=== PATIENT | male | born 1935 | race Caucasian/White ===

== ENCOUNTER 2016-11-17 12:09 | Emergency (ER) | payer OTHER, MEDICARE ==
[2016-11-17 12:15] VITALS: BP 151/83; PULSE 77; TEMP 98; BMI 40.1
--- NOTE | 2016-11-17 15:50 | PDOC ---
History of Present Illness - General Chief Complaint: Injury Stated Complaint: FALL, RT SIDE PAIN Time Seen by Provider: 11/17/16 12:22 History Source: Patient Exam Limitations: No Limitations - History of Present Illness Initial Comments: 11/17/16 15:44 CC pain left hip left shoulder and right elbow post fall ysday Severity: reports: mild Pain Location: reports: lower extremity, upper extremity Method of Injury: Yes: fall Past History - Past Medical History Allergies/Adverse Reactions: Allergies Allergy/AdvReac Type Severity Reaction Status Date / Time Penicillins Allergy Mild "BAD Verified 11/17/16 12:12 REACTION" Home Medications: Ambulatory Orders Allopurinol [Zyloprim -] 100 mg PO BID 06/06/14 Arformoterol Tartrate [Brovana] 15 mcg IH BID 06/06/14 Budesonide [Pulmicort 0.25 mg -] 1 neb PO BID 06/06/14 Captopril 50 mg PO BID 06/06/14 Cholecalciferol (Vitamin D3) [Vitamin D] 2,000 unit PO DAILY 06/06/14 Clopidogrel Bisulfate [Plavix -] 75 mg PO DAILY 06/06/14 [place]-3 Fatty Acids [Fish Oil] 2,000 mg PO DAILY 06/06/14 Simvastatin [Zocor -] 40 mg PO HS 06/06/14 Vitamin B Complex 1 each PO DAILY 06/06/14 Anemia: Yes (IRON DEFICIENCY ANEMIA) Asthma: Yes Cancer: Yes (BLADDER) Cardiac Disorders: Yes CVA: No COPD: Yes Dementia: No Diabetes: No Dialysis: No GI Disorders: No Disorders: No HTN: Yes Hypercholesterolemia: Yes Liver Disease: No Seizures: No Thyroid Disease: No - Surgical History Abdominal Surgery: No Appendectomy: Yes (1998) Cardiac Surgery: Yes (STENT X 1) Lung Surgery: No Neurologic Surgery: No - Psycho/Social/Smoking Cessation Hx Anxiety: No Suicidal Ideation: No Smoking Status: Yes Smoking History: Former smoker Have you smoked in the past 12 months: No Information on smoking cessation initiated: No Hx Alcohol Use: No Drug/Substance Use Hx: No Substance Use Type: None Hx Substance Use Treatment: No Trauma Specific PMHX - Complaint Specific PMHX Arthritis: Yes Review of Systems - Review of Systems Constitutional: No: Chills, Fever, Malaise HEENTM: No: Symptoms Reported, Mouth Swelling Respiratory: No: Symptoms reported, Cough Cardiac (ROS): No: Symptoms Reported ABD/GI: No: Symptoms Reported : No: Symptoms Reported Musculoskeletal: Yes: Joint Pain, Joint Swelling. No: Back Pain, Neck Pain *Physical Exam - Vital Signs Last Vital Signs Temp Pulse Resp BP Pulse Ox 98.0 F 77 18 151/83 100 11/17/16 12:12 11/17/16 12:12 11/17/16 12:12 11/17/16 12:12 11/17/16 12:12 - Physical Exam General Appearance: Yes: Appropriately Dressed. No: Apparent Distress HEENT: positive: TMs Normal, Pharynx Normal Neck: positive: Supple. negative: Tender, Rigid, Lymphadenopathy (R), Lymphadenopathy (L) Respiratory/Chest: positive: Lungs Clear. negative: Accessory Muscle Use Cardiovascular: positive: Regular Rhythm, Regular Rate. negative: Murmur Male Genitalia: positive: normal genitalia. negative: normal prostate ED Treatment Course - RADIOLOGY Radiology Studies Ordered: Category Date Time Status LOWER EXTREMITY CT W/O CONTR [CT] Stat CT Scan 11/17/16 14:37 Completed ELBOW-RIGHT [RAD] Stat Radiology 11/17/16 12:49 Completed HIP-LEFT [RAD] Stat Radiology 11/17/16 12:49 Completed SHOULDER-LEFT [RAD] Stat Radiology 11/17/16 12:49 Completed Medical Decision Making - Medical Decision Making 11/17/16 15:47 CT scan left hip/ pelvis= no fxs, susp. lesions; xray shoulder, elbow negative ; will send home with percocet *DC/Admit/Observation/Transfer Diagnosis at time of Disposition: Contusion Qualifiers: Encounter type: initial encounter Contusion area: elbow Laterality: left Qualified Code(s): S50.02XA - Contusion of left elbow, initial encounter Strain of left shoulder Qualifiers: Encounter type: initial encounter Qualified Code(s): S46.912A - Strain of unspecified muscle, fascia and tendon at shoulder and upper arm level, left arm , initial encounter - Discharge Dispostion Disposition: HOME Condition at time of disposition: Stable Admit: No - Patient Instructions Additional Instructions: please use cane x 3-4 days; see local MD 1 week if any new symptoms start
== END 2016-11-17 16:01 | disposition home or self-care (01) ==
LOC: JERFT 12:09
DX: S50.01XA Contusion of right elbow, initial encounter (principal); S46.912A Strain of unspecified muscle, fascia and tendon at shoulder and upper arm level, left arm, initial encounter; W18.39XA Other fall on same level, initial encounter; Y93.9 Activity, unspecified; Y92.9 Unspecified place or not applicable; Z85.51 Personal history of malignant neoplasm of bladder; Z87.891 Personal history of nicotine dependence; I10 Essential (primary) hypertension; E78.00 Pure hypercholesterolemia, unspecified; Z95.5 Presence of coronary angioplasty implant and graft; J44.9 Chronic obstructive pulmonary disease, unspecified; I51.9 Heart disease, unspecified
CPT/HCPCS: 73030-TC-LT; 73070-TC-RT; 73502-TC-LT; 73700-TC-RT; 99281-25

== ENCOUNTER 2017-07-09 15:29 | Emergency (ER) | payer OTHER, MEDICARE ==
[2017-07-09 15:50] VITALS: TEMP 98.2; BMI 38.3
[2017-07-09] MEDS ORDERED: CLINDAMYCIN HCL 300 MG CAPSULE PO ONE (16:22)
[2017-07-09] MEDS ORDERED: CLINDAMYCIN HCL 150 MG CAPSULE (FP) ONE (16:35)
--- NOTE | 2017-07-09 16:52 | PDOC ---
History of Present Illness - General History Source: Patient - History of Present Illness Timing/Duration: reports: other (3 days ago) Location: reports: extremities <Liat Morse - Last Filed: 07/09/17 16:47> <Nisha Smith - Last Filed: 07/10/17 17:17> - General Chief Complaint: Burn Stated Complaint: BURN FINGERS Time Seen by Provider: 07/09/17 16:03 Past History - Past Medical History Anemia: Yes (IRON DEFICIENCY ANEMIA) Asthma: Yes Cancer: Yes (BLADDER) Cardiac Disorders: Yes CVA: No COPD: Yes Dementia: No Diabetes: No Dialysis: No GI Disorders: No Disorders: No HTN: Yes Hypercholesterolemia: Yes Liver Disease: No Seizures: No Thyroid Disease: No - Surgical History Abdominal Surgery: No Appendectomy: Yes (1998) Cardiac Surgery: Yes (STENT X 1) Lung Surgery: No Neurologic Surgery: No - Suicide/Smoking/Psychosocial Hx Smoking Status: Yes Smoking History: Former smoker Have you smoked in the past 12 months: No If you are a former smoker, when did you quit?: 15 yrs ago Information on smoking cessation initiated: No Hx Alcohol Use: No Drug/Substance Use Hx: No Substance Use Type: None Hx Substance Use Treatment: No <Liat Morse - Last Filed: 07/09/17 16:47> <Nisha Smith - Last Filed: 07/10/17 17:17> - Past Medical History Allergies/Adverse Reactions: Allergies Allergy/AdvReac Type Severity Reaction Status Date / Time Penicillins Allergy Mild "BAD Verified 07/09/17 15:50 REACTION" Home Medications: Ambulatory Orders Allopurinol [Zyloprim -] 100 mg PO BID 06/06/14 Arformoterol Tartrate [Brovana] 15 mcg IH BID 06/06/14 Budesonide [Pulmicort 0.25 mg -] 1 neb PO BID 06/06/14 Captopril 50 mg PO BID 06/06/14 Cholecalciferol (Vitamin D3) [Vitamin D] 2,000 unit PO DAILY 06/06/14 Clopidogrel Bisulfate [Plavix -] 75 mg PO DAILY 06/06/14 [place]-3 Fatty Acids [Fish Oil] 2,000 mg PO DAILY 06/06/14 Simvastatin [Zocor -] 40 mg PO HS 06/06/14 Vitamin B Complex 1 each PO DAILY 06/06/14 Clindamycin [Cleocin -] 300 mg PO Q6HPO #28 capsule 07/09/17 Review of Systems - Review of Systems Constitutional: No: Chills, Fever Integumentary: Yes: Other (burn) <Liat Morse - Last Filed: 07/09/17 16:47> *Physical Exam - Vital Signs Last Vital Signs Temp Pulse Resp BP Pulse Ox 98.2 F 92 H 18 145/61 100 07/09/17 15:38 07/09/17 15:38 07/09/17 15:38 07/09/17 15:38 07/09/17 15:38 - Physical Exam General Appearance: Yes: Appropriately Dressed. No: Apparent Distress Neck: positive: Supple Respiratory/Chest: negative: Respiratory Distress Integumentary: positive: Dry, Warm, Other (3rd degree burn to tip of R2nd and 3rd fingers w/ charred, blackened skin at tips, limited erythema to site of 2nd digit wound c/f possible early infxn, FROMI to fingers ) <Liat Morse - Last Filed: 07/09/17 16:47> - Vital Signs Last Vital Signs Temp Pulse Resp BP Pulse Ox 98.2 F 82 18 144/70 98 07/09/17 17:01 07/09/17 17:01 07/09/17 17:01 07/09/17 17:01 07/09/17 17:01 <Nisha Smith - Last Filed: 07/10/17 17:17> ED Treatment Course - Medications Given in the ED: ED Medications Discontinued Medications Generic Name Dose Route Start Last Admin Trade Name Freq PRN Reason Stop Dose Admin Clindamycin HCl 600 mg 07/09/17 16:22 07/09/17 16:34 Cleocin - PO 07/09/17 16:23 600 mg ONCE ONE Administration <Liat Morse - Last Filed: 07/09/17 16:47> - Medications Given in the ED: ED Medications Discontinued Medications Generic Name Dose Route Start Last Admin Trade Name Freq PRN Reason Stop Dose Admin Clindamycin HCl 600 mg 07/09/17 16:22 07/09/17 16:34 Cleocin - PO 07/09/17 16:23 600 mg ONCE ONE Administration <Nisha Smith - Last Filed: 07/10/17 17:17> Medical Decision Making - Medical Decision Making 07/09/17 16:54 81-year-old male history of hypertension, 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 Patient states 3 days ago while cooking , accidentally touched a hot plate. States "I burnt my finger tips off". Here today because has since noticed redness around right index wound and concern for infection. Unable to feel pain in affected fingers 2/2 neuropathy per pt. No fever or chills See exam Possibly infected 3rd degree burn to R 2nd finger, limited to tip of index only No e/o deeper infxn, i.e tenosynovitis -local wound care and dressing w/ bacitracin, xeroform, gauze -dc w/ abx -wound check in 48 hrs 07/09/17 17:01 <Liat Morse - Last Filed: 07/09/17 16:47> *DC/Admit/Observation/Transfer <Liat Morse - Last Filed: 07/09/17 16:47> - Attestations Physician Attestion: I reviewed the case with the mid-level practitioner and agree with the mid- level practitioner's assessment, diagnosis and disposition. <Nisha Smith - Last Filed: 07/10/17 17:17> Diagnosis at time of Disposition: Burn of finger Qualifiers: Encounter type: initial encounter Laterality: right Burn degree: full thickness (3rd degree) Qualified Code(s): T23.321A - Burn of third degree of single right finger (nail) except thumb, initial encounter - Discharge Dispostion Disposition: HOME Condition at time of disposition: Stable - Prescriptions Prescriptions: Clindamycin [Cleocin -] 300 mg PO Q6HPO #28 capsule - Referrals Referrals: Doug Griffith MD [Primary Care Provider] - - Patient Instructions Printed Discharge Instructions: DI for [facility] Additional Instructions: Dress and careful wound as discussed in the ED. Take antibiotics as prescribed. Return to the ED on Wednesday for wound check. Return sooner if symptoms worsen Addendum entered and electronically signed by Liat Morse PA 07/09/17 17:01 : Pt states tetanus UTD
[2017-07-09 17:02] VITALS: BP 144/70; PULSE 82
== END 2017-07-09 17:00 | disposition home or self-care (01) ==
LOC: JER 15:29
DX: T23.321A Burn of third degree of single right finger (nail) except thumb, initial encounter (principal); J44.9 Chronic obstructive pulmonary disease, unspecified; D50.9 Iron deficiency anemia, unspecified; Y27.9XXA Contact with unspecified hot objects, undetermined intent, initial encounter; Y93.G1 Activity, food preparation and clean up; Y92.9 Unspecified place or not applicable
CPT/HCPCS: 99281-25

== ENCOUNTER 2017-07-11 13:01 | Emergency (ER) | payer OTHER, MEDICARE ==
[2017-07-11 13:09] VITALS: BP 142/94; PULSE 86; TEMP 98.2; BMI 38.3
[2017-07-11] MEDS ORDERED: DIPHTH,PERTUSS(ACELL),TET 0.5 ML DISP.SYRIN IM ONE ×2 (13:56→14:39)
--- NOTE | 2017-07-11 13:59 | PDOC ---
Suture Removal/Wound Check HPI - History of Present Illness Chief Complaint: Revisit,Wound Recheck Stated Complaint: REVISIT/ BURN Time Seen by Provider: 07/11/17 13:45 History Source: Yes: Patient Exam Limitations: Yes: No Limitations Treated at: [facility] ED - Previous ED Treatment Type of procedure performed on last visit: Yes: Burn Dressing Tetanus Immunization: Yes: Up to Date Antibiotics Prescribed: Yes (not taking ) - Onset of Previous Treatment Comment:: 07/11/17 14:19 Stained significant ospina to his right index and third fingertips 4 days ago. Has peripheral neuropathy and states cleaned at hot plate that he had used to cook on with a sponge. States woke up the following day and saw large blisters to the distal tips of those fingers. States has no sensation in his fingertips and was unaware that he had injured himself. Came for evaluation 2 days ago to this emergency department where wounds were cleaned and dressed with Xeroform gauze. He was instructed to return to this emergency department for evaluation which she did. Was prescribed antibiotic 07/11/17 19:43 Past History - Travel Traveled outside of the country in the last 30 days: No Close contact w/someone who was outside of country & ill: No - Past Medical History Allergies/Adverse Reactions: Allergies Allergy/AdvReac Type Severity Reaction Status Date / Time Penicillins Allergy Mild "BAD Verified 07/11/17 13:09 REACTION" Home Medications: Ambulatory Orders Allopurinol [Zyloprim -] 100 mg PO BID 06/06/14 Arformoterol Tartrate [Brovana] 15 mcg IH BID 06/06/14 Budesonide [Pulmicort 0.25 mg -] 1 neb PO BID 06/06/14 Captopril 50 mg PO BID 06/06/14 Cholecalciferol (Vitamin D3) [Vitamin D] 2,000 unit PO DAILY 06/06/14 Clopidogrel Bisulfate [Plavix -] 75 mg PO DAILY 06/06/14 [place]-3 Fatty Acids [Fish Oil] 2,000 mg PO DAILY 06/06/14 Simvastatin [Zocor -] 40 mg PO HS 06/06/14 Vitamin B Complex 1 each PO DAILY 06/06/14 Clindamycin [Cleocin -] 300 mg PO Q6HPO #28 capsule 07/09/17 Anemia: Yes (IRON DEFICIENCY ANEMIA) Asthma: Yes Cancer: Yes (BLADDER) Cardiac Disorders: Yes CVA: No COPD: Yes Dementia: No Diabetes: No Dialysis: No GI Disorders: No Disorders: No HTN: Yes Hypercholesterolemia: Yes Liver Disease: No Seizures: No Thyroid Disease: No Other medical history: obesity - Surgical History Abdominal Surgery: No Appendectomy: Yes (1998) Cardiac Surgery: Yes (STENT X 1) Lung Surgery: No Neurologic Surgery: No - Suicide/Smoking/Psychosocial Hx Smoking Status: Yes Smoking History: Never smoked Have you smoked in the past 12 months: No If you are a former smoker, when did you quit?: 15 yrs ago Information on smoking cessation initiated: No Hx Alcohol Use: No Drug/Substance Use Hx: No Substance Use Type: None Hx Substance Use Treatment: No Suture Removal/Wound Check PE - Physical Exam Laceration/Wound Check Symptoms: reports: None Comments: 07/11/17 19:44 Patient with pale nonviable tissue extending to midpoint distal phalanx of right index finger with denuded skin and nonblanching to distal tip. Nail appears nonvascularized.. Distal right digit with nonblanching wound to distal digit approximately 1 cm, patient has no pain but has total loss of sensation to all fingers and both hands. Range of motion is intact to all digits. Current Severity Level: None Maximum Severity Level: None Pain Localization: None *Review of Systems - Review of Systems Able to Perform ROS?: Yes Constitutional: Yes: See HPI. No: Symptoms Reported, Fever HEENTM: No: Symptoms Reported Respiratory: No: Symptoms reported Musculoskeletal: Yes: Symptoms Reported, See HPI Integumentary: Yes: Symptoms Reported, See HPI Neurological: No: Symptoms reported All Other Systems: Reviewed and Negative Medical Decision Making - Medical Decision Making 07/11/17 14:[address] Ly who recommends Xeroform gauze, dressings, and he will see him in his office for reevaluation and potential grafting. 07/11/17 14:22 07/11/17 14:22 07/11/17 14:22 07/11/17 19:45 *DC/Admit/Observation/Transfer Diagnosis at time of Disposition: Visit for wound check Burn of finger Qualifiers: Encounter type: subsequent encounter Laterality: right Burn degree: full thickness (3rd degree) Qualified Code(s): T23.321D - Burn of third degree of single right finger (nail) except thumb, subsequent encounter - Discharge Dispostion Disposition: HOME Condition at time of disposition: Stable Admit: No - Referrals Referrals: Doug Griffith MD [Primary Care Provider] - Derek Ly MD [Staff Physician] - - Patient Instructions Printed Discharge Instructions: DI for Debridement of a Wound, Infection, or Burn Additional Instructions: , Avoid any heavy lifting or strenuous activity until wound healed or cleared by physician To keep hand elevated Keep hand weighed avoid wetting of dressing as will be evaluated by physician Dr. Ly's office tomorrow after 9 AM to organize an appointment for either tomorrow or following day
== END 2017-07-11 15:10 | disposition home or self-care (01) ==
LOC: JERFT 13:01
PROC: 2W2JX4Z Dressing of Right Finger using Bandage (ICD-10-PCS; principal; 2017-07-11)
DX: T23.331D Burn of third degree of multiple right fingers (nail), not including thumb, subsequent encounter (principal); T23.321D Burn of third degree of single right finger (nail) except thumb, subsequent encounter; Y93.G1 Activity, food preparation and clean up; Y92.010 Kitchen of single-family (private) house as the place of occurrence of the external cause; D50.8 Other iron deficiency anemias; J44.9 Chronic obstructive pulmonary disease, unspecified; J45.909 Unspecified asthma, uncomplicated; Z95.5 Presence of coronary angioplasty implant and graft; Z87.891 Personal history of nicotine dependence; X19.XXXD Contact with other heat and hot substances, subsequent encounter
CPT/HCPCS: 16020; 90715; 99281-25

== ENCOUNTER 2017-08-06 11:47 | Inpatient (IN) | payer OTHER, MEDICARE ==
[2017-08-06 11:50] VITALS: BMI 38.3
--- NOTE | 2017-08-06 12:04 | PDOC ---
History of Present Illness - General Chief Complaint: Rectal Bleed Stated Complaint: RECTAL BLEED Time Seen by Provider: 08/06/17 12:03 History Source: Patient - History of Present Illness Initial Comments: 08/06/17 12:29 CC: Acute onset of rectal bleed Patient is a 81 y.o. male with a PMH of HTN, COPD (not on home O2) Bladder CA (s /p urostomy bag), gout and DLD who presents c/o 2 episode of bright red blood in his stool. Patient notes he felt like he was having diarrhea, but looked down and saw bright red blood and not much stool. Patient denies any associated abdominal pain or cramping as well any shortness of breath, lightheadedness, hematuria/dysuria but does endorse increased urgency for bowel movement. Patient notes he had a colonoscopy > 10 years previous that was normal and notes both of his brothers have diverticulosis and there is a possible h/o colon cancer in his father but he is not certain. Surgical: Bladder resection, Prostate resection, Appendectomy Social: denies cigarettes, quit > 10 years previous, denies alcohol, denies recreational drugs Allergies: Penicillin PMD: Dr. Barnett Past History - Past Medical History Allergies/Adverse Reactions: Allergies Allergy/AdvReac Type Severity Reaction Status Date / Time Penicillins Allergy Mild "BAD Verified 08/06/17 11:48 REACTION" Home Medications: Ambulatory Orders Allopurinol [Zyloprim -] 100 mg PO BID 06/06/14 Cholecalciferol (Vitamin D3) [Vitamin D] 2,000 unit PO DAILY 06/06/14 Clopidogrel Bisulfate [Plavix -] 75 mg PO DAILY 06/06/14 [place]-3 Fatty Acids [Fish Oil] 2,000 mg PO DAILY 06/06/14 Simvastatin [Zocor -] 40 mg PO HS 06/06/14 Vitamin B Complex 1 each PO DAILY 06/06/14 Anemia: Yes (IRON DEFICIENCY ANEMIA) Asthma: Yes Cancer: Yes (BLADDER) Cardiac Disorders: Yes CVA: No COPD: Yes Dementia: No Diabetes: No Dialysis: No GI Disorders: No Disorders: No HTN: Yes Hypercholesterolemia: Yes Liver Disease: No Seizures: No Thyroid Disease: No - Surgical History Abdominal Surgery: Yes Appendectomy: Yes (1998) Cardiac Surgery: Yes (STENT X 1) Lung Surgery: No Neurologic Surgery: No - Suicide/Smoking/Psychosocial Hx Smoking Status: Yes Smoking History: Former smoker Have you smoked in the past 12 months: No If you are a former smoker, when did you quit?: 1999 Information on smoking cessation initiated: No Hx Alcohol Use: No Drug/Substance Use Hx: No Substance Use Type: None Hx Substance Use Treatment: No Review of Systems - Review of Systems Constitutional: No: Chills, Fever Respiratory: No: Cough, Shortness of Breath Cardiac (ROS): No: Chest Pain ABD/GI: Yes: Blood Streaked Bowels. No: Constipated, Diarrhea, Nausea, Vomiting , Abdominal cramping : No: Burning, Dysuria All Other Systems: Reviewed and Negative *Physical Exam - Vital Signs Last Vital Signs Temp Pulse Resp BP Pulse Ox 97.4 F L 94 H 18 152/89 99 08/06/17 11:48 08/06/17 11:48 08/06/17 11:48 08/06/17 11:48 08/06/17 11:48 - Physical Exam General Appearance: Yes: Nourished, Obese Neck: positive: Trachea midline, Supple Respiratory/Chest: positive: Lungs Clear, Normal Breath Sounds Cardiovascular: positive: S1, S2 Gastrointestinal/Abdominal: positive: Normal Bowel Sounds, Soft, Protuberent. negative: Guarding, Rebound Rectal Exam: positive: normal rectal tone. negative: hemorrhoids Musculoskeletal: negative: CVA Tenderness Integumentary: positive: Normal Color, Dry, Warm Neurologic: positive: geriatric nurse II-XII NML intact, Fully Oriented, Alert ED Treatment Course - LABORATORY CBC & Chemistry Diagram: 08/06/17 12:10 08/06/17 12:30 Medical Decision Making - Medical Decision Making 08/06/17 12:39 Patient is a 81 y.o. male who presents with acute onset of rectal bleed. PE is negative for external hemhroids. Initial DDx is Diverticular Disease vs. Angiodysplasia vs. Colorectal Carcinoma vs. IBD (less likely) PLAN: 1. CBC, CMP, Coags, Type and Screen 2. FOBT (+) Reassess 08/06/17 14:08 Patient's CBC shows no acute anemia. FOBT (+). As patient continues to have bloody BM while in ED as well as c/o of "dizziness" decision to admit for observation. Patient's PMD, Dr. Barnett agrees with admission, admits under [facility]. 08/06/17 14:29 Dr. Ricks paged. EKG shows NSR (HR 83), normal intervals, no ST segment elevations/depression indicating ischemic process. 08/06/17 14:32 Patient accepted for admission under Dr. Ricks. *DC/Admit/Observation/Transfer Diagnosis at time of Disposition: Rectal hemorrhage - Discharge Dispostion Condition at time of disposition: Good Admit: Yes - Referrals Referrals: Doug Griffith MD [Primary Care Provider] -
--- NOTE | 2017-08-06 12:09 | PDOC ---
Attending Attestation - ED Attending Attestation I have performed the following: I have examined & evaluated the patient, The case was reviewed & discussed with the resident, I agree w/resident's findings & plan, Exceptions are as noted <Manan Chairez - Last Filed: 08/06/17 12:09> - HPI HPI: 08/06/17 13:18 The patient is a 81 year old male with a significant PMH of HTN, COPD, bladder cancer, gout, and dyslipidemia who presents to the emergency department after 2 episodes of red blood in stool. Previous significant surgical Hx of bladder resection & prostate resection. - Physicial Exam PE: 08/06/17 14:10 Vitals: Triage Vital signs reviewed General Appearance: no acute distress, well nourished well developed, Cardiac: Regular rate and rhythm, no murmurs, no rubs, no gallops, Lungs: Clear to auscultation bilateral, good air movement bilaterally, Abdomen: Soft, nondistended, normal bowel sounds, nontender to palpation Rectal: Normal. Extremities: Full range of motion to all extremities, no cyanosis, clubbing, or edema Skin: Warm and dry, no rashes or lesions, no petechiae Neuro: AOX3; Cranial Nerves 2-12 grossly c intact, Strength intact to all extremities, Sensation intact to all extremities, gait normal Psych: normal mood, normal affect - Medical Decision Making 08/06/17 13:19 Plan: Labs: CBC, CMP, Coags, Type and Screen FOBT <Eliezer Barriga - Last Filed: 08/06/17 14:18> Heart Score/ECG Review #1 08/06/17 14:18 Vent rate 83 bpm Normal sinus rhythm Normal ECG <Eliezer Barriga - Last Filed: 08/06/17 14:18>
[2017-08-06 12:51] LABS: RDW 14.4 % (11.9-15.9)
[2017-08-06 12:55] LABS: BASOPHIL 0.9 % (0-2.0); MCHC 33.2 g/dl (32.0-35.9); MEAN CELL VOLUME 87.3 fl (80-96); MEAN PLT VOLUME 9.5 fl (7.5-11.1); NEUTROPHILS 64.3 % (42.8-82.8); PLATELET COUNT 206 K/MM3 (134-434); WHITE BLOOD COUNT 9.5 K/mm3 (4.0-10.0)
[2017-08-06 13:16] LABS: ALBUMIN 1.8 g/dl (3.4-5.0); ANION GAP 4 (8-16); BILIRUBIN,TOTAL 0.3 mg/dL (0.2-1.0); CALCIUM 9.2 mg/dL (8.5-10.1); CO2 34 mmol/L (21-32); CREATININE 0.3 mg/dL (0.7-1.3); GLUCOSE,RANDOM 91 mg/dL (74-106); SGOT/AST 17 U/L (15-37); SGPT/ALT 15 U/L (12-78); TOT PROT 6.4 g/dl (6.4-8.2)
[2017-08-06 13:17] LABS: ALK PHOS 166 U/L (45-117)
[2017-08-06 13:22] LABS: INR 0.93 (0.82-1.09); PROTHROMBIN TIME (PATIENT) 10.5 SEC (9.98-11.88)
[2017-08-06 13:24] LABS: ACTIVATED PTT 29.7 SECONDS (26.9-34.4)
[2017-08-06] MEDS ORDERED: ONDANSETRON 4 MG/2 ML VIAL IVPUSH PRN (15:14)
[2017-08-06] MEDS ORDERED: ACETAMINOPHEN 325 MG TABLET (FP) PO PRN (15:14)
[2017-08-06] MEDS: SODIUM CHLORIDE 1,000 ML IV SCH (15:15)
--- NOTE | 2017-08-06 15:19 | PN ---
Progress Note (short form) - Note Progress Note: The patient was seen by Dr Rogel in 2013. Please reach out to him/his group first. I am available to consult if needed
--- NOTE | 2017-08-06 15:22 | HP ---
Admitting History and Physical - Primary Care Physician PCP: Doug Griffith - Admission Chief Complaint: I have rectal bleeding History of Present Illness: Mr Schultz is a pleasant 81 year old male who comes in with three episodes of rectal bleeding. He says he has been feeling well. This morning he went to use the bathroom and had a large amount of bleeding. It was darker red blood with some clots at first, then later two episodes it was bright red blood without clots. It was not associated with bowel movements. His last bowel movement was yesterday and it was normal. He denies melena. He denies abdominal pain, nausea , vomiting. He had some slight lightheadedness but this has now resolved. He denies fevers, chills, passing out, chest pain, worsening shortness of breath ( he has a history of COPD and this is stable and unchanged), or leg swelling. He is currently feeling hungry. History Source: Patient Limitations to Obtaining History: No Limitations - Past Medical History Cardiovascular: Yes: HTN Pulmonary: Yes: COPD Renal/: Yes: Cancer (bladder) Rheumatology: Yes: Gout - Past Surgical History Past Surgical History: Yes: Appendectomy, Prostatectomy Additional Past Surgical History: bladder resection - Smoking History Smoking history: Former smoker Have you smoked in the past 12 months: No If you are a former smoker, when did you quit?: 1999 - Alcohol/Substance Use Hx Alcohol Use: No History of Substance Use: reports: None - Social History ADL: Independent History of Recent Travel: No Home Medications - Allergies Allergies/Adverse Reactions: Allergies Allergy/AdvReac Type Severity Reaction Status Date / Time Penicillins Allergy Mild "BAD Verified 08/06/17 11:48 REACTION" - Home Medications Home Medications: Ambulatory Orders Allopurinol [Zyloprim -] 100 mg PO BID 06/06/14 Cholecalciferol (Vitamin D3) [Vitamin D] 2,000 unit PO DAILY 06/06/14 Clopidogrel Bisulfate [Plavix -] 75 mg PO DAILY 06/06/14 [place]-3 Fatty Acids [Fish Oil] 2,000 mg PO DAILY 06/06/14 Simvastatin [Zocor -] 40 mg PO HS 06/06/14 Vitamin B Complex 1 each PO DAILY 06/06/14 Family Disease History - Family Disease History Family Disease History: CA: Father (suspected), Other: Mother (alzheimers) Review of Systems Findings/Remarks: Full review of systems obtained, as per HPI and otherwise negative Physical Examination Vital Signs: Vital Signs Temperature 36.3 C L 08/06/17 11:48 Pulse Rate 94 H 08/06/17 11:48 Respiratory Rate 18 08/06/17 11:48 Blood Pressure 152/89 08/06/17 11:48 O2 Sat by Pulse Oximetry (%) 99 08/06/17 11:48 Constitutional: Yes: No Distress, Calm, Obese Eyes: Yes: Conjunctiva Clear, EOM Intact, PERRL HENT: Yes: Atraumatic, Normocephalic Cardiovascular: Yes: Regular Rate and Rhythm. No: Gallop, Murmur, Rub Respiratory: Yes: Regular, CTA Bilaterally. No: Rales, Rhonchi, Wheezes Gastrointestinal: Yes: Normal Bowel Sounds, Soft. No: Distention, Tenderness Extremities: Yes: WNL Edema: No Labs: CBC, BMP 08/06/17 12:10 08/06/17 12:30 Problem List - Problems (1) Hematochezia Assessment/Plan: -patient presents with BRBPR -3 occurrences -admit under observation -check cbc tonight and again in am -GI consult -if bleeding resolves and H/H stable, can d/c in am -if continues and/or has significant decrease in H/H, may need inpatient colonoscopy -will hold plavix currently Code(s): K92.1 - MELENA (2) COPD (chronic obstructive pulmonary disease) Assessment/Plan: -at baseline and controlled -continue home brovana and budesonide Code(s): J44.9 - CHRONIC OBSTRUCTIVE PULMONARY DISEASE, UNSPECIFIED (3) HTN (hypertension) Assessment/Plan: -continue lisinopril -patient unsure of dose but thinks 10mg -place on lisinopril 10mg daily Code(s): I10 - ESSENTIAL (PRIMARY) HYPERTENSION (4) Gout Assessment/Plan: -continue allopurinol -not in exacerbation Code(s): M10.9 - GOUT, UNSPECIFIED (5) HLD (hyperlipidemia) Assessment/Plan: -continue statin Code(s): E78.5 - HYPERLIPIDEMIA, UNSPECIFIED
--- NOTE | 2017-08-06 16:23 | CON.GI ---
Consult Consult Specialty:: GI: Dr. Shah for Dr. Garcia Referred by:: Dr. Ton Ricks Reason for Consultation:: Rectal Bleeding - History of Present Illness Chief Complaint: I started having bleeding from my rectum History of Present Illness: 81M admitted through [facility] ER for evaluation of rectal bleeding. He describes waking up this morning at 8am with an and urge to defecate. When he used the bathroom, dark red blood was passed with associated small clots. It happened about a half hour afterwards. He then decided to seek eval at the ER. Triage vitals revealed T: 97.4 P: 94 BP: 152/89. His last blood BM was about 30 mins ago. He denies similar episodes in the past, associated abdominal pain, nausea , vomiting, chest apin or shortness of breath. He did feel somewhat lightheaded this morning. He is on Plavix given a history of cardiac stent placement and sees Dr. Silverio. He has been off of 81mg ASA for about a year now. He denies other NSAID use and last took Plavix yesterday. He believes that his last colonoscopy was 10 years ago and that polyps were removed. His father may have had a cancer but there is no known family history of colorectal cancer. - History Source History Provided By: Patient - Past Medical History Cardio/Vascular: Yes: CAD (s/p cardiac stent), HTN Pulmonary: Yes: COPD Renal/: Yes: Cancer (bladder) Rheumatology: Yes: Gout - Past Surgical History Past Surgical History: Yes: Appendectomy, Prostatectomy Additional Surgical History: Ileal conduit - Alcohol/Substance Use Hx Alcohol Use: No History of Substance Use: reports: None - Smoking History Smoking history: Former smoker Have you smoked in the past 12 months: No If you are a former smoker, when did you quit?: 1999 - Social History Usual Living Arrangement: Alone () ADL: Independent Occupation: Worked In [employer] Place of : [facility] History of Recent Travel: No Home Medications - Allergies Allergies/Adverse Reactions: Allergies Allergy/AdvReac Type Severity Reaction Status Date / Time Penicillins Allergy Mild "BAD Verified 08/06/17 11:48 REACTION" - Home Medications Home Medications: Ambulatory Orders Allopurinol [Zyloprim -] 100 mg PO BID 06/06/14 Cholecalciferol (Vitamin D3) [Vitamin D] 2,000 unit PO DAILY 06/06/14 Clopidogrel Bisulfate [Plavix -] 75 mg PO DAILY 06/06/14 [place]-3 Fatty Acids [Fish Oil] 2,000 mg PO DAILY 06/06/14 Simvastatin [Zocor -] 40 mg PO HS 06/06/14 Vitamin B Complex 1 each PO DAILY 06/06/14 Family Disease History - Family Disease History Family Disease History: CA: Father ( 60's suspected cancer), Other: Mother ( 80's alzheimer's dementia), Brother (2, healthy), Sister (2, healthy 1 sister : 70's COPD complications), Son (Obesity) Review of Systems - Review of Systems Constitutional: denies: Fever, Unintentional Wgt. Loss Cardiovascular: denies: Chest Pain, Edema, Shortness of Breath Respiratory: denies: Cough, SOB Gastrointestinal: reports: Rectal Bleeding. denies: Abdominal Pain, Constipation, Melena, Vomiting, Vomiting Blood Hematology/Lymphatic: denies: Easily Bruised Physical Exam-GI Vital Signs: Vital Signs Temperature Afeb 08/06/17 1600 Pulse Rate 90 H 08/06/17 1600 Respiratory Rate 18 08/06/17 1600 Blood Pressure 112/90 08/06/17 1600 O2 Sat by Pulse Oximetry (%) 99 08/06/17 1600 Constitutional: Yes: Calm Eyes: No: Sclera Icterus Cardiovascular: Yes: Regular Rate and Rhythm, Murmur (2/6 at RSB) Respiratory: Yes: CTA Bilaterally Gastrointestinal Inspection: Yes: Other (large pannus, large nevus on right abdominal wall, growth on right groin/spurapubic region, ileal conduit in place lower abdomen/pelvis with clear yellow urine in ostomy bag). No: Distention ...Auscultate: Yes: Normoactive Bowel Sounds ...Palpate: No: Hepatomegaly, Splenomegaly, Tenderness ...Percussion: No: Tympanitic Edema: No Neurological: Yes: Alert, Oriented Labs: INR, PTT INR 0.93 (0.82-1.09) 08/06/17 12:10 CBC, BMP 08/06/17 12:10 08/06/17 12:30 Hepatic Panel Total Bilirubin 0.3 mg/dL (0.2-1.0) 08/06/17 12:30 AST 17 U/L (15-37) D 08/06/17 12:30 ALT 15 U/L (12-78) D 08/06/17 12:30 Alkaline Phosphatase 166 U/L (45-117) H D 08/06/17 12:30 Albumin 1.8 g/dl (3.4-5.0) L D 08/06/17 12:30 Problem List - Problems (1) Rectal bleeding Assessment/Plan: Remains hemodynamically stable, HR borderline tachycardic Given painless nature of the bleed higher in the differential would be diverticular bleed. Other considerations would be cancers of the intestinal tract such as colon cancer, bleeding polyps, blood vessels, AVM's. Lower suspicion for upper GI source. I explained this to Mr. Schultz and his son who was bedside. I explained that to evaluate the source of the bleeding EGD/ Colonoscopy can be undertaken. We discusseed potential risks of the procedure like but not limited to bleeding, perforation requiring surgery to repair, infection and sedation medication effects all of which could be potentially life threatening. He has agreed to the procedures. the timing of the procedures will be determined by his clinical course. Ideally on wednesday, sooner if they need to be performed more urgently. For now: Monitor H/H Admit to monitored setting (d/w Dr. Ricks). if worsening hemodynamics / worsened bleeding, transfer to ICU setting and consider CTA for localization NPO for now except meds. If bleediing subsides/resolves can trial clears tomorrow Protonix 40mg PO daily until upper edoscopy performed Hold Plavix for now. 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 Garcia covering this evening, Dr. Rogel covering this weekend Code(s): K62.5 - HEMORRHAGE OF ANUS AND RECTUM
[2017-08-06 21:19] LABS: MCH 29.4 pg (25.7-33.7); MCHC 34.1 g/dl (32.0-35.9); MEAN CELL VOLUME 86.2 fl (80-96); MEAN PLT VOLUME 9.8 fl (7.5-11.1); PLATELET COUNT 194 K/MM3 (134-434); RDW 14.4 % (11.9-15.9); WHITE BLOOD COUNT 9.8 K/mm3 (4.0-10.0)
[2017-08-06] MEDS: ALLOPURINOL 100 MG TABLET (FP) PO SCH (21:41)
[2017-08-06] MEDS: ATORVASTATIN CA 20 MG TABLET (FP) PO SCH (21:41)
[2017-08-06] MEDS: DOCUSATE SODIUM 100 MG CAPSULE (FP) PO SCH (21:41)
[2017-08-06] MEDS ORDERED: PATIENT'S OWN MEDICATION (NON-FORMULARY) (Simvastatin 40 MG) PO SCH (22:00)
[2017-08-06] MEDS: ARFORMOTEROL TARTRATE 15 MCG/2 ML VIAL NEB SCH (22:15)
[2017-08-06] MEDS: BUDESONIDE 0.25 MG/2ML INH SUSP VIAL NEB SCH (22:35)
[2017-08-07 07:35] LABS: BASOPHIL 0.6 % (0-2.0); MCH 28.8 pg (25.7-33.7); MCHC 32.8 g/dl (32.0-35.9); MEAN CELL VOLUME 87.6 fl (80-96); MEAN PLT VOLUME 9.8 fl (7.5-11.1); NEUTROPHILS 56.9 % (42.8-82.8); PLATELET COUNT 179 K/MM3 (134-434); RDW 14.5 % (11.9-15.9); WHITE BLOOD COUNT 8.8 K/mm3 (4.0-10.0)
[2017-08-07 08:30] LABS: ANION GAP 7 (8-16); CALCIUM 8.4 mg/dL (8.5-10.1); CO2 23 mmol/L (21-32); CREATININE 1.5 mg/dL (0.7-1.3); GLUCOSE,RANDOM 95 mg/dL (74-106); MAGNESIUM 2.1 mg/dL (1.8-2.4); PHOSPHOROUS 3.5 mg/dL (2.5-4.9)
[2017-08-07] MEDS ORDERED: POLYETHYLENE GLYCOL 3350 119 GM BTL PO SCH (10:00)
[2017-08-07] MEDS ORDERED: PATIENT'S OWN MEDICATION (NON-FORMULARY) (Vitamin B Complex [Vitamin B Complex] 1 EACH) PO SCH (10:00)
[2017-08-07] MEDS ORDERED: LISINOPRIL 10 MG TABLET (FP) PO SCH (10:00)
[2017-08-07] MEDS ORDERED: FATTY ACIDS PO SCH (10:00)
[2017-08-07] MEDS ORDERED: OMEGA PO SCH (10:00)
[2017-08-07] MEDS: ARFORMOTEROL TARTRATE 15 MCG/2 ML VIAL NEB SCH ×2 (10:46→22:31)
[2017-08-07] MEDS: BUDESONIDE 0.25 MG/2ML INH SUSP VIAL NEB SCH ×2 (10:55→22:31)
[2017-08-07] MEDS ORDERED: PT OWN MED DRAWER 7, Y5N ONE (11:11)
[2017-08-07] MEDS: ALLOPURINOL 100 MG TABLET (FP) PO SCH ×2 (11:16→21:20)
[2017-08-07] MEDS: OMEGA-3 ACID ETHYL ESTERS (FATTY-ACIDS) 1 GM CAPSULE (FP) PO SCH (11:16)
[2017-08-07] MEDS: PANTOPRAZOLE 40 MG TABLET (FP) PO SCH (11:16)
[2017-08-07] MEDS: CHOLECALCIFEROL (VITAMIN D3) 1,000 UNIT TABLET (FP) PO SCH (11:16)
[2017-08-07] MEDS: DOCUSATE SODIUM 100 MG CAPSULE (FP) PO SCH ×2 (11:16→21:21)
--- NOTE | 2017-08-07 13:10 | EKG ---
Test Reason : Blood Pressure : / mmHG Vent. Rate : 083 BPM Atrial Rate : 083 BPM P-R Int : 172 ms QRS Dur : 090 ms QT Int : 390 ms P-R-T Axes : 033 001 -01 degrees QTc Int : 458 ms NORMAL SINUS RHYTHM NORMAL ECG WHEN COMPARED WITH ECG OF 06-JUN-2014 16:32, PREMATURE ATRIAL COMPLEXES ARE NO LONGER PRESENT Confirmed by HAIM POLANCO MD ([id number]) on 08/07/2017 1:09:55 PM Referred By: Confirmed By:HAIM POLANCO MD
--- NOTE | 2017-08-07 14:31 | PN ---
Progress Note, Physician Chief Complaint: admitted with c/o rectal bleed , no bleed since hospitalization History of Present Illness: HTN, Obesity, Dyslipedemia, HTN present with c/o painless rectal bleeding - Current Medication List Current Medications: Active Medications Acetaminophen (Tylenol -) 650 mg PO Q4H PRN PRN Reason: FEVER OR PAIN Allopurinol (Zyloprim -) 100 mg PO BID [facility] Last Admin: 08/07/17 11:16 Dose: 100 mg Arformoterol Tartrate (Brovana (Restricted To Pulmonology/Resp) -) 1 amp NEB BID [facility] Last Admin: 08/07/17 10:46 Dose: 1 amp Atorvastatin Calcium (Lipitor -) 20 mg PO HS [facility] Last Admin: 08/06/17 21:41 Dose: 20 mg Budesonide (Pulmicort 0.25 Mg Nebulizer -) 1 amp NEB BID [facility] Last Admin: 08/07/17 10:55 Dose: 1 amp Cholecalciferol (Vitamin D3 -) 2,000 unit PO DAILY [facility] Last Admin: 08/07/17 11:16 Dose: 2,000 unit Docusate Sodium (Colace -) 100 mg PO BID [facility] Last Admin: 08/07/17 11:16 Dose: 100 mg Sodium Chloride (Normal Saline -) 1,000 mls @ 50 mls/hr IV ASDIR HIMA Stop: 08/07/17 15:15 Last Admin: 08/06/17 15:15 Dose: 50 mls/hr Sodium Chloride (Normal Saline -) 1,000 mls @ 100 mls/hr IV ASDIR [facility] Multivitamins (Total B With C -) 1 each PO DAILY [facility] [id number] Ethyl Esters (Lovaza -) 2 gm PO DAILY [facility] Last Admin: 08/07/17 11:16 Dose: 2 gm Ondansetron HCl (Zofran Injection) 4 mg IVPUSH Q6H PRN PRN Reason: NAUSEA Pantoprazole Sodium (Protonix -) 40 mg PO DAILY [facility] Last Admin: 08/07/17 11:16 Dose: 40 mg - Objective Vital Signs: Vital Signs Temperature 98 F 08/07/17 08:01 Pulse Rate 74 08/07/17 08:01 Respiratory Rate 20 08/07/17 08:01 Blood Pressure 133/59 08/07/17 08:01 O2 Sat by Pulse Oximetry (%) 96 08/07/17 08:00 Constitutional: Yes: Well Nourished, No Distress Eyes: Yes: Conjunctiva Clear, EOM Intact HENT: Yes: Atraumatic. No: Drooling, Epistaxis Neck: Yes: Supple, Trachea Midline. No: Lymphadenopathy Cardiovascular: Yes: Regular Rate and Rhythm, S1, S2. No: Bruit, JVD, Murmur, Rub Respiratory: Yes: CTA Bilaterally Gastrointestinal: Yes: Normal Bowel Sounds, Soft Musculoskeletal: Yes: WNL, Back Pain. No: Joint Stiffness Extremities: Yes: WNL. No: Calf Tenderness, Cyanosis Edema: No Neurological: Yes: WNL, Alert, Oriented ...Motor Strength: WNL, LUE, LLE, RUE, RLE Labs: CBC, BMP 08/07/17 05:35 08/07/17 05:35 INR, PTT INR 0.93 (0.82-1.09) 08/06/17 12:10 Problem List - Problems (1) RODNEY (acute kidney injury) Assessment/Plan: hold Lisinopril IV Hydration F/U BMP in am Code(s): N17.9 - ACUTE KIDNEY FAILURE, UNSPECIFIED (2) Rectal bleeding Assessment/Plan: H/H stable will F/U GI recommondations. Code(s): K62.5 - HEMORRHAGE OF ANUS AND RECTUM (3) HTN (hypertension) Assessment/Plan: Well controlled cont all home meds Code(s): I10 - ESSENTIAL (PRIMARY) HYPERTENSION (4) COPD (chronic obstructive pulmonary disease) Assessment/Plan: Compensated cont MDI Code(s): J44.9 - CHRONIC OBSTRUCTIVE PULMONARY DISEASE, UNSPECIFIED (5) Gout Assessment/Plan: Asymptomatic cont Zyloric Code(s): M10.9 - GOUT, UNSPECIFIED (6) Dehydration Assessment/Plan: Rising BUN Creat from base line , IV and PO Hydration, Code(s): E86.0 - DEHYDRATION
[2017-08-07] MEDS: SODIUM CHLORIDE 1,000 ML IV SCH ×2 (15:03→15:04)
[2017-08-07] MEDS: VITAMIN B COMPLEX W/C COMBO TABLET (FP) PO SCH (15:04)
--- NOTE | 2017-08-07 16:01 | PN ---
GI Progress Note Subjective: GI FOR DR LAZARO NO C/O NO BM TODAY NO N/V/F/C/S NO BRBPR FEELS OK - Objective Vital Signs: Vital Signs Temperature 97.5 F L 08/07/17 14:00 Pulse Rate 79 08/07/17 14:00 Respiratory Rate 20 08/07/17 14:00 Blood Pressure 109/65 08/07/17 14:00 O2 Sat by Pulse Oximetry (%) 96 08/07/17 08:00 Constitutional: Well Nourished, No Distress, Calm Eyes: Yes: WNL (+BS SOFT/NO OBESE) Labs: CBC, BMP 08/07/17 05:35 08/07/17 05:35 INR, PTT INR 0.93 (0.82-1.09) 08/06/17 12:10 Assessment/Plan ADMIT WITH RECTAL BLEDING ON PLAVIX HEMODYNE STABLE NO C/O NO BM AT ALL NO FURTHER BLEEDING H/H STABLE FOR COLONOSCOPY 08/09/17 FOR BOWEL PREP 08/08 F/U CBC NPO AT NE MIHAELA DUMONT MD
[2017-08-07] MEDS: ATORVASTATIN CA 20 MG TABLET (FP) PO SCH (21:20)
[2017-08-08] MEDS: SODIUM CHLORIDE 1,000 ML IV SCH (01:18)
[2017-08-08 06:47] LABS: BASOPHIL 0.5 % (0-2.0); EOSINOPHIL 3.1 % (0-4.5); MCH 29.1 pg (25.7-33.7); MCHC 33.6 g/dl (32.0-35.9); MEAN CELL VOLUME 86.6 fl (80-96); MEAN PLT VOLUME 9.4 fl (7.5-11.1); NEUTROPHILS 56.9 % (42.8-82.8); PLATELET COUNT 154 K/MM3 (134-434); RDW 14.3 % (11.9-15.9); WHITE BLOOD COUNT 8.3 K/mm3 (4.0-10.0)
[2017-08-08 07:49] LABS: ANION GAP 10 (8-16); CALCIUM 8.3 mg/dL (8.5-10.1); CO2 22 mmol/L (21-32); CREATININE 1.3 mg/dL (0.7-1.3); GLUCOSE,RANDOM 91 mg/dL (74-106)
[2017-08-08] MEDS: DOCUSATE SODIUM 100 MG CAPSULE (FP) PO SCH ×2 (09:15→21:31)
[2017-08-08] MEDS: ALLOPURINOL 100 MG TABLET (FP) PO SCH ×2 (09:15→21:31)
[2017-08-08] MEDS: PANTOPRAZOLE 40 MG TABLET (FP) PO SCH (09:15)
[2017-08-08] MEDS: CHOLECALCIFEROL (VITAMIN D3) 1,000 UNIT TABLET (FP) PO SCH (09:15)
[2017-08-08] MEDS: OMEGA-3 ACID ETHYL ESTERS (FATTY-ACIDS) 1 GM CAPSULE (FP) PO SCH (09:15)
[2017-08-08] MEDS: VITAMIN B COMPLEX W/C COMBO TABLET (FP) PO SCH (09:16)
[2017-08-08] MEDS: BUDESONIDE 0.25 MG/2ML INH SUSP VIAL NEB SCH ×2 (09:45→22:54)
[2017-08-08] MEDS: ARFORMOTEROL TARTRATE 15 MCG/2 ML VIAL NEB SCH ×2 (10:12→22:53)
[2017-08-08] MEDS ORDERED: PT OWN MED DRAWER 7, Y5N ONE (12:14)
--- NOTE | 2017-08-08 12:14 | PN ---
Progress Note, Physician Chief Complaint: C/O mild rectal bleeding in am. no proctalgia History of Present Illness: HTN, Obesity, Dyslipedemia, HTN present with c/o painless rectal bleeding - Current Medication List Current Medications: Active Medications Acetaminophen (Tylenol -) 650 mg PO Q4H PRN PRN Reason: FEVER OR PAIN Allopurinol (Zyloprim -) 100 mg PO BID [facility] Last Admin: 08/08/17 09:15 Dose: 100 mg Arformoterol Tartrate (Brovana (Restricted To Pulmonology/Resp) -) 1 amp NEB BID [facility] Last Admin: 08/08/17 10:12 Dose: 1 amp Atorvastatin Calcium (Lipitor -) 20 mg PO HS [facility] Last Admin: 08/07/17 21:20 Dose: 20 mg Bisacodyl (Dulcolax -) 20 mg PO ONCE@1800 ONE Stop: 08/08/17 18:01 Budesonide (Pulmicort 0.25 Mg Nebulizer -) 1 amp NEB BID [facility] Last Admin: 08/08/17 09:45 Dose: 1 amp Cholecalciferol (Vitamin D3 -) 2,000 unit PO DAILY [facility] Last Admin: 08/08/17 09:15 Dose: 2,000 unit Docusate Sodium (Colace -) 100 mg PO BID [facility] Last Admin: 08/08/17 09:15 Dose: 100 mg Sodium Chloride (Normal Saline -) 1,000 mls @ 100 mls/hr IV ASDIR [facility] Last Admin: 08/08/17 01:18 Dose: 100 mls/hr Multivitamins (Total B With C -) 1 each PO DAILY [facility] Last Admin: 08/08/17 09:16 Dose: 1 each [place]-5-Sgiq Ethyl Esters (Lovaza -) 2 gm PO DAILY [facility] Last Admin: 08/08/17 09:15 Dose: 2 gm Ondansetron HCl (Zofran Injection) 4 mg IVPUSH Q6H PRN PRN Reason: NAUSEA Pantoprazole Sodium (Protonix -) 40 mg PO DAILY [facility] Last Admin: 08/08/17 09:15 Dose: 40 mg Polyethylene Glycol/Electrolytes (Golytely Solution -) 4,000 ml PO ONCE@1300 ONE Stop: 08/08/17 13:01 - Objective Vital Signs: Vital Signs Temperature 97 F L 08/08/17 10:00 Pulse Rate 72 08/08/17 10:13 Respiratory Rate 18 08/08/17 10:00 Blood Pressure 114/55 08/08/17 10:00 O2 Sat by Pulse Oximetry (%) 98 08/08/17 10:13 Constitutional: Yes: Well Nourished, No Distress Eyes: Yes: Conjunctiva Clear, EOM Intact HENT: Yes: Atraumatic. No: Drooling, Epistaxis Neck: Yes: Supple, Trachea Midline. No: Lymphadenopathy Cardiovascular: Yes: Regular Rate and Rhythm, S1, S2. No: Bruit, JVD, Murmur, Rub Respiratory: Yes: CTA Bilaterally Gastrointestinal: Yes: Normal Bowel Sounds, Soft Musculoskeletal: Yes: WNL, Back Pain. No: Joint Stiffness Extremities: Yes: WNL. No: Calf Tenderness, Cyanosis Edema: No Neurological: Yes: WNL, Alert, Oriented Motor Strength: WNL, LUE, LLE, RUE, RLE Labs: CBC, BMP 08/08/17 05:35 08/08/17 05:35 INR, PTT INR 0.93 (0.82-1.09) 08/06/17 12:10 Problem List - Problems (1) RODNEY (acute kidney injury) Assessment/Plan: hold Lisinopril IV Hydration F/U BMP in am Code(s): N17.9 - ACUTE KIDNEY FAILURE, UNSPECIFIED (2) Rectal bleeding Assessment/Plan: H/H stable will F/U GI recommendations, evaluted by GI schedule for colonoscopy in am.. Code(s): K62.5 - HEMORRHAGE OF ANUS AND RECTUM (3) HTN (hypertension) Assessment/Plan: Well controlled cont all home meds Code(s): I10 - ESSENTIAL (PRIMARY) HYPERTENSION (4) COPD (chronic obstructive pulmonary disease) Assessment/Plan: Compensated cont MDI Code(s): J44.9 - CHRONIC OBSTRUCTIVE PULMONARY DISEASE, UNSPECIFIED (5) Gout Assessment/Plan: Asymptomatic cont Zyloric Code(s): M10.9 - GOUT, UNSPECIFIED (6) Dehydration Assessment/Plan: Rising BUN Creat from base line , IV and PO Hydration, Code(s): E86.0 - DEHYDRATION
[2017-08-08] MEDS ORDERED: PEG 3350/NA SULF BICARB CL/KCL 4000 ML SOLN.RECON PO ONE (13:00)
--- NOTE | 2017-08-08 13:28 | PN ---
GI Progress Note Subjective: GI FOR DR LAY PT REPORTS DOING WELL NO C/O ON CLEARS PO TO BEGIN BOWEL PREP NO BM HOWEVER, HAD SOME SLIGHT RECTAL BLOODIED DISCHARGE - Objective Vital Signs: Vital Signs Temperature 97 F L 08/08/17 10:00 Pulse Rate 72 08/08/17 10:13 Respiratory Rate 18 08/08/17 10:00 Blood Pressure 114/55 08/08/17 10:00 O2 Sat by Pulse Oximetry (%) 98 08/08/17 10:13 Constitutional: Well Nourished, No Distress, Calm Eyes: Yes: WNL (+BS/SOFT/NT/ OBESE) Labs: CBC, BMP 08/08/17 05:35 08/08/17 05:35 INR, PTT INR 0.93 (0.82-1.09) 08/06/17 12:10 Assessment/Plan 81M ADMIT WITH GI BLEED ON A/C (PLAVIX) SUSPECT LGIB, NOW RESOLVED PT TO UNDERGO DX EGD/COLON ON 08/09 AT BEDSIDE, HAVE D/W PT THE PROCEDURES IN DETAIL, INCLUDING POSSIBLE RISKS OF BLEEDING/INFECTION/PERFORATION/ANESTHESIA COMPLICATIONS PT STATES HE HAS HAD THEM BOTH DONE BEFORE, HAS NO QUESTIONS AND CONSENTS F/U H/H IN AM CLEARS PO/ NPO AT DORA DUMONT MD
[2017-08-08] MEDS ORDERED: BISACODYL 5 MG TABLET.DR (FP) PO ONE (18:00)
[2017-08-08] MEDS: ATORVASTATIN CA 20 MG TABLET (FP) PO SCH (21:30)
[2017-08-09 07:01] LABS: EOSINOPHIL 3.1 % (0-4.5); MEAN CELL VOLUME 85.1 fl (80-96); MEAN PLT VOLUME 9.3 fl (7.5-11.1); NEUTROPHILS 61.6 % (42.8-82.8); PLATELET COUNT 161 K/MM3 (134-434); RDW 14.3 % (11.9-15.9); WHITE BLOOD COUNT 8.8 K/mm3 (4.0-10.0)
[2017-08-09 07:23] LABS: ANION GAP 12 (8-16); CO2 23 mmol/L (21-32); CREATININE 1.2 mg/dL (0.7-1.3); GLUCOSE,RANDOM 88 mg/dL (74-106)
[2017-08-09] MEDS ORDERED: PROPOFOL 20 ML ONE ×5 (10:03)
[2017-08-09] MEDS ORDERED: LIDOCAINE HCL/PF 2% SDV 5ML VIAL ONE (10:03)
[2017-08-09] MEDS: BUDESONIDE 0.25 MG/2ML INH SUSP VIAL NEB SCH ×2 (10:35→22:42)
[2017-08-09] MEDS: ARFORMOTEROL TARTRATE 15 MCG/2 ML VIAL NEB SCH ×2 (10:35→22:42)
--- NOTE | 2017-08-09 12:12 | PN ---
Progress Note (short form) - Note Progress Note: GI Procedure NOte: Please see EGD and colonoscopy reports. Nonbleeding erosive duodenitis was found. Colon diverticulosis is felt to be the cause of resolved bleeding but a vascular appearing semipedunculated polyp was found in the proximal transverse colon with multiple ecchymoses. I cannot exclude this as the source of bleeding. Although it appears lipomatous it should be removed before restarting Plavix. Will advance diet. If tolerated can discharge.
[2017-08-09] MEDS: DOCUSATE SODIUM 100 MG CAPSULE (FP) PO SCH ×2 (13:19→22:01)
[2017-08-09] MEDS: CHOLECALCIFEROL (VITAMIN D3) 1,000 UNIT TABLET (FP) PO SCH (13:19)
[2017-08-09] MEDS: ALLOPURINOL 100 MG TABLET (FP) PO SCH ×2 (13:19→22:00)
[2017-08-09] MEDS: OMEGA-3 ACID ETHYL ESTERS (FATTY-ACIDS) 1 GM CAPSULE (FP) PO SCH (13:20)
[2017-08-09] MEDS: VITAMIN B COMPLEX W/C COMBO TABLET (FP) PO SCH (13:20)
[2017-08-09] MEDS: PANTOPRAZOLE 40 MG TABLET (FP) PO SCH (13:20)
--- NOTE | 2017-08-09 15:08 | PN ---
Progress Note, Physician Chief Complaint: Mr Schultz says he is doing well and is without complaint. Bleeding has stopped. No cp, sob, n/v. Currently eating. - Current Medication List Current Medications: Active Medications Acetaminophen (Tylenol -) 650 mg PO Q4H PRN PRN Reason: FEVER OR PAIN Allopurinol (Zyloprim -) 100 mg PO BID [facility] Last Admin: 08/09/17 13:19 Dose: 100 mg Arformoterol Tartrate (Brovana (Restricted To Pulmonology/Resp) -) 1 amp NEB BID [facility] Last Admin: 08/09/17 10:35 Dose: Not Given Atorvastatin Calcium (Lipitor -) 20 mg PO HS [facility] Last Admin: 08/08/17 21:30 Dose: 20 mg Budesonide (Pulmicort 0.25 Mg Nebulizer -) 1 amp NEB BID [facility] Last Admin: 08/09/17 10:35 Dose: Not Given Cholecalciferol (Vitamin D3 -) 2,000 unit PO DAILY [facility] Last Admin: 08/09/17 13:19 Dose: 2,000 unit Docusate Sodium (Colace -) 100 mg PO BID [facility] Last Admin: 08/09/17 13:19 Dose: 100 mg Multivitamins (Total B With C -) 1 each PO DAILY [facility] Last Admin: 08/09/17 13:20 Dose: 1 each Dblgz-8-Axsk Ethyl Esters (Lovaza -) 2 gm PO DAILY [facility] Last Admin: 08/09/17 13:20 Dose: 2 gm Ondansetron HCl (Zofran Injection) 4 mg IVPUSH Q6H PRN PRN Reason: NAUSEA Pantoprazole Sodium (Protonix -) 40 mg PO DAILY [facility] Last Admin: 08/09/17 13:20 Dose: 40 mg - Objective Vital Signs: Vital Signs Temperature 36.6 C 08/09/17 11:15 Pulse Rate 74 08/09/17 12:00 Respiratory Rate 18 08/09/17 12:00 Blood Pressure 121/80 08/09/17 12:00 O2 Sat by Pulse Oximetry (%) 99 08/09/17 12:00 Constitutional: Yes: No Distress, Calm, Obese Cardiovascular: Yes: Regular Rate and Rhythm. No: Gallop, Murmur, Rub Respiratory: Yes: Regular, CTA Bilaterally. No: Rales, Rhonchi, Wheezes Gastrointestinal: Yes: Normal Bowel Sounds, Soft. No: Distention, Tenderness Extremities: Yes: WNL Edema: No Labs: CBC, BMP 08/09/17 06:25 08/09/17 06:25 INR, PTT INR 0.93 (0.82-1.09) 08/06/17 12:10 Problem List - Problems (1) Diverticular hemorrhage Code(s): K57.31 - DVRTCLOS OF LG INT W/O PERFORATION OR ABSCESS W BLEEDING (2) Duodenitis Code(s): K29.80 - DUODENITIS WITHOUT BLEEDING (3) Colon polyp Code(s): K63.5 - POLYP OF COLON (4) COPD (chronic obstructive pulmonary disease) Code(s): J44.9 - CHRONIC OBSTRUCTIVE PULMONARY DISEASE, UNSPECIFIED (5) HTN (hypertension) Code(s): I10 - ESSENTIAL (PRIMARY) HYPERTENSION (6) Gout Code(s): M10.9 - GOUT, UNSPECIFIED (7) HLD (hyperlipidemia) Code(s): E78.5 - HYPERLIPIDEMIA, UNSPECIFIED Assessment/Plan (1) Duodenal bleed Assessment/Plan: -s/p EGD and colonoscopy -case d/w Dr Garcia -found to have duodenitis, most likely not the cause of bleeding -found to have diverticular disease, cause of bleeding -also with colonic polyp -bleeding stopped and stable -stop plavix -restart aspirin as an outpatient -will need follow up at tertiary care center for removal of polyp Code(s): K92.1 - MELENA (2) COPD (chronic obstructive pulmonary disease) Assessment/Plan: -at baseline and controlled -continue home brovana and budesonide Code(s): J44.9 - CHRONIC OBSTRUCTIVE PULMONARY DISEASE, UNSPECIFIED (3) HTN (hypertension) Assessment/Plan: -well controlled Code(s): I10 - ESSENTIAL (PRIMARY) HYPERTENSION (4) Gout Assessment/Plan: -continue allopurinol -not in exacerbation Code(s): M10.9 - GOUT, UNSPECIFIED (5) HLD (hyperlipidemia) Assessment/Plan: -continue statin Code(s): E78.5 - HYPERLIPIDEMIA, UNSPECIFIED
[2017-08-09] MEDS: ATORVASTATIN CA 20 MG TABLET (FP) PO SCH (22:00)
[2017-08-10 07:22] LABS: BASOPHIL 0.5 % (0-2.0); EOSINOPHIL 3.5 % (0-4.5); MCH 28.7 pg (25.7-33.7); MCHC 33.5 g/dl (32.0-35.9); MEAN CELL VOLUME 85.8 fl (80-96); MEAN PLT VOLUME 9.8 fl (7.5-11.1); NEUTROPHILS 57.1 % (42.8-82.8); PLATELET COUNT 148 K/MM3 (134-434); RDW 14.3 % (11.9-15.9); WHITE BLOOD COUNT 7.8 K/mm3 (4.0-10.0)
[2017-08-10 08:15] LABS: ANION GAP 11 (8-16); CALCIUM 8.4 mg/dL (8.5-10.1); CO2 22 mmol/L (21-32); CREATININE 1.3 mg/dL (0.7-1.3); GLUCOSE,RANDOM 101 mg/dL (74-106); MAGNESIUM 1.8 mg/dL (1.8-2.4); PHOSPHOROUS 3.4 mg/dL (2.5-4.9)
[2017-08-10] MEDS: PANTOPRAZOLE 40 MG TABLET (FP) PO SCH (09:33)
[2017-08-10] MEDS: OMEGA-3 ACID ETHYL ESTERS (FATTY-ACIDS) 1 GM CAPSULE (FP) PO SCH (09:33)
[2017-08-10] MEDS: ALLOPURINOL 100 MG TABLET (FP) PO SCH (09:33)
[2017-08-10] MEDS: CHOLECALCIFEROL (VITAMIN D3) 1,000 UNIT TABLET (FP) PO SCH (09:34)
[2017-08-10] MEDS: VITAMIN B COMPLEX W/C COMBO TABLET (FP) PO SCH ×2 (09:34→09:46)
[2017-08-10] MEDS: DOCUSATE SODIUM 100 MG CAPSULE (FP) PO SCH (09:34)
[2017-08-10] MEDS: BUDESONIDE 0.25 MG/2ML INH SUSP VIAL NEB SCH (09:35)
[2017-08-10] MEDS: ARFORMOTEROL TARTRATE 15 MCG/2 ML VIAL NEB SCH (09:50)
[2017-08-10 10:12] VITALS: BP 133/85; PULSE 64; TEMP 98.4
--- NOTE | 2017-08-10 12:03 | DS ---
Physical Examination Vital Signs: Vital Signs Temperature 36.9 C 08/10/17 09:00 Pulse Rate 64 08/10/17 09:00 Respiratory Rate 20 08/10/17 09:00 Blood Pressure 133/85 08/10/17 09:00 O2 Sat by Pulse Oximetry (%) 99 08/10/17 09:00 Labs: CBC, BMP 08/10/17 05:35 08/10/17 05:35 Discharge Summary Reason For Visit: RECTAL HEMORRHAGE Current Active Problems RODNEY (acute kidney injury) (Acute) Colon polyp (Acute) Dehydration (Acute) Diverticular hemorrhage (Acute) Duodenitis (Acute) Gout (Acute) HLD (hyperlipidemia) (Acute) HTN (hypertension) (Acute) Hematochezia (Acute) Rectal bleeding (Acute) Condition: Good - Instructions Diet, Activity, Other Instructions: resume previous diet and activity. Hold plavix currently, plavix should be held until after polyp is removed. Follow up with Dr Griffith in 1 week. Referrals: Doug Griffith MD [Primary Care Provider] - Brittanie Garcia MD [Staff Physician] - Disposition: HOME - Home Medications Comprehensive Discharge Medication List: Ambulatory Orders Allopurinol [Zyloprim -] 100 mg PO BID 06/06/14 Cholecalciferol (Vitamin D3) [Vitamin D3] 2,000 unit PO DAILY 06/06/14 [place]-3 Fatty Acids [Fish Oil] 2,000 mg PO DAILY 06/06/14 Simvastatin [Zocor -] 40 mg PO HS 06/06/14 Vitamin B Complex 1 each PO DAILY 06/06/14 Arformoterol Tartrate [Brovana -] 1 amp NEB BID amp 08/10/17 Budesonide [Pulmicort 0.25 mg Nebulizer -] 1 amp NEB BID amp 08/10/17 Pantoprazole Sodium [Protonix -] 40 mg PO DAILY #30 tab.ec 08/10/17
== END 2017-08-10 13:24 | disposition home or self-care (01) | DRG 378 ==
LOC: JER 11:47 → SUPCPDRO 11:47 → JERBED 14:44 → J4W 18:17 → OBSVTOIN 08-08 22:34
PROVIDERS: ADMIT Internal Medicine; ATTEND Internal Medicine
PROC: 0DJD8ZZ Inspection of Lower Intestinal Tract, Via Natural or Artificial Opening Endoscopic (ICD-10-PCS; 2017-08-09)
PROC: 0DJ08ZZ Inspection of Upper Intestinal Tract, Via Natural or Artificial Opening Endoscopic (ICD-10-PCS; principal; 2017-08-09 11:00)
DX: K57.31 Diverticulosis of large intestine without perforation or abscess with bleeding (principal); N17.9 Acute kidney failure, unspecified; K63.5 Polyp of colon; J44.9 Chronic obstructive pulmonary disease, unspecified; I10 Essential (primary) hypertension; M10.9 Gout, unspecified; E78.5 Hyperlipidemia, unspecified; E86.0 Dehydration; K64.8 Other hemorrhoids; K44.9 Diaphragmatic hernia without obstruction or gangrene; K22.2 Esophageal obstruction; E66.9 Obesity, unspecified; Z68.38 Body mass index [BMI] 38.0-38.9, adult; K29.81 Duodenitis with bleeding
CPT/HCPCS: 36415; 71020-TC; 80048; 80053; 82272; 83735; 84100; 85025; 85027; 85610; 85730; 86850; 86900; 86901; 93005; 93010; 94640; 99282-25; G0378

== ENCOUNTER 2018-08-20 23:06 | Observation (INO) | payer OTHER, MEDICARE ==
[2018-08-21] MEDS ORDERED: ALBUTEROL SO4 2.5/IPRATROPIUM 0.5 INH SOL 3 ML VIAL.NEB. NEB ONE ×3 (00:07→21:36)
--- NOTE | 2018-08-21 00:28 | PDOC ---
History of Present Illness - General History Source: Patient Exam Limitations: No Limitations - History of Present Illness Initial Comments: 08/21/18 00:48 The patient is an 82-year-old male with past medical history significant for COPD, bladder CA, anemia, HTN, HLD, GERD, presents to the emergency department with shortness of breath. The patient presents today with shortness of breath, states he was ambulating up the stairs when he felt dyspnea, he thought he was having a heart attack. The patient states he was concerned and called EMS. The patient reports hes been having a cold for the past 3 days, associated with congestion and rhinorrhea. Denies fever, chills, chest pain, nausea, vomiting, urinary symptoms or changes in bowel habits. Allergies: Penicillins Surgical History: Appendectomy (1998) and Cardiac Stents. Prostatectomy Social history: Former smoker, no past or present use of alcohol or recreational drug use reported. PCP: Elgin Griffith <Mary Felipe - Last Filed: 08/21/18 00:47> - General History Source: Patient Exam Limitations: No Limitations <Analia Shankar - Last Filed: 08/21/18 01:58 EDT> - General Chief Complaint: Shortness of Breath Stated Complaint: SHORTNESS OF BREATH Past History <Mary Felipe - Last Filed: 08/21/18 00:47> - Past Medical History Anemia: Yes (IRON DEFICIENCY ANEMIA) Asthma: Yes Cancer: Yes (BLADDER) Cardiac Disorders: Yes CVA: No COPD: Yes Dementia: No Diabetes: No Dialysis: No GI Disorders: No Disorders: Yes HTN: Yes Hypercholesterolemia: Yes Liver Disease: No Seizures: No Thyroid Disease: No - Surgical History Abdominal Surgery: Yes Appendectomy: Yes (1998) Cardiac Surgery: Yes (STENT X 1) Lung Surgery: No Neurologic Surgery: No - Suicide/Smoking/Psychosocial Hx Smoking Status: Yes Smoking History: Former smoker Have you smoked in the past 12 months: No If you are a former smoker, when did you quit?: 1999 Information on smoking cessation initiated: No Hx Alcohol Use: No Drug/Substance Use Hx: No Substance Use Type: None Hx Substance Use Treatment: No <Analia Shankar - Last Filed: 08/21/18 01:58 EDT> - Past Medical History Allergies/Adverse Reactions: Allergies Allergy/AdvReac Type Severity Reaction Status Date / Time Penicillins Allergy Mild "BAD Verified 08/21/18 00:03 REACTION" Home Medications: Ambulatory Orders Allopurinol [Zyloprim -] 100 mg PO BID 06/06/14 Cholecalciferol (Vitamin D3) [Vitamin D3] 2,000 unit PO DAILY 06/06/14 [place]-3 Fatty Acids [Fish Oil] 2,000 mg PO DAILY 06/06/14 Simvastatin [Zocor -] 40 mg PO HS 06/06/14 Vitamin B Complex 1 each PO DAILY 06/06/14 Arformoterol Tartrate [Brovana -] 1 amp NEB BID amp 08/10/17 Budesonide [Pulmicort 0.25 mg Nebulizer -] 1 amp NEB BID amp 08/10/17 Pantoprazole Sodium [Protonix -] 40 mg PO DAILY #30 tab.ec 08/10/17 Review of Systems - Review of Systems Comments:: 08/21/18 00:48 GENERAL/CONSTITUTIONAL: No fever or chills. No weakness. HEAD, EYES, EARS, NOSE AND THROAT: + congestion and runny nose. No change in vision. No ear pain or discharge. No sore throat. CARDIOVASCULAR: (+) Shortness of breath. No chest pain. RESPIRATORY: No cough, wheezing, or hemoptysis. GASTROINTESTINAL: No nausea, vomiting, diarrhea or constipation. GENITOURINARY: No dysuria, frequency, or change in urination. MUSCULOSKELETAL: No joint or muscle swelling or pain. No neck or back pain. SKIN: No rash NEUROLOGIC: No headache, vertigo, loss of consciousness, or change in strength/ sensation. ENDOCRINE: No increased thirst. No abnormal weight change. HEMATOLOGIC/LYMPHATIC: No anemia, easy bleeding, or history of blood clots. ALLERGIC/IMMUNOLOGIC: No hives or skin allergy. <Mary Felipe - Last Filed: 08/21/18 00:47> *Physical Exam - Vital Signs Last Vital Signs Temp Pulse Resp BP Pulse Ox 98.8 F 82 20 140/78 100 08/20/18 23:49 08/20/18 23:49 08/20/18 23:49 08/20/18 23:49 08/20/18 23:58 <Mary Felipe - Last Filed: 08/21/18 00:47> - Vital Signs Last Vital Signs Temp Pulse Resp BP Pulse Ox 98.8 F 82 20 140/78 100 08/20/18 23:49 08/20/18 23:49 08/20/18 23:49 08/20/18 23:49 08/20/18 23:58 - Physical Exam Comments: 08/21/18 01:26 EDT awake alert lungs expiratory wheezing left lung base. normal effort. good airflow. heart rrr nomrg abd soft nt nd. ext wwp no edema no calf tenderness. <Analia Shankar - Last Filed: 08/21/18 01:58 EDT> Heart Score/ECG Review #1 General ECG Interpretation: Sinus Rhythm, Normal Rate (78), Normal Intervals, No acute ischemic changes <Analia Shankar - Last Filed: 08/21/18 01:58 EDT> ED Treatment Course - LABORATORY CBC & Chemistry Diagram: 08/21/18 00:21 08/21/18 00:21 - ADDITIONAL ORDERS Additional order review: 08/21/18 00:21 RBC 4.40 MCV 86.0 MCHC 34.1 RDW 15.1 MPV 9.0 Neutrophils % 66.1 Lymphocytes % 20.8 D Monocytes % 9.3 Eosinophils % 3.0 Basophils % 0.8 - Medications Given in the ED: ED Medications Discontinued Medications Generic Name Dose Route Start Last Admin Trade Name Freq PRN Reason Stop Dose Admin Albuterol/Ipratropium 1 amp 08/21/18 00:07 08/21/18 00:25 Duoneb - NEB 08/21/18 00:08 1 amp ONCE ONE Administration <Mary Felipe - Last Filed: 08/21/18 00:47> - LABORATORY CBC & Chemistry Diagram: 08/21/18 00:21 08/21/18 00:21 - RADIOLOGY Radiology Studies Ordered: Category Date Time Status CHEST X-RAY PORTABLE* [RAD] Stat Radiology 08/21/18 00:07 Ordered - Medications Given in the ED: ED Medications Discontinued Medications Generic Name Dose Route Start Last Admin Trade Name Freq PRN Reason Stop Dose Admin Albuterol/Ipratropium 1 amp 08/21/18 00:07 08/21/18 00:25 Duoneb - NEB 08/21/18 00:08 1 amp ONCE ONE Administration <Analia Shankar - Last Filed: 08/21/18 01:58 EDT> Medical Decision Making - Medical Decision Making 08/21/18 01:26 EDT 82 yo male h/o copd, htn hld cad, with stent, bladder ca s/p resection with ileal conduit here with /co sob. cough cold sxs, runny nose for 2 - 3 days. today felt extremely sob with going up stairs, thought he was having an mi. but denies chest pain. no f/c no mod factors. uses inhaled nebs twice daily. on exam pt with expiratory wheezing left base, differential: mi, chf, copd exacerbation, pna, plan cbc lytes trop ekg cxr duoneb. reasess. pt feels much improved after nebs. 08/21/18 01:57 EDT elgin hogan is pcp, material preparation worker is dr. casarez. <Analia Shankar - Last Filed: 08/21/18 01:58 EDT> *DC/Admit/Observation/Transfer - Attestations Scribe Attestion: 08/21/18 00:50 Documentation prepared by Mary Felipe, acting as medical records clerk for Analia Shankar MD. <Mary Felipe - Last Filed: 08/21/18 00:47>
[2018-08-21 00:32] LABS: BASO % 0.8 % (0-2.0); HEMATOCRIT 37.9 % (35.4-49); HEMOGLOBIN 12.9 GM/dL (11.7-16.9); LYMPH % 20.8 % (8-40); MCH 29.4 pg (25.7-33.7); MCHC 34.1 g/dl (32.0-35.9); MONO % 9.3 % (3.8-10.2); NEUT % 66.1 % (42.8-82.8); PLATELET COUNT 217 K/MM3 (134-434); RDW 15.1 % (11.9-15.9); WHITE BLOOD COUNT 9.8 K/mm3 (4.0-10.0)
[2018-08-21 00:59] LABS: ALBUMIN 3.4 g/dl (3.4-5.0); ALK PHOS 70 U/L (45-117); ANION GAP 6 MMOL/L (8-16); BILIRUBIN,TOTAL 0.3 mg/dL (0.2-1); BLOOD UREA NITROGEN 34 mg/dL (7-18); CALCIUM 8.4 mg/dL (8.5-10.1); CHLORIDE 109 mmol/L (98-107); CO2 28 mmol/L (21-32); CREATININE 1.6 mg/dL (0.55-1.3); GLUCOSE,RANDOM 113 mg/dL (74-106); N-TERMINAL BNP 777.1 pg/ml (5-450); POTASSIUM 4.2 mmol/L (3.5-5.1); SGOT/AST 45 U/L (15-37); SGPT/ALT 41 U/L (13-61); SODIUM 143 mmol/L (136-145); TOT PROT 7.2 g/dl (6.4-8.2)
[2018-08-21] MEDS ORDERED: ASPIRIN 325 MG TABLET PO ONE (01:27)
[2018-08-21] MEDS ORDERED: predniSONE 20 MG TABLET (UD) PO ONE (01:58)
[2018-08-21] MEDS ORDERED: predniSONE 20 MG TABLET (UD) ONE (02:14)
[2018-08-21] MEDS ORDERED: ASPIRIN 325 MG TABLET ONE (02:14)
--- NOTE | 2018-08-21 03:45 | HP ---
CHIEF COMPLAINT: SOB PCP: Dr. Griffith CARDIO: Dr. Matthew CROWDERM: Dr. Serra GI: Dr. Garcia HISTORY OF PRESENT ILLNESS: 82 y/o M with PMHx of COPD (Not on Home O2), Bladder cancer (s/p Chemo, resection) Anemia, HTN, HLD, Gout, and gastric bleed presents with sudden onset SOB. Patient has had a a cold for the past 3 days accompanied by Cough productive of green-yellow sputum. This evening, while climbing the stairs and reaching the top, the patient felt extremely SOB, gasping for air and feelings of lightheadedness. He then sat down on his bed, tried calling his children but was unable to reach them, and dialed for EMS. This is the first time he has experienced this. He did not experience relief until EMS placed oxygen on him. Received flu shot recently. He has not had any increase in using his rescue- nebulizer. Endorses Decreased exercise tolerance but no orthopnea (chronically uses 2 pillows to sleep). Finally, patient mentions stopping his Home lasix dose as his PCP informed him his Cr was rissing. Has not smoked cigarettes since 1999 and has not had any previous COPD Exacerbations. Denies any recent travel with extended amounts of sitting, Recent medication changes, surgeries. Denies any fevers, chills, chest pain, SOB, nausea, vomiting. 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 Residence: House, Alone Ambulation: Recently started to use a cane Family History: Allergies Penicillins Allergy (Mild, Verified 08/21/18 00:03) "BAD REACTION" HOME MEDICATIONS: Home Medications Medication Instructions Recorded Allopurinol [Zyloprim -] 100 mg PO BID 06/06/14 Cholecalciferol (Vitamin D3) 2,000 unit PO DAILY 06/06/14 [Vitamin D3] [place]-3 Fatty Acids [Fish Oil] 2,000 mg PO DAILY 06/06/14 Simvastatin [Zocor -] 40 mg PO HS 06/06/14 Vitamin B Complex 1 each PO DAILY 06/06/14 Arformoterol Tartrate [Brovana -] 1 amp NEB BID amp 08/10/17 Budesonide [Pulmicort 0.25 mg 1 amp NEB BID amp 08/10/17 Nebulizer -] Pantoprazole Sodium [Protonix -] 40 mg PO DAILY #30 tab.ec 08/10/17 REVIEW OF SYSTEMS As Per HPI PHYSICAL EXAMINATION Vital Signs - 24 hr 08/20/18 08/20/18 23:49 23:58 Temperature 98.8 F Pulse Rate 82 Respiratory 20 Rate Blood Pressure 140/78 O2 Sat by Pulse 100 100 Oximetry (%) GENERAL: A&Ox3, NAD HEAD: NCAT EYES: PERRL, EOMI EARS, NOSE, THROAT: Oropharynx clear without exudates. Moist mucous membranes. NECK: + JVD LUNGS: Breath sounds equal, clear to auscultation bilaterally. No wheezes. HEART: Regular rate and rhythm, normal S1 and S2 without murmur ABDOMEN: Obese, Soft, nontender, not distended, + bowel sounds, no guarding : Urine pouch attached below the umbilicus, draining clear yellow urine EXTREMITIES: 2+ pulses, 1+ pitting edema. NEUROLOGICAL: Cranial nerves II-XII intact. Normal speech. Steady gait with right sided limp due to pain. Gross sensation intact throughout. 5/5 Muscle strength globally. SKIN: Warm, dry Laboratory Results - last 24 hr 08/21/18 08/21/18 00:21 00:21 WBC 9.8 RBC 4.40 Hgb 12.9 Hct 37.9 D MCV 86.0 MCH 29.4 MCHC 34.1 RDW 15.1 Plt Count 217 D MPV 9.0 Absolute Neuts (auto) 6.5 Neutrophils % 66.1 Lymphocytes % 20.8 D Monocytes % 9.3 Eosinophils % 3.0 Basophils % 0.8 Nucleated RBC % 0 Sodium 143 Potassium 4.2 Chloride 109 H Carbon Dioxide 28 Anion Gap 6 L BUN 34 H Creatinine 1.6 H Creat Clearance w eGFR 41.80 Random Glucose 113 H Calcium 8.4 L Total Bilirubin 0.3 AST 45 H ALT 41 Alkaline Phosphatase 70 Creatine Kinase 309 H Creatine Kinase Index 1.4 CK-MB (CK-2) 4.4 H Troponin I 0.04 B-Natriuretic Peptide 777.1 H Total Protein 7.2 Albumin 3.4 Active Medications Heparin Sodium (Porcine) (Heparin -) 5,000 unit SQ TID [facility] Last Admin: 08/21/18 06:12 Dose: 5,000 unit ASSESSMENT/PLAN: 82 y/o M with PMHx of COPD (Not on Home O2), Bladder cancer (s/p Chemo, resection) Anemia, HTN, HLD, Gout, and gastric bleed was BIBEMS with sudden onset SOB #SOB -Likely due to fluid overload from not using Lasix; Less likely COPD, PE, PNA, R /O ACS -Was given Levaquin, Prednisone in the ED -IV Lasix 20mg x 1 -Strict I&Os, Daily weights, Monitor BMP -Well's Score 0 -Sodium restricted diet -ABG to r/o OHS -Flu Swab pending -Trend Trops -Monitor on Tele -Can consider ECHO if no recent one done -Consider Cardio consult if clinical picture worsens -Would call Cardiology or his PCP to obtain his home meds and any record of prior Echo #RODNEY -Would call his PCP to find out his baseline -Avoid Nephrotoxic meds -Trend Cr, continue to monitor #HTN -Continue home meds, will need Med Rec #FEN -PO Fluids -Lytes WNL -Sodium controlled diet #PPx -DVT: Heparin Dispo: Tele-Obs Visit type - Emergency Visit Emergency Visit: Yes ED Registration Date: 08/21/18 Care time: The patient presented to the Emergency Department on the above date and was hospitalized for further evaluation of their emergent condition. - New Patient This patient is new to me today: Yes Date on this admission: 08/22/18 - Critical Care Critical Care patient: No
--- NOTE | 2018-08-21 04:15 | PN ---
Teaching Attending Note Name of Resident: Jeniffer Marin ATTENDING PHYSICIAN STATEMENT I saw and evaluated the patient. I reviewed the resident's note and discussed the case with the resident. I agree with the resident's findings and plan as documented. SUBJECTIVE: Seen and examined; please refer to resident note for additional historical infortmation. This is a 82 y/o CM with PMH significant for COPD (stage unknown , follows with pulmonary medicine, no recent exacerbations, nonsmoker x10 years ) who presents to the ER with a CC of SOB on exertion. He got SOB when ambulating up his stairs and was concerned about having an NH and called EMS. Does not get COPD exacerbations and hasn't smoked in 10 years; some cough for the past several days. He didn't have any CP or SOB. As stated, hasn't smoked cigarettes for nearly 20 years. He has had progressive exercise intolerance for over 10 days. He is on home lasix that his PCP stopped last wednesday (so hasn 't been on it for 2 weeks) due to high creatinine (patient unsure of actual number but estimates it is near 2); he was supposed to get it rechecked as an outpatient but wasn't feeling well the day of the lab followup so he didn't go and hasn't resumed his lasix. He has had progressive LE edema extending to aproximately +1 to +2 and is symmetrical bilaterally. He denies any history of CHF. Endorses CAD with remote history of PCI done somewhere on [place] but doesn't remember which hospital; he tells me that it was done prior to him meeting Dr. Castro. Finally to note is that he never was recorded as desaturating; EMS immediately placed O2 on him and he felt better because of that. He was moved to room air in the ER and ambulated over 100 feet with us staying between 95-97% without any worsening SOB sx. 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 10 sys ROS done and is negative aside from HPI PMH and PSH reviewed and are as per chart FH asked and is noncontributory Socially denies current tobacco, EtOH, or drug abuse Allergies per EMR Home med list could not be fully obtained as pharmacy is closed; he did have a list but I am told it was lost downstairs. Will reconcile. Pending old records from PCP and cardiology OBJECTIVE: VSS, labs and imaging reviewed NAD, resting comfortably in bed, ambulates without difficulty RRR s1/2 no mgr NT ND +BS, habitus limits assessment of organomegally +1-2 pitting edema symmetric bilaterally, 7cm JVD with mild HJR present to examination, but once again the habitus of his neck limits an ultra-precise assesment Normal behavior, appropriate affect CN2-12 grossly intact, no FND, gait favors L-side due to R-sided hip pain Urine pouch is attached without issues at stoma; clear very light urine draining CXR appears clear without any amanda pneumonia; diaphragm appears normal, no infiltrates noted Labs significant for EKG without any amanda ST-T changes concerning for acute ischemia Troponin negative x1, Cr 1.6, CK elevated ASSESSMENT AND PLAN: Mr. Schultz is an 82 y/o CM presenting with shortness of breath after ambulating up his stairs; he has been off lasix and has noted some LE swelling. He is currently symptom free and on room air 1) Acute shortness of breath -Thinking that this could be likely 2/2 fluid retention due to being off lasix for the past 2 weeks; given that it was exertional and he does have risks and a positive history for CAD this could technically be an anginal equivelant though we do have compelling alternative explanation. I feel COPD is less likely in a nonsmoker for nearly 20 years who hasn't had any history of prior exacerbations who is compliant with his old therapy. Wells's score is 0 for PE making that unlikely. Furthermore, no WBC count or infiltrate on CXR and afebrile making pneumonia less likely. I would err on this being 2/2 fluid status/CV; if it reoccurs despite optimally treating his fluid status as well as ascertaining he is stable from a cardiac perspective would be inclined only then to treat for empiric COPD. Please note that as far as myself and the team can tell he never acutely desaturated and he is ambulating 100+ feet on RA staying above 95% the entire time. -Elucidate his home medication list from PCP/CV. Restart his home lasix and monitor renal function. Giving 1x dose of IV Lasix 20 and monitor output and renal function; he doesn't require a higher dose as he is completely stable on room air and a higher dose could affect his renal function. Monitor BMP and UOP. Monitor QD weights, Is and Os. Salt-restricted diet. If he is doing well after the IV dose and renal function stable I would continue him on his home dose. If clinical picture worsens consult cardiology -At high risk for [place] -Consider ABG on RA to assess for baseline obesity hypoventilation syndrome 2) History of CAD w/ remote PCI with shortness of breath -Trend troponin and monitor on telemetry. Consider echocardiogram to r/o any WMAs. If jump in troponin or clinical picture warrants consult cardio. -Puts him at risk for systolic/diastolic dysfunction -Elucidate home medications and continue; in process of getting the list. 3) History of COPD -I think his sx described in #1 are more likely from his above issues, but of course if not improved may benefit him to empirically treat for exacerbation -Continue his home inhalers. followup outpatient with pulmonary 4) History of bladder ca s/p resection -Continue with ostomy care which patient can provide; doesn't see hemeonc regularly. Nonacute and can be followed as outpatient. 5) HTN -Continue home medications with respect to Cr; avoid further nephrotoxic meds. 6) HLD -Continue home meds 7) Anemia -Monitor; Hb goal >8 8) H/O GIB -Continue home meds; was allowed to restart his aspirin when he was DC with this in the past. Will opt to continue home meds Full Code
[2018-08-21] MEDS ORDERED: HEPARIN NA (PORCINE) 5,000 UNITS/ML 1ML VIAL ONE ×3 (06:04→20:37)
[2018-08-21] MEDS: HEPARIN NA (PORCINE) 5,000 UNITS/ML 1ML VIAL SQ SCH ×3 (06:12→21:48)
[2018-08-21 06:20] LABS: BASO % 0.5 % (0-2.0); EOS % 0.4 % (0-4.5); HEMATOCRIT 38.2 % (35.4-49); HEMOGLOBIN 13.3 GM/dL (11.7-16.9); LYMPH % 11.3 % (8-40); MCH 29.9 pg (25.7-33.7); MCHC 34.7 g/dl (32.0-35.9); MEAN PLT VOLUME 9.1 fl (7.5-11.1); MONO % 2.3 % (3.8-10.2); NEUT % 85.5 % (42.8-82.8); PLATELET COUNT 211 K/MM3 (134-434); RBC 4.45 M/mm3 (4.00-5.60); RDW 14.9 % (11.9-15.9); WHITE BLOOD COUNT 10.5 K/mm3 (4.0-10.0)
[2018-08-21 06:41] LABS: ALBUMIN 3.6 g/dl (3.4-5.0); ALK PHOS 70 U/L (45-117); ANION GAP 9 MMOL/L (8-16); BILIRUBIN,TOTAL 0.4 mg/dL (0.2-1); BLOOD UREA NITROGEN 31 mg/dL (7-18); CALCIUM 8.5 mg/dL (8.5-10.1); CHLORIDE 108 mmol/L (98-107); CO2 24 mmol/L (21-32); CREATININE 1.5 mg/dL (0.55-1.3); GLUCOSE,RANDOM 153 mg/dL (74-106); MAGNESIUM 1.7 mg/dL (1.8-2.4); PHOSPHOROUS 2.7 mg/dL (2.5-4.9); POTASSIUM 4.6 mmol/L (3.5-5.1); SGOT/AST 37 U/L (15-37); SGPT/ALT 38 U/L (13-61); SODIUM 141 mmol/L (136-145); TOT PROT 7.3 g/dl (6.4-8.2)
[2018-08-21] MEDS ORDERED: FUROSEMIDE 40 MG/4 ML INJECTABLE VIAL IVPUSH ONE (07:45)
[2018-08-21] MEDS ORDERED: FUROSEMIDE 40 MG/4 ML INJECTABLE VIAL ONE (08:01)
--- NOTE | 2018-08-21 08:26 | PN ---
Progress Note, Physician Chief Complaint: Feels improved but still c/o mild chest congestion - Current Medication List Current Medications: Active Medications Active Medications Allopurinol (Zyloprim -) 100 mg PO BID [facility] Last Admin: 08/21/18 10:47 Dose: 100 mg Arformoterol Tartrate (Brovana (Restricted To Pulmonology/Resp) -) 1 amp NEB BID [facility] Last Admin: 08/21/18 10:46 Dose: 1 amp Atorvastatin Calcium (Lipitor -) 20 mg PO HS [facility] Budesonide (Pulmicort 0.25 Mg Nebulizer -) 1 amp NEB BID [facility] Last Admin: 08/21/18 10:48 Dose: 1 amp Heparin Sodium (Porcine) (Heparin -) 5,000 unit SQ TID [facility] Last Admin: 08/21/18 06:12 Dose: 5,000 unit Multivit/Ca Carb/B Cmplx/FA/Prenat (Nephro-Chrissy -) 1 tablet PO DAILY [facility] Last Admin: 08/21/18 10:46 Dose: 1 tablet Pantoprazole Sodium (Protonix -) 40 mg PO DAILY [facility] Last Admin: 08/21/18 10:47 Dose: 40 mg Prednisone (Deltasone -) 30 mg PO DAILY [facility] Last Admin: 08/21/18 10:47 Dose: 30 mg - Objective Vital Signs: Vital Signs Temperature 97.8 F 08/21/18 07:54 Pulse Rate 82 08/21/18 07:54 Respiratory Rate 18 08/21/18 07:54 Blood Pressure 154/107 H 08/21/18 07:54 O2 Sat by Pulse Oximetry (%) 100 08/21/18 07:54 Constitutional: Well Nourished, No Distress HEENT: mm moist no anemia, PERRLA, EOMI Neck: Supple, Trachea Midline. No: Lymphadenopathy Cardiovascular: Regular Rate and Rhythm, S1, S2. No: Bruit, JVD, Murmur, Rub Respiratory: Minimal basal crepts Gastrointestinal: Normal Bowel Sounds, Soft, suprapubic cystostomy bag at place Extremities: Trace edema No: Calf Tenderness, Cyanosis Neurological: Yes: WNL, Alert, OrientedMotor Strength: WNL, LUE, LLE, RUE, RLE Labs: CBC, BMP 08/21/18 06:00 08/21/18 06:00 Problem List - Problems (1) SOB (shortness of breath) Assessment/Plan: most likely combination of COD and cHF exacerbation that started last wk after getting URTI with cough and expectoration, improved after Nebs and IV Lasix will re evaluate on current therapy. Code(s): R06.02 - SHORTNESS OF BREATH (2) COPD exacerbation Assessment/Plan: Due to URTI on Levofloxacin will add PO Prednisone not on (Salmetrol+Budenoside ) at home due to insurance issue cont Duoneb and PO Levofloxacin Code(s): J44.1 - CHRONIC OBSTRUCTIVE PULMONARY DISEASE W (ACUTE) EXACERBATION (3) CHF exacerbation Assessment/Plan: known case of dHF off Lasix for past few wks developed LE swelling and SOB elevated BNP will rpt ECHO recived IV alsix F/U BMP Creat 1.5 will resume home dose Lasix 40 mg from tomorrow am Code(s): I50.9 - HEART FAILURE, UNSPECIFIED (4) HTN (hypertension) Assessment/Plan: Well controlled cont home meds Code(s): I10 - ESSENTIAL (PRIMARY) HYPERTENSION (5) CKD (chronic kidney disease) stage 3, GFR 30-59 ml/min Assessment/Plan: F/U BMP Code(s): N18.3 - CHRONIC KIDNEY DISEASE, STAGE 3 (MODERATE) (6) Gout Assessment/Plan: on Allopurinol Code(s): M10.9 - GOUT, UNSPECIFIED (7) HLD (hyperlipidemia) Assessment/Plan: On Statin cont Lipitor 20 mg daily Code(s): E78.5 - HYPERLIPIDEMIA, UNSPECIFIED (8) Carcinoma of bladder Assessment/Plan: on Suprapubic catheter Code(s): C67.9 - MALIGNANT NEOPLASM OF BLADDER, UNSPECIFIED
[2018-08-21] MEDS ORDERED: BUDESONIDE 0.25 MG/2ML INH SUSP VIAL NEB SCH (10:00)
--- NOTE | 2018-08-21 10:42 | CON.CARD ---
Consult Consult Specialty:: Cardiology Referred by:: Ryder Reason for Consultation:: shortness of breath - History of Present Illness Chief Complaint: shortness of breath History of Present Illness: 82M h/o COPD, bladder cancer, anemia, HTN, HLD, GI bleed p/w dyspnea on exertion , cough. Worsening sob when climbing stairs. no chest pain, palps, dizzy, lightheadedness. Had been feeling well prior, has chronic dyspnea on exertion but this was much worse. also noted orthopnea yesterday No prior episodes. Sees Dr. Castro for cardio. Was on lasix prior for lower ext edema, was taking twice a week, did not take this week due to RODNEY after recently seeing Dr. Patel. Given levaquin and prednisone in ER, lasix 20 mg IV x1. Trop 0.04 x 2. Feels better today, still has orthopnea but dyspnea on exertion is improving. - History Source Limitations to Obtaining History: No Limitations - Past Medical History Cardio/Vascular: Yes: CAD (s/p cardiac stent), HTN Pulmonary: Yes: COPD Renal/: Yes: Cancer (bladder) Rheumatology: Yes: Gout - Past Surgical History Past Surgical History: Yes: Appendectomy, Prostatectomy - Alcohol/Substance Use Hx Alcohol Use: No History of Substance Use: reports: None - Smoking History Smoking history: Former smoker Have you smoked in the past 12 months: No If you are a former smoker, when did you quit?: 1999 - Social History Usual Living Arrangement: Alone () ADL: Independent Occupation: Worked In [employer] History of Recent Travel: No Home Medications - Allergies Allergies/Adverse Reactions: Allergies Allergy/AdvReac Type Severity Reaction Status Date / Time Penicillins Allergy Mild "BAD Verified 08/21/18 00:03 REACTION" - Home Medications Home Medications: Ambulatory Orders Allopurinol [Zyloprim -] 100 mg PO BID 06/06/14 Cholecalciferol (Vitamin D3) [Vitamin D3] 2,000 unit PO DAILY 06/06/14 [place]-3 Fatty Acids [Fish Oil] 2,000 mg PO DAILY 06/06/14 Simvastatin [Zocor -] 40 mg PO HS 06/06/14 Vitamin B Complex 1 each PO DAILY 06/06/14 Arformoterol Tartrate [Brovana -] 1 amp NEB BID amp 08/10/17 Budesonide [Pulmicort 0.25 mg Nebulizer -] 1 amp NEB BID amp 08/10/17 Pantoprazole Sodium [Protonix -] 40 mg PO DAILY #30 tab.ec 08/10/17 Family Disease History - Family Disease History Family Disease History: CA: Father ( 60's suspected cancer), Other: Mother ( 80's alzheimer's dementia), Brother (2, healthy), Sister (2, healthy 1 sister : 70's COPD complications), Son (Obesity) Review of Systems - Review of Systems Constitutional: reports: No Symptoms Eyes: reports: No Symptoms HENT: reports: No Symptoms Neck: reports: No Symptoms Cardiovascular: reports: No Symptoms Respiratory: reports: SOB on Exertion Gastrointestinal: reports: No Symptoms Genitourinary: reports: No Symptoms Musculoskeletal: reports: No Symptoms Integumentary: reports: No Symptoms Neurological: reports: No Symptoms Endocrine: reports: No Symptoms Hematology/Lymphatic: reports: No Symptoms Psychiatric: reports: No Symptoms Vital Signs: Vital Signs Temperature 97.8 F 08/21/18 07:54 Pulse Rate 82 08/21/18 08:58 Respiratory Rate 18 08/21/18 07:54 Blood Pressure 154/107 H 08/21/18 07:54 O2 Sat by Pulse Oximetry (%) 100 08/21/18 08:58 Constitutional: Yes: No Distress, Calm Eyes: Yes: Conjunctiva Clear, EOM Intact HENT: Yes: Atraumatic, Normocephalic Neck: Yes: Supple, Trachea Midline Respiratory: Yes: Regular, Rales (eliud bases) Gastrointestinal: Yes: Normal Bowel Sounds, Soft Cardiovascular: Yes: Regular Rate and Rhythm JVD: Yes Carotid Bruit: No PMI: Non-Displaced Heart Sounds: Yes: S1, S2 Musculoskeletal: No: Back Pain Extremities: No: Cold, Cyanosis Edema: Yes Edema: LLE: 1+, RLE: 1+ Peripheral Pulses: 2+ Left Doralis Pedis, 2+ Right Dorsalis Pedis Integumentary: No: Jaundice Neurological: Yes: Alert, Oriented Psychiatric: Yes: Alert, Oriented - Other Data Labs, Other Data: CBC, BMP 08/21/18 06:00 08/21/18 06:00 Troponin, BNP 08/21/18 08/21/18 00:21 08:00 Troponin I 0.04 0.04 B-Natriuretic Peptide 777.1 H Troponin, BNP 08/21/18 08/21/18 00:21 08:00 Troponin I 0.04 0.04 B-Natriuretic Peptide 777.1 H Assessment/Plan CXR: no acute process EKG: sinus, no ischemic changes 82M h/o COPD, bladder cancer, anemia, HTN, HLD, GI bleed p/w dyspnea on exertion , cough Shortness of breath, acute CHF - Pt with JVD, rales on exam, worsening edema, c/w CHF exac - received lasix 20 mg IV x1 this morning with frequent urination per patient, not charted yet, still remains volume up - cont lasix 20 mg IV daily, monitoring Cr given h/o CKD - monitor daily standing weights, I/O, Cr - echo ordered to evaluate EF HTN - stable not on meds HLD - continue statin COPD - on prednisone, nebs per primary RODNEY - baseline not known
[2018-08-21] MEDS: VITAMIN B COMP W-C 1 EA TABLET PO SCH (10:46)
[2018-08-21] MEDS: ARFORMOTEROL TARTRATE 15 MCG/2 ML VIAL NEB SCH ×2 (10:46→22:00)
[2018-08-21] MEDS: ALLOPURINOL 100 MG TABLET (FP) PO SCH ×2 (10:47→21:48)
[2018-08-21] MEDS: predniSONE 10 MG TABLET (UD) PO SCH (10:47)
[2018-08-21] MEDS: PANTOPRAZOLE 40 MG TABLET (FP) PO SCH (10:47)
--- NOTE | 2018-08-21 11:39 | EKG ---
Test Reason : Blood Pressure : / mmHG Vent. Rate : 078 BPM Atrial Rate : 078 BPM P-R Int : 182 ms QRS Dur : 096 ms QT Int : 424 ms P-R-T Axes : 067 009 012 degrees QTc Int : 483 ms POOR DATA QUALITY, INTERPRETATION MAY BE ADVERSELY AFFECTED NORMAL SINUS RHYTHM NORMAL ECG WHEN COMPARED WITH ECG OF 06-AUG-2017 14:16, NO SIGNIFICANT CHANGE WAS FOUND Confirmed by MATT CASTILLO MD ([id number]) on 08/21/2018 11:39:10 AM Referred By: Confirmed By:MATT CASTILLO MD
[2018-08-21] MEDS ORDERED: ALBUTEROL SO4 2.5/IPRATROPIUM 0.5 INH SOL 3 ML VIAL.NEB. NEB PRN (11:45)
[2018-08-21] MEDS ORDERED: ALLOPURINOL 100 MG TABLET (FP) ONE (20:36)
[2018-08-21] MEDS ORDERED: ATORVASTATIN CA 10 MG TABLET (FP) ONE (20:36)
[2018-08-21] MEDS: ATORVASTATIN CA 20 MG TABLET (FP) PO SCH (21:48)
[2018-08-21 23:56] VITALS: BMI 38.9
[2018-08-22] MEDS: HEPARIN NA (PORCINE) 5,000 UNITS/ML 1ML VIAL SQ SCH ×3 (06:22→21:09)
[2018-08-22 07:22] LABS: BASO % 0.4 % (0-2.0); EOS % 0.5 % (0-4.5); HEMATOCRIT 39.2 % (35.4-49); HEMOGLOBIN 13.4 GM/dL (11.7-16.9); LYMPH % 21.6 % (8-40); MCH 29.6 pg (25.7-33.7); MCHC 34.2 g/dl (32.0-35.9); MEAN CELL VOLUME 86.8 fl (80-96); MEAN PLT VOLUME 9.2 fl (7.5-11.1); MONO % 11.1 % (3.8-10.2); NEUT % 66.4 % (42.8-82.8); PLATELET COUNT 255 K/MM3 (134-434); RBC 4.52 M/mm3 (4.00-5.60); RDW 15.3 % (11.9-15.9); WHITE BLOOD COUNT 13.6 K/mm3 (4.0-10.0)
[2018-08-22 07:47] LABS: ANION GAP 8 MMOL/L (8-16); BLOOD UREA NITROGEN 36 mg/dL (7-18); CALCIUM 9.4 mg/dL (8.5-10.1); CHLORIDE 105 mmol/L (98-107); CO2 26 mmol/L (21-32); CREATININE 1.8 mg/dL (0.55-1.3); GLUCOSE,RANDOM 116 mg/dL (74-106); POTASSIUM 4.3 mmol/L (3.5-5.1); SODIUM 140 mmol/L (136-145)
--- NOTE | 2018-08-22 09:25 | PN ---
Progress Note, Physician Chief Complaint: sob History of Present Illness: severe sob at home around 9pm (after climbed stairs) on 08/20. had weekly ritual surinamese food dinner with son that night. eats ham petey (take-out) frandy for lunch everyday. currently mild sob with activity/laying flat--much improved. never had cp no palpit, syncope - Current Medication List Current Medications: Active Medications Albuterol/Ipratropium (Duoneb -) 1 amp NEB Q6H PRN PRN Reason: SHORTNESS OF BREATH Last Admin: 08/21/18 21:47 Dose: 1 amp Allopurinol (Zyloprim -) 100 mg PO BID [facility] Last Admin: 08/21/18 21:48 Dose: 100 mg Arformoterol Tartrate (Brovana (Restricted To Pulmonology/Resp) -) 1 amp NEB BID [facility] Last Admin: 08/21/18 22:00 Dose: Not Given Atorvastatin Calcium (Lipitor -) 20 mg PO HS [facility] Last Admin: 08/21/18 21:48 Dose: 20 mg Furosemide (Lasix Injection -) 20 mg IVPUSH DAILY [facility] Heparin Sodium (Porcine) (Heparin -) 5,000 unit SQ TID [facility] Last Admin: 08/22/18 06:22 Dose: 5,000 unit Levofloxacin (Levaquin -) 250 mg PO 0600 [facility] Last Admin: 08/22/18 06:22 Dose: 250 mg Multivit/Ca Carb/B Cmplx/FA/Prenat (Nephro-Chrissy -) 1 tablet PO DAILY [facility] Last Admin: 08/21/18 10:46 Dose: 1 tablet Pantoprazole Sodium (Protonix -) 40 mg PO DAILY [facility] Last Admin: 08/21/18 10:47 Dose: 40 mg Prednisone (Deltasone -) 30 mg PO DAILY [facility] Last Admin: 08/21/18 10:47 Dose: 30 mg - Objective Vital Signs: Vital Signs Temperature 97.6 F 08/22/18 06:00 Pulse Rate 83 08/22/18 06:00 Respiratory Rate 18 08/22/18 08:00 Blood Pressure 126/82 08/22/18 06:00 O2 Sat by Pulse Oximetry (%) 97 08/22/18 08:00 Constitutional: Yes: No Distress, Calm Eyes: No: Sclera Icterus HENT: No: Nasal Congestion Cardiovascular: Yes: Regular Rate and Rhythm, JVD (5 cm), S1, S2, Other (PMI non diplaced). No: Gallop, Murmur Respiratory: Yes: CTA Bilaterally. No: Accessory Muscle Use, Rales, Wheezes Gastrointestinal: Yes: Normal Bowel Sounds, Soft. No: Tenderness Musculoskeletal: Yes: Other (No kyphosis) Extremities: No: Cyanosis Edema: No Integumentary: No: Jaundice Neurological: Yes: Alert, Oriented (x3) Psychiatric: No: Agitated Labs: CBC, BMP 08/22/18 05:50 08/22/18 05:50 Assessment/Plan CXR: no acute process EKG: sinus, no ischemic changes Echo 09/2017: TDS, Definity used. nl LV/EF. normal LAP. nl RV. nl LA size. valves WNL. 4.0 cm ascending aorta dobut echo 2016: no STs. no ischemia. [facility] 2006: DALE to OM1. 50-60% mLAD left alone. 82M h/o COPD, bladder cancer, anemia, HTN, HLD, GI bleed p/w dyspnea on exertion , cough Shortness of breath, acute CHF, chronic edema (likely venous insuff): - on lasix 20 mg, 2-3x/week at home prn swelling (creat permitting) - chf presently in setting of dietary sodium load (chronic) and home lasix d/c' d approx 5 days [employer]. - pt with JVD, sob/orthopnea, worsening edema c/w CHF exac - BNP 700 (vs 200 prior) - chest Xray clear, ? predominantly right sided HF process - 279 lbs here, office wt 05/2018 was 278 - receiving lasix 20 mg IV daily, with brisk diuresis response subjectively - 08/22: bun/creat trending up. pt remains volume-up with JVD. same lasix today. if no wt improvement and JVD persists tomorrow, consider lasix 40 iv trial (note : creat may be cardiorenal syndrome). - f/u echo today here--will likely need high quality echo with Definity contrast in office CAD: - h/o PCI (Tasux DALE) of OM1 in 2006. residual 50-60% mLAD lesion then - no angina since, med managed - no ischemia 2015 - no signs acute process here (ecg non-ischemic, trop neg x 2), no need for repeat ischemia eval presently - cont home plan CKD: - has one functioning kidney - baseline creat ranges 1.4-1.6. spikes to 1.8 with vol depletion/lasix HTN - not on meds - observe trend HLD - continue statin COPD - on prednisone, nebs per primary RODNEY - baseline not known
[2018-08-22] MEDS ORDERED: PT OWN MED DRAWER 7, Y5N ONE (10:04)
[2018-08-22] MEDS: ALLOPURINOL 100 MG TABLET (FP) PO SCH ×2 (10:08→21:09)
[2018-08-22] MEDS: PANTOPRAZOLE 40 MG TABLET (FP) PO SCH (10:08)
[2018-08-22] MEDS: VITAMIN B COMP W-C 1 EA TABLET PO SCH (10:08)
[2018-08-22] MEDS: predniSONE 10 MG TABLET (UD) PO SCH (10:08)
--- NOTE | 2018-08-22 10:38 | PN ---
Progress Note, Physician Chief Complaint: Pt lying in bed in no acute distress. reports sob improved. Denies any chest pain, worsening sob, n/v/d - Current Medication List Current Medications: Active Medications Albuterol/Ipratropium (Duoneb -) 1 amp NEB Q6H PRN PRN Reason: SHORTNESS OF BREATH Last Admin: 08/21/18 21:47 Dose: 1 amp Allopurinol (Zyloprim -) 100 mg PO BID [facility] Last Admin: 08/22/18 10:08 Dose: 100 mg Arformoterol Tartrate (Brovana (Restricted To Pulmonology/Resp) -) 1 amp NEB BID [facility] Last Admin: 08/21/18 22:00 Dose: Not Given Atorvastatin Calcium (Lipitor -) 20 mg PO HS [facility] Last Admin: 08/21/18 21:48 Dose: 20 mg Furosemide (Lasix Injection -) 20 mg IVPUSH DAILY [facility] Heparin Sodium (Porcine) (Heparin -) 5,000 unit SQ TID [facility] Last Admin: 08/22/18 06:22 Dose: 5,000 unit Levofloxacin (Levaquin -) 250 mg PO 0600 [facility] Last Admin: 08/22/18 06:22 Dose: 250 mg Multivit/Ca Carb/B Cmplx/FA/Prenat (Nephro-Chrissy -) 1 tablet PO DAILY [facility] Last Admin: 08/22/18 10:08 Dose: 1 tablet Pantoprazole Sodium (Protonix -) 40 mg PO DAILY [facility] Last Admin: 08/22/18 10:08 Dose: 40 mg Prednisone (Deltasone -) 30 mg PO DAILY [facility] Last Admin: 08/22/18 10:08 Dose: 30 mg - Objective Vital Signs: Vital Signs Temperature 97.6 F 08/22/18 06:00 Pulse Rate 83 08/22/18 06:00 Respiratory Rate 18 08/22/18 08:00 Blood Pressure 126/82 08/22/18 06:00 O2 Sat by Pulse Oximetry (%) 97 08/22/18 08:00 Constitutional: Yes: Well Nourished, No Distress Cardiovascular: Yes: Regular Rate and Rhythm. No: Murmur Respiratory: Yes: Regular, CTA Bilaterally, Cough, Diminished, On Nasal O2. No : Rales, SOB, Tachypnea, Wheezes Gastrointestinal: Yes: WNL, Normal Bowel Sounds, Soft, Abdomen, Obese. No: Distention, Tenderness Genitourinary: Yes: WNL Extremities: Yes: WNL Edema: Yes Edema: LLE: 1+, RLE: 1+ Neurological: Yes: WNL, Alert, Oriented Labs: CBC, BMP 08/22/18 05:50 08/22/18 05:50 Problem List - Problems (1) CHF exacerbation Assessment/Plan: acute on chronic, improving +le edema, +sob diuresis per cardiology echo pending monitor Code(s): I50.9 - HEART FAILURE, UNSPECIFIED (2) SOB (shortness of breath) Assessment/Plan: suspect 2/2 chf exacerbation Code(s): R06.02 - SHORTNESS OF BREATH (3) RODNEY (acute kidney injury) Assessment/Plan: acute on chronic suspect 2/2 diuresis hold lisinopril lasix per cardiology Code(s): N17.9 - ACUTE KIDNEY FAILURE, UNSPECIFIED (4) CKD (chronic kidney disease) stage 3, GFR 30-59 ml/min Assessment/Plan: pt has one kidney baseline Cr 1.4-1.6 Code(s): N18.3 - CHRONIC KIDNEY DISEASE, STAGE 3 (MODERATE) (5) COPD (chronic obstructive pulmonary disease) Assessment/Plan: recent URI, +cough continue prednisone/nebs levaquin day 2 pulm consulted Code(s): J44.9 - CHRONIC OBSTRUCTIVE PULMONARY DISEASE, UNSPECIFIED (6) HTN (hypertension) Assessment/Plan: slightly elevated lisinopril on hold 2/2 rodney Code(s): I10 - ESSENTIAL (PRIMARY) HYPERTENSION Qualifiers: Hypertension type: essential hypertension Qualified Code(s): I10 - Essential (primary) hypertension (7) Gout Assessment/Plan: chronic continue allopurinol Code(s): M10.9 - GOUT, UNSPECIFIED Qualifiers: Gout site: foot Chronicity: chronic (8) HLD (hyperlipidemia) Assessment/Plan: stable continue statin Code(s): E78.5 - HYPERLIPIDEMIA, UNSPECIFIED (9) CAD (coronary artery disease) Assessment/Plan: s/p PCI, 2006 no acute ACS continue current regimen Code(s): I25.10 - ATHSCL HEART DISEASE OF [place] CORONARY ARTERY W/O ANG PCTRS Qualifiers: [place] vs. transplanted heart: [place] heart Associated angina: without angina
[2018-08-22] MEDS: ARFORMOTEROL TARTRATE 15 MCG/2 ML VIAL NEB SCH ×2 (11:00→21:22)
[2018-08-22] MEDS: FUROSEMIDE 40 MG/4 ML INJECTABLE VIAL IVPUSH SCH ×2 (11:42→13:10)
--- NOTE | 2018-08-22 12:28 | CON.PULM ---
Consult Consult Specialty:: PULMONARY Referred by:: KATIANA Morton Reason for Consultation:: shortness of breath - History of Present Illness Chief Complaint: shortness of breath History of Present Illness: 82yo male with h/o HTN, hyperlipidemia, COPD, CAD s/p stent placement, h/o bladder ca who was admitted with worsening shortness of breath x 3 days. Reports a cough productive of yellow especially in the morning but clears throughout the day. No significant wheezing. No fevers, chills or sweats. No chest pain or palpitations. Does report some leg swelling and he sleeps on 2 pillows. He is a former smoker, not on home O2, maintained on nebulizer treatments. - History Source History Provided By: Patient, Medical Record Limitations to Obtaining History: No Limitations - Past Medical History Cardio/Vascular: Yes: CAD (s/p cardiac stent), HTN Pulmonary: Yes: COPD Renal/: Yes: Cancer (bladder) Rheumatology: Yes: Gout - Past Surgical History Past Surgical History: Yes: Appendectomy, Prostatectomy - Alcohol/Substance Use Hx Alcohol Use: No History of Substance Use: reports: None - Smoking History Smoking history: Former smoker Have you smoked in the past 12 months: No If you are a former smoker, when did you quit?: 1990 - Social History Usual Living Arrangement: Alone () ADL: Independent Occupation: Worked In [employer] History of Recent Travel: No Home Medications - Allergies Allergies/Adverse Reactions: Allergies Allergy/AdvReac Type Severity Reaction Status Date / Time Penicillins Allergy Mild "BAD Verified 08/21/18 00:03 REACTION" - Home Medications Home Medications: Ambulatory Orders Allopurinol [Zyloprim -] 100 mg PO BID 06/06/14 Cholecalciferol (Vitamin D3) [Vitamin D3] 2,000 unit PO DAILY 06/06/14 [place]-3 Fatty Acids [Fish Oil] 2,000 mg PO DAILY 06/06/14 Simvastatin [Zocor -] 40 mg PO HS 06/06/14 Vitamin B Complex 1 each PO DAILY 06/06/14 Arformoterol Tartrate [Brovana -] 1 amp NEB BID amp 08/10/17 Budesonide [Pulmicort 0.25 mg Nebulizer -] 1 amp NEB BID amp 08/10/17 Pantoprazole Sodium [Protonix -] 40 mg PO DAILY #30 tab.ec 08/10/17 Lisinopril 10 mg PO DAILY 08/22/18 Family Disease History - Family Disease History Family Disease History: CA: Father ( 60's suspected cancer), Other: Mother ( 80's alzheimer's dementia), Brother (2, healthy), Sister (2, healthy 1 sister : 70's COPD complications), Son (Obesity) Review of Systems - Review of Systems Constitutional: denies: Chills, Fever, Weakness Eyes: denies: Recent Change in Vision HENT: reports: Nasal Congestion Neck: denies: Stiffness, Tenderness Cardiovascular: reports: Edema, Shortness of Breath. denies: Chest Pain, Palpitations Respiratory: reports: Cough. denies: Exercise Intolerance, Hemoptysis, SOB on Exertion, Wheezing Gastrointestinal: denies: Abdominal Pain, Nausea, Vomiting Genitourinary: denies: Dysuria, Hematuria Neurological: denies: Dizziness, Headache Endocrine: denies: Unexplained Weight Loss Physical Exam Vital Sings: Vital Signs Temperature 98.4 F 08/22/18 10:00 Pulse Rate 80 08/22/18 10:00 Respiratory Rate 17 08/22/18 10:00 Blood Pressure 155/99 08/22/18 10:00 O2 Sat by Pulse Oximetry (%) 97 08/22/18 08:00 Constitutional: Yes: Calm Eyes: Yes: Conjunctiva Clear, EOM Intact HENT: Yes: Atraumatic, Normocephalic Neck: Yes: Supple, Thyromegaly Cardiovascular: Yes: Regular Rate and Rhythm Respiratory: Yes: Rales (right base) ...Clubbing: No Gastrointestinal: Yes: Normal Bowel Sounds, Soft. No: Tenderness Edema: Yes Neurological: Yes: Alert, Oriented Labs: CBC, BMP 08/22/18 05:50 08/22/18 05:50 Imaging - Results Chest X-ray: Report Reviewed, Image Reviewed (no infiltrates) Problem List - Problems (1) CHF exacerbation Code(s): I50.9 - HEART FAILURE, UNSPECIFIED (2) RODNEY (acute kidney injury) Code(s): N17.9 - ACUTE KIDNEY FAILURE, UNSPECIFIED (3) CKD (chronic kidney disease) stage 3, GFR 30-59 ml/min Code(s): N18.3 - CHRONIC KIDNEY DISEASE, STAGE 3 (MODERATE) (4) HLD (hyperlipidemia) Code(s): E78.5 - HYPERLIPIDEMIA, UNSPECIFIED (5) HTN (hypertension) Code(s): I10 - ESSENTIAL (PRIMARY) HYPERTENSION Qualifiers: Hypertension type: essential hypertension Qualified Code(s): I10 - Essential (primary) hypertension Assessment/Plan Acute CHF Exacerbation COPD CAD Acute on Chronic Renal Failure HTN Hyperlipidemia h/o Bladder CA - continue lasix - monitor urine output, creatinine - O2 to keep SpO2 >90% - echocardiogram - can d/c steroids as appears less likely COPD clinically and may help with azotemia - inhaled bronchodilators standing and PRN - outpt PFTs - DVT prophylaxis Thank you for this consult Sammy Harrison MD
--- NOTE | 2018-08-22 15:02 | ECHO ---
Name: VASQUEZ MULLIGAN Exam:Adult Echocardiogram Study Date: 08/22/2018 10:25 AM Age: 82 yrs Reason For Study: SYNCOPE Height: 71 in Weight: 279 lb BSA: 2.4 m2 MMode/2D Measurements & Calculations IVSd: 1.0 cm Ao root diam: 3.8 cm LVIDd: 5.7 cm LA dimension: 4.1 cm LVIDs: 3.9 cm ACS: 1.9 cm LVPWd: 1.1 cm IVSs: 1.2 cm LVPWs: 1.3 cm EDV(Teich): 163.1 ml ESV(Teich): 67.1 ml Doppler Measurements & Calculations MV E max bret: 91.8 cm/sec Ao V2 max: 102.1 cm/sec MV A max bret: 60.5 cm/sec Ao max P.2 mmHg MV E/A: 1.5 Ao V2 mean: 80.0 cm/sec Ao mean P.8 mmHg Ao V2 VTI: 22.0 cm MR max bret: 433.1 cm/sec TR max bret: 237.0 cm/sec MR max P.3 mmHg TR max P.6 mmHg PI end-d bret: 143.9 cm/sec Med Peak E' Bret: 6.1 cm/sec Med E/e': 14.9 Lat Peak E' Bret: 8.9 cm/sec Lat E/e': 10.4 Procedure A complete two-dimensional transthoracic echocardiogram was performed (2D, M-mode, Doppler and color flow Doppler). Left Ventricle The left ventricle is normal in size. Left ventricular systolic function is normal. Ejection Fraction = 55- 60%. Diastolic dysfunction, Grade II (pseudonormalization pattern). TDI reveals moderate diastolic dy function with elevated filling pressure (E/E' 15). No regional wall motion abnormalities noted. Right Ventricle The right ventricle is normal size. The right ventricular systolic function is normal. Atria The left atrium is mildly dilated. Right atrial size is normal. Mitral Valve There is mild mitral annular calcification. There is mild mitral regurgitation. Tricuspid Valve The tricuspid valve is normal in structure and function. Pulmonary artery systolic pressure is at lam st 33 mmHg assuming RA pressure of 3 mmHg. Aortic Valve There is mild aortic sclerosis.;. No aortic regurgitation is present. Pulmonic Valve The pulmonic valve is not well visualized. Trace pulmonic valvular regurgitation. Great Vessels The aortic root is normal size. Pericardium/Pleura There is no pericardial effusion. Interpretation Summary The left ventricle is normal in size. Left ventricular systolic function is normal. No regional wall motion abnormalities noted. Ejection Fraction = 55-60%. Diastolic dysfunction, Grade II (pseudonormalization pattern). TDI reveals moderate diastolic dyfunction with elevated filling pressure (E/E' 15) The right ventricular systolic function is normal. The left atrium is mildly dilated. Right atrial size is normal. There is mild mitral annular calcification. There is mild mitral regurgitation. Pulmonary artery systolic pressure is at least 33 mmHg assuming RA pressure of 3 mmHg There is mild aortic sclerosis. Trace pulmonic valvular regurgitation. There is no pericardial effusion. Previous study is not available for comparison Mani Guzman MD 08/22/2018 03:02 PM
[2018-08-22] MEDS: ATORVASTATIN CA 20 MG TABLET (FP) PO SCH (21:09)
[2018-08-23] MEDS: HEPARIN NA (PORCINE) 5,000 UNITS/ML 1ML VIAL SQ SCH ×2 (05:21→15:00)
[2018-08-23 06:54] LABS: ANION GAP 8 MMOL/L (8-16); BLOOD UREA NITROGEN 43 mg/dL (7-18); CHLORIDE 105 mmol/L (98-107); CO2 27 mmol/L (21-32); CREATININE 1.6 mg/dL (0.55-1.3); GLUCOSE,RANDOM 99 mg/dL (74-106); MAGNESIUM 1.8 mg/dL (1.8-2.4); POTASSIUM 4.1 mmol/L (3.5-5.1); SODIUM 139 mmol/L (136-145)
[2018-08-23 06:56] LABS: BASO % 0.8 % (0-2.0); EOS % 0.8 % (0-4.5); HEMATOCRIT 38.2 % (35.4-49); HEMOGLOBIN 13.1 GM/dL (11.7-16.9); LYMPH % 29.3 % (8-40); MCH 29.5 pg (25.7-33.7); MCHC 34.4 g/dl (32.0-35.9); MEAN CELL VOLUME 85.7 fl (80-96); MEAN PLT VOLUME 9.7 fl (7.5-11.1); MONO % 8.5 % (3.8-10.2); NEUT % 60.6 % (42.8-82.8); PLATELET COUNT 230 K/MM3 (134-434); RBC 4.46 M/mm3 (4.00-5.60); RDW 14.6 % (11.9-15.9); WHITE BLOOD COUNT 10.5 K/mm3 (4.0-10.0)
[2018-08-23] MEDS: ARFORMOTEROL TARTRATE 15 MCG/2 ML VIAL NEB SCH (07:50)
[2018-08-23] MEDS ORDERED: PT OWN MED DRAWER 7, Y5N ONE ×2 (08:45→09:04)
[2018-08-23] MEDS: ALLOPURINOL 100 MG TABLET (FP) PO SCH (09:06)
[2018-08-23] MEDS: PANTOPRAZOLE 40 MG TABLET (FP) PO SCH (09:06)
[2018-08-23] MEDS: VITAMIN B COMP W-C 1 EA TABLET PO SCH (09:06)
[2018-08-23] MEDS ORDERED: MAGNESIUM OXIDE 400 MG TABLET (FP) PO ONE (09:45)
--- NOTE | 2018-08-23 09:53 | PN ---
Progress Note (short form) - Note Progress Note: Chief Complaint: sob History of Present Illness: no sob walking down the cordon, lying down. no chest pain, palps, dizzy, lightheadedness - Current Medication List Current Medications Albuterol/Ipratropium (Duoneb -) 1 amp NEB Q6H PRN PRN Reason: SHORTNESS OF BREATH Last Admin: 08/21/18 21:47 Dose: 1 amp Allopurinol (Zyloprim -) 100 mg PO BID [facility] Last Admin: 08/23/18 09:06 Dose: 100 mg Arformoterol Tartrate (Brovana (Restricted To Pulmonology/Resp) -) 1 amp NEB BID [facility] Last Admin: 08/23/18 07:50 Dose: 1 amp Atorvastatin Calcium (Lipitor -) 20 mg PO HS [facility] Last Admin: 08/22/18 21:09 Dose: 20 mg Furosemide (Lasix Injection -) 20 mg IVPUSH DAILY [facility] Last Admin: 08/22/18 13:10 Dose: 20 mg Heparin Sodium (Porcine) (Heparin -) 5,000 unit SQ TID [facility] Last Admin: 08/23/18 05:21 Dose: 5,000 unit Levofloxacin (Levaquin -) 250 mg PO 0600 [facility] Last Admin: 08/23/18 05:21 Dose: 250 mg Multivit/Ca Carb/B Cmplx/FA/Prenat (Nephro-Chrissy -) 1 tablet PO DAILY [facility] Last Admin: 08/23/18 09:06 Dose: 1 tablet Pantoprazole Sodium (Protonix -) 40 mg PO DAILY [facility] Last Admin: 08/23/18 09:06 Dose: 40 mg Polyethylene Glycol (Miralax (For Daily Use) -) 17 gm PO BID [facility] - Objective Vital Signs: Vital Signs Period Temp Pulse Resp BP Sys/Shoemaker Pulse Ox Last 24 Hr 98.4 F-98.6 F 67-80 17-20 137-164/83-105 98 Constitutional: Yes: No Distress, Calm Eyes: No: Sclera Icterus HENT: No: Nasal Congestion Cardiovascular: Yes: Regular Rate and Rhythm, no JVD, S1, S2, Other (PMI non diplaced). No: Gallop, Murmur Respiratory: Yes: CTA Bilaterally. No: Accessory Muscle Use, Rales, Wheezes Gastrointestinal: Yes: Normal Bowel Sounds, Soft. No: Tenderness Musculoskeletal: Yes: Other (No kyphosis) Extremities: No: Cyanosis Edema: No Integumentary: No: Jaundice Neurological: Yes: Alert, Oriented (x3) Psychiatric: No: Agitated Assessment/Plan CXR: no acute process EKG: sinus, no ischemic changes Echo 09/2017: TDS, Definity used. nl LV/EF. normal LAP. nl RV. nl LA size. valves WNL. 4.0 cm ascending aorta dobut echo 2016: no STs. no ischemia. [facility] 2006: DALE to OM1. 50-60% mLAD left alone. 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 - pt with JVD, sob/orthopnea, worsening edema c/w CHF exac - BNP 700 (vs 200 prior) - chest Xray clear, ? predominantly right sided HF process - 279 lbs here, office wt 05/2018 was 278 - receiving lasix 20 mg IV daily, with brisk diuresis response subjectively - nl LV function with grade II diasolic dysfunction - 08/22: bun/creat trending up. pt remains volume-up with JVD. same lasix today. if no wt improvement and JVD persists tomorrow, consider lasix 40 iv trial (note : creat may be cardiorenal syndrome). - 08/23 exam improved, feels at baseline. continue lasix at home dose 40 mg twice a week. likely dietary indiscretion led to CHF exac, saw educational programming director today. avoid surinamese food, ham, salty foods. daily weights - stable for discharge from cardiac perspective, follow up with Dr. Castro in one week CAD: - h/o PCI ([employer] DALE) of OM1 in 2006. residual 50-60% mLAD lesion then - no angina since, med managed - no ischemia 2016 - no signs acute process here (ecg non-ischemic, trop neg x 2), no need for repeat ischemia eval presently - cont home plan CKD: - has one functioning kidney - baseline creat ranges 1.4-1.6. spikes to 1.8 with vol depletion/lasix - at baseline HTN - not on meds - observe trend HLD - continue statin COPD - on prednisone, nebs per primary
[2018-08-23] MEDS ORDERED: POLYETHYLENE GLYCOL 3350 119 GM BTL PO SCH (10:00)
[2018-08-23 11:39] VITALS: PULSE 112
[2018-08-23 11:56] VITALS: BP 142/85; TEMP 98.1
[2018-08-23] MEDS: FUROSEMIDE 40 MG/4 ML INJECTABLE VIAL IVPUSH SCH (11:56)
--- NOTE | 2018-08-23 12:20 | DS ---
Physical Examination Vital Signs: Vital Signs Temperature 98.1 F 08/23/18 10:00 Pulse Rate 112 H 08/23/18 11:38 Respiratory Rate 20 08/23/18 10:00 Blood Pressure 142/85 08/23/18 10:00 O2 Sat by Pulse Oximetry (%) 96 08/23/18 11:38 Constitutional: Yes: Well Nourished, No Distress, Calm Cardiovascular: Yes: WNL, Regular Rate and Rhythm Respiratory: Yes: WNL, Regular, CTA Bilaterally. No: Accessory Muscle Use, SOB , Tachypnea, Wheezes Gastrointestinal: Yes: WNL, Normal Bowel Sounds, Soft, Abdomen, Obese. No: Distention, Tenderness Renal/: Yes: WNL Musculoskeletal: Yes: WNL Extremities: Yes: WNL Edema: No Neurological: Yes: WNL, Alert, Oriented Psychiatric: Yes: WNL, Alert, Oriented Labs: CBC, BMP 08/23/18 06:20 08/23/18 06:20 Discharge Summary Reason For Visit: ACUTE CHRONIC OF OBSTRUCTIVE PULMONARY D Current Active Problems Angina of effort (Acute) CAD (coronary artery disease) (Acute) CHF exacerbation (Acute) CKD (chronic kidney disease) stage 3, GFR 30-59 ml/min (Acute) COPD exacerbation (Acute) Carcinoma of bladder (Acute) SOB (shortness of breath) (Acute) Hospital Course: 82 year old male admitted for CHF exacerbation. Suspect 2/2 increased dietary intake of sodium contained food. Sob improved w/ iv diuresis, transitioned to po today, to continue lasix 40mg biweekly per cardiology. Pt seen by shirt trimmer and received education on low na diet. COPD stable, recent URI infection, resolving. Right hip pain reported by pt, xray negative, continue outpt work up. Pt in no acute distress, vitals stable, labs stable. Pt is medically stable for discharge home. Recheck BMP in 3 days. F/u as directed. 32 minutes spent in discharge planning Condition: Good - Instructions Diet, Activity, Other Instructions: LOW NA DIET INSTRUCTED BY CHILI POWDER MIXER CHECK WEIGHT DAILY, CALL MD IF WEIGHTGAIN>3LBS/DAY CONTINUE LASIX 40MG TWICE A WEEK BEFORE CHECK BMP- BLOOD WORK IN 3 DAYS F/U DIRECTED Referrals: Ab Castro MD [Staff Physician] - 1 Week Doug Griffith MD [Staff Physician] - 1 Week Disposition: HOME - Home Medications Comprehensive Discharge Medication List: Ambulatory Orders Allopurinol [Zyloprim -] 100 mg PO BID 06/06/14 Cholecalciferol (Vitamin D3) [Vitamin D3] 2,000 unit PO DAILY 06/06/14 [place]-3 Fatty Acids [Fish Oil] 2,000 mg PO DAILY 06/06/14 Simvastatin [Zocor -] 40 mg PO HS 06/06/14 Vitamin B Complex 1 each PO DAILY 06/06/14 Arformoterol Tartrate [Brovana -] 1 amp NEB BID amp 08/10/17 Budesonide [Pulmicort 0.25 mg Nebulizer -] 1 amp NEB BID amp 08/10/17 Pantoprazole Sodium [Protonix -] 40 mg PO DAILY #30 tab.ec 08/10/17 Lisinopril 10 mg PO DAILY 08/22/18 Furosemide [Lasix] 40 mg PO WEEKLY #30 tablet 08/23/18
--- NOTE | 2018-08-23 13:17 | PN ---
Progress Note, Physician - Current Medication List Current Medications: Active Medications Albuterol/Ipratropium (Duoneb -) 1 amp NEB Q6H PRN PRN Reason: SHORTNESS OF BREATH Last Admin: 08/21/18 21:47 Dose: 1 amp Allopurinol (Zyloprim -) 100 mg PO BID [facility] Last Admin: 08/23/18 09:06 Dose: 100 mg Arformoterol Tartrate (Brovana (Restricted To Pulmonology/Resp) -) 1 amp NEB BID [facility] Last Admin: 08/23/18 07:50 Dose: 1 amp Atorvastatin Calcium (Lipitor -) 20 mg PO HS [facility] Last Admin: 08/22/18 21:09 Dose: 20 mg Furosemide (Lasix Injection -) 20 mg IVPUSH DAILY [facility] Last Admin: 08/23/18 11:56 Dose: 20 mg Heparin Sodium (Porcine) (Heparin -) 5,000 unit SQ TID [facility] Last Admin: 08/23/18 05:21 Dose: 5,000 unit Levofloxacin (Levaquin -) 250 mg PO 0600 [facility] Last Admin: 08/23/18 05:21 Dose: 250 mg Multivit/Ca Carb/B Cmplx/FA/Prenat (Nephro-Chrissy -) 1 tablet PO DAILY [facility] Last Admin: 08/23/18 09:06 Dose: 1 tablet Pantoprazole Sodium (Protonix -) 40 mg PO DAILY [facility] Last Admin: 08/23/18 09:06 Dose: 40 mg Polyethylene Glycol (Miralax (For Daily Use) -) 17 gm PO BID [facility] Last Admin: 08/23/18 11:38 Dose: 17 grams - Objective Vital Signs: Vital Signs Temperature 98.1 F 08/23/18 10:00 Pulse Rate 112 H 08/23/18 11:38 Respiratory Rate 20 08/23/18 10:00 Blood Pressure 142/85 08/23/18 10:00 O2 Sat by Pulse Oximetry (%) 96 08/23/18 11:38 Labs: CBC, BMP 08/23/18 06:20 08/23/18 06:20 Assessment/Plan Problem List - Problems (1) CHF exacerbation Code(s): I50.9 - HEART FAILURE, UNSPECIFIED (2) RODNEY (acute kidney injury) Code(s): N17.9 - ACUTE KIDNEY FAILURE, UNSPECIFIED (3) CKD (chronic kidney disease) stage 3, GFR 30-59 ml/min Code(s): N18.3 - CHRONIC KIDNEY DISEASE, STAGE 3 (MODERATE) (4) HLD (hyperlipidemia) Code(s): E78.5 - HYPERLIPIDEMIA, UNSPECIFIED (5) HTN (hypertension) Code(s): I10 - ESSENTIAL (PRIMARY) HYPERTENSION Qualifiers: Hypertension type: essential hypertension Qualified Code(s): I10 - Essential (primary) hypertension Assessment/Plan Acute CHF Exacerbation COPD CAD Acute on Chronic Renal Failure HTN Hyperlipidemia h/o Bladder CA - continue lasix - monitor urine output, creatinine - O2 to keep SpO2 >90% - echocardiogram - can d/c steroids as appears less likely COPD clinically and may help with azotemia - inhaled bronchodilators standing and PRN - outpt PFTs - DVT prophylaxis Thank you for this consult Sammy Harrison MD
== END 2018-08-23 17:41 | disposition home or self-care (01) ==
LOC: JER 23:06 → JERBED 08-21 01:28 → J4S 08-21 23:17
PROVIDERS: ADMIT Internal Medicine; ATTEND Internal Medicine
PROC: 3E03329 Introduction of Other Anti-infective into Peripheral Vein, Percutaneous Approach (ICD-10-PCS; principal; 2018-08-21)
PROC: 3E033GC Introduction of Other Therapeutic Substance into Peripheral Vein, Percutaneous Approach (ICD-10-PCS; 2018-08-21)
PROC: 3E0F7GC Introduction of Other Therapeutic Substance into Respiratory Tract, Via Natural or Artificial Opening (ICD-10-PCS; 2018-08-21)
DX: J44.1 Chronic obstructive pulmonary disease with (acute) exacerbation (principal); I12.9 Hypertensive chronic kidney disease with stage 1 through stage 4 chronic kidney disease, or unspecified chronic kidney disease; N18.3 Chronic kidney disease, stage 3 (moderate); N17.9 Acute kidney failure, unspecified; I50.9 Heart failure, unspecified; E78.5 Hyperlipidemia, unspecified; D50.9 Iron deficiency anemia, unspecified; Z85.51 Personal history of malignant neoplasm of bladder; M10.9 Gout, unspecified; Z92.21 Personal history of antineoplastic chemotherapy; Z88.0 Allergy status to penicillin; Z87.891 Personal history of nicotine dependence
CPT/HCPCS: 36415; 71045-TC-FY; 73523-TC-FY; 80048; 80053; 82550; 82553; 83735; 83880; 84100; 84484; 85025; 87804; 93005; 93010; 93306-TC; 94640; 94761; 96365; 96375; 96376; 97116-GP; 97162-GP; 99285-25; G0378; J1644

== ENCOUNTER 2018-10-27 13:08 | Observation (INO) | payer OTHER, MEDICARE ==
--- NOTE | 2018-10-27 13:25 | PDOC ---
History of Present Illness - General Chief Complaint: Syncope/Near Syncope Stated Complaint: SYNCOPE/NEAR SYNCOPE (PCP SENT) Time Seen by Provider: 10/27/18 13:22 History Source: Patient Exam Limitations: No Limitations - History of Present Illness Initial Comments: Jr is an 83 yo M w a pmh of CKD, CAD, R sided heart failure, COPD (Not on Home O2), Bladder cancer (s/p Chemo, resection) Anemia, HTN, HLD, Gout, and gastric bleed, GERD who presents to the ER from his PCP's office to be evaluated for a syncopal event which occurred two days ago. He reports that he was sitting down in his home when all of a sudden he felt lightheaded, experienced seeing bright lights, felt nauseous, then passed out. He states that he fell off his chair and woke up around what he believes was 20 seconds later. The fall was unwitnessed. He is not sure what happened or is he hit his head. He reports that this happened to him 40 years ago when he was in the and it was thought that the last time this occurred was due to malnutrition. He is now on a very limited diet which is low in salt in an attempt to lose weight and be better at taking care of his health. He takes a baby aspirin every day, otherwise denies blood thinners. He denies having a headache, palpitations, blurry vision, neck pain, chest pain , SOB, difficulty breathing, back pain, fevers, chills, infections, weakness, numbness, tingling, abdominal pain, dysuria, frequency, urgency, or recent travel. Allergies: Penicillins Surgical History: Appendectomy (1998), Prostatectomy, Bladder removal, Cardiac Stents (Unclear which vessel or type of stent) Social history: Former smoker, no past or present use of alcohol or recreational drug use reported. Lives alone, walks witha cane. PCP: Doug Griffith Finishing Room Operator: Dr. Silverio Neurologist: Dr. Gastelum Past History - Past Medical History Allergies/Adverse Reactions: Allergies Allergy/AdvReac Type Severity Reaction Status Date / Time Penicillins Allergy Mild "BAD Verified 10/27/18 13:13 REACTION" Home Medications: Ambulatory Orders Allopurinol [Zyloprim -] 300 mg PO BID 06/06/14 Cholecalciferol (Vitamin D3) [Vitamin D3] 5,000 unit PO DAILY 06/06/14 [place]-3 Fatty Acids [Fish Oil] 2,000 mg PO DAILY 06/06/14 Simvastatin [Zocor -] 40 mg PO HS 06/06/14 Vitamin B Complex 1 each PO DAILY 06/06/14 Arformoterol Tartrate [Brovana -] 1 amp NEB BID amp 08/10/17 Budesonide [Pulmicort 0.25 mg Nebulizer -] 1 amp NEB BID amp 08/10/17 Pantoprazole Sodium [Protonix -] 40 mg PO DAILY #30 tab.ec 08/10/17 Polyethylene Glycol 3350 [Miralax (For Daily Use) -] 17 gm PO ASDIR 10/27/18 Anemia: Yes (IRON DEFICIENCY ANEMIA) Asthma: Yes Cancer: Yes (BLADDER) Cardiac Disorders: Yes CVA: No COPD: Yes Dementia: No Diabetes: No Dialysis: No GI Disorders: No Disorders: Yes HTN: Yes Hypercholesterolemia: Yes Liver Disease: No Seizures: No Thyroid Disease: No - Surgical History Abdominal Surgery: Yes Appendectomy: Yes (1998) Cardiac Surgery: Yes (STENT X 1) Lung Surgery: No Neurologic Surgery: No - Suicide/Smoking/Psychosocial Hx Smoking Status: Yes Smoking History: Former smoker Have you smoked in the past 12 months: No If you are a former smoker, when did you quit?: 20YRS Information on smoking cessation initiated: No Hx Alcohol Use: No Drug/Substance Use Hx: No Substance Use Type: None Hx Substance Use Treatment: No Review of Systems - Review of Systems Able to Perform ROS?: Yes Comments:: CONSTITUTIONAL: Absent: fever, no chills, no fatigue EYES: Absent: visual changes ENT: Absent: ear pain, no sore throat CARDIOVASCULAR: Absent: chest pain, no palpitations RESPIRATORY: Absent: cough, no SOB GI: Absent: abdominal pain, no nausea, no vomiting, no constipation, no diarrhea GENITOURINARY: Absent: dysuria, no frequency, no hematuria MUSKULOSKELETAL: Absent: back pain, no arthralgia, no myalgia SKIN: Absent: rash NEURO: Absent: headache *Physical Exam - Vital Signs Last Vital Signs Temp Pulse Resp BP Pulse Ox 97.1 F L 86 16 125/81 100 10/27/18 13:13 10/27/18 13:13 10/27/18 13:13 10/27/18 13:13 10/27/18 13:13 - Physical Exam Comments: GENERAL: Well-appearing, well-nourished. No apparent distress. HEENT: Normocephalic, atraumatic. PERRL, EOM intact. CARDIOVASCULAR: Normal S1, S2. Regular rate and rhythm. PULMONARY: Clear to auscultation bilaterally. ABDOMEN: Soft, non-distended, non-tender. EXTREMITIES: Normal ROM in all four extremities. No gross deformities. SKIN: Warm, dry. No rash NEUROLOGICAL: No focal neurological deficits. Moderate Sedation - Procedure Monitoring Vital Signs: Procedure Monitoring Vital Signs Temperature 97.1 F L 10/27/18 13:13 Pulse Rate 86 10/27/18 13:13 Respiratory Rate 16 10/27/18 13:13 Blood Pressure 125/81 10/27/18 13:13 O2 Sat by Pulse Oximetry (%) 100 10/27/18 13:13 ED Treatment Course - LABORATORY CBC & Chemistry Diagram: 10/27/18 13:55 10/27/18 13:55 Medical Decision Making - Medical Decision Making Jr is an 83 yo M w a pmh of COPD (Not on Home O2), Bladder cancer (s/p Chemo , resection) Anemia, HTN, HLD, Gout, and gastric bleed, GERD who presents to the ER from his PCP's office to be evaluated for a syncopal event which occurred two days ago. DDx IBNLT: arrhythmia, dehydration, brain bleed, CVA/TIA, ACS/OK, vasovagal syncope Plan: Labs, EKG, CXR, Head CT, IV hydration, re-assess. EKG shows a possible new RBBB Labs show RODNEY. BUN 83, Cr 2.1 - Will Consult Renal - Dr. Fleming Trop negative. - Will hydrate and admit to Obs for further cardio workup. Spoke with Dr. Griffith. He requested to have the patient admitted to Dr. Ricks and requested to place a cardio and neuro consult to Dr. Gastelum and Dr. Silverio. Both consults placed. Head CT showed no acute pathology. Spoke with Dr. Ricks who accepted the patient for admission. *DC/Admit/Observation/Transfer Diagnosis at time of Disposition: Syncope and collapse - Discharge Dispostion Decision to Admit order: Yes - Referrals - Patient Instructions - Post Discharge Activity
[2018-10-27] MEDS ORDERED: SODIUM CHLORIDE 0.9% 500 ML INFUS.BAG IV ONE ×2 (13:40→14:42)
--- NOTE | 2018-10-27 13:55 | PDOC ---
Attending Attestation - Resident Resident Name: David Edmondson - ED Attending Attestation I have performed the following: I have examined & evaluated the patient, The case was reviewed & discussed with the resident, I agree w/resident's findings & plan, Exceptions are as noted <KiranAnalia knowles - Last Filed: 10/27/18 13:54> - HPI HPI: 10/27/18 14:18 Patient is an 83 year old male with a significant past medical history of COPD ( Not on Home O2), Bladder cancer (s/p Chemo, resection) Anemia, HTN, HLD, Gout, and gastric bleed, who presents to the ED with complaints of syncopal episode that occured x2 days ago. Patient reports sitting in his kitchen when he began to see everything very bright before waking up on his kitchen floor. He reports being unconscious for 20 seconds but states no one witnessed his fall so he cannot be sure. Patient reports last syncopal episode like this occurred 30 years ago and was diagnosed with malnutrition. Denies chest pain, sob. Denies nausea, vomiting. Denies fevers, chills. Denies dysuria, hematuria. Denies constipation, Allergies: Penicillins Social history: Former smoker (Last 1999). No alcohol use. No illicit drugs. Surgical history: Appendectomy, Prostatectomy, Bladder removal, Cardiac Stents ( Unclear which vessel or type of stent) PMD: Dr. Griffith CARDIO: Dr. Castro PULM: Dr. Serra GI: Dr. Garcia <Natalio Plascencia - Last Filed: 10/27/18 14:18>
[2018-10-27 14:02] LABS: BASO % 0.5 % (0-2.0); EOS % 1.6 % (0-4.5); HEMOGLOBIN 12.7 GM/dL (11.7-16.9); LYMPH % 23.3 % (8-40); MCH 29.6 pg (25.7-33.7); MCHC 34.4 g/dl (32.0-35.9); MEAN CELL VOLUME 86.1 fl (80-96); MEAN PLT VOLUME 9.3 fl (7.5-11.1); MONO % 9.2 % (3.8-10.2); NEUT % 65.4 % (42.8-82.8); PLATELET COUNT 209 K/MM3 (134-434); RDW 16.6 % (11.9-15.9); WHITE BLOOD COUNT 8.2 K/mm3 (4.0-10.0)
[2018-10-27 14:24] LABS: INR 0.97 (0.83-1.09); PROTHROMBIN TIME (PATIENT) 11.4 SEC (9.7-13.0)
[2018-10-27 14:35] LABS: ALBUMIN 3.6 g/dl (3.4-5.0); ALK PHOS 66 U/L (45-117); ANION GAP 8 MMOL/L (8-16); BILIRUBIN,TOTAL 0.4 mg/dL (0.2-1); BLOOD UREA NITROGEN 83 mg/dL (7-18); CHLORIDE 106 mmol/L (98-107); CO2 22 mmol/L (21-32); CREATININE 2.1 mg/dL (0.55-1.3); GLUCOSE,RANDOM 98 mg/dL (74-106); MAGNESIUM 1.9 mg/dL (1.8-2.4); POTASSIUM 5.4 mmol/L (3.5-5.1); SGOT/AST 25 U/L (15-37); SGPT/ALT 18 U/L (13-61); SODIUM 136 mmol/L (136-145); TOT PROT 6.9 g/dl (6.4-8.2)
--- NOTE | 2018-10-27 15:48 | CONSULT ---
Consult - text type - Consultation Consultation Note: Renal Consult for RODNEY on CKD This is a 83 year old gentleman wit hx of CKD (bsaeline CR 1.5-1.6), COPD, Bladder cancer s/p resection and chemo HTN, HLD, CHF (diastolic dysfunction), Gout presented from home s/p syncope with fall. Pt reports that he fell on Wednesday but only came to ED today as per request of PMD. Pt recently has been having hyperkalemia and was taken off his ACEi. Pt denies any NSAID use , flank pain. Pt has cystostomy bag and has been producing urine as per normal. No blood in urine or foul smelling urine noted. No LE edema. Not currently on diuretics. PMhx: as above Allergies: PCN Family Hx: NC Social Hx: No T/A/D ROS: as per HPI, all other pertinent ros negative Home Medications Medication Instructions Recorded Allopurinol [Zyloprim -] 300 mg PO BID 06/06/14 Cholecalciferol (Vitamin D3) 5,000 unit PO DAILY 06/06/14 [Vitamin D3] [place]-3 Fatty Acids [Fish Oil] 2,000 mg PO DAILY 06/06/14 Simvastatin [Zocor -] 40 mg PO HS 06/06/14 Vitamin B Complex 1 each PO DAILY 06/06/14 Arformoterol Tartrate [Brovana -] 1 amp NEB BID amp 08/10/17 Budesonide [Pulmicort 0.25 mg 1 amp NEB BID amp 08/10/17 Nebulizer -] Pantoprazole Sodium [Protonix -] 40 mg PO DAILY #30 tab.ec 08/10/17 Polyethylene Glycol 3350 [Miralax 17 gm PO ASDIR 10/27/18 (For Daily Use) -] Vital Signs Temperature 97.1 F L 10/27/18 13:13 Pulse Rate 80 10/27/18 13:56 Respiratory Rate 17 10/27/18 13:56 Blood Pressure 102/73 10/27/18 13:56 O2 Sat by Pulse Oximetry (%) 99 10/27/18 13:56 Intake & Output 10/24/18 10/25/18 10/26/18 10/27/18 23:59 23:59 23:59 23:59 Weight 113.852 kg NAD awake and alert NC/AT MMM, No JVD, neck supple RRR, no M/R CTA, no rales soft NT/ND, + cystocotmy bag in right LQ with yellow urine no CVA tenderness No LE edema, clubbing or cyanosis No focal neurologic defects CBC, BMP 10/27/18 13:55 10/27/18 13:55 Laboratory Tests 10/27/18 13:55 Calcium 9.0 AST 25 ALT 18 Albumin 3.6 83 year old gentleman wit hx of CKD (bsaeline CR 1.5-1.6), COPD, Bladder cancer s/p resection and chemo HTN, HLD, CHF (diastolic dysfunction), Gout presented from home s/p syncope with fall. #RODNEY on CKD #CKD stage 3 (baseline Cr 1.3-1.6) #Syncope #Bladder cancer now with cystostomy bag #Diastolic HF #Hypertension Etiology of RODNEY likely related to volume depletion given high BUN/Cr ratio and marginal BP with hx of HTN will check UA, UPCR, FeNa Trial of issa IVF hydration x 12-18 hours: NS at 75cc per hour Check orthostatic vital signs Check US of the kidney r/o obstruction (pt reports hx of one atrophic or small kidney) Avoid nsaids, IV contrast Cardiology and Neuro work up for syncope Strict I and O BP is low/marginal hold any antihypertensives at this time Thank you Santos Fleming DO
--- NOTE | 2018-10-27 15:53 | EKG ---
Test Reason : Blood Pressure : / mmHG Vent. Rate : 083 BPM Atrial Rate : 083 BPM P-R Int : 186 ms QRS Dur : 132 ms QT Int : 420 ms P-R-T Axes : 052 015 003 degrees QTc Int : 493 ms NORMAL SINUS RHYTHM RIGHT BUNDLE BRANCH BLOCK ABNORMAL ECG WHEN COMPARED WITH ECG OF 21-AUG-2018 00:25, RIGHT BUNDLE BRANCH BLOCK IS NOW PRESENT Confirmed by LORNA JOSEPH, DOLORES ([id number]) on 10/27/2018 3:53:12 PM Referred By: Confirmed By:DOLORES ROTHMAN MD
[2018-10-27] MEDS ORDERED: SODIUM CHLORIDE 1,000 ML IV SCH (16:00)
--- NOTE | 2018-10-27 16:07 | HP ---
Admitting History and Physical - Primary Care Physician PCP: Doug Griffith - Admission Chief Complaint: RODNEY History of Present Illness: 83 year old male pmh of HTN, HLD,CHF-diastolic,CKD w/ one functioning kidney, COPD, Bladder CA (s/p Chemo, resection) sent over by PCP for worsened renal function. Pt reports he was told by his PCP yesterday that his renal function and potassium was elevated, therefore advised to stop lisinopril and come to ED. Pt reports an unwitnessed syncopal episode 2 days ago. Pt reports he was sitting at the kitchen table, suddenly felt lightheaded/dizzy, fell over from chair to floor, lost consciousness. He woke up 15 minutes later and felt back to normal and did not seek medical care. He denies hitting his head. Pt reports he has been eating and drinking less due to following a low na diet. Pt currently denies any chest pain, sob, lightheadedness, dizziness, n/v/d, fever/ chills, dysuria, abd pain. History Source: Patient Limitations to Obtaining History: No Limitations - Past Medical History Cardiovascular: Yes: CAD (s/p cardiac stent), CHF, HTN Pulmonary: Yes: COPD Gastrointestinal: Yes: GERD Renal/: Yes: Renal Inusuff (unilateral kidney), Cancer (bladder) Rheumatology: Yes: Gout - Past Surgical History Past Surgical History: Yes: Appendectomy, Prostatectomy, Stent Additional Past Surgical History: Bladder resection - Smoking History Smoking history: Former smoker Have you smoked in the past 12 months: No If you are a former smoker, when did you quit?: 20YRS - Alcohol/Substance Use Hx Alcohol Use: No History of Substance Use: reports: None - Social History ADL: Independent Occupation: Worked In [employer] History of Recent Travel: No Home Medications - Allergies Allergies/Adverse Reactions: Allergies Allergy/AdvReac Type Severity Reaction Status Date / Time Penicillins Allergy Mild "BAD Verified 10/27/18 13:13 REACTION" - Home Medications Home Medications: Ambulatory Orders Allopurinol [Zyloprim -] 300 mg PO BID 06/06/14 Cholecalciferol (Vitamin D3) [Vitamin D3] 5,000 unit PO DAILY 06/06/14 [place]-3 Fatty Acids [Fish Oil] 2,000 mg PO DAILY 06/06/14 Simvastatin [Zocor -] 40 mg PO HS 06/06/14 Vitamin B Complex 1 each PO DAILY 06/06/14 Arformoterol Tartrate [Brovana -] 1 amp NEB BID amp 08/10/17 Budesonide [Pulmicort 0.25 mg Nebulizer -] 1 amp NEB BID amp 08/10/17 Pantoprazole Sodium [Protonix -] 40 mg PO DAILY #30 tab.ec 08/10/17 Polyethylene Glycol 3350 [Miralax (For Daily Use) -] 17 gm PO ASDIR 10/27/18 Family Disease History - Family Disease History Family Disease History: CA: Father ( 60's suspected cancer), Other: Mother ( 80's alzheimer's dementia), Brother (2, healthy), Sister (2, healthy 1 sister : 70's COPD complications), Son (Obesity) Physical Examination Vital Signs: Vital Signs Temperature 97.1 F L 10/27/18 13:13 Pulse Rate 80 10/27/18 13:56 Respiratory Rate 17 10/27/18 13:56 Blood Pressure 102/73 10/27/18 13:56 O2 Sat by Pulse Oximetry (%) 99 10/27/18 13:56 Labs: CBC, BMP 10/27/18 13:55 10/27/18 13:55 Assessment/Plan (1) Syncope and collapse Assessment/Plan: unwitnessed prodromal symptoms of lightheadedness/dizziness pt currently at baseline head ct, carotids/echo ordered trop neg UA/UC pending does not suspect infectious etiology orthostatics ordered tele monitoring cardiology/neuro consulted Code(s): R55 - SYNCOPE AND COLLAPSE (2) RODNEY (acute kidney injury) Assessment/Plan: acute on chronic pt has one functioning kidney baseline cr 1.4-1.6 IVF kidney/renal us nephrology consulted Code(s): N17.9 - ACUTE KIDNEY FAILURE, UNSPECIFIED (3) Hyperkalemia Assessment/Plan: mild hydrate and monitor monitor bmp Code(s): E87.5 - HYPERKALEMIA (4) CHF (congestive heart failure) Assessment/Plan: chronic diastolic not in acute exacerbation low na diet monitor Code(s): I50.9 - HEART FAILURE, UNSPECIFIED Qualifiers: Heart failure type: diastolic Heart failure chronicity: chronic Qualified Code(s): I50.32 - Chronic diastolic (congestive) heart failure (5) CKD (chronic kidney disease) stage 3, GFR 30-59 ml/min Assessment/Plan: acute on chronic as above Code(s): N18.3 - CHRONIC KIDNEY DISEASE, STAGE 3 (MODERATE) (6) COPD (chronic obstructive pulmonary disease) Assessment/Plan: stable continue nebs Code(s): J44.9 - CHRONIC OBSTRUCTIVE PULMONARY DISEASE, UNSPECIFIED (7) HTN (hypertension) Assessment/Plan: controlled lisinopril d/c'd in the setting of hyperkalemia Code(s): I10 - ESSENTIAL (PRIMARY) HYPERTENSION Qualifiers: Hypertension type: essential hypertension Qualified Code(s): I10 - Essential (primary) hypertension (8) Gout Assessment/Plan: chronic continue allopurinol Code(s): M10.9 - GOUT, UNSPECIFIED Qualifiers: Gout site: foot Chronicity: chronic (9) HLD (hyperlipidemia) Assessment/Plan: stable continue statin Code(s): E78.5 - HYPERLIPIDEMIA, UNSPECIFIED (10) CAD (coronary artery disease) Assessment/Plan: s/p PCI, 2006 no acute ACS continue current regimen Code(s): I25.10 - ATHSCL HEART DISEASE OF [place] CORONARY ARTERY W/O ANG PCTRS Qualifiers: [place] vs. transplanted heart: [place] heart Associated angina: without angina
[2018-10-27 17:46] LABS: URINE APPEARANCE CLOUDY; URINE BILIRUBIN NEGATIVE (<2.0 mg/dL); URINE COLOR YELLOW; URINE GLUCOSE (UA) NEGATIVE (NEGATIVE); URINE KETONE NEGATIVE (NEGATIVE); URINE LEUK ESTERASE 2+ (NEGATIVE); URINE NITRITE POSITIVE (NEGATIVE); URINE PROTEIN 1+ (NEGATIVE); URINE UROBILINOGEN NEGATIVE mg/dL (0.2-1.0)
[2018-10-27 18:00] LABS: URINE BACTERIA RARE /hpf (NONE SEEN); URINE MUCUS RARE
[2018-10-27] MEDS ORDERED: BUDESONIDE 0.25 MG/2ML INH SUSP VIAL NEB SCH (22:00)
[2018-10-27] MEDS ORDERED: ATORVASTATIN CA 20 MG TABLET (FP) PO SCH (22:00)
[2018-10-27] MEDS: ARFORMOTEROL TARTRATE 15 MCG/2 ML VIAL NEB SCH (23:09)
[2018-10-27] MEDS: ALLOPURINOL 300 MG TABLET (FP) PO SCH (23:10)
[2018-10-28 03:08] VITALS: BMI 36.1
[2018-10-28 06:26] LABS: BASO % 0.6 % (0-2.0); EOS % 2.7 % (0-4.5); HEMATOCRIT 36.8 % (35.4-49); HEMOGLOBIN 11.9 GM/dL (11.7-16.9); LYMPH % 33.2 % (8-40); MCH 28.3 pg (25.7-33.7); MCHC 32.5 g/dl (32.0-35.9); MEAN CELL VOLUME 87.2 fl (80-96); MEAN PLT VOLUME 10.1 fl (7.5-11.1); MONO % 9.9 % (3.8-10.2); NEUT % 53.6 % (42.8-82.8); PLATELET COUNT 185 K/MM3 (134-434); RBC 4.21 M/mm3 (4.00-5.60); RDW 16.2 % (11.9-15.9); WHITE BLOOD COUNT 8.4 K/mm3 (4.0-10.0)
[2018-10-28 07:07] LABS: ALBUMIN 3.2 g/dl (3.4-5.0); ALK PHOS 61 U/L (45-117); ANION GAP 7 MMOL/L (8-16); BILIRUBIN,TOTAL 0.4 mg/dL (0.2-1); BLOOD UREA NITROGEN 73 mg/dL (7-18); CALCIUM 8.9 mg/dL (8.5-10.1); CHLORIDE 110 mmol/L (98-107); CO2 22 mmol/L (21-32); CREATININE 1.9 mg/dL (0.55-1.3); GLUCOSE,RANDOM 81 mg/dL (74-106); POTASSIUM 4.6 mmol/L (3.5-5.1); SGOT/AST 23 U/L (15-37); SGPT/ALT 19 U/L (13-61); SODIUM 139 mmol/L (136-145); TOT PROT 6.6 g/dl (6.4-8.2)
[2018-10-28] MEDS ORDERED: BUDESONIDE 0.25 MG/2ML INH SUSP VIAL NEB SCH (08:00)
[2018-10-28] MEDS ORDERED: PT OWN MED DRAWER 7, Y5N ONE (08:06)
--- NOTE | 2018-10-28 09:31 | CONSULT ---
Consult - text type - Consultation Consultation Note: Neurology Chief Complaint: RODNEY History of Present Illness: 83 year old male pmh of HTN, HLD,CHF-diastolic,CKD w/ one functioning kidney, COPD, Bladder CA (s/p Chemo, resection) sent over by PCP for worsened renal function. Pt reported he was told by his PCP day prior to admission that his renal function and potassium was elevated, therefore advised to stop lisinopril and come to ED. Pt reported an unwitnessed syncopal episode 2 days prior. Pt reported he was sitting at the kitchen table, suddenly felt lightheaded/dizzy, fell over from chair to floor, lost consciousness. He woke up 15 minutes later and felt back to normal and did not seek medical care. He denied hitting his head. Pt reports he has been eating and drinking less due to following a low na diet. Ct head completed and without acute changes. This AM, feels stead without complaints and inquiring about discharge. No deficits, known to me from carpal tunnel treatment with recent injections, states they have helped a small amount , no pain, some numbness remains. - Past Medical History Cardiovascular: Yes: CAD (s/p cardiac stent), CHF, HTN Pulmonary: Yes: COPD Gastrointestinal: Yes: GERD Renal/: Yes: Renal Inusuff (unilateral kidney), Cancer (bladder) Rheumatology: Yes: Gout - Past Surgical History Past Surgical History: Yes: Appendectomy, Prostatectomy, Stent Additional Past Surgical History: Bladder resection - Smoking History Smoking history: Former smoker Have you smoked in the past 12 months: No If you are a former smoker, when did you quit?: 20YRS - Alcohol/Substance Use Hx Alcohol Use: No History of Substance Use: reports: None - Social History ADL: Independent Occupation: Worked In [employer] History of Recent Travel: No Home Medications - Allergies Allergies/Adverse Reactions: Allergies Allergy/AdvReac Type Severity Reaction Status Date / Time Penicillins Allergy Mild "BAD Verified 10/27/18 13:13 REACTION" - Home Medications Home Medications: Ambulatory Orders Allopurinol [Zyloprim -] 300 mg PO BID 06/06/14 Cholecalciferol (Vitamin D3) [Vitamin D3] 5,000 unit PO DAILY 06/06/14 [place]-3 Fatty Acids [Fish Oil] 2,000 mg PO DAILY 06/06/14 Simvastatin [Zocor -] 40 mg PO HS 06/06/14 Vitamin B Complex 1 each PO DAILY 06/06/14 Arformoterol Tartrate [Brovana -] 1 amp NEB BID amp 08/10/17 Budesonide [Pulmicort 0.25 mg Nebulizer -] 1 amp NEB BID amp 08/10/17 Pantoprazole Sodium [Protonix -] 40 mg PO DAILY #30 tab.ec 08/10/17 Polyethylene Glycol 3350 [Miralax (For Daily Use) -] 17 gm PO ASDIR 10/27/18 Family Disease History - Family Disease History Family Disease History: CA: Father ( 60's suspected cancer), Other: Mother ( 80's alzheimer's dementia), Brother (2, healthy), Sister (2, healthy 1 sister : 70's COPD complications), Son (Obesity) Physical Examination Vital Signs: Vital Signs Period Temp Pulse Resp BP Sys/Shoemaker Pulse Ox Last 24 Hr 97.1 F-97.9 F 70-87 14-18 100-138/70-81 96-100 Gen: Awake, alert, responds to questions Card: RRR, nml S1,S2 Resp: Normal symmetric effort, lungs clear to auscultation Abdomen: Soft, nontender, bowel sounds active Musculoskeletal: Adequate range of motion without significant deformity Head atraumatic and normocephalic CN: PERRL, EOMI intact, no apparent facial droop, no abnormalities in facial sensation, palate elevates, uvula and tongue midline Motor: Full strength to confrontation in upper and lower extermities proximally and distally. Tone normal throughout Sensory: Intact to Temperature, light touch, and pinprick in all extremities Reflexes: 2+ biceps, brachioradialis, patellar, achillies Coordination: Intact on [id number] testing CBCD WBC 8.4 K/mm3 (4.0-10.0) 10/28/18 06:00 RBC 4.21 M/mm3 (4.00-5.60) 10/28/18 06:00 Hgb 11.9 GM/dL (11.7-16.9) 10/28/18 06:00 Hct 36.8 % (35.4-49) 10/28/18 06:00 MCV 87.2 fl (80-96) 10/28/18 06:00 MCHC 32.5 g/dl (32.0-35.9) 10/28/18 06:00 RDW 16.2 % (11.9-15.9) H 10/28/18 06:00 Plt Count 185 K/MM3 (134-434) 10/28/18 06:00 MPV 10.1 fl (7.5-11.1) 10/28/18 06:00 CMP Sodium 139 mmol/L (136-145) 10/28/18 06:00 Potassium 4.6 mmol/L (3.5-5.1) 10/28/18 06:00 Chloride 110 mmol/L (98-107) H 10/28/18 06:00 Carbon Dioxide 22 mmol/L (21-32) 10/28/18 06:00 Anion Gap 7 MMOL/L (8-16) L 10/28/18 06:00 BUN 73 mg/dL (7-18) H 10/28/18 06:00 Creatinine 1.9 mg/dL (0.55-1.3) H 10/28/18 06:00 Creat Clearance w eGFR 34.19 (>60) 10/28/18 06:00 Random Glucose 81 mg/dL (74-106) 10/28/18 06:00 Calcium 8.9 mg/dL (8.5-10.1) 10/28/18 06:00 Total Bilirubin 0.4 mg/dL (0.2-1) 10/28/18 06:00 AST 23 U/L (15-37) 10/28/18 06:00 ALT 19 U/L (13-61) 10/28/18 06:00 Alkaline Phosphatase 61 U/L (45-117) 10/28/18 06:00 Total Protein 6.6 g/dl (6.4-8.2) 10/28/18 06:00 Albumin 3.2 g/dl (3.4-5.0) L 10/28/18 06:00 CARDIAC ENZYMES Troponin I 0.04 ng/ml (0.00-0.05) 10/27/18 13:55 Assessment/Plan 83 year old male pmh of HTN, HLD,CHF-diastolic,CKD w/ one functioning kidney, COPD, Bladder CA (s/p Chemo, resection) sent over by PCP for worsened renal function. Pt reported he was told by his PCP day prior to admission that his renal function and potassium was elevated, therefore advised to stop lisinopril and come to ED. Pt reported an unwitnessed syncopal episode 2 days prior. Pt reported he was sitting at the kitchen table, suddenly felt lightheaded/dizzy, fell over from chair to floor, lost consciousness. He woke up 15 minutes later and felt back to normal and did not seek medical care. He denied hitting his head. Pt reports he has been eating and drinking less due to following a low na diet. Ct head completed and without acute changes. This AM, feels stead without complaints and inquiring about discharge. No deficits, known to me from carpal tunnel treatment with recent injections, states they have helped a small amount , no pain, some numbness remains. Syncope work up per primary/cards. Orthostatic check, increased hydration as able. Monitor renal function, optimize as able. Monitor blood pressure, maintain normotensive range. Neurologically stable at this time. No further imaging required.
[2018-10-28] MEDS: ALLOPURINOL 300 MG TABLET (FP) PO SCH (09:52)
[2018-10-28] MEDS ORDERED: POLYETHYLENE GLYCOL 3350 119 GM BTL PO SCH (10:00)
[2018-10-28] MEDS ORDERED: PANTOPRAZOLE 40 MG TABLET (FP) PO SCH (10:00)
[2018-10-28] MEDS: ARFORMOTEROL TARTRATE 15 MCG/2 ML VIAL NEB SCH (10:23)
--- NOTE | 2018-10-28 12:00 | CON.CARD ---
Cardiology Consult (text) - Consultation Consultation Note: Chief Complaint: syncope History of Present Illness: 83M h/o COPD, bladder cancer, anemia, HTN, HLD, GI bleed p/w syncope. On wednesday was sitting reading and felt weak and lightheaded and fell to floor, was LOC for few seconds. [place] weak after and rested, then felt fine. No prior syncope or similar episodes. No cp sob palps pnd orthopnea le edema. Sees dr muro for cardio. - History Source Limitations to Obtaining History: No Limitations - Past Medical History Cardio/Vascular: Yes: CAD (s/p cardiac stent), HTN Pulmonary: Yes: COPD Renal/: Yes: Cancer (bladder) Rheumatology: Yes: Gout - Past Surgical History Past Surgical History: Yes: Appendectomy, Prostatectomy - Alcohol/Substance Use Hx Alcohol Use: No History of Substance Use: reports: None - Smoking History Smoking history: Former smoker Have you smoked in the past 12 months: No If you are a former smoker, when did you quit?: 1999 - Social History Usual Living Arrangement: Alone () ADL: Independent Occupation: Worked In [employer] History of Recent Travel: No Home Medications - Allergies Allergies/Adverse Reactions: Allergies Allergy/AdvReac Type Severity Reaction Status Date / Time Penicillins Allergy Mild "BAD Verified 10/27/18 13:13 REACTION" - Home Medications Home Medications Medication Instructions Recorded Allopurinol [Zyloprim -] 300 mg PO BID 06/06/14 Cholecalciferol (Vitamin D3) 5,000 unit PO DAILY 06/06/14 [Vitamin D3] [place]-3 Fatty Acids [Fish Oil] 2,000 mg PO DAILY 06/06/14 Simvastatin [Zocor -] 40 mg PO HS 06/06/14 Vitamin B Complex 1 each PO DAILY 06/06/14 Arformoterol Tartrate [Brovana -] 1 amp NEB BID amp 08/10/17 Budesonide [Pulmicort 0.25 mg 1 amp NEB BID amp 08/10/17 Nebulizer -] Pantoprazole Sodium [Protonix -] 40 mg PO DAILY #30 tab.ec 08/10/17 Polyethylene Glycol 3350 [Miralax 17 gm PO ASDIR 10/27/18 (For Daily Use) -] Family Disease History - Family Disease History Family Disease History: CA: Father ( 60's suspected cancer), Other: Mother ( 80's alzheimer's dementia), Brother (2, healthy), Sister (2, healthy 1 sister : 70's COPD complications), Son (Obesity) Review of Systems - Review of Systems Constitutional: reports: No Symptoms Eyes: reports: No Symptoms HENT: reports: No Symptoms Neck: reports: No Symptoms Cardiovascular: reports: No Symptoms Respiratory: reports: SOB on Exertion Gastrointestinal: reports: No Symptoms Genitourinary: reports: No Symptoms Musculoskeletal: reports: No Symptoms Integumentary: reports: No Symptoms Endocrine: reports: No Symptoms Hematology/Lymphatic: reports: No Symptoms Psychiatric: reports: No Symptoms Vital Signs: Vital Signs Period Temp Pulse Resp BP Sys/Shoemaker Pulse Ox Last 24 Hr 97.1 F-97.9 F 70-87 14-18 100-138/70-81 96-100 Constitutional: Yes: No Distress, Calm Eyes: Yes: Conjunctiva Clear HENT: Yes: Atraumatic, Normocephalic Neck: Yes: Supple, Trachea Midline Respiratory: Yes: Regular,cta bl nl eff Gastrointestinal: Yes: Normal Bowel Sounds, Soft Cardiovaslar: Yes: Regular Rate and Rhythm JVD: no Carotid Bruit: No PMI: Non-Displaced Heart Sounds: Yes: S1, S2 Musculoskeletal: No: Back Pain Extremities: No: Cold, Cyanosis Edema: no Peripheral Pulses: 2+ Left Doralis Pedis, 2+ Right Dorsalis Pedis Integumentary: No: Jaundice diaphoresis Neurological: Yes: Alert, Oriented Current Medications Generic Name Dose Route Start Last Admin Trade Name Erickq PRN Reason Stop Dose Admin Allopurinol 300 mg 10/27/18 22:00 10/28/18 09:52 Zyloprim - PO 300 mg BID HIMA Administration Arformoterol Tartrate 1 amp 10/27/18 22:00 10/28/18 10:23 Brovana (Restricted To Pulmonology/Resp) - NEB 1 amp BID HIMA Administration Atorvastatin Calcium 20 mg 10/27/18 22:00 10/27/18 23:09 Lipitor - PO 20 mg HS HIMA Administration Budesonide 1 amp 10/28/18 08:00 10/28/18 08:11 Pulmicort 0.25 Mg Nebulizer - NEB 1 amp RBID HIMA Administration Pantoprazole Sodium 40 mg 10/28/18 10:00 10/28/18 09:52 Protonix - PO 40 mg DAILY HIMA Administration Polyethylene Glycol 17 gm 10/28/18 10:00 Miralax (For Daily Use) - PO DAILY HIMA Laboratory Last Values WBC 8.4 K/mm3 (4.0-10.0) 10/28/18 06:00 RBC 4.21 M/mm3 (4.00-5.60) 10/28/18 06:00 Hgb 11.9 GM/dL (11.7-16.9) 10/28/18 06:00 Hct 36.8 % (35.4-49) 10/28/18 06:00 MCV 87.2 fl (80-96) 10/28/18 06:00 MCH 28.3 pg (25.7-33.7) 10/28/18 06:00 MCHC 32.5 g/dl (32.0-35.9) 10/28/18 06:00 RDW 16.2 % (11.9-15.9) H 10/28/18 06:00 Plt Count 185 K/MM3 (134-434) 10/28/18 06:00 MPV 10.1 fl (7.5-11.1) 10/28/18 06:00 Absolute Neuts (auto) 4.5 K/mm3 (1.5-8.0) 10/28/18 06:00 Neutrophils % 53.6 % (42.8-82.8) 10/28/18 06:00 Lymphocytes % 33.2 % (8-40) D 10/28/18 06:00 Monocytes % 9.9 % (3.8-10.2) 10/28/18 06:00 Eosinophils % 2.7 % (0-4.5) 10/28/18 06:00 Basophils % 0.6 % (0-2.0) 10/28/18 06:00 Nucleated RBC % 0 % (0-0) 10/28/18 06:00 PT with INR 11.40 SEC (9.7-13.0) 10/27/18 13:55 INR 0.97 (0.83-1.09) 10/27/18 13:55 Sodium 139 mmol/L (136-145) 10/28/18 06:00 Potassium 4.6 mmol/L (3.5-5.1) 10/28/18 06:00 Chloride 110 mmol/L (98-107) H 10/28/18 06:00 Carbon Dioxide 22 mmol/L (21-32) 10/28/18 06:00 Anion Gap 7 MMOL/L (8-16) L 10/28/18 06:00 BUN 73 mg/dL (7-18) H 10/28/18 06:00 Creatinine 1.9 mg/dL (0.55-1.3) H 10/28/18 06:00 Creat Clearance w eGFR 34.19 (>60) 10/28/18 06:00 Random Glucose 81 mg/dL (74-106) 10/28/18 06:00 Calcium 8.9 mg/dL (8.5-10.1) 10/28/18 06:00 Phosphorus 4.0 mg/dL (2.5-4.9) 10/28/18 06:00 Magnesium 2.0 mg/dL (1.8-2.4) 10/28/18 06:00 Total Bilirubin 0.4 mg/dL (0.2-1) 10/28/18 06:00 AST 23 U/L (15-37) 10/28/18 06:00 ALT 19 U/L (13-61) 10/28/18 06:00 Alkaline Phosphatase 61 U/L (45-117) 10/28/18 06:00 Troponin I 0.04 ng/ml (0.00-0.05) 10/27/18 13:55 Total Protein 6.6 g/dl (6.4-8.2) 10/28/18 06:00 Albumin 3.2 g/dl (3.4-5.0) L 10/28/18 06:00 Urine Color Yellow 10/27/18 16:30 Urine Appearance Cloudy 10/27/18 16:30 Urine pH 5.0 (5.0-8.0) 10/27/18 16:30 Ur Specific [place] 1.013 (1.010-1.035) 10/27/18 16:30 Urine Protein 1+ (NEGATIVE) H 10/27/18 16:30 Urine Glucose (UA) Negative (NEGATIVE) 10/27/18 16:30 Urine Ketones Negative (NEGATIVE) 10/27/18 16:30 Urine Blood Negative (NEGATIVE) 10/27/18 16:30 Urine Nitrite Positive (NEGATIVE) 10/27/18 16:30 Urine Bilirubin Negative (<2.0 mg/dL) 10/27/18 16:30 Urine Urobilinogen Negative mg/dL (0.2-1.0) 10/27/18 16:30 Ur Leukocyte Esterase 2+ (NEGATIVE) H 10/27/18 16:30 Urine WBC (Auto) 33 /hpf (3-5) 10/27/18 16:30 Urine RBC (Auto) <1 /hpf (0-3) 10/27/18 16:30 Urine Bacteria Rare /hpf (NONE SEEN) 10/27/18 16:30 Urine Mucus Rare 10/27/18 16:30 U Random Total Protein 26.3 mg/dl (0-11.9) H 10/27/18 16:34 Ur Random Sodium 24 MMOL/L (40-220) L 10/27/18 15:52 Urine Creatinine 96.0 mg/dL (2-36) H 10/27/18 16:34 CXR: no acute process EKG: sinus, nl intervals, IRBBB Echo 09/2017: TDS, Definity used. nl LV/EF. normal LAP. nl RV. nl LA size. valves WNL. 4.0 cm ascending aorta dobut echo 2016: no STs. no ischemia. [facility] 2006: DALE to OM1. 50-60% mLAD left alone. echo 08/2018 LV nl size/function, Ef 55-60%, grade II diastolic dysfunction, elevated LA pressure LA mildly dilated, RV function nl, mild MR, PASP at least 33 mmHg, tele: sinus, artifact a/p: 83M h/o COPD, bladder cancer, anemia, HTN, HLD, GI bleed p/w syncope. syncope: -seems vasovagal based on description, likely due to poor hydration -no signs acs or chf or arrhythmia -echo pending, if stable then ok for dc from cardiac pov. Has appt with dr muro next week. chronic diastolic CHF, chronic edema (likely venous insuff): - on lasix 20 mg at home prn swelling (creat permitting) -vol stable here CAD: - h/o PCI ([facility] DALE) of OM1 in 2006. residual 50-60% mLAD lesion then - no angina since, med managed - no ischemia 2016 - no signs acute process here - cont home plan CKD: - has one functioning kidney - baseline creat ranges 1.4-1.6. spikes to 1.8 with vol depletion/lasix HTN -stable HLD - continue statin
[2018-10-28 15:11] VITALS: BP 114/81; PULSE 87; TEMP 97.6
--- NOTE | 2018-10-28 15:33 | ECHO ---
Name: VASQUEZ MULLIGAN Exam:Adult Echocardiogram Study Date: 10/28/2018 12:48 PM Age: 83 yrs Reason For Study: SYNCOPE Height: 71 in Weight: 251 lb BSA: 2.3 m2 MMode/2D Measurements & Calculations IVSd: 0.83 cm Ao root diam: 3.1 cm LVIDd: 4.6 cm LA dimension: 3.6 cm LVIDs: 3.1 cm LVPWd: 0.80 cm EDV(Teich): 95.9 ml ESV(Teich): 39.3 ml Doppler Measurements & Calculations MV E max claudia: 40.0 cm/sec PI end-d claudia: 146.6 cm/sec MV A max claudia: 66.6 cm/sec MV E/A: 0.60 Procedure The study was technically difficult with many images being suboptimal in quality. Left Ventricle Left ventricular systolic function is grossly normal. Ejection Fraction = 50-55%. Regional wall motio n abnormalities cannot be excluded due to limited visualization. Right Ventricle The right ventricle is grossly normal size. The right ventricular systolic function is grossly normal . Atria The left atrium is borderline dilated. Mitral Valve The mitral valve is normal in structure and function. There is no mitral valve stenosis. There is no mitral regurgitation noted. Tricuspid Valve The tricuspid valve is normal in structure and function. There is mild tricuspid regurgitation. Aortic Valve There is mild aortic sclerosis.;. No hemodynamically significant valvular aortic stenosis. No aortic regurgitation is present. Pulmonic Valve The pulmonic valve is not well seen, but is grossly normal. There is no pulmonic valvular stenosis. Great Vessels The aortic root is normal size. Pericardium/Pleura There is no pericardial effusion. Interpretation Summary The study was technically difficult with many images being suboptimal in quality. Regional wall motion abnormalities cannot be excluded due to limited visualization. Left ventricular systolic function is grossly normal. Ejection Fraction = 50-55%. There is mild tricuspid regurgitation. There is mild aortic sclerosis.; There is no pericardial effusion. MD Olivas *Terrance 10/28/2018 03:32 PM
--- NOTE | 2018-10-28 15:47 | DS ---
Physical Examination Vital Signs: Vital Signs Temperature 97.6 F 10/28/18 14:05 Pulse Rate 87 10/28/18 14:05 Respiratory Rate 16 10/28/18 14:05 Blood Pressure 114/81 10/28/18 14:05 O2 Sat by Pulse Oximetry (%) 97 10/28/18 05:00 Constitutional: Yes: Well Nourished, No Distress, Calm Cardiovascular: Yes: Regular Rate and Rhythm Respiratory: Yes: WNL, Regular, CTA Bilaterally. No: Accessory Muscle Use, Tachypnea, Wheezes Gastrointestinal: Yes: WNL, Normal Bowel Sounds, Soft. No: Distention, Tenderness Renal/: Yes: WNL Extremities: Yes: WNL Edema: No Neurological: Yes: WNL, Alert, Oriented Psychiatric: Yes: WNL, Alert, Oriented Labs: CBC, BMP 10/28/18 06:00 10/28/18 06:00 Discharge Summary Reason For Visit: SYNCOPE AND COLLAPSE Current Active Problems CHF (congestive heart failure) (Acute) Hyperkalemia (Acute) Syncope and collapse (Acute) Hospital Course: 83 year old male admitted for evaluation for RODNEY w/ hyperkalemia and syncope. RODNEY improved s/p ivf, lisinopril d/c'd nephrology cleared, advise outpt renal us and follow up. Syncope work up negative for cardiac and neuro etiology. suspect possible vasovagal 2/2 dehydration. Pt has been cleared by neuro, cardiology, and nephrology. Pt is medically stable for discharge home. Condition: Good - Instructions Diet, Activity, Other Instructions: low na diet adequate hydration- at least 1/day follow up with cardiology regarding cardiac echo do renal us outpt, f/u with nephrology Referrals: Ab Castro MD [Staff Physician] - 1 Week Doug Griffith MD [Staff Physician] - 1 Week Santos Fleming MD [Staff Physician] - 1 Week Disposition: HOME - Home Medications Comprehensive Discharge Medication List: Ambulatory Orders Allopurinol [Zyloprim -] 300 mg PO BID 06/06/14 Cholecalciferol (Vitamin D3) [Vitamin D3] 5,000 unit PO DAILY 06/06/14 [place]-3 Fatty Acids [Fish Oil] 2,000 mg PO DAILY 06/06/14 Simvastatin [Zocor -] 40 mg PO HS 06/06/14 Vitamin B Complex 1 each PO DAILY 06/06/14 Arformoterol Tartrate [Brovana -] 1 amp NEB BID amp 08/10/17 Budesonide [Pulmicort 0.25 mg Nebulizer -] 1 amp NEB BID amp 08/10/17 Pantoprazole Sodium [Protonix -] 40 mg PO DAILY #30 tab.ec 08/10/17 Polyethylene Glycol 3350 [Miralax 119 gm Btl -] 17 gm PO ASDIR 10/27/18
--- NOTE | 2018-10-28 17:57 | PN ---
Progress Note (short form) - Note Progress Note: Renal follow up for RODNEY on CKD Pt seen and examined at the bedside no complains no dizziness, cp, abd pain, N/V making urine for discharge home today Vital Signs Temperature 97.6 F 10/28/18 14:05 Pulse Rate 87 10/28/18 14:05 Respiratory Rate 16 10/28/18 14:05 Blood Pressure 114/81 10/28/18 14:05 O2 Sat by Pulse Oximetry (%) 97 10/28/18 05:00 Intake & Output 10/25/18 10/26/18 10/27/18 10/28/18 23:59 23:59 23:59 23:59 Intake Total 1375 Output Total 400 Balance 975 Weight 113.852 kg 118.115 kg NAD RRR CTA soft NT/ND No LE edema CBC, BMP 10/28/18 06:00 10/28/18 06:00 Current Medications Allopurinol (Zyloprim -) 300 mg PO BID [facility] Last Admin: 10/28/18 09:52 Dose: 300 mg Arformoterol Tartrate (Brovana (Restricted To Pulmonology/Resp) -) 1 amp NEB BID [facility] Last Admin: 10/28/18 10:23 Dose: 1 amp Atorvastatin Calcium (Lipitor -) 20 mg PO HS [facility] Last Admin: 10/27/18 23:09 Dose: 20 mg Budesonide (Pulmicort 0.25 Mg Nebulizer -) 1 amp NEB RBID [facility] Last Admin: 10/28/18 08:11 Dose: 1 amp Pantoprazole Sodium (Protonix -) 40 mg PO DAILY [facility] Last Admin: 10/28/18 09:52 Dose: 40 mg Polyethylene Glycol (Miralax (For Daily Use) -) 17 gm PO DAILY [facility] Last Admin: 10/28/18 10:12 Dose: Not Given 83 year old gentleman wit hx of CKD (bsaeline CR 1.5-1.6), COPD, Bladder cancer s/p resection and chemo HTN, HLD, CHF (diastolic dysfunction), Gout presented from home s/p syncope with fall. #RODNEY on CKD #CKD stage 3 (baseline Cr 1.3-1.6) #Syncope #Bladder cancer now with cystostomy bag #Diastolic HF #Hypertension Renal function with mild improvement no overt acidosis, fluid overload, electrolyte abnormality stable for discharge with outpatient follow up encouraged oral hydration and solute intake advised to acid nsaids to follow up with PMD next week for repeat labs our office contact information provided to schedule follow up Thank you Santos Fleming DO
== END 2018-10-28 17:57 | disposition home or self-care (01) ==
LOC: JER 13:08 → JERBED 15:35 → J4S 10-28 02:12
PROVIDERS: ADMIT Internal Medicine; ATTEND Internal Medicine
PROC: 3E0337Z Introduction of Electrolytic and Water Balance Substance into Peripheral Vein, Percutaneous Approach (ICD-10-PCS; principal; 2018-10-27)
PROC: 3E0F7GC Introduction of Other Therapeutic Substance into Respiratory Tract, Via Natural or Artificial Opening (ICD-10-PCS; 2018-10-27)
DX: R55 Syncope and collapse (principal); I12.9 Hypertensive chronic kidney disease with stage 1 through stage 4 chronic kidney disease, or unspecified chronic kidney disease; N18.3 Chronic kidney disease, stage 3 (moderate); N17.9 Acute kidney failure, unspecified; I11.0 Hypertensive heart disease with heart failure; I25.10 Atherosclerotic heart disease of native coronary artery without angina pectoris; I50.810 Right heart failure, unspecified; I50.32 Chronic diastolic (congestive) heart failure; K21.9 Gastro-esophageal reflux disease without esophagitis; D50.9 Iron deficiency anemia, unspecified; H44.9 Unspecified disorder of globe; R79.89 Other specified abnormal findings of blood chemistry; M10.9 Gout, unspecified; Z87.891 Personal history of nicotine dependence; Z88.0 Allergy status to penicillin; Z92.21 Personal history of antineoplastic chemotherapy; Z79.82 Long term (current) use of aspirin; Z93.59 Other cystostomy status; Z95.5 Presence of coronary angioplasty implant and graft
CPT/HCPCS: 36415; 70450-TC; 71046-TC-FY; 80053; 81003; 81015; 82570; 83735; 84100; 84156; 84300; 84484; 85025; 85610; 87086; 87186; 87205; 93005; 93010; 93306-TC; 93880-TC; 94640; 96360; 96361; 97116-GP; 97162-GP; 99285-25; G0378; J7030

== ENCOUNTER 2019-02-22 07:25 | Observation (INO) | payer OTHER, MEDICARE ==
[2019-02-22 07:53] VITALS: TEMP 97.7; BMI 32.8
--- NOTE | 2019-02-22 08:22 | PDOC ---
History of Present Illness - General Chief Complaint: Pain, Acute Stated Complaint: CHEST PAIN Time Seen by Provider: 02/22/19 07:47 - History of Present Illness Initial Comments: 02/22/19 08:31 83 year old male with a significant past medical history of CAD s/p stent (+ stress test yrs ago), CHF (not on diuretic), COPD, bladder cancer (s/p Chemo, resection), anemia, HTN, HLD, Gout, GERD, syncope presents to the ED with constant sharp L shoulder pain radiating to the L hand since 3am. Pain began while pt was sleeping and woke him up. Pain was associated with SOB and diaphoresis at the time. He attempted to sit up to see if pain would resolve and when pain persisted until this AM, pt presented to the ED. He reports that at times his LUE goes numb at night when he sleeps on it, but states last night he had pain and not numbness which was concerning for him. Denies central chest pain. Denies headache, dizziness, weakness/numbness, abd pain, N/V/D, LE edema. PMD: Dr. Barnett Cards: Dr. Castro Past History - Past Medical History Allergies/Adverse Reactions: Allergies Allergy/AdvReac Type Severity Reaction Status Date / Time Penicillins Allergy Mild "BAD Verified 02/22/19 07:45 REACTION" Home Medications: Ambulatory Orders Allopurinol [Zyloprim -] 300 mg PO BID 06/06/14 Cholecalciferol (Vitamin D3) [Vitamin D3] 5,000 unit PO DAILY 06/06/14 [place]-3 Fatty Acids [Fish Oil] 2,000 mg PO DAILY 06/06/14 Simvastatin [Zocor -] 40 mg PO HS 06/06/14 Vitamin B Complex 1 each PO DAILY 06/06/14 Arformoterol Tartrate [Brovana -] 1 amp NEB BID amp 08/10/17 Budesonide [Pulmicort 0.25 mg Nebulizer -] 1 amp NEB BID amp 08/10/17 Pantoprazole Sodium [Protonix -] 40 mg PO DAILY #30 tab.ec 08/10/17 Polyethylene Glycol 3350 [Miralax 119 gm Btl -] 17 gm PO ASDIR 10/27/18 Anemia: Yes (IRON DEFICIENCY ANEMIA) Asthma: Yes Cancer: Yes (BLADDER) Cardiac Disorders: Yes CVA: No COPD: Yes CHF: Yes Dementia: No Diabetes: No Dialysis: No GI Disorders: No Disorders: Yes HTN: Yes Hypercholesterolemia: Yes Liver Disease: No Seizures: No Thyroid Disease: No - Surgical History Abdominal Surgery: Yes Appendectomy: Yes (1998) Cardiac Surgery: Yes (STENT X 1) Lung Surgery: No Neurologic Surgery: No - Suicide/Smoking/Psychosocial Hx Smoking Status: Yes Smoking History: Never smoked Have you smoked in the past 12 months: No If you are a former smoker, when did you quit?: 20YRS Hx Alcohol Use: No Drug/Substance Use Hx: No Substance Use Type: None Hx Substance Use Treatment: No Review of Systems - Review of Systems Comments:: 02/22/19 08:44 GENERAL/CONSTITUTIONAL: No fever or chills. No weakness. HEAD, EYES, EARS, NOSE AND THROAT: No change in vision. No ear pain or discharge. No sore throat. GASTROINTESTINAL: No nausea, vomiting, diarrhea or constipation. GENITOURINARY: No dysuria, frequency, or change in urination. CARDIOVASCULAR: No chest pain, + shortness of breath. RESPIRATORY: No cough, wheezing, or hemoptysis. MUSCULOSKELETAL: +L shoulder and LUE pain. No neck or back pain. SKIN: No rash NEUROLOGIC: No headache, vertigo, loss of consciousness, or change in strength/ sensation. ENDOCRINE: No increased thirst. No abnormal weight change. HEMATOLOGIC/LYMPHATIC: No anemia, easy bleeding, or history of blood clots. ALLERGIC/IMMUNOLOGIC: No hives or skin allergy. *Physical Exam - Vital Signs Last Vital Signs Temp Pulse Resp BP Pulse Ox 97.7 F 59 L 18 108/82 99 02/22/19 07:36 02/22/19 07:36 02/22/19 07:36 02/22/19 07:36 02/22/19 07:36 - Physical Exam Comments: 02/22/19 08:51 GENERAL: Awake, alert, and fully oriented, in no acute distress EYES: PERRLA, EOMI, sclera anicteric, conjunctiva clear ENT: Oropharynx clear without exudates. Moist mucosa NECK: Normal ROM, supple, no lymphadenopathy, JVD, or masses LUNGS: Breath sounds equal, clear to auscultation bilaterally. No wheezes, and no crackles HEART: Regular rate and rhythm, normal S1 and S2, no murmurs, rubs or gallops ABDOMEN: Soft, nontender, normoactive bowel sounds. No guarding, no rebound. No masses EXTREMITIES: Normal range of motion, no edema. No cords, erythema, or tenderness. No L shoulder/LUE ttp. Unable to illicit pain in LUE with head turning. 2+ distal radial pulses BACK: no midline cervical, thoracic, or lumbar spinal tenderness NEUROLOGICAL: Normal speech, cranial nerves intact, equal strength and sensation b/l SKIN: Warm, Dry, normal turgor, no rashes or lesions noted. Heart Score/ECG Review - History History: Slightly suspicious - Electrocardiogram EKG: Non specific repolarization disturbance - Age Age: >/= 65 - Risk Factors Risk Factors Heart Score: Yes Hx Hypercholesterolemia, Yes Positive family hx of cardiac disease, Yes Hx Obesity Based on the list above the patient has:: >/=3 risk factors or Hx atherosclerotic disease - Troponin Troponin: </= normal limit - Score Heart Score - Total: 5 #1 02/22/19 08:55 Twelve-lead EKG was performed and reviewed by me. Sinus bradycardia, rate 58. Normal axis. No ST elevations ED Treatment Course - LABORATORY CBC & Chemistry Diagram: 02/22/19 08:30 02/22/19 08:30 Medical Decision Making - Medical Decision Making 02/22/19 08:56 83yo M hx MMP including CHF, CAD, COPD prsents to the ED with constant L shoulder radiating to L hand pain since 3am. Vitals wnl. Exam wnl. EKG with no RADHA. DDx includes unstable angina vs ACS vs MSK pain. Pulses intact distally, and ext warm/well perfused thus low likelihood vascular pathology. HS is 5 thus far (trop pending). Plan: -gambling monitor -labs -obs 02/22/19 11:[address] Weinberg (covering for Dr. Castro), she will see pt Pt admitted to Dr. Cruz (case discussed with Dr Vera) Case discussed in detail with admitting physician including history, physical exam and ancillary studies. Admitting physician has assumed care for the patient, will follow all pending diagnostics and will complete the evaluation and treatment. *DC/Admit/Observation/Transfer Diagnosis at time of Disposition: SOB (shortness of breath) - Discharge Dispostion Condition at time of disposition: Stable - Referrals Referrals: Schirripa,Doug, MD [Primary Care Provider] - - Patient Instructions - Post Discharge Activity - Attestations Physician Attestion: 02/22/19 11:11 I, Dr. Homa Cabral MD, attest that this document has been prepared under my direction and personally reviewed by me in its entirety. I further attest, that it accurately reflects all work, treatment, procedures and medical decision -making performed by me.
[2019-02-22 08:40] LABS: BASO % 0.6 % (0-2.0); EOS % 1.2 % (0-4.5); HEMATOCRIT 39.7 % (35.4-49); HEMOGLOBIN 13.2 GM/dL (11.7-16.9); LYMPH % 15.2 % (8-40); MCH 28.4 pg (25.7-33.7); MCHC 33.3 g/dl (32.0-35.9); MEAN CELL VOLUME 85.4 fl (80-96); MEAN PLT VOLUME 8.7 fl (7.5-11.1); MONO % 7.8 % (3.8-10.2); NEUT % 75.2 % (42.8-82.8); PLATELET COUNT 252 K/MM3 (134-434); RBC 4.65 M/mm3 (4.00-5.60); RDW 14.1 % (11.9-15.9); WHITE BLOOD COUNT 11.4 K/mm3 (4.0-10.0)
[2019-02-22 09:17] LABS: ALBUMIN 3.4 g/dl (3.4-5.0); BILIRUBIN,TOTAL 0.3 mg/dL (0.2-1); MAGNESIUM 1.9 mg/dL (1.8-2.4); N-TERMINAL BNP 294.2 pg/ml (5-450); POTASSIUM 4.1 mmol/L (3.5-5.1)
--- NOTE | 2019-02-22 11:21 | CON.CARD ---
Cardiology Consult (text) - Consultation Consultation Note: Chief Complaint: L arm pain History of Present Illness: 83M h/o COPD, CAD s/p stent, bladder cancer, anemia, HTN, HLD, GI bleed p/w L arm pain. Woke up with severe pain in arm overnight. Sees dr muro for cardio. Has history of L arm pain worse with lying down, carpal tunnel and also numbness in arm but this episode was worse. Came on around 3 AM and woke him up. No chest pain, numbness. Encinal dyspnea and nauseated. - History Source Limitations to Obtaining History: No Limitations - Past Medical History Cardio/Vascular: Yes: CAD (s/p cardiac stent), HTN Pulmonary: Yes: COPD Renal/: Yes: Cancer (bladder) Rheumatology: Yes: Gout - Past Surgical History Past Surgical History: Yes: Appendectomy, Prostatectomy - Alcohol/Substance Use Hx Alcohol Use: No History of Substance Use: reports: None - Smoking History Smoking history: Former smoker Have you smoked in the past 12 months: No If you are a former smoker, when did you quit?: 1999 - Social History Usual Living Arrangement: Alone () ADL: Independent Occupation: Worked In [employer] History of Recent Travel: No Home Medications - Allergies Allergies/Adverse Reactions: Allergies Allergy/AdvReac Type Severity Reaction Status Date / Time Penicillins Allergy Mild "BAD Verified 02/22/19 07:45 REACTION" - Home Medications Ambulatory Orders Allopurinol [Zyloprim -] 300 mg PO BID 06/06/14 Cholecalciferol (Vitamin D3) [Vitamin D3] 5,000 unit PO DAILY 06/06/14 [place]-3 Fatty Acids [Fish Oil] 2,000 mg PO DAILY 06/06/14 Simvastatin [Zocor -] 40 mg PO HS 06/06/14 Vitamin B Complex 1 each PO DAILY 06/06/14 Arformoterol Tartrate [Brovana -] 1 amp NEB BID amp 08/10/17 Budesonide [Pulmicort 0.25 mg Nebulizer -] 1 amp NEB BID amp 08/10/17 Pantoprazole Sodium [Protonix -] 40 mg PO DAILY #30 tab.ec 08/10/17 Polyethylene Glycol 3350 [Miralax 119 gm Btl -] 17 gm PO ASDIR 10/27/18 Family Disease History - Family Disease History Family Disease History: CA: Father ( 60's suspected cancer), Other: Mother ( 80's alzheimer's dementia), Brother (2, healthy), Sister (2, healthy 1 sister : 70's COPD complications), Son (Obesity) Review of Systems - Review of Systems Constitutional: reports: No Symptoms Eyes: reports: No Symptoms HENT: reports: No Symptoms Neck: reports: No Symptoms Cardiovascular: reports: No Symptoms Respiratory: reports: SOB on Exertion Gastrointestinal: reports: No Symptoms Genitourinary: reports: No Symptoms Musculoskeletal: reports: No Symptoms Integumentary: reports: No Symptoms Endocrine: reports: No Symptoms Hematology/Lymphatic: reports: No Symptoms Psychiatric: reports: No Symptoms Vital Signs: Vital Signs Period Temp Pulse Resp BP Sys/Shoemaker Pulse Ox Last 24 Hr 97.7 F 59-67 18 108/82 99 Constitutional: Yes: No Distress, Calm Eyes: Yes: Conjunctiva Clear HENT: Yes: Atraumatic, Normocephalic Neck: Yes: Supple, Trachea Midline Respiratory: Yes: Regular,cta bl nl eff Gastrointestinal: Yes: Normal Bowel Sounds, Soft Cardiovaslar: Yes: Regular Rate and Rhythm JVD: no Carotid Bruit: No PMI: Non-Displaced Heart Sounds: Yes: S1, S2 Musculoskeletal: No: Back Pain Extremities: No: Cold, Cyanosis Edema: no Peripheral Pulses: 2+ Left Doralis Pedis, 2+ Right Dorsalis Pedis Integumentary: No: Jaundice diaphoresis Neurological: Yes: Alert, Oriented Laboratory Last Values WBC 11.4 K/mm3 (4.0-10.0) H 02/22/19 08:30 RBC 4.65 M/mm3 (4.00-5.60) 02/22/19 08:30 Hgb 13.2 GM/dL (11.7-16.9) 02/22/19 08:30 Hct 39.7 % (35.4-49) 02/22/19 08:30 MCV 85.4 fl (80-96) 02/22/19 08:30 MCH 28.4 pg (25.7-33.7) 02/22/19 08:30 MCHC 33.3 g/dl (32.0-35.9) 02/22/19 08:30 RDW 14.1 % (11.9-15.9) D 02/22/19 08:30 Plt Count 252 K/MM3 (134-434) D 02/22/19 08:30 MPV 8.7 fl (7.5-11.1) D 02/22/19 08:30 Absolute Neuts (auto) 8.6 K/mm3 (1.5-8.0) H 02/22/19 08:30 Neutrophils % 75.2 % (42.8-82.8) D 02/22/19 08:30 Lymphocytes % 15.2 % (8-40) D 02/22/19 08:30 Monocytes % 7.8 % (3.8-10.2) 02/22/19 08:30 Eosinophils % 1.2 % (0-4.5) 02/22/19 08:30 Basophils % 0.6 % (0-2.0) 02/22/19 08:30 Nucleated RBC % 0 % (0-0) 02/22/19 08:30 Sodium 139 mmol/L (136-145) 02/22/19 08:30 Potassium 4.1 mmol/L (3.5-5.1) 02/22/19 08:30 Chloride 108 mmol/L (98-107) H 02/22/19 08:30 Carbon Dioxide 23 mmol/L (21-32) 02/22/19 08:30 Anion Gap 8 MMOL/L (8-16) 02/22/19 08:30 BUN 58 mg/dL (7-18) H 02/22/19 08:30 Creatinine 1.6 mg/dL (0.55-1.3) H 02/22/19 08:30 Creat Clearance w eGFR 41.69 (>60) 02/22/19 08:30 Random Glucose 126 mg/dL (74-106) H 02/22/19 08:30 Calcium 9.0 mg/dL (8.5-10.1) 02/22/19 08:30 Magnesium 1.9 mg/dL (1.8-2.4) 02/22/19 08:30 Total Bilirubin 0.3 mg/dL (0.2-1) 02/22/19 08:30 AST 20 U/L (15-37) 02/22/19 08:30 ALT 16 U/L (13-61) 02/22/19 08:30 Alkaline Phosphatase 65 U/L (45-117) 02/22/19 08:30 Creatine Kinase 103 U/L (26-308) 02/22/19 08:30 Troponin I 0.02 ng/ml (0.00-0.05) 02/22/19 08:30 B-Natriuretic Peptide 294.2 pg/ml (5-450) 02/22/19 08:30 Total Protein 7.0 g/dl (6.4-8.2) 02/22/19 08:30 Albumin 3.4 g/dl (3.4-5.0) 02/22/19 08:30 CXR: no acute process EKG: sinus, nl intervals, RBBB, no ischemic changes Echo 09/2017: TDS, Definity used. nl LV/EF. normal LAP. nl RV. nl LA size. valves WNL. 4.0 cm ascending aorta dobut echo 2016: no STs. no ischemia. [facility] 2006: DALE to OM1. 50-60% mLAD left alone. echo 08/2018 LV nl size/function, Ef 55-60%, grade II diastolic dysfunction, elevated LA pressure LA mildly dilated, RV function nl, mild MR, PASP at least 33 mmHg, echo 10/2018 tds, unable to exclude RWMA, grossly nl LV function, mild TR, mild ao sclerosis event monitor 11/2018 WNL tele: sinus a/p: 83M h/o COPD, bladder cancer, anemia, HTN, HLD, GI bleed p/w L arm pain L arm pain - trop neg x 1, EKG no ischemic changes - history more consistent with MSK - trend trop, monitoring on tele chronic diastolic CHF, chronic edema (likely venous insuff): - nl LV function 10/2018 echo - euvolemic CAD: - h/o PCI ([facility] DALE) of OM1 in 2006. residual 50-60% mLAD lesion then - no angina since, med managed - no ischemia 2015 - no signs acute process here - cont home plan CKD: - has one functioning kidney - baseline creat ranges 1.4-1.6. spikes to 1.8 with vol depletion/lasix - stable here HTN -stable HLD - continue statin
[2019-02-22] MEDS ORDERED: ASPIRIN 81 MG CHEWABLE TABLETS PO SCH (11:39)
--- NOTE | 2019-02-22 11:42 | HP ---
CHIEF COMPLAINT: L arm tingling x 1 day PCP: Dr. Patel HISTORY OF PRESENT ILLNESS: 83 y/o M with hx CAD s/p stent x 1 (10 yrs ago), +stress test yrs ago, diastolic CHF (currently not on diuretic), COPD (not on home 02), CKD stage 3, bladder CA s/p chemo, radiation, anemia, HTN, HLD, gout, GERD, who presents to the ED c/o L arm pain and tingling that started at 3AM this morning. As per pt, at baseline, he sleeps on his L side placing pressure on his LUE. For this reason, he usually has numbness. However today was different, as he developed tingling and shooting pains from his L shoulder to his L hand. Was a/w nausea with near emesis, as well as sudden diaphoresis. Due to worry, pt's daughter brought him to the hospital. During this time, pt states that he feels better since in the interim, he had taken two tylenol. Is unsure whether the episode was related to "complete panic." Denies recent illnesses, WAL[place]ON, fever, chills, SOB , chest pain or pressure, or changes in urinary or bowel function. Ambulates with a cane at baseline. Pt had an ECHO done 10/2018: EF 50-55%, LV SF normal, wall motion abnormalities can't be r/o. Dobut echo 2015. EKG 10/2018 revealed IRBBB but with normal intervals and without acute changes. Follows routinely with Dr. Castro. Was last hospitalized in October 2018 for syncope likely vasovagal event and at the time was seen by cardio and neuro. States that he was placed on a holter monitor shortly after for a month and was told it was WNL. 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 Smoking: quit "yrs ago"; had smoked cigars intermittently but quit when he had in 1997 Alcohol: denies Drugs: denies Family History: mother - parkinson's Allergies Penicillins Allergy (Mild, Verified 02/22/19 07:45) "BAD REACTION" ?rash HOME MEDICATIONS: Home Medications Medication Instructions Recorded Allopurinol [Zyloprim -] 300 mg PO DAILY 06/06/14 Cholecalciferol (Vitamin D3) 5,000 unit PO DAILY 06/06/14 [Vitamin D3] [place]-3 Fatty Acids [Fish Oil] 2,000 mg PO DAILY 06/06/14 Simvastatin [Zocor -] 40 mg PO HS 06/06/14 Vitamin B Complex 1 each PO DAILY 06/06/14 Arformoterol Tartrate [Brovana -] 1 amp NEB BID amp 08/10/17 Budesonide [Pulmicort 0.25 mg 1 amp NEB BID amp 08/10/17 Nebulizer -] Pantoprazole Sodium [Protonix -] 40 mg PO DAILY #30 tab.ec 08/10/17 Polyethylene Glycol 3350 [Miralax 17 gm PO Q48H 10/27/18 119 gm Btl -] Aspirin [Noel Chewable] 81 mg PO DAILY 02/22/19 meds have been verified with list pt has at bedside. states not on lasix now. REVIEW OF SYSTEMS CONSTITUTIONAL: Absent: fever, chills, diaphoresis, generalized weakness, malaise, loss of appetite, weight change HEENT: Absent: rhinorrhea, nasal congestion, throat pain, throat swelling, difficulty swallowing, mouth swelling, ear pain, eye pain, visual changes CARDIOVASCULAR: +diaphoresis Absent: chest pain, syncope, palpitations, irregular heart rate, lightheadedness , peripheral edema RESPIRATORY: Absent: cough, shortness of breath, dyspnea with exertion, orthopnea, wheezing, stridor, hemoptysis GASTROINTESTINAL: Absent: abdominal pain, abdominal distension, nausea, vomiting, diarrhea, constipation, melena, hematochezia GENITOURINARY: Absent: dysuria, frequency, urgency, hesitancy, hematuria, flank pain, genital pain MUSCULOSKELETAL: +L arm pain Absent: myalgia, arthralgia, joint swelling, back pain, neck pain SKIN: Absent: rash, itching, pallor HEMATOLOGIC/IMMUNOLOGIC: Absent: easy bleeding, easy bruising, lymphadenopathy, frequent infections ENDOCRINE: Absent: unexplained weight gain, unexplained weight loss, heat intolerance, cold intolerance NEUROLOGIC: Absent: headache, focal weakness or paresthesias, dizziness, unsteady gait, seizure, mental status changes, bladder or bowel incontinence PSYCHIATRIC: Absent: anxiety, depression, suicidal or homicidal ideation, hallucinations. PHYSICAL EXAMINATION Vital Signs - 24 hr 02/22/19 02/22/19 07:36 10:12 Temperature 97.7 F Pulse Rate 59 L Pulse Rate [ 67 Apical] Respiratory 18 Rate Blood Pressure 108/82 O2 Sat by Pulse 99 Oximetry (%) GENERAL: Pleasant. Awake, alert, and fully oriented, in no acute distress. HEAD: Normal with no signs of trauma. EYES: Pupils equal, round and reactive to light, extraocular movements intact, sclera anicteric, conjunctiva clear. EARS, NOSE, THROAT: Ears normal, nares patent, oropharynx clear without exudates. Moist mucous membranes. NECK: Normal range of motion, supple LUNGS: Breath sounds equal, clear to auscultation bilaterally. No wheezes, and no crackles. No accessory muscle use. HEART: Regular rate and rhythm, normal S1 and S2 without murmur, rub or gallop. ABDOMEN: Soft, obese, nontender, not distended, normoactive bowel sounds, no guarding MUSCULOSKELETAL: +normal ROM in LUE. no crepitus in GH jt. UPPER EXTREMITIES: 2+ radial pulses, warm, well-perfused. No cyanosis. No clubbing. No peripheral edema. LOWER EXTREMITIES: 2+ pt pulses, warm, well-perfused. No calf tenderness. No peripheral edema. NEUROLOGICAL: Cranial nerves II-XII intact. Normal speech. PSYCHIATRIC: Cooperative. Laboratory Results - last 24 hr 02/22/19 02/22/19 08:30 08:30 WBC 11.4 H RBC 4.65 Hgb 13.2 Hct 39.7 MCV 85.4 MCH 28.4 MCHC 33.3 RDW 14.1 D Plt Count 252 D MPV 8.7 D Absolute Neuts (auto) 8.6 H Neutrophils % 75.2 D Lymphocytes % 15.2 D Monocytes % 7.8 Eosinophils % 1.2 Basophils % 0.6 Nucleated RBC % 0 Sodium 139 Potassium 4.1 Chloride 108 H Carbon Dioxide 23 Anion Gap 8 BUN 58 H Creatinine 1.6 H Creat Clearance w eGFR 41.69 Random Glucose 126 H Calcium 9.0 Magnesium 1.9 Total Bilirubin 0.3 AST 20 ALT 16 Alkaline Phosphatase 65 Creatine Kinase 103 Troponin I 0.02 B-Natriuretic Peptide 294.2 Total Protein 7.0 Albumin 3.4 CXR: + atelectasis. no infiltrates. without acute changes EKG: +RBBB, sinus, mild luke 58bpm. no acute st - t wave changes ASSESSMENT/PLAN: 83 y/o M with hx CAD s/p stent x 1 (10 yrs ago), +stress test yrs ago, diastolic CHF (currently not on diuretic), COPD (not on home 02), CKD stage 3, bladder CA s/p chemo, radiation, anemia, HTN, HLD, gout, GERD, who presents to the ED c/o L arm pain and tingling that started at 3AM this morning. #L arm pain possible 2/2 MSK -improving on own, however nonreproducible. w/o limiting ROM. as w/cardiac hx HEART 5 will need to r/o ACS -ED d/w cardio -first trop (-), cont to trend -f/u lipid profile, Mg>2, K>4 -ECHO done 10/2018; do not need to repeat at this time -tele monitoring -Cardio: Dr. Weinberg #HTN- controlled -currently not on any agents -cont to monitor #diastolic CHF -not in exacerbation. no signs of overload now -not on lasix as per pt. likely 2/2 CKD #COPD -not in exacerbation. cont to monitor -c/w brovana, budesonide . nebs PRN #CKD stage 3 -Cr at baseline 1.4-1.6 -cont to monitor -has seen Dr. Fleming previously #HLD -c/w simvastatin #gout -c/w allopurinol #GERD -c/w protonix #F/E/N No ivf req at this time cont to follow lytes na controlled/cholesterol, fat controlled diet #PPX DVT: SCD's. #Dispo tele-obs anticipate d/c in 24-48 hrs if trops (-) and no other intervention planned by cardio. Visit type - Emergency Visit Emergency Visit: Yes ED Registration Date: 02/22/19 Care time: The patient presented to the Emergency Department on the above date and was hospitalized for further evaluation of their emergent condition. - New Patient This patient is new to me today: Yes Date on this admission: 02/22/19 - Critical Care Critical Care patient: No
[2019-02-22] MEDS ORDERED: POLYETHYLENE GLYCOL 3350 119 GM BTL PO SCH (11:45)
[2019-02-22] MEDS ORDERED: PANTOPRAZOLE 40 MG TABLET (FP) PO SCH (11:45)
[2019-02-22] MEDS ORDERED: PANTOPRAZOLE 40 MG TABLET (FP) ONE (11:52)
[2019-02-22] MEDS ORDERED: VITAMIN B COMPLEX W/C COMBO TABLET (FP) PO SCH (12:00)
[2019-02-22] MEDS ORDERED: OMEGA-3 ACID ETHYL ESTERS (FATTY-ACIDS) 1 GM CAPSULE (FP) PO SCH (12:00)
[2019-02-22 12:10] LABS: CREATININE 1.6 mg/dL (0.55-1.3)
[2019-02-22 14:21] VITALS: PULSE 74
--- NOTE | 2019-02-22 15:00 | PN ---
Teaching Attending Note Name of Resident: Lynn Vera ATTENDING PHYSICIAN STATEMENT I saw and evaluated the patient. I reviewed the resident's note and discussed the case with the resident. I agree with the resident's findings and plan as documented with exceptions below. SUBJECTIVE: 83 yom with PMhx of CAD s/p stent x 1 (10 yrs ago), +stress test yrs ago, diastolic CHF (currently not on diuretic), COPD (not on home 02), CKD stage 3, bladder CA s/p chemo, radiation, anemia, HTN, HLD, gout, GERD woke up with left shoulder pain radiating down left arm with left fingers tingling and inability to move left shoulder then associated with an episode of diaphoresis and nausea. Symptoms resolved prior to coming to the ED. Shoulder pain resolved, able to move shoulder better, some tingling in fingers and wants to follow up with Dr. Gastelum. Patient reports occasional left arm numbness after sleeping on the same with self resolution, nothing this long. Currently asymptomatic. Denies any recent chest pain or pressure,dsypnea, jaw pain or new concerns. 12 point ROS done, neg except above. OBJECTIVE: Vital Signs Period Temp Pulse Resp BP Sys/Shoemaker Pulse Ox Last 24 Hr 97.7 F 59-74 17-18 108-112/62-82 98-99 Intake & Output 02/19/19 02/20/19 02/21/19 02/22/19 23:59 23:59 23:59 23:59 Weight 235 lb GENERAL: Awake, alert, and fully oriented, in no acute distress. HEAD: Normal with no signs of trauma. EYES: Pupils equal, round and reactive to light, extraocular movements intact, sclera anicteric, conjunctiva clear. No lid lag. EARS, NOSE, THROAT: Ears normal, nares patent, oropharynx clear without exudates. Moist mucous membranes. NECK: Normal range of motion, supple, no JVD noted LUNGS: few basilar rales, L>R, good air entry, no wheezing HEART: Regular rate and rhythm, normal S1 and S2 ABDOMEN: Soft, nontender, not distended, normoactive bowel sounds, no guarding, no rebound, no masses. MUSCULOSKELETAL: Normal range of motion at all joints. No bony deformities or tenderness. No CVA tenderness. ABle to elevate shoulder with no pain, sensation intact and symmetric bilateral upper extremities, no spinal tenderness noted UPPER EXTREMITIES: 2+ pulses, warm, well-perfused. No cyanosis. No clubbing. No peripheral edema. LOWER EXTREMITIES: 2+ pulses, warm, well-perfused. No calf tenderness. No peripheral edema. NEUROLOGICAL: AAOX3, Cranial nerves II-XII intact. Normal speech. Facial symmetry, tongue midline, sensation symmetric to gross touch bilaterally PSYCHIATRIC: Cooperative. Good eye contact. Appropriate mood and affect. SKIN: Warm, dry, normal turgor, no rashes or lesions noted, normal capillary refill. Home Medications Medication Instructions Recorded Allopurinol [Zyloprim -] 300 mg PO DAILY 06/06/14 Cholecalciferol (Vitamin D3) 5,000 unit PO DAILY 06/06/14 [Vitamin D3] [place]-3 Fatty Acids [Fish Oil] 2,000 mg PO DAILY 06/06/14 Simvastatin [Zocor -] 40 mg PO HS 06/06/14 Vitamin B Complex 1 each PO DAILY 06/06/14 Arformoterol Tartrate [Brovana -] 1 amp NEB BID amp 08/10/17 Budesonide [Pulmicort 0.25 mg 1 amp NEB BID amp 08/10/17 Nebulizer -] Pantoprazole Sodium [Protonix -] 40 mg PO DAILY #30 tab.ec 08/10/17 Polyethylene Glycol 3350 [Miralax 17 gm PO Q48H 10/27/18 119 gm Btl -] Aspirin [Noel Chewable Aspirin] 81 mg PO DAILY 02/22/19 Active Medications Allopurinol (Zyloprim -) 300 mg PO DAILY [facility] Arformoterol Tartrate (Brovana (Restricted To Pulmonology/Resp) -) 1 amp NEB BID [facility] Aspirin (Asa -) 81 mg PO DAILY [facility] Atorvastatin Calcium (Lipitor -) 20 mg PO HS [facility] Budesonide (Pulmicort 0.25 Mg Nebulizer -) 1 amp NEB BID [facility] Cholecalciferol (Vitamin D3 -) 5,000 unit PO DAILY [facility] Multivitamins (Total B With C -) 1 each PO DAILY [facility] Last Admin: 02/22/19 12:01 Dose: Not Given [id number] Ethyl Esters (Lovaza -) 2 gm PO DAILY [facility] Last Admin: 02/22/19 12:01 Dose: Not Given Pantoprazole Sodium (Protonix -) 40 mg PO DAILY [facility] Last Admin: 02/22/19 11:56 Dose: 40 mg Polyethylene Glycol (Miralax (For Daily Use) -) 17 gm PO Q2D@1000 [facility] Last Admin: 02/22/19 11:56 Dose: Not Given Laboratory Results - last 24 hr 02/22/19 02/22/19 02/22/19 08:30 08:30 08:30 WBC 11.4 H RBC 4.65 Hgb 13.2 Hct 39.7 MCV 85.4 MCH 28.4 MCHC 33.3 RDW 14.1 D Plt Count 252 D MPV 8.7 D Absolute Neuts (auto) 8.6 H Neutrophils % 75.2 D Lymphocytes % 15.2 D Monocytes % 7.8 Eosinophils % 1.2 Basophils % 0.6 Nucleated RBC % 0 Sodium 139 Potassium 4.1 Chloride 108 H Carbon Dioxide 23 Anion Gap 8 BUN 58 H Creatinine 1.6 H Creat Clearance w eGFR 41.69 Est GFR (CKD-EPI)AfAm 46.14 Est GFR (CKD-EPI)NonAf 39.81 Random Glucose 126 H Hemoglobin A1c % 5.4 Calcium 9.0 Magnesium 1.9 Total Bilirubin 0.3 AST 20 ALT 16 Alkaline Phosphatase 65 Creatine Kinase 103 Troponin I 0.02 B-Natriuretic Peptide 294.2 Total Protein 7.0 Albumin 3.4 Triglycerides 212 H Cholesterol 154 Total LDL Cholesterol 85 HDL Cholesterol 48 02/22/19 13:50 WBC RBC Hgb Hct MCV MCH MCHC RDW Plt Count MPV Absolute Neuts (auto) Neutrophils % Lymphocytes % Monocytes % Eosinophils % Basophils % Nucleated RBC % Sodium Potassium Chloride Carbon Dioxide Anion Gap BUN Creatinine Creat Clearance w eGFR Est GFR (CKD-EPI)AfAm Est GFR (CKD-EPI)NonAf Random Glucose Hemoglobin A1c % Calcium Magnesium Total Bilirubin AST ALT Alkaline Phosphatase Creatine Kinase Troponin I < 0.02 B-Natriuretic Peptide Total Protein Albumin Triglycerides Cholesterol Total LDL Cholesterol HDL Cholesterol CXR results reviewed EKG noted, unchanged from prior ASSESSMENT AND PLAN: 83 yom with PMHx of CAD s/p stent x 1 (10 yrs ago), +stress test yrs ago, diastolic CHF (currently not on diuretic), COPD (not on home 02), CKD stage 3, bladder CA s/p chemo, radiation, anemia, HTN, HLD, gout, GERD with left shoulder /arm pain -Left shoulder/arm pain, associated with sleeping on the side and limitation of ROM at left shoulder, suggestive of musculoskeletal etiology -CAD s/p PCI -Diastolic CHF -COPD not on home oxygen -CKD stage III -Bladder Ca s/p chemoradiation -Anemia -HLD -Gout -GERD Plan: telemetry with no events. EKG unchanged. Symptoms resolved. Tn neg x 2. Discussed with carlos Kang for d/c with outpatient follow up. Plan discussed with patient and family at bedside in detail, all questions answered. D/c home with outpatient PCP/cardiology/neurology follow up. Total time including admission and discharge 75 min.
--- NOTE | 2019-02-22 15:07 | DS ---
Physical Exam: SUBJECTIVE: Patient seen and examined at bedside. Trops - x 2. cleared for dc. OBJECTIVE: Vital Signs Period Temp Pulse Resp BP Sys/Shoemaker Pulse Ox Last 24 Hr 97.7 F 59-74 17-18 108-112/62-82 98-99 LABS Laboratory Results - last 24 hr 02/22/19 02/22/19 02/22/19 08:30 08:30 08:30 WBC 11.4 H RBC 4.65 Hgb 13.2 Hct 39.7 MCV 85.4 MCH 28.4 MCHC 33.3 RDW 14.1 D Plt Count 252 D MPV 8.7 D Absolute Neuts (auto) 8.6 H Neutrophils % 75.2 D Lymphocytes % 15.2 D Monocytes % 7.8 Eosinophils % 1.2 Basophils % 0.6 Nucleated RBC % 0 Sodium 139 Potassium 4.1 Chloride 108 H Carbon Dioxide 23 Anion Gap 8 BUN 58 H Creatinine 1.6 H Creat Clearance w eGFR 41.69 Est GFR (CKD-EPI)AfAm 46.14 Est GFR (CKD-EPI)NonAf 39.81 Random Glucose 126 H Hemoglobin A1c % 5.4 Calcium 9.0 Magnesium 1.9 Total Bilirubin 0.3 AST 20 ALT 16 Alkaline Phosphatase 65 Creatine Kinase 103 Troponin I 0.02 B-Natriuretic Peptide 294.2 Total Protein 7.0 Albumin 3.4 Triglycerides 212 H Cholesterol 154 Total LDL Cholesterol 85 HDL Cholesterol 48 Trop trend 02/22/19 02/22/19 08:30 13:50 Troponin I 0.02 < 0.02 HOSPITAL COURSE: Date of Admission:02/22/19 Date of Discharge: 02/22/19 Admit diagnosis: L arm pain, r/o ACS 83 y/o M with hx CAD s/p stent x 1 (10 yrs ago), +stress test yrs ago, diastolic CHF (currently not on diuretic), COPD (not on home 02), CKD stage 3, bladder CA s/p chemo, radiation, anemia, HTN, HLD, gout, GERD, who presents to the ED c/o L arm pain and tingling that started at 3AM this morning. As per pt, at baseline, he sleeps on his L side placing pressure on his LUE. For this reason, he usually has numbness. However today was different, as he developed tingling and shooting pains from his L shoulder to his L hand. Was a/w nausea with near emesis, as well as sudden diaphoresis. Due to worry, pt's daughter brought him to the hospital. During this time, pt states that he feels better since in the interim, he had taken two tylenol. Is unsure whether the episode was related to "complete panic." Denies recent illnesses, WALDRON, fever, chills, SOB , chest pain or pressure, or changes in urinary or bowel function. Ambulates with a cane at baseline. Pt had an ECHO done 10/2018: EF 50-55%, LV SF normal, wall motion abnormalities can't be r/o. Dobut echo 2015. EKG 10/2018 revealed IRBBB but with normal intervals and without acute changes. Follows routinely with Dr. Castro. Was last hospitalized in October 2018 for syncope likely vasovagal event and at the time was seen by cardio and neuro. States that he was placed on a holter monitor shortly after for a month and was told it was WNL. Pt was admitted to the hospital and seen by cardio. LUE pain likely 2/2 MSK. First two trops (-), pt d/c home. Rec f/u with cardio Dr. Castro and PCP. Minutes to complete discharge: 45 Discharge Summary Reason For Visit: SOB Condition: Stable - Instructions Diet, Activity, Other Instructions: You were in the hospital because you had pain in your left arm. This was likely musculoskeletal. You were monitored in the hospital and seen by a knife sharpener, Dr. Weinberg as well as the primary medical team. Your heart enzymes were negative , which means that you did not have any heart damage. You are being discharged home. Please continue your home medications. Please follow up with your primary care doctor, Dr. Patel, and knife sharpener , Dr. Castro this week to discuss your hospital visit. If you develop shortness of breath or chest pain, please go to the hospital. Referrals: Dr. peri [Other] - 1 Week Ab Castro MD [Staff Physician] - 1 Week Yuan Gastelum MD [Staff Physician] - Disposition: HOME - Home Medications Comprehensive Discharge Medication List: Ambulatory Orders Allopurinol [Zyloprim -] 300 mg PO DAILY 06/06/14 Cholecalciferol (Vitamin D3) [Vitamin D3] 5,000 unit PO DAILY 06/06/14 [place]-3 Fatty Acids [Fish Oil] 2,000 mg PO DAILY 06/06/14 Simvastatin [Zocor -] 40 mg PO HS 06/06/14 Vitamin B Complex 1 each PO DAILY 06/06/14 Arformoterol Tartrate [Brovana -] 1 amp NEB BID amp 08/10/17 Budesonide [Pulmicort 0.25 mg Nebulizer -] 1 amp NEB BID amp 08/10/17 Pantoprazole Sodium [Protonix -] 40 mg PO DAILY #30 tab.ec 08/10/17 Polyethylene Glycol 3350 [Miralax 119 gm Btl -] 17 gm PO Q48H 10/27/18 Aspirin [Noel Chewable Aspirin] 81 mg PO DAILY 02/22/19 This patient is new to me today: Yes Date on this admission: 02/22/19 Emergency Visit: Yes ED Registration Date: 02/22/19 Care time: The patient presented to the Emergency Department on the above date and was hospitalized for further evaluation of their emergent condition. Critical Care patient: No - Discharge Referral Referred to [facility] No
[2019-02-22 15:08] VITALS: BP 110/62
--- NOTE | 2019-02-22 15:35 | EKG ---
Test Reason : Blood Pressure : / mmHG Vent. Rate : 058 BPM Atrial Rate : 058 BPM P-R Int : 194 ms QRS Dur : 148 ms QT Int : 508 ms P-R-T Axes : 062 -09 -20 degrees QTc Int : 498 ms SINUS BRADYCARDIA RIGHT BUNDLE BRANCH BLOCK ABNORMAL ECG WHEN COMPARED WITH ECG OF 27-OCT-2018 13:24, NO SIGNIFICANT CHANGE WAS FOUND Confirmed by JASMEET HERNANDEZ MD ([id number]) on 02/22/2019 3:35:50 PM Referred By: Confirmed By:JASMEET HERNANDEZ MD
[2019-02-22] MEDS ORDERED: ATORVASTATIN CA 20 MG TABLET (FP) PO SCH (22:00)
[2019-02-22] MEDS ORDERED: BUDESONIDE 0.25 MG/2ML INH SUSP VIAL NEB SCH (22:00)
[2019-02-22] MEDS ORDERED: ARFORMOTEROL TARTRATE 15 MCG/2 ML VIAL NEB SCH (22:00)
[2019-02-23] MEDS ORDERED: ALLOPURINOL 300 MG TABLET (FP) PO SCH (10:00)
[2019-02-23] MEDS ORDERED: CHOLECALCIFEROL (VITAMIN D3) 1,000 UNIT TABLET (FP) PO SCH (10:00)
[2019-02-23] MEDS ORDERED: ASPIRIN 81 MG CHEWABLE TABLETS PO SCH (10:00)
== END 2019-02-22 15:10 | disposition home or self-care (01) ==
LOC: JER 07:25 → JERBED 08:58
PROVIDERS: ADMIT Hospitalist; ATTEND Hospitalist
DX: R06.02 Shortness of breath (principal); M25.512 Pain in left shoulder; I13.0 Hypertensive heart and chronic kidney disease with heart failure and stage 1 through stage 4 chronic kidney disease, or unspecified chronic kidney disease; N18.3 Chronic kidney disease, stage 3 (moderate); I50.32 Chronic diastolic (congestive) heart failure; I25.10 Atherosclerotic heart disease of native coronary artery without angina pectoris; E78.5 Hyperlipidemia, unspecified; J44.9 Chronic obstructive pulmonary disease, unspecified; D50.9 Iron deficiency anemia, unspecified; K21.9 Gastro-esophageal reflux disease without esophagitis; M10.9 Gout, unspecified; Z85.51 Personal history of malignant neoplasm of bladder; Z92.21 Personal history of antineoplastic chemotherapy; Z95.5 Presence of coronary angioplasty implant and graft; Z88.0 Allergy status to penicillin
CPT/HCPCS: 36415; 71045-TC-FY; 80053; 80061; 82550; 83036; 83721; 83735; 83880; 84484; 85025; 93005; 93010; 99284-25; G0378

== ENCOUNTER 2020-07-23 12:08 | Emergency (ER) | payer OTHER, MEDICARE ==
[2020-07-23 12:16] VITALS: TEMP 98.2; BMI 25.7
--- NOTE | 2020-07-23 12:20 | PDOC ---
History of Present Illness - General Chief Complaint: Hemoptysis Stated Complaint: SENT BY PCP (COPD) Time Seen by Provider: 07/23/20 12:19 - History of Present Illness Initial Comments: Jr is an 83 yo M w a pmh of CKD, CAD, R sided heart failure, COPD (Not on Home O2), Bladder cancer (s/p Chemo, resection) Anemia, HTN, HLD, Gout, and gastric bleed, GERD who presents to the ER for hemoptysis since last night. Patient reports 5-6 bouts of bright red blood tinged sputum. Other rendon denies fever, chills, nausea, vomiting, diarrhea, chest pain. Patient is persistently short of breath given h/o copd. PCP is Dr. Barnett, Cardio is Dr. Miller, Pulm is Dr. Gill. Constitutional: No Weight Change, No Fever, No Chills, No Night Sweats, No Fatigue, No Malaise ENT/Mouth: No Hearing Changes, No Ear Pain, No Nasal Congestion, No Sinus Pain, No Hoarseness, No sore throat, No Rhinorrhea, No Swallowing Difficulty Eyes: No Eye Pain, No Swelling, No Redness, No Foreign Body, No Discharge, No Vision Changes Cardiovascular: No Chest Pain, No SOB, No PND, No Dyspnea on Exertion, No Orthopnea, No Claudication, No Edema, No Palpitations Respiratory: + Cough, + Sputum, No Wheezing, No Smoke Exposure, No Dyspnea Gastrointestinal: No Nausea, No Vomiting, No Diarrhea, No Constipation, No Pain, No Heartburn, No Anorexia, No Dysphagia, No Hematochezia, No Melena, No Flatulence, No Jaundice Genitourinary: No Dysmenorrhea, No DUB, No Dyspareunia, No Dysuria, No Urinary Frequency, No Hematuria, No Urinary Incontinence, No Urgency, No Flank Pain, No Urinary Flow Changes, No Hesitancy Musculoskeletal: No Arthralgias, No Myalgias, No Joint Swelling, No Joint Stiffness, No Back Pain, No Neck Pain, No Injury History Skin: No Skin Lesions, No Pruritis, No Hair Changes, No Breast/Skin Changes, No Nipple Discharge Neuro: No Weakness, No Numbness, No Paresthesias, No Loss of Consciousness, No Syncope, No Dizziness, No Headache, No Coordination Changes, No Recent Falls Psych: No Anxiety/Panic, No Depression, No Insomnia, No Personality Changes, No Delusions, No Rumination, No SI/HI/AH/VH, No Social Issues, No Memory Changes, No Violence/Abuse Hx., No Eating Concerns Heme/Lymph: No Bruising, No Bleeding, No Transfusions History, No Lymphadenopathy Endocrine: No Polyuria, No Polydipsia, No Temperature Intolerance Past History - Medical History Allergies/Adverse Reactions: Allergies Allergy/AdvReac Type Severity Reaction Status Date / Time Penicillins Allergy Mild "BAD Verified 07/23/20 12:12 REACTION" Home Medications: Ambulatory Orders Allopurinol [Zyloprim -] 300 mg PO DAILY 06/06/14 Cholecalciferol (Vitamin D3) [Vitamin D3] 5,000 unit PO DAILY 06/06/14 [place]-3 Fatty Acids [Fish Oil] 2,000 mg PO DAILY 06/06/14 Simvastatin [Zocor -] 40 mg PO HS 06/06/14 Vitamin B Complex 1 each PO DAILY 06/06/14 Arformoterol Tartrate [Brovana -] 1 amp NEB BID amp 08/10/17 Budesonide [Pulmicort 0.25 mg Nebulizer -] 1 amp NEB BID amp 08/10/17 Pantoprazole Sodium [Protonix -] 40 mg PO DAILY #30 tab.ec 08/10/17 Polyethylene Glycol 3350 [Miralax 119 gm Btl -] 17 gm PO Q48H 10/27/18 Aspirin [Noel Chewable Aspirin] 81 mg PO DAILY 02/22/19 Anemia: Yes (IRON DEFICIENCY ANEMIA) Asthma: Yes Cancer: Yes (BLADDER) Cardiac Disorders: Yes CVA: No COPD: Yes CHF: Yes Dementia: No Diabetes: No Dialysis: No GI Disorders: No Disorders: Yes HTN: Yes Hypercholesterolemia: Yes Liver Disease: No Seizures: No Thyroid Disease: No - Surgical History Abdominal Surgery: Yes Appendectomy: Yes (1998) Cardiac Surgery: Yes (STENT X 1) Lung Surgery: No Neurologic Surgery: No - Immunization History Immunization Up to Date: Yes - Psycho-Social/Smoking History Smoking Status: Yes Smoking History: Former smoker Have you smoked in the past 12 months: No If you are a former smoker, when did you quit?: 20YRS Information on smoking cessation initiated: No - Substance Abuse Hx (Audit-C & DAST Scrn) How often the patient has a drink containing alcohol: Never How often the patient has six or more drinks on one occasion: Never Score: In Men: 4 or > Positive; In Women: 3 or > Positive: 0 Screen Result (Pos requires Nsg. Audit-10AR): Negative In the last yr the pt used illegal drug/Rx for NonMed reason: No Score: Yes response is considered Positive: 0 Screen Result (Positive result requires Nsg. DAST-10): Negative *Physical Exam - Vital Signs Last Vital Signs Temp Pulse Resp BP Pulse Ox 98.2 F 83 20 141/63 100 07/23/20 12:12 07/23/20 12:12 07/23/20 12:12 07/23/20 12:12 07/23/20 12:12 ED Treatment Course - LABORATORY CBC & Chemistry Diagram: 07/23/20 12:49 07/23/20 12:49 Medical Decision Making - Medical Decision Making 84 YOM w/ COPD, heart failure, ckd and addnl extensive medical history presents for hemoptysis since last night - vitals wnl - exam unremarkable - ddx includes COPD exacerbation, bronchitis, pneumonia - plan: CBC, CMP, CXR reassess: - CXR unchanged since last - labs wnl - patient feels well and is ok to return home to f/u with primary care and microbiology manager 07/23/20 13:36 Discharge - Discharge Information Problems reviewed: Yes Clinical Impression/Diagnosis: Hemoptysis Condition: Good - Admission No - Follow up/Referral Referrals: Doug Griffith MD [Primary Care Provider] - - Patient Discharge Instructions Patient Printed Discharge Instructions: DI for Hemoptysis Additional Instructions: You were seen in the ER because you had blood in your sputum. You received labs and chest xray, both of which were unconcerning. You were considered medically stable and safe to return home. Please follow up with your primary care provider and microbiology manager regarding your visit to the ER. Return to the emergency department if: You have new or worsening chest pain or shortness of breath. Your bleeding gets worse or you cough up a large amount of blood. You cannot stop vomiting. You are so dizzy that you think you may fall or faint. You have pain or swelling in your legs. Your legs and arms feel cold or look pale. You have new or increasing shortness of breath. You have a fever. You lose weight without trying. You feel more weak and tired than usual. You have a cough that does not improve or gets worse. You have questions or concerns about your condition or care. - Post Discharge Activity
--- NOTE | 2020-07-23 12:37 | PDOC ---
Attending Attestation - Resident Resident Name: Salvatore Carroll - ED Attending Attestation I have performed the following: I have examined & evaluated the patient, The case was reviewed & discussed with the resident, I agree w/resident's findings & plan, Exceptions are as noted - HPI HPI: 83 yo M history CKD, CAD, CHF, COPD (not on O2), bladder CA, anemia, HTN, HL, gout, GERD presents with hemoptysis that occurred since last night. He states that he felt like he needed to clear his sputum last night and was having difficulty. He states that he was vigorously trying to cough it up, then noticed flecks of blood in it. Denies fever, chills, SOB. - Physicial Exam PE: GENERAL: Awake, alert, and fully oriented, in no acute distress. Well-appearing HEAD: No signs of trauma EYES: PERRLA, EOMI, sclera anicteric, conjunctiva clear ENT: Auricles normal inspection, hearing grossly normal, nares patent, oropharynx clear without exudates. Moist mucosa NECK: Normal ROM, supple, no lymphadenopathy, JVD, or masses LUNGS: Breath sounds equal, clear to auscultation bilaterally. No wheezes, and no crackles HEART: Regular rate and rhythm, normal S1 and S2, no murmurs, rubs or gallops ABDOMEN: Soft, nontender, normoactive bowel sounds. No guarding, no rebound. No masses EXTREMITIES: Normal range of motion, no edema. No clubbing or cyanosis. No cords, erythema, or tenderness NEUROLOGICAL: Cranial nerves II through XII grossly intact. Normal speech, normal gait. Motor and sensation intact SKIN: Warm, dry, normal turgor, no rashes or lesions noted. - Medical Decision Making Pt with flecks of blood in his sputum after coughing and trying to vigorously clear his sputum last night. Well-appearing on exam. Will check CXR to r/o pna. Likely DC home. Discharge - Discharge Information Problems reviewed: Yes Clinical Impression/Diagnosis: Hemoptysis Condition: Good Disposition: HOME - Follow up/Referral Referrals: Doug Griffith MD [Primary Care Provider] - - Patient Discharge Instructions Patient Printed Discharge Instructions: DI for Hemoptysis Additional Instructions: You were seen in the ER because you had blood in your sputum. You received labs and chest xray, both of which were unconcerning. You were considered medically stable and safe to return home. Please follow up with your primary care provider and tub tender regarding your visit to the ER. Return to the emergency department if: You have new or worsening chest pain or shortness of breath. Your bleeding gets worse or you cough up a large amount of blood. You cannot stop vomiting. You are so dizzy that you think you may fall or faint. You have pain or swelling in your legs. Your legs and arms feel cold or look pale. You have new or increasing shortness of breath. You have a fever. You lose weight without trying. You feel more weak and tired than usual. You have a cough that does not improve or gets worse. You have questions or concerns about your condition or care. - Post Discharge Activity
[2020-07-23 12:59] LABS: BASO % 1.1 % (0-2.0); EOS % 0.9 % (0-4.5); HEMATOCRIT 36.5 % (35.4-49); HEMOGLOBIN 12.3 GM/dL (11.7-16.9); LYMPH % 20.3 % (8-40); MCH 30.3 pg (25.7-33.7); MCHC 33.7 g/dl (32.0-35.9); MEAN CELL VOLUME 89.8 fl (80-96); MEAN PLT VOLUME 8.3 fl (7.5-11.1); MONO % 9.5 % (3.8-10.2); NEUT % 68.2 % (42.8-82.8); PLATELET COUNT 238 K/MM3 (134-434); RBC 4.07 M/mm3 (4.00-5.60); RDW 15.1 % (11.9-15.9); WHITE BLOOD COUNT 7.7 K/mm3 (4.0-10.0)
--- OUTSIDE RECORDS SUMMARY | 2020-07-23 13:07 | XMS ---
:1935 Author Organization [facility] Support Name Relationship Address Phone RE Unavailable Unavailable Unavailable JULIO MULLIGAN SON [address] [facility] [place] [address] Re-disclosure Warning The records that you are about to access may contain information from federally- assisted alcohol or drug abuse programs. If such information is present, then the following federally mandated warning applies: This information has been disclosed to you from records protected by federal confidentiality rules (42 CFR part 2). The federal rules prohibit you from making any further disclosure of this information unless further disclosure is expressly permitted by the written consent of the person to whom it pertains or as otherwise permitted by 42 CFR part 2. A general authorization for the release of medical or other information is NOT sufficient for this purpose. The Federal rules restrict any use of the information to criminally investigate or prosecute any alcohol or drug abuse patient.The records that you are about to access may contain highly sensitive health information, the redisclosure of which is protected by Article 27-F of the [facility] Public Health law. If you continue you may haveaccess to information: Regarding HIV / AIDS; Provided by facilities licensed or operated by the [facility] Office of Mental Health; or Provided by the [facility] Office for People With Developmental Disabilities. If such information is present, then the following [facility] mandated warning applies: This information has been disclosed to you from confidential records which are protected by state law. State law prohibits you from making any further disclosure of this information without the specific written consent of the person to whom it pertains, or as otherwise permitted by law. Any unauthorized further disclosure in violation of state law may result in a fine or assisted sentence or both. A general authorization for the release of medical or other information is NOT sufficient authorization for further disclosure. Insurance Providers Payer name Policy type Policy ID Covered Covered libertarian's Policy P godfrey / Coverage libertarian ID relationship to Rae Inf ormation type rae [facility] [id number] SP [id number] [employer] [id number] SP [id number] A
[2020-07-23 13:31] LABS: ALBUMIN 3.6 g/dl (3.4-5.0); BILIRUBIN,TOTAL 0.4 mg/dL (0.2-1); BLOOD UREA NITROGEN 37.3 mg/dL (7-18); CALCIUM 9.1 mg/dL (8.5-10.1); CREATININE 1.2 mg/dL (0.55-1.3); POTASSIUM 4.3 mmol/L (3.5-5.1); TOT PROT 6.9 g/dl (6.4-8.2)
[2020-07-23 14:06] VITALS: BP 139/65; PULSE 80
== END 2020-07-23 14:05 | disposition home or self-care (01) ==
LOC: JER 12:08
DX: R04.2 Hemoptysis (principal)
CPT/HCPCS: 36415; 71046-TC-FY; 80053; 85025; 99284-25

== ENCOUNTER 2021-01-04 14:46 | Emergency (ER) | payer OTHER, MEDICARE ==
[2021-01-04 15:14] VITALS: BP 118/75; PULSE 76; TEMP 97.8; BMI 25.0
[2021-01-04] MEDS ORDERED: DIPHTH,PERTUSS(ACELL),TET 0.5 ML DISP.SYRIN IM ONE ×2 (15:47→16:05)
== END 2021-01-04 16:20 | disposition home or self-care (01) ==
LOC: JER 14:46 → JERFT 14:46
PROC: 0HQGXZZ Repair Left Hand Skin, External Approach (ICD-10-PCS; principal; 2021-01-04)
PROC: 3E0234Z Introduction of Serum, Toxoid and Vaccine into Muscle, Percutaneous Approach (ICD-10-PCS; 2021-01-04)
DX: S61.211A Laceration without foreign body of left index finger without damage to nail, initial encounter (principal)
CPT/HCPCS: 90715; 99284-25

== ENCOUNTER 2021-01-11 11:53 | Emergency (ER) | payer OTHER, MEDICARE ==
[2021-01-11 12:03] VITALS: BP 113/77; PULSE 77; TEMP 97.8; BMI 25.2
== END 2021-01-11 12:48 | disposition home or self-care (01) ==
LOC: JERFT 11:53
DX: S61.211A Laceration without foreign body of left index finger without damage to nail, initial encounter (principal); Z48.02 Encounter for removal of sutures
CPT/HCPCS: 99281-25

== ENCOUNTER 2021-04-23 22:14 | Inpatient (IN) | payer OTHER, MEDICARE ==
[2021-04-23] MEDS ORDERED: FUROSEMIDE 40 MG/4 ML INJECTABLE VIAL IVPUSH ONE (23:04)
[2021-04-23] MEDS ORDERED: FUROSEMIDE 40 MG/4 ML INJECTABLE VIAL ONE (23:29)
[2021-04-23 23:51] LABS: BASO % 0.8 % (0-2.0); EOS % 1.2 % (0-4.5); HEMATOCRIT 35.6 % (35.4-49); HEMOGLOBIN 12.1 GM/dL (11.7-16.9); LYMPH % 20.6 % (8-40); MCH 29.4 pg (25.7-33.7); MEAN CELL VOLUME 86.5 fl (80-96); MEAN PLT VOLUME 7.9 fl (7.5-11.1); MONO % 10.8 % (3.8-10.2); NEUT % 66.6 % (42.8-82.8); PLATELET COUNT 256 10^3/uL (134-434); RBC 4.12 M/mm3 (4.00-5.60); RDW 14.7 % (11.9-15.9); WHITE BLOOD COUNT 10.9 K/mm3 (4.0-10.0)
[2021-04-24 00:11] LABS: CALCIUM 8.4 mg/dL (8.5-10.1)
[2021-04-24 00:12] LABS: ALBUMIN 3.4 g/dl (3.4-5.0); BLOOD UREA NITROGEN 39.6 mg/dL (7-18)
[2021-04-24 00:15] LABS: CREATININE 1.1 mg/dL (0.55-1.3)
[2021-04-24 00:17] LABS: BILIRUBIN,TOTAL 0.3 mg/dL (0.2-1); TOT PROT 6.9 g/dl (6.4-8.2)
[2021-04-24 00:20] LABS: N-TERMINAL BNP 1240.7 pg/ml (5-450)
[2021-04-24] MEDS ORDERED: ACETAMINOPHEN 325 MG TABLET (FP) PO PRN (08:38)
[2021-04-24] MEDS ORDERED: ALBUTEROL SO4 HFA INHALER IH PRN (08:42)
[2021-04-24] MEDS ORDERED: BUDESONIDE/FORMETEROL FUMARATE 160/4.5 mcg INHALER IH SCH (10:00)
[2021-04-24 11:13] LABS: BASO % 0.9 % (0-2.0); EOS % 1.4 % (0-4.5); HEMATOCRIT 35.3 % (35.4-49); LYMPH % 20.7 % (8-40); MCH 29.5 pg (25.7-33.7); MEAN PLT VOLUME 8.1 fl (7.5-11.1); MONO % 12.5 % (3.8-10.2); NEUT % 64.5 % (42.8-82.8); PLATELET COUNT 252 10^3/uL (134-434); RBC 4.06 M/mm3 (4.00-5.60); RDW 14.3 % (11.9-15.9); WHITE BLOOD COUNT 8.4 K/mm3 (4.0-10.0)
[2021-04-24] MEDS ORDERED: methylPREDNISolone NA SUCC 40 MG/1 ML VIAL IVPUSH SCH (11:30)
[2021-04-24 11:35] LABS: ALBUMIN 3.5 g/dl (3.4-5.0); BLOOD UREA NITROGEN 43.5 mg/dL (7-18); CALCIUM 9.1 mg/dL (8.5-10.1)
[2021-04-24 11:37] LABS: MAGNESIUM 2.4 mg/dL (1.8-2.4)
[2021-04-24 11:38] LABS: CREATININE 0.9 mg/dL (0.55-1.3)
[2021-04-24 11:39] LABS: PHOSPHOROUS 3.4 mg/dL (2.5-4.9)
[2021-04-24 11:40] LABS: BILIRUBIN,TOTAL 0.4 mg/dL (0.2-1); TOT PROT 6.8 g/dl (6.4-8.2)
[2021-04-24] MEDS: predniSONE 20 MG TABLET (UD) PO SCH (11:40)
[2021-04-24] MEDS: ALLOPURINOL 300 MG TABLET (FP) PO SCH (11:40)
[2021-04-24] MEDS: ALBUTEROL SO4 2.5/IPRATROPIUM 0.5 INH SOL 3 ML VIAL.NEB. NEB SCH ×2 (13:00→19:45)
[2021-04-24 16:40] VITALS: BMI 25.9
[2021-04-24] MEDS ORDERED: ATORVASTATIN CA 20 MG TABLET (FP) PO SCH (22:00)
[2021-04-25] MEDS: ALBUTEROL SO4 2.5/IPRATROPIUM 0.5 INH SOL 3 ML VIAL.NEB. NEB SCH ×2 (08:24→14:05)
[2021-04-25 09:33] LABS: BASO % 0.6 % (0-2.0); EOS % 1.1 % (0-4.5); HEMATOCRIT 36.1 % (35.4-49); HEMOGLOBIN 12.1 GM/dL (11.7-16.9); LYMPH % 30.2 % (8-40); MCH 29.4 pg (25.7-33.7); MCHC 33.4 g/dl (32.0-35.9); MEAN CELL VOLUME 87.9 fl (80-96); MEAN PLT VOLUME 8.7 fl (7.5-11.1); MONO % 4.1 % (3.8-10.2); PLATELET COUNT 245 10^3/uL (134-434); RBC 4.11 M/mm3 (4.00-5.60); RDW 14.7 % (11.9-15.9)
[2021-04-25] MEDS: predniSONE 20 MG TABLET (UD) PO SCH (09:42)
[2021-04-25] MEDS: ALLOPURINOL 300 MG TABLET (FP) PO SCH (09:42)
[2021-04-25 10:09] LABS: ALBUMIN 3.4 g/dl (3.4-5.0)
[2021-04-25 10:10] LABS: BLOOD UREA NITROGEN 37.5 mg/dL (7-18)
[2021-04-25 10:13] LABS: BILIRUBIN,TOTAL 0.3 mg/dL (0.2-1); CREATININE 1.2 mg/dL (0.55-1.3); MAGNESIUM 2.3 mg/dL (1.8-2.4); PHOSPHOROUS 2.9 mg/dL (2.5-4.9)
[2021-04-25 10:14] LABS: TOT PROT 6.6 g/dl (6.4-8.2)
[2021-04-25 13:52] VITALS: BP 117/69; PULSE 73; TEMP 98.9
== END 2021-04-25 15:42 | disposition home or self-care (01) | DRG 191 ==
LOC: JER 22:14 → JERBED 04-24 05:26 → J7W 04-24 09:28
PROVIDERS: ATTEND Internal Medicine
DX: J43.9 Emphysema, unspecified (principal); I13.0 Hypertensive heart and chronic kidney disease with heart failure and stage 1 through stage 4 chronic kidney disease, or unspecified chronic kidney disease; R04.2 Hemoptysis; I50.32 Chronic diastolic (congestive) heart failure; I25.10 Atherosclerotic heart disease of native coronary artery without angina pectoris; D64.9 Anemia, unspecified; M10.9 Gout, unspecified; K21.9 Gastro-esophageal reflux disease without esophagitis; N18.9 Chronic kidney disease, unspecified; R91.1 Solitary pulmonary nodule; Z85.51 Personal history of malignant neoplasm of bladder
CPT/HCPCS: 36415; 71046-TC-FY; 71250-TC; 80053; 83735; 83880; 84100; 84484; 85025; 93005; 93010; 93306-TC; 94640; 97116-GP; 97161-GP; 99285-25; C9803; U0003; U0005

== ENCOUNTER 2021-09-03 18:33 | Inpatient (IN) | payer OTHER, MEDICARE ==
[2021-09-03 20:19] LABS: BASO % 0.6 % (0-2.0); HEMOGLOBIN 12.2 GM/dL (11.7-16.9); LYMPH % 18.6 % (8-40); MCH 29.7 pg (25.7-33.7); MCHC 33.9 g/dl (32.0-35.9); MEAN CELL VOLUME 87.5 fl (80-96); MEAN PLT VOLUME 8.5 fl (7.5-11.1); MONO % 9.4 % (3.8-10.2); NEUT % 69.4 % (42.8-82.8); PLATELET COUNT 229 10^3/uL (134-434); RBC 4.11 M/mm3 (4.00-5.60); RDW 14.6 % (11.9-15.9); WHITE BLOOD COUNT 8.8 K/mm3 (4.0-10.0)
[2021-09-03 20:35] LABS: ALBUMIN 3.2 g/dl (3.4-5.0); BLOOD UREA NITROGEN 33.8 mg/dL (7-18); CALCIUM 8.7 mg/dL (8.5-10.1)
[2021-09-03 20:38] LABS: CREATININE 1.3 mg/dL (0.55-1.3)
[2021-09-03 20:40] LABS: BILIRUBIN,TOTAL 0.4 mg/dL (0.2-1); TOT PROT 6.7 g/dl (6.4-8.2)
[2021-09-03] MEDS ORDERED: morphine CARPU-JECT 2 MG/1 ML DISP.SYRIN IM ONE (23:29)
[2021-09-03] MEDS ORDERED: morphine SULFATE 4 MG/ML VIAL ONE (23:33)
[2021-09-03 23:59] LABS: EPI CELLS >36 /uL (0-25.1); HYALINE CASTS 2 /uL (0-3.1); URINE APPEARANCE CLEAR; URINE BILIRUBIN NEGATIVE (NEGATIVE); URINE COLOR YELLOW; URINE GLUCOSE (UA) NEGATIVE (NEGATIVE); URINE KETONE NEGATIVE (NEGATIVE); URINE LEUK ESTERASE 3+ (NEGATIVE); URINE NITRITE POSITIVE (NEGATIVE); URINE PROTEIN 1+ (NEGATIVE); URINE RBC 9 /uL (0-23.9); URINE UROBILINOGEN 0.2 mg/dL (0.2-1.0); URINE WBC 68 /uL (0-25.8)
[2021-09-04] MEDS ORDERED: VANCOMYCIN PREMIX 1.5 GM 1,500 MG/300 ML BAG IVPB ONE (02:45)
[2021-09-04] MEDS ORDERED: MEROPENEM 1 GM in DEXTROSE 5%-WATER 100 ML IVPB SCH ×2 (02:45→03:00)
[2021-09-04] MEDS ORDERED: ACETAMINOPHEN 325 MG TABLET (FP) PO ONE (04:40)
[2021-09-04] MEDS ORDERED: ACETAMINOPHEN 325 MG TABLET (FP) ONE (04:41)
[2021-09-04] MEDS: SODIUM CHLORIDE 1,000 ML IV SCH ×2 (04:46→21:24)
[2021-09-04] MEDS: HEPARIN NA (PORCINE) 5,000 UNITS/ML 1ML VIAL SQ SCH ×3 (07:01→21:24)
[2021-09-04 08:39] LABS: BASO % 0.6 % (0-2.0); EOS % 2.7 % (0-4.5); HEMATOCRIT 36.5 % (35.4-49); HEMOGLOBIN 12.3 GM/dL (11.7-16.9); LYMPH % 19.7 % (8-40); MCH 29.4 pg (25.7-33.7); MCHC 33.6 g/dl (32.0-35.9); MEAN CELL VOLUME 87.6 fl (80-96); MEAN PLT VOLUME 8.8 fl (7.5-11.1); MONO % 13.7 % (3.8-10.2); NEUT % 63.3 % (42.8-82.8); PLATELET COUNT 233 10^3/uL (134-434); RBC 4.17 M/mm3 (4.00-5.60); RDW 14.2 % (11.9-15.9); WHITE BLOOD COUNT 8.1 K/mm3 (4.0-10.0)
[2021-09-04 08:58] LABS: BLOOD UREA NITROGEN 27.4 mg/dL (7-18); CALCIUM 8.6 mg/dL (8.5-10.1)
[2021-09-04 08:59] LABS: MAGNESIUM 2.2 mg/dL (1.8-2.4)
[2021-09-04 09:01] LABS: CREATININE 1.3 mg/dL (0.55-1.3)
[2021-09-04 09:02] LABS: PHOSPHOROUS 3.4 mg/dL (2.5-4.9)
[2021-09-04 09:03] LABS: BILIRUBIN,TOTAL 0.8 mg/dL (0.2-1); TOT PROT 6.3 g/dl (6.4-8.2)
[2021-09-04] MEDS ORDERED: LINEZOLID 600 MG PREMIX BAG 600 MG in PREMIX 300 IVPB SCH (10:00)
[2021-09-04] MEDS ORDERED: LINEZOLID 600 MG PREMIX BAG 600 MG/300 ML BAG IVPB SCH (10:00)
[2021-09-04] MEDS: POLYETHYLENE GLYCOL (HEALTHYLAX) 3350 17 GM PACKET PO SCH (17:34)
[2021-09-04] MEDS: CHOLECALCIFEROL (VIT D3) 5000 UNITS (125 MCG) CAP PO SCH (18:29)
[2021-09-04] MEDS: oxyCODONE HCL 5 MG TABLET PO PRN (18:29)
[2021-09-04] MEDS: ARFORMOTEROL TARTRATE 15 MCG/2 ML VIAL NEB SCH (20:00)
[2021-09-04] MEDS: BUDESONIDE 0.25 MG/2ML INH SUSP VIAL NEB SCH (20:00)
[2021-09-04] MEDS ORDERED: PT OWN MED DRAWER 7, Y5N ONE (20:48)
[2021-09-04] MEDS: ATORVASTATIN CA 20 MG TABLET (FP) PO SCH (21:24)
[2021-09-04] MEDS: LIDOCAINE PATCH REMOVAL MC SCH (22:07)
[2021-09-05] MEDS: SODIUM CHLORIDE 1,000 ML IV SCH ×2 (03:15→17:06)
[2021-09-05] MEDS: HEPARIN NA (PORCINE) 5,000 UNITS/ML 1ML VIAL SQ SCH ×3 (06:04→21:09)
[2021-09-05] MEDS ORDERED: PT OWN MED DRAWER 7, Y5N ONE ×2 (07:25→08:26)
[2021-09-05] MEDS: ARFORMOTEROL TARTRATE 15 MCG/2 ML VIAL NEB SCH ×2 (07:40→20:30)
[2021-09-05] MEDS: BUDESONIDE 0.25 MG/2ML INH SUSP VIAL NEB SCH ×2 (07:40→20:35)
[2021-09-05 08:39] LABS: BASO % 0.9 % (0-2.0); EOS % 4.1 % (0-4.5); HEMATOCRIT 30.4 % (35.4-49); HEMOGLOBIN 10.6 GM/dL (11.7-16.9); LYMPH % 29.9 % (8-40); MCH 30.5 pg (25.7-33.7); MCHC 34.8 g/dl (32.0-35.9); MEAN CELL VOLUME 87.6 fl (80-96); MEAN PLT VOLUME 8.5 fl (7.5-11.1); MONO % 11.8 % (3.8-10.2); NEUT % 53.3 % (42.8-82.8); PLATELET COUNT 200 10^3/uL (134-434); RBC 3.47 M/mm3 (4.00-5.60); RDW 14.7 % (11.9-15.9); WHITE BLOOD COUNT 6.2 K/mm3 (4.0-10.0)
[2021-09-05 08:51] LABS: CHLORIDE 121 mmol/L (98-107); SODIUM 146 mmol/L (136-145)
[2021-09-05 08:56] LABS: ANION GAP 3 MMOL/L (8-16); BLOOD UREA NITROGEN 22.5 mg/dL (7-18); CO2 22 mmol/L (21-32); GLUCOSE,RANDOM 61 mg/dL (74-106); MAGNESIUM 1.4 mg/dL (1.8-2.4)
[2021-09-05 08:58] LABS: SGPT/ALT 10 U/L (13-61)
[2021-09-05 08:59] LABS: CREATININE 0.8 mg/dL (0.55-1.3); PHOSPHOROUS 2.2 mg/dL (2.5-4.9); SGOT/AST 13 U/L (15-37)
[2021-09-05 09:00] LABS: BILIRUBIN,TOTAL 0.2 mg/dL (0.2-1)
[2021-09-05 09:01] LABS: ALK PHOS 43 U/L (45-117)
[2021-09-05 09:04] LABS: ALBUMIN 1.8 g/dl (3.4-5.0); CALCIUM 5.5 mg/dL (8.5-10.1); TOT PROT 4.2 g/dl (6.4-8.2)
[2021-09-05] MEDS: ACETAMINOPHEN 325 MG TABLET (FP) PO PRN ×3 (09:20→23:20)
[2021-09-05] MEDS: CHOLECALCIFEROL (VIT D3) 5000 UNITS (125 MCG) CAP PO SCH (09:21)
[2021-09-05] MEDS: ALLOPURINOL 300 MG TABLET (FP) PO SCH (09:22)
[2021-09-05] MEDS: ASPIRIN 81 MG CHEWABLE TABLETS PO SCH (09:22)
[2021-09-05 12:56] VITALS: BMI 27.0
[2021-09-05 13:03] LABS: BLOOD UREA NITROGEN 33.7 mg/dL (7-18)
[2021-09-05 13:06] LABS: CREATININE 1.2 mg/dL (0.55-1.3)
[2021-09-05 13:08] LABS: BILIRUBIN,TOTAL 0.3 mg/dL (0.2-1)
[2021-09-05 13:09] LABS: CALCIUM 8.7 mg/dL (8.5-10.1); TOT PROT 6.5 g/dl (6.4-8.2)
[2021-09-05] MEDS: ATORVASTATIN CA 20 MG TABLET (FP) PO SCH (21:09)
[2021-09-05] MEDS: LIDOCAINE PATCH REMOVAL MC SCH (21:10)
[2021-09-06] MEDS: HEPARIN NA (PORCINE) 5,000 UNITS/ML 1ML VIAL SQ SCH ×3 (06:13→22:09)
[2021-09-06] MEDS: ARFORMOTEROL TARTRATE 15 MCG/2 ML VIAL NEB SCH ×2 (07:45→20:10)
[2021-09-06] MEDS: BUDESONIDE 0.25 MG/2ML INH SUSP VIAL NEB SCH ×2 (08:22→20:10)
[2021-09-06 08:40] LABS: BASO % 0.8 % (0-2.0); EOS % 4.9 % (0-4.5); HEMATOCRIT 35.3 % (35.4-49); HEMOGLOBIN 11.9 GM/dL (11.7-16.9); LYMPH % 27.9 % (8-40); MCH 29.7 pg (25.7-33.7); MCHC 33.6 g/dl (32.0-35.9); MEAN CELL VOLUME 88.4 fl (80-96); MEAN PLT VOLUME 8.4 fl (7.5-11.1); NEUT % 54.4 % (42.8-82.8); PLATELET COUNT 217 10^3/uL (134-434); RDW 14.8 % (11.9-15.9); WHITE BLOOD COUNT 6.9 K/mm3 (4.0-10.0)
[2021-09-06] MEDS: ACETAMINOPHEN 325 MG TABLET (FP) PO PRN ×2 (08:42→14:32)
[2021-09-06] MEDS: SODIUM CHLORIDE 1,000 ML IV SCH (08:42)
[2021-09-06 09:05] LABS: ALBUMIN 2.9 g/dl (3.4-5.0); CALCIUM 8.4 mg/dL (8.5-10.1)
[2021-09-06 09:06] LABS: BLOOD UREA NITROGEN 30.4 mg/dL (7-18); MAGNESIUM 2.2 mg/dL (1.8-2.4)
[2021-09-06 09:09] LABS: CREATININE 1.1 mg/dL (0.55-1.3); PHOSPHOROUS 2.9 mg/dL (2.5-4.9)
[2021-09-06 09:10] LABS: BILIRUBIN,TOTAL 0.4 mg/dL (0.2-1); TOT PROT 6.1 g/dl (6.4-8.2)
[2021-09-06] MEDS: ASPIRIN 81 MG CHEWABLE TABLETS PO SCH (09:17)
[2021-09-06] MEDS: ALLOPURINOL 300 MG TABLET (FP) PO SCH (09:17)
[2021-09-06] MEDS: LIDOCAINE 5% TOPICAL PATCH TP PRN (09:19)
[2021-09-06] MEDS ORDERED: PT OWN MED DRAWER 7, Y5N ONE (10:20)
[2021-09-06] MEDS: CHOLECALCIFEROL (VIT D3) 5000 UNITS (125 MCG) CAP PO SCH (10:23)
[2021-09-06] MEDS ORDERED: FUROSEMIDE 20 MG TABLET (FP) PO ONE (16:06)
[2021-09-06] MEDS ORDERED: FUROSEMIDE 20 MG TABLET (FP) PO SCH (16:15)
[2021-09-06] MEDS: PATIENT'S OWN MEDICATION (NON-FORMULARY) (Vitamin B Complex [Vitamin B Complex] 1 EACH Cap PO SCH ×2 (17:25→17:26)
[2021-09-06] MEDS: [UNRECOGNIZED DRUG - OTHER] PO SCH ×2 (17:25→17:26)
[2021-09-06] MEDS: POLYETHYLENE GLYCOL (HEALTHYLAX) 3350 17 GM PACKET PO SCH ×2 (18:14→18:16)
[2021-09-06] MEDS: ATORVASTATIN CA 20 MG TABLET (FP) PO SCH (22:09)
[2021-09-06] MEDS: LIDOCAINE PATCH REMOVAL MC SCH (22:10)
[2021-09-06] MEDS: oxyCODONE HCL 5 MG TABLET PO PRN (22:14)
[2021-09-07] MEDS: HEPARIN NA (PORCINE) 5,000 UNITS/ML 1ML VIAL SQ SCH ×2 (06:44→16:11)
[2021-09-07 08:38] LABS: BASO % 0.7 % (0-2.0); EOS % 5.3 % (0-4.5); HEMATOCRIT 35.5 % (35.4-49); LYMPH % 22.9 % (8-40); MCH 29.7 pg (25.7-33.7); MCHC 33.8 g/dl (32.0-35.9); MEAN CELL VOLUME 87.7 fl (80-96); MEAN PLT VOLUME 8.2 fl (7.5-11.1); MONO % 11.1 % (3.8-10.2); PLATELET COUNT 243 10^3/uL (134-434); RBC 4.05 M/mm3 (4.00-5.60); RDW 14.9 % (11.9-15.9)
[2021-09-07 09:12] LABS: CALCIUM 8.8 mg/dL (8.5-10.1)
[2021-09-07 09:13] LABS: ALBUMIN 2.9 g/dl (3.4-5.0); BLOOD UREA NITROGEN 26.3 mg/dL (7-18); MAGNESIUM 2.1 mg/dL (1.8-2.4)
[2021-09-07 09:16] LABS: CREATININE 1.1 mg/dL (0.55-1.3); PHOSPHOROUS 2.8 mg/dL (2.5-4.9)
[2021-09-07 09:17] LABS: BILIRUBIN,TOTAL 0.4 mg/dL (0.2-1); TOT PROT 6.3 g/dl (6.4-8.2)
[2021-09-07] MEDS: ARFORMOTEROL TARTRATE 15 MCG/2 ML VIAL NEB SCH ×2 (09:30→20:10)
[2021-09-07] MEDS ORDERED: PT OWN MED DRAWER 7, Y5N ONE (09:36)
[2021-09-07] MEDS: BUDESONIDE 0.25 MG/2ML INH SUSP VIAL NEB SCH ×2 (09:37→20:10)
[2021-09-07] MEDS: ASPIRIN 81 MG CHEWABLE TABLETS PO SCH (10:00)
[2021-09-07] MEDS: CHOLECALCIFEROL (VIT D3) 5000 UNITS (125 MCG) CAP PO SCH (10:00)
[2021-09-07] MEDS: ACETAMINOPHEN 325 MG TABLET (FP) PO PRN ×2 (10:04→22:55)
[2021-09-07] MEDS: oxyCODONE HCL 5 MG TABLET PO PRN ×2 (10:05→22:55)
[2021-09-07] MEDS: FUROSEMIDE 20 MG TABLET (FP) PO SCH (10:05)
[2021-09-07] MEDS: ALLOPURINOL 300 MG TABLET (FP) PO SCH (10:05)
[2021-09-07] MEDS: DOCUSATE SODIUM 100 MG CAPSULE (FP) PO SCH (21:18)
[2021-09-07] MEDS: LIDOCAINE PATCH REMOVAL MC SCH (21:19)
[2021-09-07] MEDS: ATORVASTATIN CA 20 MG TABLET (FP) PO SCH (21:19)
[2021-09-07] MEDS: LINEZOLID 600 MG TABLET (RESTRICTED TO ID) PO SCH (21:19)
[2021-09-08 06:24] VITALS: BP 142/90; PULSE 67; TEMP 98.5
[2021-09-08] MEDS: BUDESONIDE 0.25 MG/2ML INH SUSP VIAL NEB SCH (07:15)
[2021-09-08] MEDS: ARFORMOTEROL TARTRATE 15 MCG/2 ML VIAL NEB SCH (07:54)
[2021-09-08 08:00] LABS: BASO % 1.1 % (0-2.0); EOS % 6.5 % (0-4.5); HEMATOCRIT 32.8 % (35.4-49); HEMOGLOBIN 10.9 GM/dL (11.7-16.9); LYMPH % 27.7 % (8-40); MCH 29.5 pg (25.7-33.7); MCHC 33.4 g/dl (32.0-35.9); MEAN CELL VOLUME 88.3 fl (80-96); MEAN PLT VOLUME 8.2 fl (7.5-11.1); MONO % 11.7 % (3.8-10.2); PLATELET COUNT 225 10^3/uL (134-434); RBC 3.71 M/mm3 (4.00-5.60); RDW 14.7 % (11.9-15.9); WHITE BLOOD COUNT 6.9 K/mm3 (4.0-10.0)
[2021-09-08 08:21] LABS: ALBUMIN 2.5 g/dl (3.4-5.0); BLOOD UREA NITROGEN 30.6 mg/dL (7-18); CALCIUM 8.6 mg/dL (8.5-10.1); MAGNESIUM 2.1 mg/dL (1.8-2.4)
[2021-09-08 08:24] LABS: CREATININE 1.1 mg/dL (0.55-1.3); PHOSPHOROUS 3.4 mg/dL (2.5-4.9)
[2021-09-08 08:26] LABS: BILIRUBIN,TOTAL 0.3 mg/dL (0.2-1); TOT PROT 5.6 g/dl (6.4-8.2)
[2021-09-08] MEDS: LIDOCAINE 5% TOPICAL PATCH TP PRN (09:51)
[2021-09-08] MEDS: ALLOPURINOL 300 MG TABLET (FP) PO SCH (09:51)
[2021-09-08] MEDS: FUROSEMIDE 20 MG TABLET (FP) PO SCH (09:52)
[2021-09-08] MEDS: ACETAMINOPHEN 325 MG TABLET (FP) PO PRN ×2 (09:52→17:08)
[2021-09-08] MEDS: oxyCODONE HCL 5 MG TABLET PO PRN ×2 (09:52→17:07)
[2021-09-08] MEDS: DOCUSATE SODIUM 100 MG CAPSULE (FP) PO SCH (09:52)
[2021-09-08] MEDS: ASPIRIN 81 MG CHEWABLE TABLETS PO SCH (09:52)
[2021-09-08] MEDS: CHOLECALCIFEROL (VIT D3) 5000 UNITS (125 MCG) CAP PO SCH (09:52)
[2021-09-08] MEDS: LINEZOLID 600 MG TABLET (RESTRICTED TO ID) PO SCH (09:52)
[2021-09-08] MEDS: POLYETHYLENE GLYCOL (HEALTHYLAX) 3350 17 GM PACKET PO SCH (17:07)
== END 2021-09-08 18:37 | disposition home or self-care (01) | DRG 543 ==
LOC: JER 18:33 → JERBED 20:09 → J7W 09-04 05:03
PROVIDERS: ADMIT Internal Medicine; ATTEND Internal Medicine
DX: M48.56XA Collapsed vertebra, not elsewhere classified, lumbar region, initial encounter for fracture (principal); I13.0 Hypertensive heart and chronic kidney disease with heart failure and stage 1 through stage 4 chronic kidney disease, or unspecified chronic kidney disease; N17.9 Acute kidney failure, unspecified; N39.0 Urinary tract infection, site not specified; N13.30 Unspecified hydronephrosis; M48.061 Spinal stenosis, lumbar region without neurogenic claudication; N18.30 Chronic kidney disease, stage 3 unspecified; I25.10 Atherosclerotic heart disease of native coronary artery without angina pectoris; J44.9 Chronic obstructive pulmonary disease, unspecified; K21.9 Gastro-esophageal reflux disease without esophagitis; I50.9 Heart failure, unspecified; R91.1 Solitary pulmonary nodule; N28.1 Cyst of kidney, acquired; Z88.0 Allergy status to penicillin; R36.9 Urethral discharge, unspecified; M10.9 Gout, unspecified
CPT/HCPCS: 36415; 71045-TC-FY; 72131-TC; 74177-TC; 80053; 81003; 82550; 82553; 83690; 83735; 83970; 84100; 84484; 84550; 85025; 87070; 87086; 87186; 87205; 93005; 93010; 94010; 94640; 97116-GP; 97162-GP; 99285-25; C9803; J1644; Q9967; U0003; U0005

== ENCOUNTER 2021-09-16 19:16 | Observation (INO) | payer OTHER, MEDICARE ==
[2021-09-16] MEDS ORDERED: morphine CARPU-JECT 2 MG/1 ML DISP.SYRIN IM ONE (21:14)
[2021-09-16] MEDS ORDERED: morphine SULFATE 4 MG/ML VIAL ONE (21:33)
[2021-09-16 22:11] LABS: BASO % 0.7 % (0-2.0); EOS % 1.1 % (0-4.5); HEMATOCRIT 35.4 % (35.4-49); HEMOGLOBIN 12.3 GM/dL (11.7-16.9); MCHC 34.7 g/dl (32.0-35.9); MEAN CELL VOLUME 86.4 fl (80-96); MEAN PLT VOLUME 7.6 fl (7.5-11.1); MONO % 7.1 % (3.8-10.2); NEUT % 70.1 % (42.8-82.8); PLATELET COUNT 206 10^3/uL (134-434); RBC 4.09 M/mm3 (4.00-5.60); RDW 14.4 % (11.9-15.9); WHITE BLOOD COUNT 7.7 K/mm3 (4.0-10.0)
[2021-09-16 22:20] LABS: BLOOD UREA NITROGEN 38.1 mg/dL (7-18); CALCIUM 9.3 mg/dL (8.5-10.1)
[2021-09-16 22:24] LABS: CREATININE 1.3 mg/dL (0.55-1.3)
[2021-09-16 22:25] LABS: BILIRUBIN,TOTAL 0.4 mg/dL (0.2-1); TOT PROT 7.1 g/dl (6.4-8.2)
[2021-09-16 22:37] LABS: ALBUMIN 3.4 g/dl (3.4-5.0)
[2021-09-17] MEDS ORDERED: ACETAMINOPHEN 325 MG TABLET (FP) PO PRN (01:37)
[2021-09-17] MEDS ORDERED: LIDOCAINE 5% TOPICAL PATCH ONE (02:05)
[2021-09-17] MEDS ORDERED: HYDROmorphone HCl 2 MG/ML VIAL IVPUSH SCH (02:15)
[2021-09-17] MEDS: LIDOCAINE 5% TOPICAL PATCH TP SCH (02:15)
[2021-09-17] MEDS ORDERED: SENNOSIDES 8.6MG TABLET (FP) PO ONE (03:10)
[2021-09-17] MEDS ORDERED: HYDROmorphone HCl 2 MG/ML VIAL ONE (03:27)
[2021-09-17] MEDS: SENNOSIDES 8.6MG TABLET (FP) PO SCH ×2 (03:33→21:29)
[2021-09-17] MEDS: HYDROmorphone HCl 2 MG/ML VIAL IVPB SCH ×2 (05:03→08:08)
[2021-09-17] MEDS: HEPARIN NA (PORCINE) 5,000 UNITS/ML 1ML VIAL SQ SCH ×5 (05:04→21:45)
[2021-09-17] MEDS ORDERED: POLYETHYLENE GLYCOL (HEALTHYLAX) 3350 17 GM PACKET PO SCH ×3 (06:00→14:00)
[2021-09-17 07:39] VITALS: BMI 26.9
[2021-09-17] MEDS ORDERED: ARFORMOTEROL TARTRATE 15 MCG/2 ML VIAL NEB SCH (10:00)
[2021-09-17 10:04] LABS: HEMATOCRIT 36.5 % (35.4-49); HEMOGLOBIN 12.4 GM/dL (11.7-16.9); MCH 29.6 pg (25.7-33.7); MCHC 34.1 g/dl (32.0-35.9); MEAN CELL VOLUME 86.8 fl (80-96); MEAN PLT VOLUME 7.6 fl (7.5-11.1); PLATELET COUNT 204 10^3/uL (134-434); RDW 14.7 % (11.9-15.9); WHITE BLOOD COUNT 6.3 K/mm3 (4.0-10.0)
[2021-09-17] MEDS: BUDESONIDE 0.25 MG/2ML INH SUSP VIAL NEB SCH ×2 (10:10→21:34)
[2021-09-17 10:44] LABS: BLOOD UREA NITROGEN 33.6 mg/dL (7-18); CALCIUM 9.3 mg/dL (8.5-10.1); MAGNESIUM 2.3 mg/dL (1.8-2.4)
[2021-09-17 10:47] LABS: CREATININE 1.2 mg/dL (0.55-1.3); PHOSPHOROUS 3.1 mg/dL (2.5-4.9)
[2021-09-17] MEDS: FAMOTIDINE 20 MG TABLET PO SCH (11:12)
[2021-09-17] MEDS: ASPIRIN 81 MG CHEWABLE TABLETS PO SCH (11:13)
[2021-09-17] MEDS: FUROSEMIDE 20 MG TABLET (FP) PO SCH (11:13)
[2021-09-17] MEDS: DOCUSATE SODIUM 100 MG CAPSULE (FP) PO SCH ×2 (11:13→21:26)
[2021-09-17] MEDS: ALLOPURINOL 100 MG TABLET (FP) PO SCH (11:13)
[2021-09-17] MEDS: OMEGA-3 ACID ETHYL ESTERS (FATTY-ACIDS) 1 GM CAPSULE (FP) PO SCH (11:15)
[2021-09-17] MEDS ORDERED: LIDOCAINE PATCH REMOVAL MC SCH (13:00)
[2021-09-17] MEDS: POLYETHYLENE GLYCOL (HEALTHYLAX) 3350 17 GM PACKET PO SCH ×2 (13:04→21:29)
[2021-09-17 13:30] LABS: EPI CELLS 19 /uL (0-25.1); HYALINE CASTS 25 /uL (0-3.1); URINE APPEARANCE TURBID; URINE BACTERIA >9,000 /uL (0-1359); URINE BILIRUBIN NEGATIVE (NEGATIVE); URINE COLOR YELLOW; URINE GLUCOSE (UA) NEGATIVE (NEGATIVE); URINE KETONE NEGATIVE (NEGATIVE); URINE LEUK ESTERASE 3+ (NEGATIVE); URINE NITRITE NEGATIVE (NEGATIVE); URINE PROTEIN 2+ (NEGATIVE); URINE RBC 20 /uL (0-23.9); URINE UROBILINOGEN 0.2 mg/dL (0.2-1.0); URINE WBC 1502 /uL (0-25.8)
[2021-09-17 13:56] LABS: URINE CRYSTALS NEGATIVE /hpf; YEAST NEGATIVE (NEGATIVE)
[2021-09-17] MEDS: COLCHICINE 0.6 MG TAB PO SCH (14:00)
[2021-09-17] MEDS: VITAMIN B COMPLEX W/C COMBO TABLET (FP) PO SCH (14:00)
[2021-09-17] MEDS: CHOLECALCIFEROL (VIT D3) 5000 UNITS (125 MCG) CAP PO SCH (14:00)
[2021-09-17] MEDS: HYDROmorphone HCl 2 MG/ML VIAL IVPB PRN ×2 (17:17→22:59)
[2021-09-17] MEDS ORDERED: GLYCERIN 1 RECTAL SUPPOSITORY, ADULT PR ONE (17:26)
[2021-09-17] MEDS: ARFORMOTEROL TARTRATE 15 MCG/2 ML VIAL NEB SCH (21:33)
[2021-09-17] MEDS ORDERED: ATORVASTATIN CA 20 MG TABLET (FP) PO SCH (22:00)
[2021-09-18] MEDS: POLYETHYLENE GLYCOL (HEALTHYLAX) 3350 17 GM PACKET PO SCH ×3 (05:48→13:16)
[2021-09-18] MEDS: HEPARIN NA (PORCINE) 5,000 UNITS/ML 1ML VIAL SQ SCH ×2 (06:19→13:16)
[2021-09-18] MEDS ORDERED: PT OWN MED DRAWER 7, Y5N ONE ×2 (06:58→08:57)
[2021-09-18] MEDS: ACETAMINOPHEN 325 MG TABLET (FP) PO SCH ×2 (08:09→15:31)
[2021-09-18] MEDS: ARFORMOTEROL TARTRATE 15 MCG/2 ML VIAL NEB SCH (08:53)
[2021-09-18] MEDS: VITAMIN B COMPLEX W/C COMBO TABLET (FP) PO SCH (09:09)
[2021-09-18] MEDS: OMEGA-3 ACID ETHYL ESTERS (FATTY-ACIDS) 1 GM CAPSULE (FP) PO SCH (09:09)
[2021-09-18] MEDS: ALLOPURINOL 100 MG TABLET (FP) PO SCH (09:09)
[2021-09-18] MEDS: ASPIRIN 81 MG CHEWABLE TABLETS PO SCH (09:09)
[2021-09-18] MEDS: DOCUSATE SODIUM 100 MG CAPSULE (FP) PO SCH (09:09)
[2021-09-18] MEDS: FUROSEMIDE 20 MG TABLET (FP) PO SCH (09:09)
[2021-09-18] MEDS: FAMOTIDINE 20 MG TABLET PO SCH (09:09)
[2021-09-18] MEDS: CHOLECALCIFEROL (VIT D3) 5000 UNITS (125 MCG) CAP PO SCH (09:09)
[2021-09-18] MEDS: LIDOCAINE 5% TOPICAL PATCH TP SCH (09:10)
[2021-09-18] MEDS: COLCHICINE 0.6 MG TAB PO SCH (09:10)
[2021-09-18 10:56] LABS: BLOOD UREA NITROGEN 29.8 mg/dL (7-18); CALCIUM 9.1 mg/dL (8.5-10.1)
[2021-09-18 10:57] LABS: MAGNESIUM 2.3 mg/dL (1.8-2.4)
[2021-09-18 10:59] LABS: PHOSPHOROUS 3.2 mg/dL (2.5-4.9)
[2021-09-18] MEDS: BUDESONIDE 0.25 MG/2ML INH SUSP VIAL NEB SCH (10:59)
[2021-09-18 11:00] LABS: CREATININE 1.1 mg/dL (0.55-1.3)
[2021-09-18] MEDS ORDERED: GABAPENTIN 100 MG CAPSULE PO SCH (11:15)
[2021-09-18] MEDS ORDERED: HYDROmorphone HCl 2 MG/ML VIAL IVPB ONE (11:21)
[2021-09-18 15:20] VITALS: BP 114/65; PULSE 91; TEMP 98.6
== END 2021-09-18 17:05 | disposition home or self-care (01) ==
LOC: JER 19:16 → JERBED 09-17 00:09 → UNDOADMOB 09-17 00:09 → INTOOBSV 09-17 00:09 → J5S 09-17 04:04 → JERBED 09-17 04:04 → J5S 09-18 16:14 → JERBED 09-18 16:14
PROVIDERS: ATTEND Internal Medicine
PROC: 3E033NZ Introduction of Analgesics, Hypnotics, Sedatives into Peripheral Vein, Percutaneous Approach (ICD-10-PCS; principal; 2021-09-18)
PROC: 3E023NZ Introduction of Analgesics, Hypnotics, Sedatives into Muscle, Percutaneous Approach (ICD-10-PCS; 2021-09-18)
DX: I25.10 Atherosclerotic heart disease of native coronary artery without angina pectoris (principal); I13.0 Hypertensive heart and chronic kidney disease with heart failure and stage 1 through stage 4 chronic kidney disease, or unspecified chronic kidney disease; M54.9 Dorsalgia, unspecified; R06.02 Shortness of breath; R42 Dizziness and giddiness; K59.00 Constipation, unspecified; Z85.51 Personal history of malignant neoplasm of bladder; N18.9 Chronic kidney disease, unspecified; J44.9 Chronic obstructive pulmonary disease, unspecified; D64.9 Anemia, unspecified; M10.9 Gout, unspecified; K21.9 Gastro-esophageal reflux disease without esophagitis; R91.1 Solitary pulmonary nodule; Z95.5 Presence of coronary angioplasty implant and graft; Z88.0 Allergy status to penicillin; Z87.891 Personal history of nicotine dependence
CPT/HCPCS: 36415; 72131-TC; 74176-TC; 80048; 80053; 81003; 82306; 82652; 83735; 84100; 85025; 85027; 93005; 93010; 94640; 96372; 96374; 96375; 97116-GP; 97162-GP; 99285-25; C9803; G0378; J1644; U0003; U0005

== ENCOUNTER 2021-10-03 04:55 | Day surgery (SDC) | payer OTHER, MEDICARE ==
[2021-10-02 12:50] VITALS: BMI 26.4
[~2021-10-03 04:55] MED LIST: BUPIVACAINE HCL/PF 0.75% 10 ML VIAL NR ONE; IOHEXOL 180 MG/1 ML ML IJ ONE; LIDOCAINE HCL 1% PRESERVATIVE FREE - 30ML VIAL IJ ONE
[2021-10-03] MEDS ORDERED: BUPIVACAINE HCL/PF 0.75% 10 ML VIAL ONE (07:52)
[2021-10-03] MEDS ORDERED: LIDOCAINE HCL/PF 1% SDV 5ML VIAL ONE (08:03)
[2021-10-03] MEDS ORDERED: LIDOCAINE HCL 1% PRESERVATIVE FREE - 30ML VIAL IJ ONE ×2 (10:25)
[2021-10-03] MEDS ORDERED: BUPIVACAINE HCL/PF 0.75% 10 ML VIAL IJ ONE (10:32)
[2021-10-03 11:27] VITALS: BP 125/83; PULSE 68; TEMP 97.3
== END 2021-10-03 11:34 | disposition home or self-care (01) ==
LOC: JASU-SURG 04:55
PROVIDERS: ATTEND Pain Medicine Pain Medicine
PROC: 3E0T33Z Introduction of Anti-inflammatory into Peripheral Nerves and Plexi, Percutaneous Approach (ICD-10-PCS; 2021-10-03)
PROC: 3E0T3BZ Introduction of Anesthetic Agent into Peripheral Nerves and Plexi, Percutaneous Approach (ICD-10-PCS; principal; 2021-10-03 10:30)
DX: M47.816 Spondylosis without myelopathy or radiculopathy, lumbar region (principal)
CPT/HCPCS: 76000-TC-FY

== ENCOUNTER 2021-10-31 04:04 | Day surgery (SDC) | payer OTHER, MEDICARE ==
[2021-10-29 14:13] VITALS: BMI 26.4
[2021-10-31] MEDS ORDERED: BUPIVACAINE HCL/PF 0.75% 10 ML VIAL ONE (07:20)
[2021-10-31] MEDS ORDERED: LIDOCAINE HCL/PF 1% SDV 5ML VIAL ONE (07:20)
[2021-10-31] MEDS ORDERED: LIDOCAINE HCL 1% PRESERVATIVE FREE - 30ML VIAL IJ ONE (09:04)
[2021-10-31] MEDS ORDERED: IOHEXOL 180 MG/1 ML ML IJ ONE (09:17)
[2021-10-31] MEDS ORDERED: BUPIVACAINE HCL/PF 0.75% 10 ML VIAL NR ONE (09:19)
[2021-10-31 09:41] VITALS: BP 126/85; PULSE 82; TEMP 98.2
== END 2021-10-31 09:55 | disposition home or self-care (01) ==
LOC: JASU-SURG 04:04
PROVIDERS: ATTEND Pain Medicine Pain Medicine
PROC: BR16YZZ Fluoroscopy of Lumbar Facet Joint(s) using Other Contrast (ICD-10-PCS; 2021-10-31)
PROC: 3E0T3BZ Introduction of Anesthetic Agent into Peripheral Nerves and Plexi, Percutaneous Approach (ICD-10-PCS; principal; 2021-10-31 09:30)
DX: M47.816 Spondylosis without myelopathy or radiculopathy, lumbar region (principal)
CPT/HCPCS: 76000-TC-FY

== ENCOUNTER 2021-11-28 04:20 | Day surgery (SDC) | payer OTHER, MEDICARE ==
[2021-11-27 10:57] VITALS: BMI 26.4
[2021-11-28] MEDS ORDERED: IOHEXOL 180 MG/1 ML ML IJ ONE ×2 (11:51→11:56)
[2021-11-28] MEDS ORDERED: LIDOCAINE HCL 1% PRESERVATIVE FREE - 30ML VIAL IJ ONE ×3 (11:51→11:55)
[2021-11-28] MEDS ORDERED: LIDOCAINE HCL/PF 2% SDV 5ML VIAL INF ONE ×3 (11:51→11:57)
[2021-11-28] MEDS ORDERED: BUPIVACAINE HCL/PF 0.75% 10 ML VIAL NR ONE ×2 (11:53→11:58)
[2021-11-28] MEDS ORDERED: DEXAMETHASONE SOD PHOSPHATE 10 MG/1 ML VIAL IVPUSH ONE ×2 (11:53→12:00)
[2021-11-28 13:02] VITALS: BP 131/84; PULSE 72; TEMP 97.9
== END 2021-11-28 12:55 | disposition home or self-care (01) ==
LOC: JASU-SURG 04:20
PROVIDERS: ATTEND Pain Medicine Pain Medicine
PROC: 3E0T3TZ Introduction of Destructive Agent into Peripheral Nerves and Plexi, Percutaneous Approach (ICD-10-PCS; principal; 2021-11-28 12:00)
PROC: BR16YZZ Fluoroscopy of Lumbar Facet Joint(s) using Other Contrast (ICD-10-PCS; 2021-11-28 12:00)
DX: M47.816 Spondylosis without myelopathy or radiculopathy, lumbar region (principal)
CPT/HCPCS: 76000-TC-FY; J1100

== ENCOUNTER 2021-12-19 04:31 | Day surgery (SDC) | payer OTHER, MEDICARE ==
[2021-12-18 11:21] VITALS: BMI 26.4
[~2021-12-19 04:31] MED LIST changes: +DEXAMETHASONE SOD PHOSPHATE 10 MG/1 ML VIAL IM ONE; +LIDOCAINE 1% P/F 10 MG/ML VIAL INF ONE; -LIDOCAINE HCL 1% PRESERVATIVE FREE - 30ML VIAL IJ ONE; +LIDOCAINE HCL/PF 2% SDV 5ML VIAL INF ONE
[2021-12-19 13:36] VITALS: BP 117/79; PULSE 63; TEMP 97.9
[2021-12-19] MEDS ORDERED: DEXAMETHASONE SOD PHOSPHATE 10 MG/1 ML VIAL ONE (13:41)
[2021-12-19] MEDS ORDERED: LIDOCAINE HCL/PF 2% SDV 5ML VIAL ONE (13:42)
[2021-12-19] MEDS ORDERED: IOHEXOL 180 MG/1 ML ML IJ ONE (14:09)
[2021-12-19] MEDS ORDERED: BUPIVACAINE HCL/PF 0.75% 10 ML VIAL NR ONE ×2 (14:09→14:35)
[2021-12-19] MEDS ORDERED: LIDOCAINE 1% P/F 10 MG/ML VIAL INF ONE (14:09)
[2021-12-19] MEDS ORDERED: DEXAMETHASONE SOD PHOSPHATE 10 MG/1 ML VIAL IM ONE ×2 (14:10→14:35)
[2021-12-19] MEDS ORDERED: LIDOCAINE HCL/PF 2% SDV 5ML VIAL INF ONE ×2 (14:12→14:20)
== END 2021-12-19 15:10 | disposition home or self-care (01) ==
LOC: JASU-SURG 04:31
PROVIDERS: ATTEND Pain Medicine Pain Medicine
PROC: 3E0T3TZ Introduction of Destructive Agent into Peripheral Nerves and Plexi, Percutaneous Approach (ICD-10-PCS; principal; 2021-12-19 15:00)
PROC: BR16YZZ Fluoroscopy of Lumbar Facet Joint(s) using Other Contrast (ICD-10-PCS; 2021-12-19 15:00)
DX: M47.816 Spondylosis without myelopathy or radiculopathy, lumbar region (principal)
CPT/HCPCS: 76000-TC-FY; J1100

== ENCOUNTER 2022-05-21 04:03 | Day surgery (SDC) | payer OTHER, MEDICARE ==
[2022-05-19 15:32] VITALS: BMI 27.8
[2022-05-21 12:28] VITALS: RESP 16
[2022-05-21 13:27] VITALS: BP 131/82; PULSE 83; TEMP 98.2
== END 2022-05-21 15:00 | disposition home or self-care (01) ==
LOC: JRADIR 04:03
PROVIDERS: ATTEND Surgery
PROC: 0BBF3ZX Excision of Right Lower Lung Lobe, Percutaneous Approach, Diagnostic (ICD-10-PCS; principal; 2022-05-21)
DX: C34.31 Malignant neoplasm of lower lobe, right bronchus or lung (principal); Z85.51 Personal history of malignant neoplasm of bladder
CPT/HCPCS: 32408; 71046-TC-FY; 88305-TC

== ENCOUNTER 2022-05-25 13:11 | Emergency (ER) | payer OTHER, MEDICARE ==
[2022-05-25 13:36] VITALS: RESP 18; TEMP 98.9; BMI 37.8
[2022-05-25 16:57] LABS: BASO % 0.8 % (0-2.0); HEMOGLOBIN 12.8 GM/dL (11.7-16.9); LYMPH % 20.6 % (8-40); MCHC 33.1 g/dl (32.0-35.9)
[2022-05-25 17:00] LABS: EOS % 3.2 % (0-4.5); HEMATOCRIT 38.6 % (35.4-49); INR 0.99 (0.83-1.09); MCH 29.4 pg (25.7-33.7); MEAN CELL VOLUME 88.9 fl (80-96); MEAN PLT VOLUME 8.9 fl (7.5-11.1); MONO % 8.8 % (3.8-10.2); NEUT % 66.6 % (42.8-82.8); PLATELET COUNT 256 10^3/uL (134-434); PROTHROMBIN TIME (PATIENT) 11.4 SEC (9.7-13.0); RBC 4.34 M/mm3 (4.00-5.60); RDW 14.4 % (11.9-15.9); WHITE BLOOD COUNT 8.8 K/mm3 (4.0-10.0)
[2022-05-25 17:14] LABS: CHLORIDE 106 mmol/L (98-107); SODIUM 136 mmol/L (136-145)
[2022-05-25 17:17] LABS: ALBUMIN 3.5 g/dl (3.4-5.0); BLOOD UREA NITROGEN 41.7 mg/dL (7-18); CALCIUM 9.1 mg/dL (8.5-10.1); CO2 26 mmol/L (21-32); GLUCOSE,RANDOM 95 mg/dL (74-106)
[2022-05-25 17:21] LABS: CREATININE 1.4 mg/dL (0.55-1.3); SGOT/AST 68 U/L (15-37); SGPT/ALT 22 U/L (13-61)
[2022-05-25 17:23] LABS: BILIRUBIN,TOTAL 0.5 mg/dL (0.2-1)
[2022-05-25 17:24] LABS: ALK PHOS 64 U/L (45-117)
[2022-05-25 17:25] LABS: TOT PROT 7.3 g/dl (6.4-8.2)
[2022-05-25 17:31] LABS: ANION GAP 4 MMOL/L (8-16)
[2022-05-25 18:34] LABS: CALCIUM 9.5 mg/dL (8.5-10.1)
[2022-05-25 18:35] LABS: BLOOD UREA NITROGEN 40.1 mg/dL (7-18)
[2022-05-25 18:38] LABS: CREATININE 1.3 mg/dL (0.55-1.3)
[2022-05-25 19:56] VITALS: BP 104/62; PULSE 78
== END 2022-05-25 20:34 | disposition home or self-care (01) ==
LOC: JER 13:11
DX: R04.2 Hemoptysis (principal)
CPT/HCPCS: 36415; 71046-TC-FY; 80048; 80053; 85025; 85610; 86850; 86900; 86901; 99284-25

== ENCOUNTER 2022-07-21 01:21 | Observation (INO) | payer OTHER, MEDICARE ==
[2022-07-21 01:48] VITALS: BMI 31.3
[2022-07-21 02:35] LABS: BASO % 0.9 % (0-2.0); EOS % 2.5 % (0-4.5); HEMATOCRIT 34.3 % (35.4-49); HEMOGLOBIN 11.6 GM/dL (11.7-16.9); LYMPH % 26.7 % (8-40); MCH 30.1 pg (25.7-33.7); MCHC 33.7 g/dl (32.0-35.9); MEAN CELL VOLUME 89.2 fl (80-96); MEAN PLT VOLUME 7.8 fl (7.5-11.1); MONO % 10.8 % (3.8-10.2); NEUT % 59.1 % (42.8-82.8); PLATELET COUNT 261 10^3/uL (134-434); RBC 3.84 M/mm3 (4.00-5.60); RDW 15.1 % (11.9-15.9); WHITE BLOOD COUNT 9.7 K/mm3 (4.0-10.0)
[2022-07-21 02:39] LABS: VENOUS BASE EXCESS -1.2 mmol/L (-2-2); VENOUS O2 SATURATION 71.2 % (70-80); VENOUS PCO2 41.7 mmHg (38-52); VENOUS PH 7.377 (7.310-7.410)
[2022-07-21 02:46] LABS: INR 0.94 (0.83-1.09); PROTHROMBIN TIME (PATIENT) 10.8 SEC (9.7-13.0)
[2022-07-21 02:49] LABS: ACTIVATED PTT 29.8 SECONDS (25.2-36.5)
[2022-07-21 02:56] LABS: ALBUMIN 3.5 g/dl (3.4-5.0); BLOOD UREA NITROGEN 53.8 mg/dL (7-18); CALCIUM 8.8 mg/dL (8.5-10.1); MAGNESIUM 2.4 mg/dL (1.8-2.4)
[2022-07-21 02:59] LABS: CREATININE 1.6 mg/dL (0.55-1.3)
[2022-07-21 03:01] LABS: BILIRUBIN,TOTAL 0.3 mg/dL (0.2-1); TOT PROT 6.7 g/dl (6.4-8.2)
[2022-07-21 03:04] LABS: N-TERMINAL BNP 1699.5 pg/ml (5-450)
[2022-07-21 04:56] VITALS: TEMP 97.5
[2022-07-21] MEDS ORDERED: SODIUM CHLORIDE 1,000 ML IV SCH (06:00)
[2022-07-21] MEDS ORDERED: HEPARIN NA (PORCINE) 5,000 UNITS/ML 1ML VIAL SQ SCH (06:00)
[2022-07-21 06:04] LABS: EPI CELLS 2 /uL (0-25.1); HYALINE CASTS 1 /uL (0-3.1); PH,URINE 8.5 (5.0-8.0); URINE APPEARANCE CLEAR; URINE BACTERIA 2656 /uL (0-1359); URINE BILIRUBIN NEGATIVE (NEGATIVE); URINE COLOR YELLOW; URINE GLUCOSE (UA) NEGATIVE (NEGATIVE); URINE KETONE NEGATIVE (NEGATIVE); URINE LEUK ESTERASE 3+ (NEGATIVE); URINE NITRITE POSITIVE (NEGATIVE); URINE PROTEIN 1+ (NEGATIVE); URINE RBC 4 /uL (0-23.9); URINE UROBILINOGEN 0.2 mg/dL (0.2-1.0); URINE WBC 270 /uL (0-25.8)
[2022-07-21] MEDS ORDERED: ACETAMINOPHEN 325 MG TABLET (FP) ONE (08:04)
[2022-07-21] MEDS ORDERED: ACETAMINOPHEN 325 MG TABLET (FP) PO ONE (08:10)
[2022-07-21] MEDS ORDERED: ACETAMINOPHEN 325 MG TABLET (FP) PO PRN (09:07)
[2022-07-21] MEDS ORDERED: HEPARIN NA (PORCINE) 5,000 UNITS/ML 1ML VIAL ONE (09:20)
[2022-07-21] MEDS ORDERED: FUROSEMIDE 20 MG TABLET (FP) PO SCH (10:30)
[2022-07-21] MEDS ORDERED: ASPIRIN 81 MG CHEWABLE TABLETS PO SCH (10:30)
[2022-07-21 10:38] VITALS: BP 136/84; PULSE 65; RESP 18
[2022-07-21] MEDS ORDERED: BACITRACIN 15 GM TUBE TOPICAL OINTMENT TP ONE (11:40)
[2022-07-21 11:43] LABS: BLOOD UREA NITROGEN 49.3 mg/dL (7-18)
[2022-07-21 11:44] LABS: ALBUMIN 3.3 g/dl (3.4-5.0)
[2022-07-21] MEDS ORDERED: BACITRACIN 15 GM TUBE TOPICAL OINTMENT ONE (11:44)
[2022-07-21] MEDS ORDERED: LIDOCAINE 5% TOPICAL PATCH ONE (11:46)
[2022-07-21 11:47] LABS: BILIRUBIN,TOTAL 0.4 mg/dL (0.2-1); CREATININE 1.5 mg/dL (0.55-1.3); TOT PROT 6.2 g/dl (6.4-8.2)
[2022-07-21] MEDS ORDERED: LIDOCAINE 5% TOPICAL PATCH TP ONE (11:52)
[2022-07-21 12:21] LABS: MAGNESIUM 2.3 mg/dL (1.8-2.4)
[2022-07-21 12:25] LABS: PHOSPHOROUS 3.7 mg/dL (2.5-4.9)
[2022-07-21] MEDS ORDERED: FUROSEMIDE 20 MG TABLET (FP) ONE (12:28)
[2022-07-21] MEDS ORDERED: ASPIRIN 81 MG CHEWABLE TABLETS ONE (12:28)
[2022-07-21] MEDS ORDERED: ATORVASTATIN CA 20 MG TABLET (FP) PO SCH (22:00)
== END 2022-07-21 14:00 | disposition home or self-care (01) ==
LOC: JER 01:21 → JERBED 04:55
PROVIDERS: ADMIT Internal Medicine; ATTEND Nurse Practitioner Family
PROC: 3E023GC Introduction of Other Therapeutic Substance into Muscle, Percutaneous Approach (ICD-10-PCS; principal; 2022-07-21)
PROC: 3E0337Z Introduction of Electrolytic and Water Balance Substance into Peripheral Vein, Percutaneous Approach (ICD-10-PCS; 2022-07-21)
DX: C34.90 Malignant neoplasm of unspecified part of unspecified bronchus or lung (principal); I25.10 Atherosclerotic heart disease of native coronary artery without angina pectoris; R06.02 Shortness of breath; M25.552 Pain in left hip; I11.9 Hypertensive heart disease without heart failure; Z91.041 Radiographic dye allergy status; J44.9 Chronic obstructive pulmonary disease, unspecified; I11.0 Hypertensive heart disease with heart failure; I50.9 Heart failure, unspecified; M10.9 Gout, unspecified; Z87.891 Personal history of nicotine dependence; Z88.0 Allergy status to penicillin
CPT/HCPCS: 0241U-QW; 36415; 71045-TC-FY; 73502-TC-LT-FY; 80053; 81003; 82728; 82803; 83540; 83550; 83735; 83880; 84100; 84484; 85025; 85379; 85610; 85730; 87086; 93005; 93010; 93971-TC; 96360; 96372; 99285-25; G0378; J1644

== ENCOUNTER 2022-08-10 19:56 | Inpatient (IN) | payer OTHER, MEDICARE ==
[2022-08-10 22:17] LABS: HEMATOCRIT 26.7 % (35.4-49); MCH 30.2 pg (25.7-33.7); MCHC 33.8 g/dl (32.0-35.9); MEAN CELL VOLUME 89.5 fl (80-96); MEAN PLT VOLUME 7.4 fl (7.5-11.1); PLATELET COUNT 391 10^3/uL (134-434); RBC 2.99 M/mm3 (4.00-5.60); RDW 15.5 % (11.9-15.9); WHITE BLOOD COUNT 10.8 K/mm3 (4.0-10.0)
[2022-08-10 22:24] LABS: INR 1.03 (0.83-1.09); PROTHROMBIN TIME (PATIENT) 11.8 SEC (9.7-13.0)
[2022-08-10 22:39] LABS: ALBUMIN 2.8 g/dl (3.4-5.0); BLOOD UREA NITROGEN 41.7 mg/dL (7-18); CALCIUM 8.6 mg/dL (8.5-10.1)
[2022-08-10 22:42] LABS: CREATININE 1.2 mg/dL (0.55-1.3)
[2022-08-10 22:44] LABS: BILIRUBIN,TOTAL 0.4 mg/dL (0.2-1); TOT PROT 6.1 g/dl (6.4-8.2)
[2022-08-10 22:47] LABS: N-TERMINAL BNP 2796.4 pg/ml (5-450)
[2022-08-10] MEDS ORDERED: SODIUM CHLORIDE 500 ML IV SCH (23:15)
[2022-08-11 00:39] LABS: EPI CELLS 4 /uL (0-25.1); HYALINE CASTS 10 /uL (0-3.1); URINE APPEARANCE CLOUDY; URINE BACTERIA >9,000 /uL (0-1359); URINE BILIRUBIN NEGATIVE (NEGATIVE); URINE COLOR YELLOW; URINE GLUCOSE (UA) NEGATIVE (NEGATIVE); URINE KETONE NEGATIVE (NEGATIVE); URINE LEUK ESTERASE 3+ (NEGATIVE); URINE NITRITE POSITIVE (NEGATIVE); URINE PROTEIN 1+ (NEGATIVE); URINE RBC 10 /uL (0-23.9); URINE UROBILINOGEN 0.2 mg/dL (0.2-1.0); URINE WBC 431 /uL (0-25.8)
[2022-08-11] MEDS ORDERED: ENOXAPARIN NA (PORCINE) 80 MG/0.8 ML DISP.SYRIN SQ ONE (00:54)
[2022-08-11] MEDS ORDERED: ENOXAPARIN NA (PORCINE) 100 MG/1 ML DISP.SYRIN SQ ONE ×2 (00:58→09:08)
[2022-08-11] MEDS ORDERED: AZTREONAM 1 GM in DEXTROSE 5%-WATER - 50 ML IVPB ONE (01:00)
[2022-08-11] MEDS ORDERED: VANCOMYCIN 1 GM in D5W (PRE-DOCKED) 1,000 MG/250 ML IVPB ONE (01:02)
[2022-08-11] MEDS ORDERED: VANCOMYCIN/WATER FOR INJ (PEG) 1,000 MG/200 ML BAG IVPB ONE ×2 (01:07→09:12)
[2022-08-11] MEDS ORDERED: AZTREONAM 1 GM VIAL (RESTRICTED TO ID) ONE (01:07)
[2022-08-11] MEDS ORDERED: FUROSEMIDE 40 MG/4 ML INJECTABLE VIAL IVPUSH ONE (05:05)
[2022-08-11] MEDS ORDERED: FUROSEMIDE 40 MG/4 ML INJECTABLE VIAL IVPUSH SCH (06:00)
[2022-08-11 06:30] LABS: HEMATOCRIT 25.7 % (35.4-49); HEMOGLOBIN 8.5 GM/dL (11.7-16.9); MCH 29.5 pg (25.7-33.7); MCHC 32.9 g/dl (32.0-35.9); MEAN CELL VOLUME 89.7 fl (80-96); MEAN PLT VOLUME 7.9 fl (7.5-11.1); PLATELET COUNT 366 10^3/uL (134-434); RBC 2.86 M/mm3 (4.00-5.60); RDW 15.8 % (11.9-15.9); WHITE BLOOD COUNT 10.1 K/mm3 (4.0-10.0)
[2022-08-11 06:56] LABS: BLOOD UREA NITROGEN 40.5 mg/dL (7-18); CALCIUM 8.1 mg/dL (8.5-10.1); CREATININE 1.1 mg/dL (0.55-1.3); MAGNESIUM 1.9 mg/dL (1.8-2.4); PHOSPHOROUS 3.4 mg/dL (2.5-4.9)
[2022-08-11 08:48] LABS: ANISOCYTOSIS 0; HELMET CELLS 0; HOWELL-JOLLY BODIES 0; MACROCYTOSIS 0; OVALOCYTE 0; ROULEAU 0; SICKELED CELLS 0; TARGET CELLS 0; TEAR DROP CELLS 0; TOXIC GRANULATION 0
[2022-08-11] MEDS ORDERED: POLYETHYLENE GLYCOL (HEALTHYLAX) 3350 17 GM PACKET ONE (09:06)
[2022-08-11] MEDS ORDERED: CHOLECALCIFEROL (VIT D3) 1,000 UNIT (25 MCG) TABLET ONE (09:07)
[2022-08-11] MEDS ORDERED: FAMOTIDINE 20 MG TABLET ONE (09:07)
[2022-08-11] MEDS ORDERED: ATORVASTATIN CA 20 MG TABLET (FP) ONE (09:07)
[2022-08-11] MEDS ORDERED: MULTIVITAMINS (DAILY MVI) TABLET (FP) ONE (09:08)
[2022-08-11] MEDS ORDERED: ARFORMOTEROL TARTRATE 15 MCG/2 ML VIAL NEB SCH ×2 (10:00→20:13)
[2022-08-11] MEDS ORDERED: PATIENT'S OWN MEDICATION (NON-FORMULARY) (Budesonide 3 MG Cap.Sr.24h) PO SCH (10:00)
[2022-08-11] MEDS ORDERED: VANCOMYCIN 1 GM/200 ML PREMIX BAG IVPB SCH ×2 (10:00→13:00)
[2022-08-11] MEDS: OMEGA-3 ACID ETHYL ESTERS (FATTY-ACIDS) 1 GM CAPSULE (FP) PO SCH (12:11)
[2022-08-11] MEDS: POLYETHYLENE GLYCOL (HEALTHYLAX) 3350 17 GM PACKET PO SCH (12:11)
[2022-08-11] MEDS: FAMOTIDINE 40 MG TABLET PO SCH (12:12)
[2022-08-11] MEDS: CHOLECALCIFEROL (VIT D3) 1,000 UNIT (25 MCG) TABLET PO SCH (12:12)
[2022-08-11] MEDS: CYANOCOBALAMIN 1,000 MCG TABLET (FP) PO SCH (12:12)
[2022-08-11] MEDS: MULTIVITAMINS THER W-MINERALS COMBO TABLET (FP) PO SCH (12:12)
[2022-08-11] MEDS: ALLOPURINOL 300 MG TABLET (FP) PO SCH (12:13)
[2022-08-11] MEDS ORDERED: ENOXAPARIN NA (PORCINE) 100 MG/1 ML DISP.SYRIN SQ SCH (13:00)
[2022-08-11] MEDS ORDERED: CEFTRIAXONE 1 GM in DEXTROSE 5%-WATER - 50 ML IVPB SCH (15:30)
[2022-08-11 18:07] VITALS: BMI 32.4
[2022-08-11] MEDS: ATORVASTATIN CA 20 MG TABLET (FP) PO SCH (21:46)
[2022-08-11] MEDS: ENOXAPARIN NA (PORCINE) 100 MG/1 ML DISP.SYRIN SQ SCH (22:22)
[2022-08-11] MEDS: CEFTRIAXONE 1 GM in DEXTROSE 5%-WATER - 50 ML IVPB SCH (22:27)
[2022-08-12] MEDS ORDERED: VANCOMYCIN 1 GM in D5W (PRE-DOCKED) 1,000 MG/250 ML IVPB SCH (01:17)
[2022-08-12] MEDS: ENOXAPARIN NA (PORCINE) 100 MG/1 ML DISP.SYRIN SQ SCH ×3 (02:05→21:02)
[2022-08-12 08:33] LABS: HEMOGLOBIN 9.4 GM/dL (11.7-16.9); MCH 30.4 pg (25.7-33.7); MCHC 33.6 g/dl (32.0-35.9); MEAN CELL VOLUME 90.5 fl (80-96); MEAN PLT VOLUME 7.6 fl (7.5-11.1); PLATELET COUNT 380 10^3/uL (134-434); RDW 15.5 % (11.9-15.9); WHITE BLOOD COUNT 8.8 K/mm3 (4.0-10.0)
[2022-08-12 08:45] LABS: CALCIUM 8.9 mg/dL (8.5-10.1)
[2022-08-12 08:46] LABS: ALBUMIN 2.7 g/dl (3.4-5.0); BLOOD UREA NITROGEN 38.4 mg/dL (7-18); MAGNESIUM 2.1 mg/dL (1.8-2.4)
[2022-08-12 08:49] LABS: CREATININE 1.1 mg/dL (0.55-1.3); PHOSPHOROUS 3.4 mg/dL (2.5-4.9)
[2022-08-12 08:50] LABS: BILIRUBIN,TOTAL 0.4 mg/dL (0.2-1)
[2022-08-12] MEDS ORDERED: FLU VACC QS2022-23(6MOS UP)/PF 60 MCG/0.5 ML SYRINGE IM ONE (10:00)
[2022-08-12] MEDS: POLYETHYLENE GLYCOL (HEALTHYLAX) 3350 17 GM PACKET PO SCH (10:25)
[2022-08-12] MEDS: CYANOCOBALAMIN 1,000 MCG TABLET (FP) PO SCH (10:25)
[2022-08-12] MEDS: MULTIVITAMINS THER W-MINERALS COMBO TABLET (FP) PO SCH (10:25)
[2022-08-12] MEDS: OMEGA-3 ACID ETHYL ESTERS (FATTY-ACIDS) 1 GM CAPSULE (FP) PO SCH (10:25)
[2022-08-12] MEDS: CHOLECALCIFEROL (VIT D3) 1,000 UNIT (25 MCG) TABLET PO SCH (10:25)
[2022-08-12] MEDS: ALLOPURINOL 300 MG TABLET (FP) PO SCH (10:25)
[2022-08-12] MEDS: CEFTRIAXONE 1 GM in DEXTROSE 5%-WATER - 50 ML IVPB SCH (10:26)
[2022-08-12] MEDS: FAMOTIDINE 40 MG TABLET PO SCH (10:26)
[2022-08-12] MEDS ORDERED: ALBUTEROL SO4 2.5/IPRATROPIUM 0.5 INH SOL 3 ML VIAL.NEB. NEB PRN (13:35)
[2022-08-12] MEDS: FUROSEMIDE 20 MG TABLET (FP) PO SCH (14:34)
[2022-08-12] MEDS: ATORVASTATIN CA 20 MG TABLET (FP) PO SCH (21:02)
[2022-08-12] MEDS: ARFORMOTEROL TARTRATE 15 MCG/2 ML VIAL NEB SCH (21:36)
[2022-08-13] MEDS: ARFORMOTEROL TARTRATE 15 MCG/2 ML VIAL NEB SCH (07:32)
[2022-08-13] MEDS ORDERED: APIXABAN 5 MG TABLET PO SCH (10:00)
[2022-08-13] MEDS: FUROSEMIDE 20 MG TABLET (FP) PO SCH (10:03)
[2022-08-13] MEDS: MULTIVITAMINS THER W-MINERALS COMBO TABLET (FP) PO SCH (10:03)
[2022-08-13] MEDS: ALLOPURINOL 300 MG TABLET (FP) PO SCH (10:03)
[2022-08-13] MEDS: CYANOCOBALAMIN 1,000 MCG TABLET (FP) PO SCH (10:03)
[2022-08-13] MEDS: OMEGA-3 ACID ETHYL ESTERS (FATTY-ACIDS) 1 GM CAPSULE (FP) PO SCH (10:03)
[2022-08-13] MEDS: CHOLECALCIFEROL (VIT D3) 1,000 UNIT (25 MCG) TABLET PO SCH (10:03)
[2022-08-13] MEDS: CEFTRIAXONE 1 GM in DEXTROSE 5%-WATER - 50 ML IVPB SCH (10:04)
[2022-08-13] MEDS: POLYETHYLENE GLYCOL (HEALTHYLAX) 3350 17 GM PACKET PO SCH (10:05)
[2022-08-13] MEDS: FAMOTIDINE 40 MG TABLET PO SCH (10:20)
[2022-08-13 10:23] VITALS: RESP 18
[2022-08-13 13:39] LABS: HEMATOCRIT 31.3 % (35.4-49); HEMOGLOBIN 10.2 GM/dL (11.7-16.9); MCH 29.4 pg (25.7-33.7); MCHC 32.7 g/dl (32.0-35.9); MEAN CELL VOLUME 89.8 fl (80-96); MEAN PLT VOLUME 7.8 fl (7.5-11.1); PLATELET COUNT 452 10^3/uL (134-434); RBC 3.49 M/mm3 (4.00-5.60); RDW 15.8 % (11.9-15.9); WHITE BLOOD COUNT 10.1 K/mm3 (4.0-10.0)
[2022-08-13 14:11] LABS: BLOOD UREA NITROGEN 39.3 mg/dL (7-18); MAGNESIUM 1.9 mg/dL (1.8-2.4)
[2022-08-13 14:14] LABS: PHOSPHOROUS 3.3 mg/dL (2.5-4.9)
[2022-08-13 14:16] LABS: BILIRUBIN,TOTAL 0.4 mg/dL (0.2-1); TOT PROT 6.7 g/dl (6.4-8.2)
[2022-08-13 14:24] LABS: CREATININE 1.3 mg/dL (0.55-1.3)
[2022-08-13 16:02] VITALS: BP 110/73; PULSE 88; TEMP 98
== END 2022-08-13 17:36 | DRG 291 ==
LOC: JER 19:56 → JERBED 08-11 00:05 → J4W 08-11 17:12
PROVIDERS: ADMIT Internal Medicine; ATTEND Internal Medicine
DX: I13.0 Hypertensive heart and chronic kidney disease with heart failure and stage 1 through stage 4 chronic kidney disease, or unspecified chronic kidney disease (principal); I50.33 Acute on chronic diastolic (congestive) heart failure; N39.0 Urinary tract infection, site not specified; N17.9 Acute kidney failure, unspecified; J98.11 Atelectasis; M10.9 Gout, unspecified; I25.10 Atherosclerotic heart disease of native coronary artery without angina pectoris; J44.9 Chronic obstructive pulmonary disease, unspecified; D64.9 Anemia, unspecified; N18.30 Chronic kidney disease, stage 3 unspecified; K21.9 Gastro-esophageal reflux disease without esophagitis; I44.0 Atrioventricular block, first degree; I45.10 Unspecified right bundle-branch block; Z85.118 Personal history of other malignant neoplasm of bronchus and lung; Z88.0 Allergy status to penicillin
CPT/HCPCS: 0241U-QW; 36415; 71046-TC-FY; 76775-TC; 80048; 80053; 80061; 81003; 82550; 83735; 83880; 84100; 84443; 84484; 85025; 85027; 85379; 85610; 85730; 93005; 93010; 93306-TC; 93970-TC; 94010; 94640; 97116-GP; 97162-GP; 99285-25; G0008; Q2036

== ENCOUNTER 2022-08-21 19:56 | Inpatient (IN) | payer OTHER, MEDICARE ==
[2022-08-21 21:58] LABS: BASO % 1.1 % (0-2.0); EOS % 10.8 % (0-4.5); HEMATOCRIT 29.9 % (35.4-49); HEMOGLOBIN 10.1 GM/dL (11.7-16.9); LYMPH % 21.2 % (8-40); MCH 29.7 pg (25.7-33.7); MCHC 33.7 g/dl (32.0-35.9); MEAN CELL VOLUME 88.4 fl (80-96); MEAN PLT VOLUME 8.4 fl (7.5-11.1); MONO % 11.6 % (3.8-10.2); NEUT % 55.3 % (42.8-82.8); PLATELET COUNT 277 10^3/uL (134-434); RBC 3.39 M/mm3 (4.00-5.60); RDW 15.6 % (11.9-15.9); WHITE BLOOD COUNT 9.7 K/mm3 (4.0-10.0)
[2022-08-21 22:05] LABS: INR 1.31 (0.83-1.09); PROTHROMBIN TIME (PATIENT) 15.1 SEC (9.7-13.0)
[2022-08-21 22:08] LABS: ACTIVATED PTT 33.9 SECONDS (25.2-36.5)
[2022-08-21 22:22] LABS: ALBUMIN 2.9 g/dl (3.4-5.0); BLOOD UREA NITROGEN 40.4 mg/dL (7-18)
[2022-08-21 22:24] LABS: CREATININE 1.3 mg/dL (0.55-1.3)
[2022-08-21 22:26] LABS: BILIRUBIN,TOTAL 0.3 mg/dL (0.2-1); TOT PROT 6.5 g/dl (6.4-8.2)
[2022-08-21 22:30] LABS: N-TERMINAL BNP 2812.9 pg/ml (5-450)
[2022-08-22] MEDS ORDERED: FUROSEMIDE 40 MG/4 ML INJECTABLE VIAL IVPUSH ONE (00:08)
[2022-08-22] MEDS ORDERED: FUROSEMIDE 40 MG/4 ML INJECTABLE VIAL ONE ×2 (00:26→14:12)
[2022-08-22 07:25] LABS: BASO % 0.9 % (0-2.0); EOS % 13.3 % (0-4.5); HEMOGLOBIN 10.4 GM/dL (11.7-16.9); LYMPH % 19.8 % (8-40); MCH 28.9 pg (25.7-33.7); MCHC 32.7 g/dl (32.0-35.9); MEAN CELL VOLUME 88.5 fl (80-96); MEAN PLT VOLUME 8.8 fl (7.5-11.1); MONO % 11.1 % (3.8-10.2); NEUT % 54.9 % (42.8-82.8); PLATELET COUNT 312 10^3/uL (134-434); RBC 3.61 M/mm3 (4.00-5.60); RDW 15.4 % (11.9-15.9); WHITE BLOOD COUNT 8.8 K/mm3 (4.0-10.0)
[2022-08-22 07:42] LABS: CALCIUM 9.4 mg/dL (8.5-10.1)
[2022-08-22 07:43] LABS: ALBUMIN 3.1 g/dl (3.4-5.0); BLOOD UREA NITROGEN 34.9 mg/dL (7-18); MAGNESIUM 2.1 mg/dL (1.8-2.4)
[2022-08-22 07:46] LABS: CREATININE 1.2 mg/dL (0.55-1.3); PHOSPHOROUS 3.5 mg/dL (2.5-4.9)
[2022-08-22 07:47] LABS: BILIRUBIN,TOTAL 0.4 mg/dL (0.2-1)
[2022-08-22 07:48] LABS: TOT PROT 6.8 g/dl (6.4-8.2)
[2022-08-22] MEDS ORDERED: APIXABAN 5 MG TABLET ONE (10:42)
[2022-08-22] MEDS: APIXABAN 5 MG TABLET PO SCH ×2 (11:00→22:00)
[2022-08-22] MEDS: FUROSEMIDE 40 MG/4 ML INJECTABLE VIAL IVPUSH SCH (14:15)
[2022-08-23 08:06] LABS: BASO % 1.2 % (0-2.0); EOS % 15.9 % (0-4.5); HEMATOCRIT 30.2 % (35.4-49); LYMPH % 23.8 % (8-40); MEAN PLT VOLUME 8.9 fl (7.5-11.1); MONO % 11.5 % (3.8-10.2); NEUT % 47.6 % (42.8-82.8); PLATELET COUNT 283 10^3/uL (134-434); RBC 3.44 M/mm3 (4.00-5.60); RDW 15.2 % (11.9-15.9); WHITE BLOOD COUNT 6.9 K/mm3 (4.0-10.0)
[2022-08-23 08:44] LABS: ALBUMIN 2.7 g/dl (3.4-5.0); CALCIUM 8.5 mg/dL (8.5-10.1)
[2022-08-23 08:45] LABS: BLOOD UREA NITROGEN 34.2 mg/dL (7-18)
[2022-08-23 08:47] LABS: CREATININE 1.1 mg/dL (0.55-1.3)
[2022-08-23 08:49] LABS: BILIRUBIN,TOTAL 0.3 mg/dL (0.2-1); TOT PROT 6.2 g/dl (6.4-8.2)
[2022-08-23] MEDS: APIXABAN 5 MG TABLET PO SCH ×2 (10:03→21:33)
[2022-08-23] MEDS: FUROSEMIDE 40 MG/4 ML INJECTABLE VIAL IVPUSH SCH (10:13)
[2022-08-23] MEDS: FAMOTIDINE 10 MG TABLET PO SCH ×2 (12:29→21:33)
[2022-08-23] MEDS: POLYETHYLENE GLYCOL (HEALTHYLAX) 3350 17 GM PACKET PO SCH (12:29)
[2022-08-23] MEDS: ARFORMOTEROL TARTRATE 15 MCG/2 ML VIAL NEB SCH (20:44)
[2022-08-23] MEDS: ATORVASTATIN CA 40 MG TABLET (FP) PO SCH (21:33)
[2022-08-24] MEDS: ARFORMOTEROL TARTRATE 15 MCG/2 ML VIAL NEB SCH ×2 (07:20→20:05)
[2022-08-24 08:01] LABS: BASO % 1.7 % (0-2.0); HEMATOCRIT 29.6 % (35.4-49); HEMOGLOBIN 10.1 GM/dL (11.7-16.9); LYMPH % 26.8 % (8-40); MCHC 34.1 g/dl (32.0-35.9); MEAN CELL VOLUME 87.9 fl (80-96); MEAN PLT VOLUME 8.5 fl (7.5-11.1); NEUT % 46.5 % (42.8-82.8); PLATELET COUNT 255 10^3/uL (134-434); RBC 3.36 M/mm3 (4.00-5.60); RDW 15.3 % (11.9-15.9); WHITE BLOOD COUNT 7.6 K/mm3 (4.0-10.0)
[2022-08-24 08:57] LABS: CALCIUM 9.3 mg/dL (8.5-10.1)
[2022-08-24 08:58] LABS: ALBUMIN 2.8 g/dl (3.4-5.0); BLOOD UREA NITROGEN 40.3 mg/dL (7-18)
[2022-08-24 09:01] LABS: BILIRUBIN,TOTAL 0.4 mg/dL (0.2-1); CREATININE 1.2 mg/dL (0.55-1.3)
[2022-08-24 09:03] LABS: TOT PROT 6.1 g/dl (6.4-8.2)
[2022-08-24] MEDS: FUROSEMIDE 40 MG/4 ML INJECTABLE VIAL IVPUSH SCH (09:29)
[2022-08-24] MEDS: APIXABAN 5 MG TABLET PO SCH ×2 (09:29→21:33)
[2022-08-24] MEDS: FAMOTIDINE 10 MG TABLET PO SCH ×2 (09:29→21:33)
[2022-08-24] MEDS: POLYETHYLENE GLYCOL (HEALTHYLAX) 3350 17 GM PACKET PO SCH (09:29)
[2022-08-24 11:31] VITALS: BMI 31.1
[2022-08-24 14:58] LABS: EPI CELLS 23 /uL (0-25.1); HYALINE CASTS 3 /uL (0-3.1); URINE APPEARANCE CLEAR; URINE BACTERIA 2870 /uL (0-1359); URINE BILIRUBIN NEGATIVE (NEGATIVE); URINE COLOR YELLOW; URINE GLUCOSE (UA) NEGATIVE (NEGATIVE); URINE KETONE NEGATIVE (NEGATIVE); URINE LEUK ESTERASE NEGATIVE (NEGATIVE); URINE NITRITE NEGATIVE (NEGATIVE); URINE PROTEIN NEGATIVE (NEGATIVE); URINE RBC 27 /uL (0-23.9); URINE UROBILINOGEN 0.2 mg/dL (0.2-1.0); URINE WBC 9 /uL (0-25.8)
[2022-08-24] MEDS: ATORVASTATIN CA 40 MG TABLET (FP) PO SCH (21:33)
[2022-08-25] MEDS: ARFORMOTEROL TARTRATE 15 MCG/2 ML VIAL NEB SCH (08:30)
[2022-08-25] MEDS: FUROSEMIDE 40 MG/4 ML INJECTABLE VIAL IVPUSH SCH (10:06)
[2022-08-25] MEDS: POLYETHYLENE GLYCOL (HEALTHYLAX) 3350 17 GM PACKET PO SCH (10:07)
[2022-08-25] MEDS: APIXABAN 5 MG TABLET PO SCH (10:07)
[2022-08-25] MEDS: FAMOTIDINE 10 MG TABLET PO SCH (10:07)
[2022-08-25 10:12] VITALS: BP 136/81; PULSE 77; RESP 18; TEMP 98.3
== END 2022-08-25 14:01 | disposition home or self-care (01) | DRG 291 ==
LOC: JER 19:56 → JERBED 08-22 00:06 → J4W 08-22 17:36
PROVIDERS: ADMIT Internal Medicine; ATTEND Internal Medicine
DX: I13.0 Hypertensive heart and chronic kidney disease with heart failure and stage 1 through stage 4 chronic kidney disease, or unspecified chronic kidney disease (principal); I50.33 Acute on chronic diastolic (congestive) heart failure; J44.1 Chronic obstructive pulmonary disease with (acute) exacerbation; R04.2 Hemoptysis; K21.9 Gastro-esophageal reflux disease without esophagitis; I25.10 Atherosclerotic heart disease of native coronary artery without angina pectoris; N18.30 Chronic kidney disease, stage 3 unspecified; J44.9 Chronic obstructive pulmonary disease, unspecified; D50.9 Iron deficiency anemia, unspecified; D64.9 Anemia, unspecified; I45.10 Unspecified right bundle-branch block; M10.9 Gout, unspecified; E78.5 Hyperlipidemia, unspecified; M48.56XG Collapsed vertebra, not elsewhere classified, lumbar region, subsequent encounter for fracture with delayed healing; M54.50 Low back pain, unspecified; Z85.51 Personal history of malignant neoplasm of bladder; Z95.5 Presence of coronary angioplasty implant and graft; Z85.118 Personal history of other malignant neoplasm of bronchus and lung
CPT/HCPCS: 0241U-QW; 36415; 71045-TC-FY; 80053; 81003; 83735; 83880; 84100; 84484; 85025; 85610; 85730; 93005; 93010; 94640; 99285-25

== ENCOUNTER 2022-10-14 11:01 | Inpatient (IN) | payer OTHER, MEDICARE ==
[2022-10-14 13:24] LABS: BASO % 0.6 % (0-2.0); EOS % 4.4 % (0-4.5); HEMATOCRIT 41.5 % (35.4-49); HEMOGLOBIN 13.1 GM/dL (11.7-16.9); LYMPH % 19.4 % (8-40); MCH 27.3 pg (25.7-33.7); MCHC 31.7 g/dl (32.0-35.9); MEAN CELL VOLUME 86.3 fl (80-96); MEAN PLT VOLUME 9.3 fl (7.5-11.1); MONO % 9.4 % (3.8-10.2); NEUT % 66.2 % (42.8-82.8); PLATELET COUNT 280 10^3/uL (134-434); RBC 4.81 M/mm3 (4.00-5.60); RDW 16.6 % (11.9-15.9); WHITE BLOOD COUNT 10.1 K/mm3 (4.0-10.0)
[2022-10-14] MEDS ORDERED: VANCOMYCIN 1 GM in D5W (PRE-DOCKED) 1,000 MG/250 ML IVPB ONE (13:26)
[2022-10-14] MEDS ORDERED: CEFEPIME HCL/D5W 2 GM/50 ML BAG IVPB ONE (13:29)
[2022-10-14 13:31] LABS: INR 1.11 (0.83-1.09); PROTHROMBIN TIME (PATIENT) 12.8 SEC (9.7-13.0)
[2022-10-14 13:34] LABS: ACTIVATED PTT 32.5 SECONDS (25.2-36.5)
[2022-10-14 13:44] LABS: VENOUS BASE EXCESS -1.7 mmol/L (-2-2); VENOUS O2 SATURATION 43.1 % (70-80); VENOUS PCO2 44.6 mmHg (38-52); VENOUS PH 7.349 (7.310-7.410)
[2022-10-14 13:44] LABS: ALBUMIN 3.6 g/dl (3.4-5.0); BLOOD UREA NITROGEN 66.2 mg/dL (7-18); CALCIUM 9.1 mg/dL (8.5-10.1)
[2022-10-14 13:47] LABS: CREATININE 1.7 mg/dL (0.55-1.3)
[2022-10-14 13:49] LABS: BILIRUBIN,TOTAL 0.4 mg/dL (0.2-1); TOT PROT 7.2 g/dl (6.4-8.2)
[2022-10-14 13:52] LABS: N-TERMINAL BNP 1486.5 pg/ml (5-450)
[2022-10-14] MEDS ORDERED: VANCOMYCIN/WATER FOR INJ (PEG) 1,000 MG/200 ML BAG IVPB ONE (14:14)
[2022-10-14] MEDS ORDERED: FUROSEMIDE 40 MG/4 ML INJECTABLE VIAL IVPUSH ONE (14:47)
[2022-10-14] MEDS ORDERED: CEFEPIME 2 GM in DEXTROSE 5%-WATER 100 ML IVPB ONE (15:00)
[2022-10-14] MEDS ORDERED: CEFEPIME 2 GM/100 ML BAG IVPB ONE (15:54)
[2022-10-14] MEDS ORDERED: KETOROLAC TROMETHAMINE 15 MG/ML VIAL IVPUSH PRN (20:31)
[2022-10-14] MEDS ORDERED: oxyCODONE HCL 5 MG TABLET PO PRN (20:31)
[2022-10-14] MEDS: HEPARIN NA (PORCINE) 5,000 UNITS/ML 1ML VIAL SQ SCH (21:24)
[2022-10-14] MEDS: APIXABAN 2.5 MG TABLET PO SCH (21:24)
[2022-10-14] MEDS: ACETAMINOPHEN 1000 MG/100 ML BAG IVPB PRN (21:24)
[2022-10-15] MEDS: HEPARIN NA (PORCINE) 5,000 UNITS/ML 1ML VIAL SQ SCH (06:00)
[2022-10-15 08:39] LABS: HEMATOCRIT 39.1 % (35.4-49); HEMOGLOBIN 12.6 GM/dL (11.7-16.9); MCH 27.6 pg (25.7-33.7); MCHC 32.2 g/dl (32.0-35.9); MEAN CELL VOLUME 85.6 fl (80-96); MEAN PLT VOLUME 9.1 fl (7.5-11.1); PLATELET COUNT 259 10^3/uL (134-434); RBC 4.57 M/mm3 (4.00-5.60); RDW 16.7 % (11.9-15.9); WHITE BLOOD COUNT 8.6 K/mm3 (4.0-10.0)
[2022-10-15 09:00] LABS: BLOOD UREA NITROGEN 65.2 mg/dL (7-18); CALCIUM 8.8 mg/dL (8.5-10.1)
[2022-10-15 09:01] LABS: MAGNESIUM 2.5 mg/dL (1.8-2.4)
[2022-10-15 09:02] LABS: PHOSPHOROUS 4.7 mg/dL (2.5-4.9)
[2022-10-15 09:04] LABS: BILIRUBIN,TOTAL 0.5 mg/dL (0.2-1); CREATININE 1.7 mg/dL (0.55-1.3); TOT PROT 6.1 g/dl (6.4-8.2)
[2022-10-15] MEDS ORDERED: FUROSEMIDE 40 MG/4 ML INJECTABLE VIAL IVPUSH SCH (10:00)
[2022-10-15] MEDS: DOCUSATE SODIUM 100 MG CAPSULE (FP) PO SCH (10:37)
[2022-10-15] MEDS: ALLOPURINOL 300 MG TABLET (FP) PO SCH (10:37)
[2022-10-15] MEDS: APIXABAN 2.5 MG TABLET PO SCH ×2 (10:37→21:45)
[2022-10-15] MEDS: ACETAMINOPHEN 1000 MG/100 ML BAG IVPB PRN (14:55)
[2022-10-15 15:09] LABS: EPI CELLS >36 /uL (0-25.1); HYALINE CASTS 17 /uL (0-3.1); URINE APPEARANCE CLOUDY; URINE BILIRUBIN NEGATIVE (NEGATIVE); URINE COLOR YELLOW; URINE GLUCOSE (UA) NEGATIVE (NEGATIVE); URINE KETONE NEGATIVE (NEGATIVE); URINE LEUK ESTERASE 3+ (NEGATIVE); URINE NITRITE POSITIVE (NEGATIVE); URINE PROTEIN NEGATIVE (NEGATIVE); URINE RBC 17 /uL (0-23.9); URINE UROBILINOGEN 0.2 mg/dL (0.2-1.0); URINE WBC 65 /uL (0-25.8)
[2022-10-15 15:16] LABS: URINE BACTERIA 473 /uL (0-1359)
[2022-10-15 15:39] VITALS: BMI 28.0
[2022-10-15] MEDS ORDERED: ALBUTEROL SO4 0.5 % INH SOLN 2.5 MG/0.5 ML VIAL.NEB. NEB ONE (21:25)
[2022-10-15] MEDS: DOXYCYCLINE INJECTION 100 MG in DEXTROSE 5%-WATER 100 ML IVPB SCH (21:44)
[2022-10-16] MEDS ORDERED: ALBUTEROL SO4 0.083% IH SOL 2.5 MG/3 ML VIAL.NEB. NEB PRN (04:50)
[2022-10-16 07:51] LABS: BASO % 0.7 % (0-2.0); EOS % 6.7 % (0-4.5); HEMATOCRIT 37.9 % (35.4-49); HEMOGLOBIN 12.3 GM/dL (11.7-16.9); LYMPH % 27.8 % (8-40); MCH 27.7 pg (25.7-33.7); MCHC 32.5 g/dl (32.0-35.9); MEAN CELL VOLUME 85.2 fl (80-96); MEAN PLT VOLUME 8.7 fl (7.5-11.1); MONO % 12.5 % (3.8-10.2); NEUT % 52.3 % (42.8-82.8); PLATELET COUNT 247 10^3/uL (134-434); RBC 4.45 M/mm3 (4.00-5.60); WHITE BLOOD COUNT 7.9 K/mm3 (4.0-10.0)
[2022-10-16] MEDS: BUDESONIDE 0.5 MG/2 ML INH SUSP VIAL NEB SCH ×2 (08:05→19:52)
[2022-10-16] MEDS: ARFORMOTEROL TARTRATE 15 MCG/2 ML VIAL NEB SCH ×2 (08:05→19:52)
[2022-10-16 08:09] LABS: MAGNESIUM 2.6 mg/dL (1.8-2.4)
[2022-10-16 08:15] LABS: PHOSPHOROUS 4.2 mg/dL (2.5-4.9)
[2022-10-16] MEDS ORDERED: SODIUM CHLORIDE 0.9% 500 ML INFUS.BAG IV ONE (08:18)
[2022-10-16] MEDS: DOXYCYCLINE INJECTION 100 MG in DEXTROSE 5%-WATER 100 ML IVPB SCH ×2 (10:38→22:12)
[2022-10-16] MEDS: CEFTRIAXONE 1 GM in DEXTROSE 5%-WATER - 50 ML IVPB SCH (10:38)
[2022-10-16] MEDS: APIXABAN 2.5 MG TABLET PO SCH (10:39)
[2022-10-16] MEDS: ALLOPURINOL 300 MG TABLET (FP) PO SCH (10:39)
[2022-10-16] MEDS: DOCUSATE SODIUM 100 MG CAPSULE (FP) PO SCH (10:39)
[2022-10-16] MEDS: GABAPENTIN 300 MG CAPSULE PO SCH (22:12)
[2022-10-17] MEDS: BUDESONIDE 0.5 MG/2 ML INH SUSP VIAL NEB SCH ×2 (08:05→20:05)
[2022-10-17] MEDS: ARFORMOTEROL TARTRATE 15 MCG/2 ML VIAL NEB SCH ×2 (08:10→20:05)
[2022-10-17 08:27] LABS: BASO % 0.6 % (0-2.0); EOS % 6.7 % (0-4.5); HEMATOCRIT 37.7 % (35.4-49); HEMOGLOBIN 12.2 GM/dL (11.7-16.9); LYMPH % 26.1 % (8-40); MCH 27.7 pg (25.7-33.7); MCHC 32.5 g/dl (32.0-35.9); MEAN CELL VOLUME 85.4 fl (80-96); MEAN PLT VOLUME 8.9 fl (7.5-11.1); NEUT % 54.6 % (42.8-82.8); PLATELET COUNT 247 10^3/uL (134-434); RBC 4.42 M/mm3 (4.00-5.60); RDW 16.9 % (11.9-15.9)
[2022-10-17 08:51] LABS: ALBUMIN 2.9 g/dl (3.4-5.0)
[2022-10-17 08:52] LABS: MAGNESIUM 2.4 mg/dL (1.8-2.4)
[2022-10-17 08:53] LABS: BLOOD UREA NITROGEN 71.1 mg/dL (7-18)
[2022-10-17 08:54] LABS: CALCIUM 8.8 mg/dL (8.5-10.1)
[2022-10-17 08:56] LABS: CREATININE 1.8 mg/dL (0.55-1.3); PHOSPHOROUS 4.2 mg/dL (2.5-4.9)
[2022-10-17 08:57] LABS: BILIRUBIN,TOTAL 0.3 mg/dL (0.2-1); TOT PROT 6.1 g/dl (6.4-8.2)
[2022-10-17] MEDS: ALLOPURINOL 300 MG TABLET (FP) PO SCH (09:44)
[2022-10-17] MEDS: CEFTRIAXONE 1 GM in DEXTROSE 5%-WATER - 50 ML IVPB SCH (09:45)
[2022-10-17] MEDS: GABAPENTIN 300 MG CAPSULE PO SCH ×2 (09:45→21:33)
[2022-10-17] MEDS: DOCUSATE SODIUM 100 MG CAPSULE (FP) PO SCH (09:45)
[2022-10-17] MEDS: DOXYCYCLINE INJECTION 100 MG in DEXTROSE 5%-WATER 100 ML IVPB SCH (09:45)
[2022-10-17] MEDS: TAMSULOSIN HCL 0.4 MG CAP PO SCH (09:45)
[2022-10-17] MEDS: LIDOCAINE 5% TOPICAL PATCH TP SCH (11:44)
[2022-10-17] MEDS: HEPARIN NA (PORCINE) 5,000 UNITS/ML 1ML VIAL SQ SCH ×2 (13:30→21:33)
[2022-10-17] MEDS: LIDOCAINE PATCH REMOVAL MC SCH (21:33)
[2022-10-17] MEDS ORDERED: LIDOCAINE PATCH REMOVAL MC SCH (22:00)
[2022-10-18] MEDS: HEPARIN NA (PORCINE) 5,000 UNITS/ML 1ML VIAL SQ SCH ×2 (06:08→13:47)
[2022-10-18] MEDS: ARFORMOTEROL TARTRATE 15 MCG/2 ML VIAL NEB SCH ×2 (07:54→20:45)
[2022-10-18] MEDS: BUDESONIDE 0.5 MG/2 ML INH SUSP VIAL NEB SCH ×2 (07:54→20:45)
[2022-10-18 08:21] LABS: HEMATOCRIT 38.1 % (35.4-49); HEMOGLOBIN 12.2 GM/dL (11.7-16.9); MCH 27.5 pg (25.7-33.7); MEAN CELL VOLUME 86.1 fl (80-96); MEAN PLT VOLUME 8.9 fl (7.5-11.1); PLATELET COUNT 249 10^3/uL (134-434); RBC 4.42 M/mm3 (4.00-5.60); RDW 16.7 % (11.9-15.9); WHITE BLOOD COUNT 9.7 K/mm3 (4.0-10.0)
[2022-10-18 08:38] LABS: ALBUMIN 2.7 g/dl (3.4-5.0); CALCIUM 8.8 mg/dL (8.5-10.1); MAGNESIUM 2.3 mg/dL (1.8-2.4)
[2022-10-18 08:39] LABS: BLOOD UREA NITROGEN 69.6 mg/dL (7-18)
[2022-10-18 08:41] LABS: CREATININE 1.6 mg/dL (0.55-1.3); PHOSPHOROUS 4.3 mg/dL (2.5-4.9)
[2022-10-18 08:42] LABS: BILIRUBIN,TOTAL 0.3 mg/dL (0.2-1)
[2022-10-18] MEDS: DOCUSATE SODIUM 100 MG CAPSULE (FP) PO SCH (10:09)
[2022-10-18] MEDS: FUROSEMIDE 40 MG TABLET (FP) PO SCH (10:09)
[2022-10-18] MEDS: ALLOPURINOL 300 MG TABLET (FP) PO SCH (10:09)
[2022-10-18] MEDS: CEFTRIAXONE 1 GM in DEXTROSE 5%-WATER - 50 ML IVPB SCH (10:10)
[2022-10-18] MEDS: GABAPENTIN 300 MG CAPSULE PO SCH ×2 (10:10→21:51)
[2022-10-18] MEDS: TAMSULOSIN HCL 0.4 MG CAP PO SCH (10:10)
[2022-10-18] MEDS: LIDOCAINE 5% TOPICAL PATCH TP SCH (10:10)
[2022-10-18] MEDS ORDERED: POLYETHYLENE GLYCOL (HEALTHYLAX) 3350 17 GM PACKET PO SCH (17:00)
[2022-10-18] MEDS ORDERED: ACETAMINOPHEN 325 MG TABLET (FP) PO PRN (20:04)
[2022-10-18] MEDS: LIDOCAINE PATCH REMOVAL MC SCH (21:51)
[2022-10-19] MEDS: GABAPENTIN 300 MG CAPSULE PO SCH ×3 (06:01→22:02)
[2022-10-19] MEDS: BUDESONIDE 0.5 MG/2 ML INH SUSP VIAL NEB SCH ×2 (07:45→21:45)
[2022-10-19] MEDS: ARFORMOTEROL TARTRATE 15 MCG/2 ML VIAL NEB SCH ×2 (07:45→21:46)
[2022-10-19 08:35] LABS: ALBUMIN 2.8 g/dl (3.4-5.0); BLOOD UREA NITROGEN 75.9 mg/dL (7-18); CALCIUM 8.9 mg/dL (8.5-10.1)
[2022-10-19 08:38] LABS: CREATININE 1.7 mg/dL (0.55-1.3)
[2022-10-19 08:40] LABS: BILIRUBIN,TOTAL 0.3 mg/dL (0.2-1); TOT PROT 6.2 g/dl (6.4-8.2)
[2022-10-19] MEDS: DOCUSATE SODIUM 100 MG CAPSULE (FP) PO SCH ×2 (10:29→10:40)
[2022-10-19] MEDS: CEFTRIAXONE 1 GM in DEXTROSE 5%-WATER - 50 ML IVPB SCH (10:29)
[2022-10-19] MEDS: TAMSULOSIN HCL 0.4 MG CAP PO SCH (10:29)
[2022-10-19] MEDS: ALLOPURINOL 300 MG TABLET (FP) PO SCH (10:29)
[2022-10-19] MEDS: FUROSEMIDE 40 MG TABLET (FP) PO SCH (10:29)
[2022-10-19] MEDS: LIDOCAINE 5% TOPICAL PATCH TP SCH (10:31)
[2022-10-19] MEDS: POLYETHYLENE GLYCOL (HEALTHYLAX) 3350 17 GM PACKET PO SCH (14:11)
[2022-10-19] MEDS ORDERED: MELATONIN 5 MG TABLETS PO ONE (21:26)
[2022-10-19] MEDS: LIDOCAINE PATCH REMOVAL MC SCH (22:02)
[2022-10-20] MEDS: GABAPENTIN 300 MG CAPSULE PO SCH ×3 (05:37→22:16)
[2022-10-20 07:44] LABS: BASO % 0.7 % (0-2.0); EOS % 5.6 % (0-4.5); HEMATOCRIT 35.7 % (35.4-49); HEMOGLOBIN 11.7 GM/dL (11.7-16.9); LYMPH % 18.9 % (8-40); MCHC 32.8 g/dl (32.0-35.9); MEAN CELL VOLUME 85.2 fl (80-96); MEAN PLT VOLUME 8.6 fl (7.5-11.1); MONO % 11.8 % (3.8-10.2); PLATELET COUNT 237 10^3/uL (134-434); RBC 4.19 M/mm3 (4.00-5.60); RDW 16.4 % (11.9-15.9); WHITE BLOOD COUNT 9.7 K/mm3 (4.0-10.0)
[2022-10-20 07:59] LABS: CALCIUM 8.8 mg/dL (8.5-10.1)
[2022-10-20 08:00] LABS: BLOOD UREA NITROGEN 74.5 mg/dL (7-18); MAGNESIUM 2.3 mg/dL (1.8-2.4)
[2022-10-20 08:03] LABS: CREATININE 1.6 mg/dL (0.55-1.3); PHOSPHOROUS 4.6 mg/dL (2.5-4.9)
[2022-10-20] MEDS: TAMSULOSIN HCL 0.4 MG CAP PO SCH (08:40)
[2022-10-20] MEDS: ARFORMOTEROL TARTRATE 15 MCG/2 ML VIAL NEB SCH ×2 (08:45→20:12)
[2022-10-20] MEDS: BUDESONIDE 0.5 MG/2 ML INH SUSP VIAL NEB SCH ×2 (08:45→20:13)
[2022-10-20] MEDS: ALLOPURINOL 300 MG TABLET (FP) PO SCH (09:46)
[2022-10-20] MEDS: FUROSEMIDE 40 MG TABLET (FP) PO SCH ×2 (09:46→15:03)
[2022-10-20] MEDS: DOCUSATE SODIUM 100 MG CAPSULE (FP) PO SCH (09:46)
[2022-10-20] MEDS: LIDOCAINE 5% TOPICAL PATCH TP SCH ×2 (09:47→15:03)
[2022-10-20] MEDS: POLYETHYLENE GLYCOL (HEALTHYLAX) 3350 17 GM PACKET PO SCH ×2 (09:47→15:03)
[2022-10-20] MEDS ORDERED: levoFLOXacin 750 MG TABLET PO SCH (15:15)
[2022-10-20] MEDS ORDERED: ALBUMIN HUMAN 25% 12.5 GM/50 ML VIAL IV ONE (15:45)
[2022-10-20 17:48] LABS: BF WBC & OTHER NUCLEATED CELLS 715 /mm3
[2022-10-20 18:48] LABS: BODY FLUID MACROPHAGES 2 %; BODY FLUID MESOTHELIAL 1 %; BODY FLUID MONOCYTE 14 %; BODYL FLD EOSINOPHIL 2 %
[2022-10-20] MEDS: ACETAMINOPHEN 325 MG TABLET (FP) PO PRN (22:14)
[2022-10-20] MEDS: APIXABAN 2.5 MG TABLET PO SCH (22:16)
[2022-10-20] MEDS: LIDOCAINE PATCH REMOVAL MC SCH (22:16)
[2022-10-21] MEDS: ACETAMINOPHEN 325 MG TABLET (FP) PO PRN ×3 (05:18→20:29)
[2022-10-21] MEDS: GABAPENTIN 300 MG CAPSULE PO SCH ×3 (05:18→21:11)
[2022-10-21] MEDS ORDERED: levoFLOXacin 750 MG TABLET PO SCH (06:00)
[2022-10-21] MEDS: BUDESONIDE 0.5 MG/2 ML INH SUSP VIAL NEB SCH ×2 (08:10→20:44)
[2022-10-21] MEDS: ARFORMOTEROL TARTRATE 15 MCG/2 ML VIAL NEB SCH ×2 (08:10→20:44)
[2022-10-21 08:32] LABS: BASO % 0.9 % (0-2.0); EOS % 3.9 % (0-4.5); HEMATOCRIT 33.8 % (35.4-49); HEMOGLOBIN 11.1 GM/dL (11.7-16.9); LYMPH % 16.2 % (8-40); MCHC 32.8 g/dl (32.0-35.9); MEAN CELL VOLUME 85.5 fl (80-96); MEAN PLT VOLUME 8.5 fl (7.5-11.1); MONO % 13.2 % (3.8-10.2); NEUT % 65.8 % (42.8-82.8); PLATELET COUNT 224 10^3/uL (134-434); RBC 3.95 M/mm3 (4.00-5.60); RDW 17.3 % (11.9-15.9); WHITE BLOOD COUNT 10.1 K/mm3 (4.0-10.0)
[2022-10-21 08:39] LABS: CALCIUM 8.6 mg/dL (8.5-10.1)
[2022-10-21 08:40] LABS: MAGNESIUM 2.4 mg/dL (1.8-2.4)
[2022-10-21 08:43] LABS: CREATININE 1.5 mg/dL (0.55-1.3); PHOSPHOROUS 3.3 mg/dL (2.5-4.9)
[2022-10-21] MEDS: APIXABAN 2.5 MG TABLET PO SCH ×2 (10:16→21:10)
[2022-10-21] MEDS: TAMSULOSIN HCL 0.4 MG CAP PO SCH (10:16)
[2022-10-21] MEDS: FUROSEMIDE 40 MG TABLET (FP) PO SCH (10:16)
[2022-10-21] MEDS: ALLOPURINOL 300 MG TABLET (FP) PO SCH (10:16)
[2022-10-21] MEDS: DOCUSATE SODIUM 100 MG CAPSULE (FP) PO SCH (10:16)
[2022-10-21] MEDS: POLYETHYLENE GLYCOL (HEALTHYLAX) 3350 17 GM PACKET PO SCH (10:17)
[2022-10-21] MEDS: LIDOCAINE 5% TOPICAL PATCH TP SCH (10:17)
[2022-10-21] MEDS: LIDOCAINE PATCH REMOVAL MC SCH (21:14)
[2022-10-22] MEDS: ACETAMINOPHEN 325 MG TABLET (FP) PO PRN ×2 (04:30→21:34)
[2022-10-22] MEDS: GABAPENTIN 300 MG CAPSULE PO SCH ×3 (05:24→21:33)
[2022-10-22 07:23] LABS: BASO % 0.7 % (0-2.0); EOS % 3.9 % (0-4.5); HEMATOCRIT 32.8 % (35.4-49); LYMPH % 13.5 % (8-40); MCH 28.4 pg (25.7-33.7); MCHC 33.6 g/dl (32.0-35.9); MEAN CELL VOLUME 84.4 fl (80-96); MEAN PLT VOLUME 8.5 fl (7.5-11.1); MONO % 13.1 % (3.8-10.2); NEUT % 68.8 % (42.8-82.8); PLATELET COUNT 228 10^3/uL (134-434); RBC 3.88 M/mm3 (4.00-5.60); RDW 17.2 % (11.9-15.9); WHITE BLOOD COUNT 9.8 K/mm3 (4.0-10.0)
[2022-10-22 07:49] LABS: PHOSPHOROUS 3.7 mg/dL (2.5-4.9)
[2022-10-22 07:52] LABS: CREATININE 1.4 mg/dL (0.55-1.3)
[2022-10-22] MEDS: ARFORMOTEROL TARTRATE 15 MCG/2 ML VIAL NEB SCH ×2 (08:10→20:40)
[2022-10-22] MEDS: BUDESONIDE 0.5 MG/2 ML INH SUSP VIAL NEB SCH ×2 (08:11→20:40)
[2022-10-22] MEDS: TAMSULOSIN HCL 0.4 MG CAP PO SCH (09:03)
[2022-10-22 09:24] LABS: CALCIUM 8.5 mg/dL (8.5-10.1); MAGNESIUM 2.3 mg/dL (1.8-2.4)
[2022-10-22] MEDS: POLYETHYLENE GLYCOL (HEALTHYLAX) 3350 17 GM PACKET PO SCH (10:49)
[2022-10-22] MEDS: DOCUSATE SODIUM 100 MG CAPSULE (FP) PO SCH (10:49)
[2022-10-22] MEDS: FUROSEMIDE 40 MG TABLET (FP) PO SCH (10:49)
[2022-10-22] MEDS: ALLOPURINOL 300 MG TABLET (FP) PO SCH (10:49)
[2022-10-22] MEDS: LIDOCAINE 5% TOPICAL PATCH TP SCH (10:49)
[2022-10-22] MEDS: APIXABAN 2.5 MG TABLET PO SCH ×2 (10:49→21:33)
[2022-10-22 13:08] LABS: BODY FLUID ALBUMIN 2.8 g/dL (Not Estab.)
[2022-10-22] MEDS: LIDOCAINE PATCH REMOVAL MC SCH (21:33)
[2022-10-23] MEDS: GABAPENTIN 300 MG CAPSULE PO SCH ×3 (06:14→22:52)
[2022-10-23 08:01] LABS: BASO % 0.8 % (0-2.0); EOS % 4.8 % (0-4.5); HEMATOCRIT 34.6 % (35.4-49); HEMOGLOBIN 11.6 GM/dL (11.7-16.9); LYMPH % 16.7 % (8-40); MCH 28.4 pg (25.7-33.7); MCHC 33.4 g/dl (32.0-35.9); MEAN PLT VOLUME 8.5 fl (7.5-11.1); MONO % 14.5 % (3.8-10.2); NEUT % 63.2 % (42.8-82.8); PLATELET COUNT 246 10^3/uL (134-434); RBC 4.07 M/mm3 (4.00-5.60); RDW 17.3 % (11.9-15.9); WHITE BLOOD COUNT 9.4 K/mm3 (4.0-10.0)
[2022-10-23 08:20] LABS: CALCIUM 8.5 mg/dL (8.5-10.1); MAGNESIUM 2.4 mg/dL (1.8-2.4)
[2022-10-23 08:21] LABS: BLOOD UREA NITROGEN 59.1 mg/dL (7-18)
[2022-10-23 08:23] LABS: PHOSPHOROUS 3.4 mg/dL (2.5-4.9)
[2022-10-23 08:24] LABS: CREATININE 1.5 mg/dL (0.55-1.3)
[2022-10-23] MEDS: BUDESONIDE 0.5 MG/2 ML INH SUSP VIAL NEB SCH ×2 (08:25→20:35)
[2022-10-23] MEDS: ARFORMOTEROL TARTRATE 15 MCG/2 ML VIAL NEB SCH ×2 (08:25→20:35)
[2022-10-23] MEDS: FUROSEMIDE 40 MG TABLET (FP) PO SCH (09:40)
[2022-10-23] MEDS: APIXABAN 2.5 MG TABLET PO SCH ×2 (09:40→22:52)
[2022-10-23] MEDS: ALLOPURINOL 300 MG TABLET (FP) PO SCH (09:40)
[2022-10-23] MEDS: TAMSULOSIN HCL 0.4 MG CAP PO SCH (09:40)
[2022-10-23] MEDS: DOCUSATE SODIUM 100 MG CAPSULE (FP) PO SCH (09:40)
[2022-10-23] MEDS: LIDOCAINE 5% TOPICAL PATCH TP SCH (09:41)
[2022-10-23] MEDS: POLYETHYLENE GLYCOL (HEALTHYLAX) 3350 17 GM PACKET PO SCH (09:41)
[2022-10-23] MEDS: ACETAMINOPHEN 325 MG TABLET (FP) PO PRN (22:51)
[2022-10-23] MEDS: LIDOCAINE PATCH REMOVAL MC SCH (22:57)
[2022-10-24] MEDS: GABAPENTIN 300 MG CAPSULE PO SCH ×3 (06:48→21:26)
[2022-10-24 07:59] LABS: HEMATOCRIT 33.2 % (35.4-49); HEMOGLOBIN 11.1 GM/dL (11.7-16.9); MCH 28.3 pg (25.7-33.7); MCHC 33.4 g/dl (32.0-35.9); MEAN CELL VOLUME 84.6 fl (80-96); PLATELET COUNT 258 10^3/uL (134-434); RBC 3.92 M/mm3 (4.00-5.60); RDW 17.6 % (11.9-15.9)
[2022-10-24] MEDS: ARFORMOTEROL TARTRATE 15 MCG/2 ML VIAL NEB SCH ×2 (08:01→20:27)
[2022-10-24] MEDS: BUDESONIDE 0.5 MG/2 ML INH SUSP VIAL NEB SCH ×2 (08:02→20:28)
[2022-10-24 09:31] LABS: CALCIUM 8.7 mg/dL (8.5-10.1)
[2022-10-24 09:32] LABS: BLOOD UREA NITROGEN 56.1 mg/dL (7-18); MAGNESIUM 2.4 mg/dL (1.8-2.4)
[2022-10-24 09:35] LABS: CREATININE 1.4 mg/dL (0.55-1.3); PHOSPHOROUS 3.2 mg/dL (2.5-4.9)
[2022-10-24 09:36] LABS: BILIRUBIN,TOTAL 0.3 mg/dL (0.2-1); TOT PROT 5.4 g/dl (6.4-8.2)
[2022-10-24 09:48] LABS: ALBUMIN 2.2 g/dl (3.4-5.0)
[2022-10-24] MEDS: DOCUSATE SODIUM 100 MG CAPSULE (FP) PO SCH (10:09)
[2022-10-24] MEDS: APIXABAN 2.5 MG TABLET PO SCH ×2 (10:09→21:26)
[2022-10-24] MEDS: ALLOPURINOL 300 MG TABLET (FP) PO SCH (10:09)
[2022-10-24] MEDS: POLYETHYLENE GLYCOL (HEALTHYLAX) 3350 17 GM PACKET PO SCH (10:09)
[2022-10-24] MEDS: TAMSULOSIN HCL 0.4 MG CAP PO SCH (10:10)
[2022-10-24] MEDS: FUROSEMIDE 40 MG TABLET (FP) PO SCH (10:10)
[2022-10-24] MEDS: LIDOCAINE 5% TOPICAL PATCH TP SCH (10:11)
[2022-10-24] MEDS: LIDOCAINE PATCH REMOVAL MC SCH (21:26)
[2022-10-24] MEDS: ACETAMINOPHEN 325 MG TABLET (FP) PO PRN (21:26)
[2022-10-25] MEDS: GABAPENTIN 300 MG CAPSULE PO SCH ×3 (07:02→22:13)
[2022-10-25] MEDS: ARFORMOTEROL TARTRATE 15 MCG/2 ML VIAL NEB SCH ×2 (08:30→20:18)
[2022-10-25 08:35] LABS: HEMATOCRIT 32.5 % (35.4-49); HEMOGLOBIN 10.8 GM/dL (11.7-16.9); MCH 28.2 pg (25.7-33.7); MCHC 33.2 g/dl (32.0-35.9); MEAN CELL VOLUME 84.8 fl (80-96); MEAN PLT VOLUME 8.7 fl (7.5-11.1); PLATELET COUNT 266 10^3/uL (134-434); RBC 3.84 M/mm3 (4.00-5.60); RDW 16.8 % (11.9-15.9)
[2022-10-25] MEDS: BUDESONIDE 0.5 MG/2 ML INH SUSP VIAL NEB SCH ×2 (08:37→20:18)
[2022-10-25] MEDS: ALLOPURINOL 300 MG TABLET (FP) PO SCH (09:25)
[2022-10-25] MEDS: TAMSULOSIN HCL 0.4 MG CAP PO SCH (09:25)
[2022-10-25] MEDS: LIDOCAINE 5% TOPICAL PATCH TP SCH (09:26)
[2022-10-25] MEDS: FUROSEMIDE 40 MG TABLET (FP) PO SCH (09:26)
[2022-10-25] MEDS: POLYETHYLENE GLYCOL (HEALTHYLAX) 3350 17 GM PACKET PO SCH (09:26)
[2022-10-25] MEDS: DOCUSATE SODIUM 100 MG CAPSULE (FP) PO SCH (09:26)
[2022-10-25] MEDS: APIXABAN 2.5 MG TABLET PO SCH ×2 (09:26→22:13)
[2022-10-25] MEDS: ACETAMINOPHEN 325 MG TABLET (FP) PO PRN (22:13)
[2022-10-25] MEDS: ATORVASTATIN CA 20 MG TABLET (FP) PO SCH (22:13)
[2022-10-25] MEDS: LIDOCAINE PATCH REMOVAL MC SCH (22:23)
[2022-10-26] MEDS: GABAPENTIN 300 MG CAPSULE PO SCH ×3 (07:01→21:16)
[2022-10-26] MEDS: ACETAMINOPHEN 325 MG TABLET (FP) PO PRN ×2 (07:01→22:17)
[2022-10-26] MEDS: ARFORMOTEROL TARTRATE 15 MCG/2 ML VIAL NEB SCH ×2 (08:14→20:39)
[2022-10-26] MEDS: BUDESONIDE 0.5 MG/2 ML INH SUSP VIAL NEB SCH ×2 (08:14→20:40)
[2022-10-26 08:32] LABS: HEMATOCRIT 34.3 % (35.4-49); HEMOGLOBIN 11.1 GM/dL (11.7-16.9); MCH 27.3 pg (25.7-33.7); MCHC 32.3 g/dl (32.0-35.9); MEAN CELL VOLUME 84.4 fl (80-96); PLATELET COUNT 273 10^3/uL (134-434); RBC 4.07 M/mm3 (4.00-5.60); RDW 17.1 % (11.9-15.9); WHITE BLOOD COUNT 8.6 K/mm3 (4.0-10.0)
[2022-10-26 08:55] LABS: CALCIUM 8.7 mg/dL (8.5-10.1)
[2022-10-26 08:56] LABS: BLOOD UREA NITROGEN 50.8 mg/dL (7-18); MAGNESIUM 2.3 mg/dL (1.8-2.4)
[2022-10-26 08:57] LABS: ALBUMIN 2.2 g/dl (3.4-5.0)
[2022-10-26 08:58] LABS: PHOSPHOROUS 3.4 mg/dL (2.5-4.9)
[2022-10-26 08:59] LABS: BILIRUBIN,TOTAL 0.3 mg/dL (0.2-1); CREATININE 1.2 mg/dL (0.55-1.3); TOT PROT 5.4 g/dl (6.4-8.2)
[2022-10-26] MEDS: FUROSEMIDE 40 MG TABLET (FP) PO SCH (09:06)
[2022-10-26] MEDS: TAMSULOSIN HCL 0.4 MG CAP PO SCH (09:06)
[2022-10-26] MEDS: POLYETHYLENE GLYCOL (HEALTHYLAX) 3350 17 GM PACKET PO SCH (09:06)
[2022-10-26] MEDS: ALLOPURINOL 300 MG TABLET (FP) PO SCH (09:06)
[2022-10-26] MEDS: LIDOCAINE 5% TOPICAL PATCH TP SCH (09:06)
[2022-10-26] MEDS: APIXABAN 2.5 MG TABLET PO SCH ×2 (09:06→21:16)
[2022-10-26] MEDS: DOCUSATE SODIUM 100 MG CAPSULE (FP) PO SCH (09:06)
[2022-10-26] MEDS: ATORVASTATIN CA 20 MG TABLET (FP) PO SCH (21:16)
[2022-10-26] MEDS: LIDOCAINE PATCH REMOVAL MC SCH (21:16)
[2022-10-27 02:07] VITALS: RESP 20
[2022-10-27] MEDS: GABAPENTIN 300 MG CAPSULE PO SCH (05:53)
[2022-10-27] MEDS: BUDESONIDE 0.5 MG/2 ML INH SUSP VIAL NEB SCH (07:40)
[2022-10-27] MEDS: ARFORMOTEROL TARTRATE 15 MCG/2 ML VIAL NEB SCH (07:40)
[2022-10-27] MEDS: FUROSEMIDE 40 MG TABLET (FP) PO SCH (09:26)
[2022-10-27] MEDS: ALLOPURINOL 300 MG TABLET (FP) PO SCH (09:26)
[2022-10-27] MEDS: TAMSULOSIN HCL 0.4 MG CAP PO SCH (09:26)
[2022-10-27] MEDS: POLYETHYLENE GLYCOL (HEALTHYLAX) 3350 17 GM PACKET PO SCH (09:26)
[2022-10-27] MEDS: DOCUSATE SODIUM 100 MG CAPSULE (FP) PO SCH (09:26)
[2022-10-27] MEDS: APIXABAN 2.5 MG TABLET PO SCH (09:26)
[2022-10-27] MEDS: LIDOCAINE 5% TOPICAL PATCH TP SCH (09:26)
[2022-10-27 12:07] VITALS: BP 107/71; PULSE 64; TEMP 98.4
== END 2022-10-27 12:22 | disposition home or self-care (01) | DRG 180 ==
LOC: JER 11:01 → JERBED 14:05 → J4W 18:33
PROVIDERS: ADMIT Internal Medicine; ATTEND Internal Medicine
PROC: 0W9B30Z Drainage of Left Pleural Cavity with Drainage Device, Percutaneous Approach (ICD-10-PCS; principal; 2022-10-20)
DX: C34.90 Malignant neoplasm of unspecified part of unspecified bronchus or lung (principal); I50.33 Acute on chronic diastolic (congestive) heart failure; J91.0 Malignant pleural effusion; S32.010A Wedge compression fracture of first lumbar vertebra, initial encounter for closed fracture; I13.0 Hypertensive heart and chronic kidney disease with heart failure and stage 1 through stage 4 chronic kidney disease, or unspecified chronic kidney disease; N39.0 Urinary tract infection, site not specified; N17.9 Acute kidney failure, unspecified; J98.11 Atelectasis; N13.30 Unspecified hydronephrosis; I25.10 Atherosclerotic heart disease of native coronary artery without angina pectoris; J44.9 Chronic obstructive pulmonary disease, unspecified; E78.5 Hyperlipidemia, unspecified; Z85.51 Personal history of malignant neoplasm of bladder; N26.1 Atrophy of kidney (terminal); M54.50 Low back pain, unspecified; G89.29 Other chronic pain; E86.0 Dehydration; B96.5 Pseudomonas (aeruginosa) (mallei) (pseudomallei) as the cause of diseases classified elsewhere; R55 Syncope and collapse; Z95.5 Presence of coronary angioplasty implant and graft; N18.30 Chronic kidney disease, stage 3 unspecified; K21.9 Gastro-esophageal reflux disease without esophagitis
CPT/HCPCS: 0241U-QW; 32557; 36415; 70551-TC; 71045-TC-FY; 71046-TC-FY; 71250-TC; 72131-TC; 73521-TC-FY; 74176-TC; 76775-TC; 76856-TC; 80048; 80053; 81003; 82042; 82465; 82570; 82803; 82945; 83605; 83615; 83735; 83880; 83986; 84100; 84157; 84300; 84484; 84540; 85025; 85027; 85379; 85610; 85730; 86850; 86900; 86901; 87040; 87070; 87075; 87081; 87086; 87186; 87205; 88108; 88305-TC; 88341-TC; 93005; 93010; 94640; 94761; 97116-GP; 97162-GP; 99285-25; J1644; P9047

== ENCOUNTER 2022-11-13 04:07 | Day surgery (SDC) | payer OTHER, MEDICARE ==
[2022-11-10 16:04] VITALS: BMI 29.7
[~2022-11-13 04:07] MED LIST changes: +BUPIVACAINE HCL/PF 0.5% (5MG/ML) 10 ML VIAL IJ ONE; -BUPIVACAINE HCL/PF 0.75% 10 ML VIAL NR ONE; -DEXAMETHASONE SOD PHOSPHATE 10 MG/1 ML VIAL IM ONE; -LIDOCAINE 1% P/F 10 MG/ML VIAL INF ONE; +LIDOCAINE 1% P/F 10 MG/ML VIAL PNB ONE; -LIDOCAINE HCL/PF 2% SDV 5ML VIAL INF ONE; +TRIAMCINOLONE ACET 40MG/1ML VIAL IM ONE
[2022-11-13] MEDS ORDERED: TRIAMCINOLONE ACET 40MG/1ML VIAL ONE ×2 (07:24→07:26)
[2022-11-13] MEDS ORDERED: BUPIVACAINE HCL/PF 0.5% (5MG/ML) 10 ML VIAL ONE (07:25)
[2022-11-13] MEDS ORDERED: LIDOCAINE HCL/PF 1% SDV 5ML VIAL ONE (07:25)
[2022-11-13 09:57] VITALS: RESP 18
[2022-11-13] MEDS ORDERED: BUPIVACAINE HCL/PF 0.5% (5MG/ML) 10 ML VIAL IJ ONE ×2 (10:42)
[2022-11-13] MEDS ORDERED: TRIAMCINOLONE ACET 40MG/1ML VIAL IM ONE (10:42)
[2022-11-13] MEDS ORDERED: LIDOCAINE 1% P/F 10 MG/ML VIAL PNB ONE ×2 (10:42)
[2022-11-13] MEDS ORDERED: IOHEXOL 180 MG/1 ML ML IJ ONE (10:42)
[2022-11-13 11:21] VITALS: BP 124/63; PULSE 79; TEMP 97.3
== END 2022-11-13 11:17 | disposition home or self-care (01) ==
LOC: JASU-SURG 04:07
PROVIDERS: ATTEND Pain Medicine Pain Medicine
PROC: 3E0U3BZ Introduction of Anesthetic Agent into Joints, Percutaneous Approach (ICD-10-PCS; 2022-11-13)
PROC: 3E0U33Z Introduction of Anti-inflammatory into Joints, Percutaneous Approach (ICD-10-PCS; principal; 2022-11-13 11:00)
DX: M53.3 Sacrococcygeal disorders, not elsewhere classified (principal)
CPT/HCPCS: 76000-TC-FY

== ENCOUNTER 2022-12-04 04:20 | Day surgery (SDC) | payer OTHER, MEDICARE ==
[2022-12-03 10:32] VITALS: BMI 29.8
[2022-12-04] MEDS ORDERED: LIDOCAINE HCL/PF 2% SDV 5ML VIAL ONE (07:41)
[2022-12-04] MEDS ORDERED: BUPIVACAINE HCL/PF 0.75% 10 ML VIAL ONE (07:41)
[2022-12-04] MEDS ORDERED: LIDOCAINE HCL/PF 1% SDV 5ML VIAL ONE (07:41)
[2022-12-04] MEDS ORDERED: DEXAMETHASONE SOD PHOSPHATE 10 MG/1 ML VIAL ONE (07:42)
[2022-12-04 14:43] VITALS: RESP 18
[2022-12-04 14:45] VITALS: BP 131/86; PULSE 70; TEMP 97.8
== END 2022-12-04 14:35 | disposition home or self-care (01) ==
LOC: JASU-SURG 04:20
PROVIDERS: ATTEND Pain Medicine Pain Medicine
PROC: 005Y3ZZ Destruction of Lumbar Spinal Cord, Percutaneous Approach (ICD-10-PCS; principal; 2022-12-04 13:31)
DX: M47.816 Spondylosis without myelopathy or radiculopathy, lumbar region (principal)
CPT/HCPCS: 76000-TC-FY; J1100

== ENCOUNTER 2022-12-07 18:59 | Inpatient (IN) | payer OTHER, MEDICARE ==
[2022-12-07 21:03] LABS: BASO % 0.5 % (0-2.0); EOS % 6.2 % (0-4.5); HEMATOCRIT 32.6 % (35.4-49); HEMOGLOBIN 10.7 GM/dL (11.7-16.9); LYMPH % 16.4 % (8-40); MCH 27.2 pg (25.7-33.7); MCHC 32.8 g/dl (32.0-35.9); MEAN CELL VOLUME 82.8 fl (80-96); MEAN PLT VOLUME 8.2 fl (7.5-11.1); MONO % 9.5 % (3.8-10.2); NEUT % 67.4 % (42.8-82.8); PLATELET COUNT 300 10^3/uL (134-434); RBC 3.94 M/mm3 (4.00-5.60); RDW 17.8 % (11.9-15.9); WHITE BLOOD COUNT 9.5 K/mm3 (4.0-10.0)
[2022-12-07] MEDS ORDERED: AZITHROMYCIN IVPB 500 MG in DEXTROSE 5%-WATER - 250 ML IVPB ONE (21:10)
[2022-12-07] MEDS ORDERED: CEFEPIME HCL/D5W 2 GM/50 ML BAG IVPB ONE (21:10)
[2022-12-07] MEDS ORDERED: VANCOMYCIN/WATER 2 GM/400 ML PREMIX BAG IVPB ONE (21:12)
[2022-12-07 21:13] LABS: INR 1.17 (0.83-1.09); PROTHROMBIN TIME (PATIENT) 13.6 SEC (9.7-13.0)
[2022-12-07 21:15] LABS: ACTIVATED PTT 33.8 SECONDS (25.2-36.5)
[2022-12-07 21:25] LABS: CALCIUM 8.8 mg/dL (8.5-10.1)
[2022-12-07 21:26] LABS: BLOOD UREA NITROGEN 43.4 mg/dL (7-18)
[2022-12-07 21:30] LABS: BILIRUBIN,TOTAL 0.3 mg/dL (0.2-1)
[2022-12-07 21:33] LABS: N-TERMINAL BNP 2575.9 pg/ml (5-450)
[2022-12-07 21:45] LABS: CREATININE 1.2 mg/dL (0.55-1.3)
[2022-12-07] MEDS ORDERED: AZITHROMYCIN IVPB 500 MG/250 ML BAG IVPB ONE ×2 (21:45→22:02)
[2022-12-07] MEDS ORDERED: CEFEPIME 2 GM in DEXTROSE 5%-WATER 100 ML IVPB ONE (22:00)
[2022-12-07] MEDS ORDERED: VANCOMYCIN/WATER 2 GRAMS 2,000 MG/400 ML PIGGYBACK IVPB ONE (22:00)
[2022-12-07] MEDS ORDERED: CEFEPIME 2 GM/100 ML BAG IVPB ONE (22:01)
[2022-12-07] MEDS ORDERED: VANCOMYCIN/WATER 1,250 MG/250 ML BAG (RESTRICTED TO ID ONLY) IVPB ONE (22:05)
[2022-12-07] MEDS ORDERED: VANCOMYCIN/WATER 1250 MG 1,250 MG/250 ML BAG IVPB ONE (22:37)
[2022-12-08] MEDS ORDERED: FUROSEMIDE 40 MG/4 ML INJECTABLE VIAL ONE (00:35)
[2022-12-08] MEDS ORDERED: ALBUTEROL SO4 2.5/IPRATROPIUM 0.5 INH SOL 3 ML VIAL.NEB. NEB ONE (00:35)
[2022-12-08] MEDS: FUROSEMIDE 40 MG/4 ML INJECTABLE VIAL IVPUSH SCH ×2 (00:38→09:45)
[2022-12-08] MEDS ORDERED: ALBUTEROL SO4 2.5/IPRATROPIUM 0.5 INH SOL 3 ML VIAL.NEB. NEB STA ×2 (00:40)
[2022-12-08] MEDS ORDERED: ACETAMINOPHEN 1000 MG/100 ML BAG IVPB ONE (00:40)
[2022-12-08] MEDS ORDERED: ACETAMINOPHEN INJECTION 100 ML IVPB ONE (00:48)
[2022-12-08 03:48] VITALS: BMI 30.6
[2022-12-08] MEDS: GABAPENTIN 300 MG CAPSULE PO SCH ×3 (06:54→21:49)
[2022-12-08] MEDS: BUDESONIDE 0.5 MG/2 ML INH SUSP VIAL NEB SCH ×3 (09:33→21:50)
[2022-12-08] MEDS: APIXABAN 2.5 MG TABLET PO SCH ×2 (09:45→21:49)
[2022-12-08] MEDS: FAMOTIDINE 40 MG TABLET PO SCH (09:45)
[2022-12-08] MEDS ORDERED: ARFORMOTEROL TARTRATE 15 MCG/2 ML VIAL NEB SCH (10:00)
[2022-12-08] MEDS ORDERED: FLUTICASONE/UMECLIDIN/VILANTER(100-62.5-25 TRELEGY ELLIPTA) INAHLER IH SCH (10:00)
[2022-12-08 10:03] LABS: BASO % 0.4 % (0-2.0); HEMATOCRIT 30.4 % (35.4-49); HEMOGLOBIN 10.1 GM/dL (11.7-16.9); LYMPH % 9.8 % (8-40); MCH 27.2 pg (25.7-33.7); MCHC 33.2 g/dl (32.0-35.9); MEAN CELL VOLUME 81.9 fl (80-96); MEAN PLT VOLUME 8.5 fl (7.5-11.1); MONO % 7.6 % (3.8-10.2); NEUT % 79.2 % (42.8-82.8); PLATELET COUNT 273 10^3/uL (134-434); RBC 3.71 M/mm3 (4.00-5.60); RDW 17.3 % (11.9-15.9); WHITE BLOOD COUNT 10.7 K/mm3 (4.0-10.0)
[2022-12-08 10:37] LABS: CALCIUM 8.6 mg/dL (8.5-10.1)
[2022-12-08 10:38] LABS: ALBUMIN 2.7 g/dl (3.4-5.0); BLOOD UREA NITROGEN 38.1 mg/dL (7-18); MAGNESIUM 1.8 mg/dL (1.8-2.4)
[2022-12-08 10:41] LABS: CREATININE 1.2 mg/dL (0.55-1.3); PHOSPHOROUS 3.3 mg/dL (2.5-4.9)
[2022-12-08 10:42] LABS: BILIRUBIN,TOTAL 0.7 mg/dL (0.2-1)
[2022-12-08] MEDS: methylPREDNISolone NA SUCC 40 MG/1 ML VIAL IVPUSH SCH ×2 (11:39→17:17)
[2022-12-08] MEDS: CEFTRIAXONE 1 GM in DEXTROSE 5%-WATER - 50 ML IVPB SCH (11:39)
[2022-12-08] MEDS: ALBUTEROL SO4 2.5/IPRATROPIUM 0.5 INH SOL 3 ML VIAL.NEB. NEB SCH ×3 (12:40→20:04)
[2022-12-08] MEDS: POLYETHYLENE GLYCOL (HEALTHYLAX) 3350 17 GM PACKET PO SCH (21:49)
[2022-12-08] MEDS: ALLOPURINOL 300 MG TABLET (FP) PO SCH (21:49)
[2022-12-08] MEDS: ATORVASTATIN CA 20 MG TABLET (FP) PO SCH (21:49)
[2022-12-08] MEDS: AZITHROMYCIN IVPB 500 MG/250 ML BAG IVPB SCH (21:50)
[2022-12-09] MEDS: methylPREDNISolone NA SUCC 40 MG/1 ML VIAL IVPUSH SCH ×2 (01:45→09:17)
[2022-12-09] MEDS: GABAPENTIN 300 MG CAPSULE PO SCH ×3 (05:03→22:14)
[2022-12-09 06:58] LABS: EPI CELLS >36 /uL (0-25.1); HYALINE CASTS 8 /uL (0-3.1); URINE APPEARANCE CLOUDY; URINE BACTERIA 11 /uL (0-1359); URINE BILIRUBIN NEGATIVE (NEGATIVE); URINE COLOR YELLOW; URINE GLUCOSE (UA) NEGATIVE (NEGATIVE); URINE KETONE NEGATIVE (NEGATIVE); URINE LEUK ESTERASE NEGATIVE (NEGATIVE); URINE NITRITE NEGATIVE (NEGATIVE); URINE PROTEIN 1+ (NEGATIVE); URINE RBC 20 /uL (0-23.9); URINE UROBILINOGEN 0.2 mg/dL (0.2-1.0); URINE WBC 15 /uL (0-25.8)
[2022-12-09] MEDS: ALBUTEROL SO4 2.5/IPRATROPIUM 0.5 INH SOL 3 ML VIAL.NEB. NEB SCH ×4 (08:15→21:30)
[2022-12-09] MEDS: FAMOTIDINE 40 MG TABLET PO SCH (09:17)
[2022-12-09] MEDS: APIXABAN 2.5 MG TABLET PO SCH ×2 (09:17→22:15)
[2022-12-09] MEDS: POLYETHYLENE GLYCOL (HEALTHYLAX) 3350 17 GM PACKET PO SCH (09:17)
[2022-12-09] MEDS: FUROSEMIDE 40 MG TABLET (FP) PO SCH (09:17)
[2022-12-09] MEDS: CEFTRIAXONE 1 GM in DEXTROSE 5%-WATER - 50 ML IVPB SCH (09:17)
[2022-12-09] MEDS: BUDESONIDE 0.5 MG/2 ML INH SUSP VIAL NEB SCH ×2 (09:20→21:17)
[2022-12-09 09:42] LABS: BASO % 0.1 % (0-2.0); HEMATOCRIT 29.9 % (35.4-49); HEMOGLOBIN 10.2 GM/dL (11.7-16.9); LYMPH % 10.5 % (8-40); MCH 27.9 pg (25.7-33.7); MEAN PLT VOLUME 7.9 fl (7.5-11.1); MONO % 1.2 % (3.8-10.2); NEUT % 88.2 % (42.8-82.8); PLATELET COUNT 249 10^3/uL (134-434); RBC 3.65 M/mm3 (4.00-5.60); RDW 17.4 % (11.9-15.9); WHITE BLOOD COUNT 6.6 K/mm3 (4.0-10.0)
[2022-12-09 10:07] LABS: CREATININE 1.3 mg/dL (0.55-1.3)
[2022-12-09] MEDS: INSULIN SLIDING SCALE (NOVOLOG) 1 VIAL SQ SCH ×2 (12:03→17:36)
[2022-12-09] MEDS ORDERED: MELATONIN 5 MG TABLETS PO PRN (18:29)
[2022-12-09] MEDS: ATORVASTATIN CA 20 MG TABLET (FP) PO SCH (22:14)
[2022-12-09] MEDS: ALLOPURINOL 300 MG TABLET (FP) PO SCH (22:15)
[2022-12-09] MEDS: AZITHROMYCIN IVPB 500 MG/250 ML BAG IVPB SCH (22:15)
[2022-12-10] MEDS: GABAPENTIN 300 MG CAPSULE PO SCH ×3 (05:55→21:28)
[2022-12-10] MEDS: INSULIN SLIDING SCALE (NOVOLOG) 1 VIAL SQ SCH ×3 (06:48→16:33)
[2022-12-10] MEDS: ALBUTEROL SO4 2.5/IPRATROPIUM 0.5 INH SOL 3 ML VIAL.NEB. NEB SCH ×4 (07:57→21:20)
[2022-12-10 08:43] LABS: BASO % 0.1 % (0-2.0); HEMATOCRIT 30.6 % (35.4-49); HEMOGLOBIN 10.1 GM/dL (11.7-16.9); LYMPH % 8.6 % (8-40); MCH 26.9 pg (25.7-33.7); MCHC 33.1 g/dl (32.0-35.9); MEAN CELL VOLUME 81.3 fl (80-96); MEAN PLT VOLUME 8.4 fl (7.5-11.1); MONO % 7.4 % (3.8-10.2); NEUT % 83.9 % (42.8-82.8); PLATELET COUNT 319 10^3/uL (134-434); RBC 3.76 M/mm3 (4.00-5.60); RDW 17.6 % (11.9-15.9); WHITE BLOOD COUNT 13.7 K/mm3 (4.0-10.0)
[2022-12-10 08:55] LABS: ALBUMIN 2.9 g/dl (3.4-5.0); BLOOD UREA NITROGEN 42.9 mg/dL (7-18); CALCIUM 9.1 mg/dL (8.5-10.1)
[2022-12-10 08:58] LABS: BILIRUBIN,TOTAL 0.3 mg/dL (0.2-1); CREATININE 1.1 mg/dL (0.55-1.3)
[2022-12-10 08:59] LABS: TOT PROT 6.8 g/dl (6.4-8.2)
[2022-12-10] MEDS: BUDESONIDE 0.5 MG/2 ML INH SUSP VIAL NEB SCH ×2 (09:06→21:20)
[2022-12-10] MEDS: FUROSEMIDE 40 MG TABLET (FP) PO SCH (09:59)
[2022-12-10] MEDS: APIXABAN 2.5 MG TABLET PO SCH ×2 (09:59→21:28)
[2022-12-10] MEDS: POLYETHYLENE GLYCOL (HEALTHYLAX) 3350 17 GM PACKET PO SCH (09:59)
[2022-12-10] MEDS: FAMOTIDINE 40 MG TABLET PO SCH (09:59)
[2022-12-10] MEDS: CEFTRIAXONE 1 GM in DEXTROSE 5%-WATER - 50 ML IVPB SCH (09:59)
[2022-12-10] MEDS: methylPREDNISolone NA SUCC 40 MG/1 ML VIAL IVPUSH SCH (10:00)
[2022-12-10 15:36] VITALS: RESP 18
[2022-12-10] MEDS: ALLOPURINOL 300 MG TABLET (FP) PO SCH (21:28)
[2022-12-10] MEDS: AZITHROMYCIN IVPB 500 MG/250 ML BAG IVPB SCH (21:28)
[2022-12-10] MEDS: ATORVASTATIN CA 20 MG TABLET (FP) PO SCH (21:28)
[2022-12-11] MEDS: INSULIN SLIDING SCALE (NOVOLOG) 1 VIAL SQ SCH ×2 (06:22→12:06)
[2022-12-11] MEDS: GABAPENTIN 300 MG CAPSULE PO SCH (06:22)
[2022-12-11 07:33] VITALS: TEMP 97.4
[2022-12-11] MEDS: ALBUTEROL SO4 2.5/IPRATROPIUM 0.5 INH SOL 3 ML VIAL.NEB. NEB SCH (07:37)
[2022-12-11] MEDS: BUDESONIDE 0.5 MG/2 ML INH SUSP VIAL NEB SCH (09:38)
[2022-12-11] MEDS: methylPREDNISolone NA SUCC 40 MG/1 ML VIAL IVPUSH SCH (09:41)
[2022-12-11] MEDS: CEFTRIAXONE 1 GM in DEXTROSE 5%-WATER - 50 ML IVPB SCH (09:42)
[2022-12-11] MEDS: FUROSEMIDE 40 MG TABLET (FP) PO SCH (09:43)
[2022-12-11] MEDS: FAMOTIDINE 40 MG TABLET PO SCH (09:43)
[2022-12-11] MEDS: APIXABAN 2.5 MG TABLET PO SCH (09:43)
[2022-12-11] MEDS: POLYETHYLENE GLYCOL (HEALTHYLAX) 3350 17 GM PACKET PO SCH (09:44)
[2022-12-11 12:56] VITALS: BP 114/68; PULSE 76
== END 2022-12-11 13:00 | disposition home or self-care (01) | DRG 190 ==
LOC: JER 18:59 → INTOOBSV 22:51 → JERBED 22:51 → J5S 12-08 03:54 → OBSVTOIN 12-08 12:21
PROVIDERS: ADMIT Internal Medicine; ATTEND Internal Medicine
DX: J44.0 Chronic obstructive pulmonary disease with (acute) lower respiratory infection (principal); J18.9 Pneumonia, unspecified organism; I13.0 Hypertensive heart and chronic kidney disease with heart failure and stage 1 through stage 4 chronic kidney disease, or unspecified chronic kidney disease; I50.32 Chronic diastolic (congestive) heart failure; J96.11 Chronic respiratory failure with hypoxia; J44.1 Chronic obstructive pulmonary disease with (acute) exacerbation; I25.10 Atherosclerotic heart disease of native coronary artery without angina pectoris; N18.9 Chronic kidney disease, unspecified; Z85.51 Personal history of malignant neoplasm of bladder; Z85.118 Personal history of other malignant neoplasm of bronchus and lung; D64.9 Anemia, unspecified; Z88.0 Allergy status to penicillin; M10.9 Gout, unspecified; Z99.81 Dependence on supplemental oxygen; Z86.711 Personal history of pulmonary embolism; N18.30 Chronic kidney disease, stage 3 unspecified
CPT/HCPCS: 0241U-QW; 36415; 71045-TC-FY; 71250-TC; 80048; 80053; 81003; 82962; 83036; 83735; 83880; 84100; 84484; 85025; 85610; 85730; 86140; 86850; 86900; 86901; 87070; 87205; 87899; 93005; 93010; 94640; 99285-25; G0378

== ENCOUNTER 2022-12-25 04:09 | Day surgery (SDC) | payer OTHER, MEDICARE ==
[2022-12-23 15:48] VITALS: BMI 30.1
[~2022-12-25 04:09] MED LIST changes: -BUPIVACAINE HCL/PF 0.5% (5MG/ML) 10 ML VIAL IJ ONE; +BUPIVACAINE HCL/PF 0.75% 10 ML VIAL PNB ONE; +DEXAMETHASONE SOD PHOSPHATE 10 MG/1 ML VIAL IVPUSH ONE; -IOHEXOL 180 MG/1 ML ML IJ ONE; +LIDOCAINE HCL/PF 2% SDV 5ML VIAL PNB ONE; -TRIAMCINOLONE ACET 40MG/1ML VIAL IM ONE
[2022-12-25] MEDS ORDERED: BUPIVACAINE HCL/PF 0.75% 10 ML VIAL ONE (07:24)
[2022-12-25] MEDS ORDERED: LIDOCAINE HCL/PF 2% SDV 5ML VIAL ONE (07:24)
[2022-12-25] MEDS ORDERED: DEXAMETHASONE SOD PHOSPHATE 10 MG/1 ML VIAL ONE (07:24)
[2022-12-25] MEDS ORDERED: LIDOCAINE HCL/PF 1% SDV 5ML VIAL ONE (07:24)
[2022-12-25 09:01] VITALS: RESP 18
[2022-12-25] MEDS ORDERED: LIDOCAINE HCL/PF 2% SDV 5ML VIAL PNB ONE (09:29)
[2022-12-25] MEDS ORDERED: DEXAMETHASONE SOD PHOSPHATE 10 MG/1 ML VIAL IVPUSH ONE (09:29)
[2022-12-25] MEDS ORDERED: LIDOCAINE 1% P/F 10 MG/ML VIAL PNB ONE (09:29)
[2022-12-25] MEDS ORDERED: BUPIVACAINE HCL/PF 0.75% 10 ML VIAL PNB ONE (09:29)
[2022-12-25 10:11] VITALS: TEMP 97
[2022-12-25 10:18] VITALS: BP 120/70
[2022-12-25 10:22] VITALS: PULSE 70
== END 2022-12-25 10:20 | disposition home or self-care (01) ==
LOC: JASU-SURG 04:09
PROVIDERS: ATTEND Pain Medicine Pain Medicine
PROC: 01553ZZ Destruction of Median Nerve, Percutaneous Approach (ICD-10-PCS; principal; 2022-12-25 10:15)
PROC: 015B3ZZ Destruction of Lumbar Nerve, Percutaneous Approach (ICD-10-PCS; 2022-12-25 10:15)
DX: M47.816 Spondylosis without myelopathy or radiculopathy, lumbar region (principal)
CPT/HCPCS: 76000-TC-FY; J1100

== ENCOUNTER 2023-01-09 16:15 | Inpatient (IN) | payer OTHER, MEDICARE ==
[2023-01-09 16:30] VITALS: BMI 30.1
[2023-01-09 18:23] LABS: BASO % 0.9 % (0-2.0); EOS % 7.6 % (0-4.5); HEMATOCRIT 32.4 % (35.4-49); HEMOGLOBIN 10.9 GM/dL (11.7-16.9); LYMPH % 18.8 % (8-40); MCH 27.2 pg (25.7-33.7); MCHC 33.6 g/dl (32.0-35.9); MEAN PLT VOLUME 7.8 fl (7.5-11.1); MONO % 10.7 % (3.8-10.2); PLATELET COUNT 322 10^3/uL (134-434); RDW 17.5 % (11.9-15.9); WHITE BLOOD COUNT 8.5 K/mm3 (4.0-10.0)
[2023-01-09 18:32] LABS: EPI CELLS 16 /uL (0-25.1); HYALINE CASTS 7 /uL (0-3.1); PH,URINE 6.5 (5.0-8.0); URINE APPEARANCE CLOUDY; URINE BACTERIA >9,000 /uL (0-1359); URINE BILIRUBIN NEGATIVE (NEGATIVE); URINE COLOR YELLOW; URINE GLUCOSE (UA) NEGATIVE (NEGATIVE); URINE KETONE NEGATIVE (NEGATIVE); URINE LEUK ESTERASE 2+ (NEGATIVE); URINE NITRITE POSITIVE (NEGATIVE); URINE PROTEIN 1+ (NEGATIVE); URINE RBC 52 /uL (0-23.9); URINE UROBILINOGEN 0.2 mg/dL (0.2-1.0); URINE WBC 203 /uL (0-25.8)
[2023-01-09 18:40] LABS: ALBUMIN 3.1 g/dl (3.4-5.0); BLOOD UREA NITROGEN 36.8 mg/dL (7-18); CALCIUM 8.6 mg/dL (8.5-10.1)
[2023-01-09 18:42] LABS: CREATININE 1.4 mg/dL (0.55-1.3)
[2023-01-09 18:45] LABS: BILIRUBIN,TOTAL 0.2 mg/dL (0.2-1); TOT PROT 6.7 g/dl (6.4-8.2)
[2023-01-09 18:48] LABS: N-TERMINAL BNP 1907.7 pg/ml (5-450)
[2023-01-09] MEDS ORDERED: CEFEPIME HCL/D5W 1 GM/50 ML BAG IVPB ONE (19:26)
[2023-01-09] MEDS ORDERED: VANCOMYCIN 1 GM in D5W (PRE-DOCKED) 1,000 MG/250 ML IVPB ONE (19:26)
[2023-01-09] MEDS ORDERED: CEFEPIME 1 GM/100 ML BAG IVPB ONE (19:46)
[2023-01-09] MEDS ORDERED: VANCOMYCIN/WATER FOR INJ (PEG) 1,000 MG/200 ML BAG IVPB ONE (20:33)
[2023-01-09] MEDS ORDERED: ALBUTEROL SO4 HFA INHALER IH PRN (20:47)
[2023-01-09] MEDS ORDERED: HEPARIN NA (PORCINE) 5,000 UNITS/ML 1ML VIAL SQ SCH (22:00)
[2023-01-09] MEDS: FUROSEMIDE 40 MG/4 ML INJECTABLE VIAL IVPUSH SCH (22:45)
[2023-01-09] MEDS: APIXABAN 2.5 MG TABLET PO SCH (22:45)
[2023-01-09] MEDS: ATORVASTATIN CA 20 MG TABLET (FP) PO SCH (22:45)
[2023-01-09] MEDS: GABAPENTIN 300 MG CAPSULE PO SCH (22:45)
[2023-01-09] MEDS ORDERED: ATORVASTATIN CA 20 MG TABLET (FP) ONE (22:48)
[2023-01-09] MEDS ORDERED: APIXABAN 2.5 MG TABLET ONE ×2 (22:49→22:54)
[2023-01-09] MEDS ORDERED: GABAPENTIN 300 MG CAPSULE ONE (22:49)
[2023-01-09] MEDS ORDERED: FUROSEMIDE 40 MG/4 ML INJECTABLE VIAL ONE (22:49)
[2023-01-10] MEDS: GABAPENTIN 300 MG CAPSULE PO SCH ×3 (06:53→22:48)
[2023-01-10] MEDS ORDERED: GABAPENTIN 300 MG CAPSULE ONE ×2 (06:53→14:25)
[2023-01-10 08:24] LABS: BASO % 0.8 % (0-2.0); EOS % 8.7 % (0-4.5); LYMPH % 17.2 % (8-40); MCH 27.7 pg (25.7-33.7); MCHC 34.4 g/dl (32.0-35.9); MEAN CELL VOLUME 80.6 fl (80-96); MEAN PLT VOLUME 8.4 fl (7.5-11.1); MONO % 10.8 % (3.8-10.2); NEUT % 62.5 % (42.8-82.8); PLATELET COUNT 309 10^3/uL (134-434); RBC 3.98 M/mm3 (4.00-5.60); RDW 17.4 % (11.9-15.9); WHITE BLOOD COUNT 7.1 K/mm3 (4.0-10.0)
[2023-01-10] MEDS ORDERED: APIXABAN 2.5 MG TABLET ONE (09:26)
[2023-01-10] MEDS ORDERED: POLYETHYLENE GLYCOL (HEALTHYLAX) 3350 17 GM PACKET ONE (09:26)
[2023-01-10] MEDS ORDERED: FUROSEMIDE 40 MG/4 ML INJECTABLE VIAL ONE ×2 (09:27→14:25)
[2023-01-10] MEDS: APIXABAN 2.5 MG TABLET PO SCH ×2 (09:35→22:48)
[2023-01-10] MEDS: FUROSEMIDE 40 MG/4 ML INJECTABLE VIAL IVPUSH SCH (09:35)
[2023-01-10] MEDS: POLYETHYLENE GLYCOL (HEALTHYLAX) 3350 17 GM PACKET PO SCH (09:35)
[2023-01-10] MEDS ORDERED: FLUTICASONE/UMECLIDIN/VILANTER(100-62.5-25 TRELEGY ELLIPTA) INAHLER IH SCH (10:00)
[2023-01-10 10:34] LABS: CALCIUM 8.6 mg/dL (8.5-10.1)
[2023-01-10 10:35] LABS: BLOOD UREA NITROGEN 31.1 mg/dL (7-18)
[2023-01-10 10:38] LABS: CREATININE 1.1 mg/dL (0.55-1.3)
[2023-01-10] MEDS ORDERED: FUROSEMIDE 40 MG/4 ML INJECTABLE VIAL IVPUSH SCH (14:00)
[2023-01-10] MEDS: CLOTRIMAZOLE 1% CREAM TP SCH ×2 (14:42→22:48)
[2023-01-10] MEDS: ARFORMOTEROL TARTRATE 15 MCG/2 ML VIAL NEB SCH ×2 (14:42→21:50)
[2023-01-10] MEDS: BUDESONIDE 0.5 MG/2 ML INH SUSP VIAL NEB SCH ×2 (18:23→19:03)
[2023-01-10] MEDS: ATORVASTATIN CA 20 MG TABLET (FP) PO SCH (22:48)
[2023-01-11] MEDS: GABAPENTIN 300 MG CAPSULE PO SCH ×2 (05:40→14:36)
[2023-01-11 05:57] VITALS: PULSE 86
[2023-01-11 07:29] LABS: ALBUMIN 2.9 g/dl (3.4-5.0); CALCIUM 8.9 mg/dL (8.5-10.1); MAGNESIUM 1.9 mg/dL (1.8-2.4)
[2023-01-11 07:32] LABS: CREATININE 1.2 mg/dL (0.55-1.3)
[2023-01-11 07:33] LABS: PHOSPHOROUS 3.5 mg/dL (2.5-4.9)
[2023-01-11 07:34] LABS: BILIRUBIN,TOTAL 0.5 mg/dL (0.2-1); TOT PROT 6.6 g/dl (6.4-8.2)
[2023-01-11 07:35] LABS: HEMATOCRIT 34.3 % (35.4-49); HEMOGLOBIN 11.7 GM/dL (11.7-16.9); LYMPH % 22.5 % (8-40); MCH 27.9 pg (25.7-33.7); MCHC 34.2 g/dl (32.0-35.9); MEAN CELL VOLUME 81.6 fl (80-96); MEAN PLT VOLUME 7.6 fl (7.5-11.1); MONO % 13.9 % (3.8-10.2); NEUT % 53.6 % (42.8-82.8); PLATELET COUNT 341 10^3/uL (134-434); RDW 17.6 % (11.9-15.9); WHITE BLOOD COUNT 7.9 K/mm3 (4.0-10.0)
[2023-01-11] MEDS: BUDESONIDE 0.5 MG/2 ML INH SUSP VIAL NEB SCH (07:45)
[2023-01-11] MEDS: ARFORMOTEROL TARTRATE 15 MCG/2 ML VIAL NEB SCH (07:45)
[2023-01-11] MEDS ORDERED: FUROSEMIDE 40 MG/4 ML INJECTABLE VIAL IVPUSH SCH (10:00)
[2023-01-11] MEDS: POLYETHYLENE GLYCOL (HEALTHYLAX) 3350 17 GM PACKET PO SCH (10:01)
[2023-01-11] MEDS: CLOTRIMAZOLE 1% CREAM TP SCH (10:01)
[2023-01-11] MEDS: APIXABAN 2.5 MG TABLET PO SCH (10:01)
[2023-01-11 10:38] VITALS: BP 115/76; RESP 17; TEMP 97.9
[2023-01-11] MEDS ORDERED: CEFUROXIME AXETIL 250 MG TABLET PO ONE (14:28)
[2023-01-12] MEDS ORDERED: FUROSEMIDE 40 MG TABLET (FP) PO SCH (10:00)
== END 2023-01-11 15:29 | disposition home or self-care (01) | DRG 291 ==
LOC: JER 16:15 → OBSVTOIN 19:08 → JERBED 19:08 → J4S 01-10 20:54
PROVIDERS: ADMIT Internal Medicine; ATTEND Internal Medicine
DX: I13.0 Hypertensive heart and chronic kidney disease with heart failure and stage 1 through stage 4 chronic kidney disease, or unspecified chronic kidney disease (principal); I50.33 Acute on chronic diastolic (congestive) heart failure; J44.1 Chronic obstructive pulmonary disease with (acute) exacerbation; J91.0 Malignant pleural effusion; C34.90 Malignant neoplasm of unspecified part of unspecified bronchus or lung; E27.40 Unspecified adrenocortical insufficiency; N39.0 Urinary tract infection, site not specified; I45.2 Bifascicular block; I95.9 Hypotension, unspecified; I25.10 Atherosclerotic heart disease of native coronary artery without angina pectoris; Z85.51 Personal history of malignant neoplasm of bladder; J44.9 Chronic obstructive pulmonary disease, unspecified; Z95.5 Presence of coronary angioplasty implant and graft; N18.30 Chronic kidney disease, stage 3 unspecified; K59.00 Constipation, unspecified; M10.9 Gout, unspecified; K21.9 Gastro-esophageal reflux disease without esophagitis; E78.5 Hyperlipidemia, unspecified
CPT/HCPCS: 0241U-QW; 36415; 71046-TC-FY; 80048; 80053; 81003; 82550; 82570; 83735; 83880; 84100; 84484; 84540; 85025; 86850; 86900; 86901; 87086; 87186; 93005; 93010; 93306-TC; 94640; 99285-25

== ENCOUNTER 2023-01-17 09:29 | Inpatient (IN) | payer OTHER, MEDICARE ==
[2023-01-17 09:51] VITALS: BMI 30.1
[2023-01-17 11:10] LABS: BASO % 1.2 % (0-2.0); EOS % 6.6 % (0-4.5); HEMATOCRIT 36.1 % (35.4-49); HEMOGLOBIN 11.9 GM/dL (11.7-16.9); LYMPH % 15.6 % (8-40); MCH 26.8 pg (25.7-33.7); MCHC 32.9 g/dl (32.0-35.9); MEAN CELL VOLUME 81.6 fl (80-96); MEAN PLT VOLUME 8.2 fl (7.5-11.1); MONO % 11.8 % (3.8-10.2); NEUT % 64.8 % (42.8-82.8); PLATELET COUNT 347 10^3/uL (134-434); RBC 4.42 M/mm3 (4.00-5.60); RDW 17.3 % (11.9-15.9); WHITE BLOOD COUNT 8.5 K/mm3 (4.0-10.0)
[2023-01-17 11:29] LABS: INR 1.14 (0.83-1.09); PROTHROMBIN TIME (PATIENT) 13.2 SEC (9.7-13.0)
[2023-01-17 11:32] LABS: ACTIVATED PTT 31.2 SECONDS (25.2-36.5)
[2023-01-17 11:42] LABS: ALBUMIN 2.9 g/dl (3.4-5.0); BILIRUBIN,TOTAL 0.3 mg/dL (0.2-1); BLOOD UREA NITROGEN 42.2 mg/dL (7-18); CALCIUM 9.2 mg/dL (8.5-10.1); CREATININE 1.2 mg/dL (0.55-1.3); MAGNESIUM 2.2 mg/dL (1.8-2.4); N-TERMINAL BNP 1382.4 pg/ml (5-450); TOT PROT 6.7 g/dl (6.4-8.2)
[2023-01-17] MEDS ORDERED: CEFTRIAXONE 1,000 MG in DEXTROSE 5%-WATER - 50 ML IVPB ONE (13:35)
[2023-01-17] MEDS ORDERED: DOXYCYCLINE INJECTION 100 MG in DEXTROSE 5%-WATER 100 ML IVPB ONE (13:35)
[2023-01-17] MEDS ORDERED: DOXYCYCLINE HYCLATE 100 MG VIAL ONE ×2 (13:42→22:02)
[2023-01-17] MEDS ORDERED: CEFTRIAXONE 1 GM/50 ML BAG ONE (13:43)
[2023-01-17] MEDS ORDERED: ALBUTEROL SO4 HFA INHALER IH PRN (15:35)
[2023-01-17] MEDS ORDERED: CEFEPIME 1 GM in DEXTROSE 5%-WATER 100 ML IVPB SCH (22:00)
[2023-01-17] MEDS ORDERED: APIXABAN 5 MG TABLET ONE (22:00)
[2023-01-17] MEDS ORDERED: GABAPENTIN 300 MG CAPSULE ONE (22:00)
[2023-01-17] MEDS ORDERED: ATORVASTATIN CA 20 MG TABLET (FP) ONE (22:00)
[2023-01-17] MEDS ORDERED: DOXYCYCLINE HYCLATE 100 MG CAPSULE PO ONE (22:00)
[2023-01-17] MEDS ORDERED: CEFEPIME 1 GM/100 ML BAG IVPB ONE (22:01)
[2023-01-17] MEDS: CEFEPIME 1 GM in DEXTROSE 5%-WATER 100 ML IVPB SCH (22:08)
[2023-01-17] MEDS: APIXABAN 5 MG TABLET PO SCH (22:08)
[2023-01-17] MEDS: GABAPENTIN 300 MG CAPSULE PO SCH (22:08)
[2023-01-17] MEDS: ATORVASTATIN CA 20 MG TABLET (FP) PO SCH (22:08)
[2023-01-17] MEDS: DOXYCYCLINE INJECTION 100 MG in DEXTROSE 5%-WATER 100 ML IVPB SCH (23:00)
[2023-01-17] MEDS: ALLOPURINOL 300 MG TABLET (FP) PO SCH (23:00)
[2023-01-17] MEDS: LACTOBACILLUS ACIDOPHILUS 1 TABLET PO SCH (23:00)
[2023-01-18 07:41] LABS: EOS % 7.6 % (0-4.5); HEMATOCRIT 32.8 % (35.4-49); MCHC 33.5 g/dl (32.0-35.9); MEAN CELL VOLUME 80.7 fl (80-96); MEAN PLT VOLUME 7.9 fl (7.5-11.1); MONO % 13.6 % (3.8-10.2); NEUT % 60.8 % (42.8-82.8); PLATELET COUNT 317 10^3/uL (134-434); RBC 4.06 M/mm3 (4.00-5.60); WHITE BLOOD COUNT 8.3 K/mm3 (4.0-10.0)
[2023-01-18] MEDS ORDERED: GABAPENTIN 300 MG CAPSULE ONE ×2 (08:16→13:51)
[2023-01-18] MEDS: GABAPENTIN 300 MG CAPSULE PO SCH ×3 (08:25→22:36)
[2023-01-18 08:51] LABS: BLOOD UREA NITROGEN 31.7 mg/dL (7-18); CALCIUM 8.8 mg/dL (8.5-10.1)
[2023-01-18] MEDS ORDERED: APIXABAN 5 MG TABLET ONE (09:35)
[2023-01-18] MEDS ORDERED: DOXYCYCLINE HYCLATE 100 MG VIAL ONE (09:35)
[2023-01-18] MEDS ORDERED: FUROSEMIDE 40 MG TABLET (FP) ONE (09:35)
[2023-01-18] MEDS ORDERED: CEFEPIME 1 GM/100 ML BAG IVPB ONE (09:36)
[2023-01-18] MEDS: ARFORMOTEROL TARTRATE 15 MCG/2 ML VIAL NEB SCH ×3 (09:44→20:41)
[2023-01-18] MEDS: CLOTRIMAZOLE 1% CREAM TP SCH ×2 (09:44→09:49)
[2023-01-18] MEDS: APIXABAN 5 MG TABLET PO SCH ×2 (09:48→22:36)
[2023-01-18] MEDS: FUROSEMIDE 40 MG TABLET (FP) PO SCH (09:48)
[2023-01-18] MEDS: FLUTICASONE/UMECLIDIN/VILANTER(100-62.5-25 TRELEGY ELLIPTA) INAHLER IH SCH (09:49)
[2023-01-18] MEDS: CEFEPIME 1 GM in DEXTROSE 5%-WATER 100 ML IVPB SCH ×2 (09:49→20:00)
[2023-01-18] MEDS: DOXYCYCLINE INJECTION 100 MG in DEXTROSE 5%-WATER 100 ML IVPB SCH (10:29)
[2023-01-18] MEDS ORDERED: ACETAMINOPHEN 325 MG TABLET (FP) PO PRN (17:22)
[2023-01-18] MEDS: DOCUSATE SODIUM 100 MG CAPSULE (FP) PO SCH (22:36)
[2023-01-18] MEDS: MELATONIN 1 MG TABLET PO SCH (22:36)
[2023-01-18] MEDS: ALLOPURINOL 300 MG TABLET (FP) PO SCH (22:36)
[2023-01-18] MEDS: ATORVASTATIN CA 20 MG TABLET (FP) PO SCH (22:36)
[2023-01-18] MEDS: LACTOBACILLUS ACIDOPHILUS 1 TABLET PO SCH (22:36)
[2023-01-19] MEDS: CLOTRIMAZOLE 1% CREAM TP SCH ×3 (00:15→22:14)
[2023-01-19] MEDS: CEFEPIME 1 GM in DEXTROSE 5%-WATER 100 ML IVPB SCH ×3 (01:46→18:50)
[2023-01-19] MEDS: GABAPENTIN 300 MG CAPSULE PO SCH ×3 (06:37→22:13)
[2023-01-19 08:35] LABS: BASO % 1.4 % (0-2.0); EOS % 6.6 % (0-4.5); HEMATOCRIT 32.9 % (35.4-49); LYMPH % 17.2 % (8-40); MCH 27.1 pg (25.7-33.7); MCHC 33.3 g/dl (32.0-35.9); MEAN CELL VOLUME 81.4 fl (80-96); MEAN PLT VOLUME 8.1 fl (7.5-11.1); MONO % 13.6 % (3.8-10.2); NEUT % 61.2 % (42.8-82.8); PLATELET COUNT 294 10^3/uL (134-434); RBC 4.05 M/mm3 (4.00-5.60); RDW 17.1 % (11.9-15.9); WHITE BLOOD COUNT 8.8 K/mm3 (4.0-10.0)
[2023-01-19] MEDS: ARFORMOTEROL TARTRATE 15 MCG/2 ML VIAL NEB SCH ×2 (08:42→20:50)
[2023-01-19 09:05] LABS: ALBUMIN 2.6 g/dl (3.4-5.0); BLOOD UREA NITROGEN 32.4 mg/dL (7-18); CALCIUM 8.8 mg/dL (8.5-10.1)
[2023-01-19 09:08] LABS: PHOSPHOROUS 3.5 mg/dL (2.5-4.9)
[2023-01-19 09:10] LABS: TOT PROT 5.8 g/dl (6.4-8.2)
[2023-01-19 09:17] LABS: BILIRUBIN,TOTAL 0.5 mg/dL (0.2-1)
[2023-01-19] MEDS ORDERED: PATIENT'S OWN MEDICATION (NON-FORMULARY) (Prednisone [Prednisone 50 Mg Tablets] 50 MG Tabl PO SCH (10:00)
[2023-01-19] MEDS: APIXABAN 5 MG TABLET PO SCH ×2 (10:11→22:13)
[2023-01-19] MEDS: FLUTICASONE/UMECLIDIN/VILANTER(100-62.5-25 TRELEGY ELLIPTA) INAHLER IH SCH (10:12)
[2023-01-19] MEDS ORDERED: SODIUM CHLORIDE 250 ML IV STA ×2 (10:16→10:18)
[2023-01-19] MEDS: FUROSEMIDE 40 MG TABLET (FP) PO SCH (11:47)
[2023-01-19] MEDS: ALLOPURINOL 300 MG TABLET (FP) PO SCH (22:12)
[2023-01-19] MEDS: DOCUSATE SODIUM 100 MG CAPSULE (FP) PO SCH (22:12)
[2023-01-19] MEDS: ATORVASTATIN CA 20 MG TABLET (FP) PO SCH (22:13)
[2023-01-19] MEDS: MELATONIN 1 MG TABLET PO SCH (22:13)
[2023-01-19] MEDS: LACTOBACILLUS ACIDOPHILUS 1 TABLET PO SCH (22:13)
[2023-01-19 22:58] VITALS: RESP 18
[2023-01-20] MEDS: CEFEPIME 1 GM in DEXTROSE 5%-WATER 100 ML IVPB SCH ×2 (02:03→09:55)
[2023-01-20] MEDS: GABAPENTIN 300 MG CAPSULE PO SCH ×2 (06:02→14:25)
[2023-01-20] MEDS: ARFORMOTEROL TARTRATE 15 MCG/2 ML VIAL NEB SCH (07:26)
[2023-01-20] MEDS: APIXABAN 5 MG TABLET PO SCH (09:56)
[2023-01-20] MEDS: FUROSEMIDE 40 MG TABLET (FP) PO SCH (09:56)
[2023-01-20] MEDS: FLUTICASONE/UMECLIDIN/VILANTER(100-62.5-25 TRELEGY ELLIPTA) INAHLER IH SCH (09:56)
[2023-01-20] MEDS: CLOTRIMAZOLE 1% CREAM TP SCH (09:57)
[2023-01-20 14:27] VITALS: BP 104/59; PULSE 79; TEMP 98.1
== END 2023-01-20 17:20 | disposition home or self-care (01) | DRG 194 ==
LOC: JER 09:29 → JERBED 14:14 → J7W 01-18 18:48 → OBSVTOIN 01-19 12:27
PROVIDERS: ADMIT Internal Medicine; ATTEND Internal Medicine
DX: J18.9 Pneumonia, unspecified organism (principal); C34.91 Malignant neoplasm of unspecified part of right bronchus or lung; I13.0 Hypertensive heart and chronic kidney disease with heart failure and stage 1 through stage 4 chronic kidney disease, or unspecified chronic kidney disease; I50.32 Chronic diastolic (congestive) heart failure; J91.0 Malignant pleural effusion; J44.9 Chronic obstructive pulmonary disease, unspecified; I25.10 Atherosclerotic heart disease of native coronary artery without angina pectoris; Z95.5 Presence of coronary angioplasty implant and graft; N18.30 Chronic kidney disease, stage 3 unspecified; E78.5 Hyperlipidemia, unspecified; M10.9 Gout, unspecified; K21.9 Gastro-esophageal reflux disease without esophagitis
CPT/HCPCS: 0241U-QW; 36415; 71045-TC-FY; 71250-TC; 80048; 80053; 83735; 83880; 84100; 84484; 85025; 85610; 85730; 87070; 87205; 87899; 93005; 93010; 93970-TC; 94640; 94761; 99285-25; G0378

== ENCOUNTER 2023-02-12 17:35 | Observation (INO) | payer OTHER, MEDICARE ==
[2023-02-12 17:43] VITALS: BMI 30.1
[2023-02-12 19:52] LABS: BASO % 0.9 % (0-2.0); EOS % 5.4 % (0-4.5); LYMPH % 12.1 % (8-40); MCH 26.5 pg (25.7-33.7); MCHC 33.3 g/dl (32.0-35.9); MEAN CELL VOLUME 79.7 fl (80-96); MEAN PLT VOLUME 8.4 fl (7.5-11.1); MONO % 9.2 % (3.8-10.2); NEUT % 72.4 % (42.8-82.8); PLATELET COUNT 240 10^3/uL (134-434); RBC 4.52 M/mm3 (4.00-5.60); RDW 16.8 % (11.9-15.9); WHITE BLOOD COUNT 10.6 K/mm3 (4.0-10.0)
[2023-02-12 20:00] LABS: INR 1.03 (0.83-1.09); PROTHROMBIN TIME (PATIENT) 11.9 SEC (9.7-13.0)
[2023-02-12 20:03] LABS: ACTIVATED PTT 28.7 SECONDS (25.2-36.5)
[2023-02-12 20:13] LABS: POTASSIUM 3.9 mmol/L (3.5-5.1)
[2023-02-12 20:15] LABS: ALBUMIN 3.2 g/dl (3.4-5.0); CALCIUM 8.7 mg/dL (8.5-10.1)
[2023-02-12 20:16] LABS: BLOOD UREA NITROGEN 29.6 mg/dL (7-18); MAGNESIUM 1.8 mg/dL (1.8-2.4)
[2023-02-12 20:18] LABS: CREATININE 1.1 mg/dL (0.55-1.3)
[2023-02-12 20:20] LABS: BILIRUBIN,TOTAL 0.4 mg/dL (0.2-1); TOT PROT 6.8 g/dl (6.4-8.2)
[2023-02-12 20:23] LABS: N-TERMINAL BNP 2601.2 pg/ml (5-450)
[2023-02-12 21:20] LABS: VENOUS BASE EXCESS -2.4 mmol/L (-2-2); VENOUS O2 SATURATION 19.5 % (70-80); VENOUS PCO2 42.2 mmHg (38-52); VENOUS PH 7.356 (7.310-7.410)
[2023-02-13 02:02] LABS: ARTERIAL BLOOD GAS BASE EXCESS -0.5 mmol/L (-2-2); ARTERIAL BLOOD GAS PO2 66.4 mmHg (80-100); ARTERIAL BLOOD GAS pH 7.439 (7.350-7.450)
[2023-02-13 02:03] LABS: ALLENS TEST POSITIVE
[2023-02-13] MEDS ORDERED: ALBUTEROL SO4 HFA INHALER IH PRN (06:21)
[2023-02-13 07:16] LABS: HEMATOCRIT 31.9 % (35.4-49); HEMOGLOBIN 10.9 GM/dL (11.7-16.9); LYMPH % 13.9 % (8-40); MCH 27.1 pg (25.7-33.7); MCHC 34.2 g/dl (32.0-35.9); MEAN CELL VOLUME 79.3 fl (80-96); MEAN PLT VOLUME 8.8 fl (7.5-11.1); MONO % 11.4 % (3.8-10.2); NEUT % 65.7 % (42.8-82.8); PLATELET COUNT 214 10^3/uL (134-434); RBC 4.03 M/mm3 (4.00-5.60); RDW 16.4 % (11.9-15.9); WHITE BLOOD COUNT 8.1 K/mm3 (4.0-10.0)
[2023-02-13 07:30] LABS: POTASSIUM 3.7 mmol/L (3.5-5.1)
[2023-02-13 07:33] LABS: CALCIUM 8.6 mg/dL (8.5-10.1)
[2023-02-13 07:34] LABS: ALBUMIN 2.7 g/dl (3.4-5.0); BLOOD UREA NITROGEN 27.4 mg/dL (7-18); MAGNESIUM 1.8 mg/dL (1.8-2.4)
[2023-02-13 07:37] LABS: CREATININE 0.9 mg/dL (0.55-1.3); PHOSPHOROUS 3.1 mg/dL (2.5-4.9)
[2023-02-13 07:38] LABS: BILIRUBIN,TOTAL 0.4 mg/dL (0.2-1); TOT PROT 5.9 g/dl (6.4-8.2)
[2023-02-13] MEDS ORDERED: ARFORMOTEROL TARTRATE 15 MCG/2 ML VIAL NEB SCH (08:00)
[2023-02-13] MEDS ORDERED: FLUTICASONE/UMECLIDIN/VILANTER(100-62.5-25 TRELEGY ELLIPTA) INAHLER IH SCH (10:00)
[2023-02-13] MEDS ORDERED: APIXABAN 2.5 MG TABLET PO SCH (10:00)
[2023-02-13] MEDS ORDERED: FUROSEMIDE 40 MG/4 ML INJECTABLE VIAL IVPUSH SCH ×2 (14:00)
[2023-02-13] MEDS ORDERED: GABAPENTIN 300 MG CAPSULE PO SCH (14:00)
[2023-02-13 18:11] VITALS: BP 143/74; PULSE 85; TEMP 98.3
[2023-02-13 18:29] VITALS: RESP 19
[2023-02-13] MEDS ORDERED: ATORVASTATIN CA 20 MG TABLET (FP) PO SCH (22:00)
[2023-02-13] MEDS ORDERED: ALLOPURINOL 300 MG TABLET (FP) PO SCH (22:00)
[2023-02-14] MEDS ORDERED: FUROSEMIDE 40 MG TABLET (FP) PO SCH (10:00)
[2023-02-15] MEDS ORDERED: FUROSEMIDE 40 MG TABLET (FP) PO SCH (14:00)
== END 2023-02-13 19:40 | disposition home health service (06) ==
LOC: JER 17:35 → JERBED 23:23 → J4S 02-13 03:12
PROVIDERS: ADMIT Internal Medicine; ATTEND Internal Medicine
PROC: 3E0F7GC Introduction of Other Therapeutic Substance into Respiratory Tract, Via Natural or Artificial Opening (ICD-10-PCS; principal; 2023-02-12)
PROC: 3E033GC Introduction of Other Therapeutic Substance into Peripheral Vein, Percutaneous Approach (ICD-10-PCS; 2023-02-12)
DX: R06.02 Shortness of breath (principal); J44.9 Chronic obstructive pulmonary disease, unspecified; J90 Pleural effusion, not elsewhere classified; J30.2 Other seasonal allergic rhinitis; Z87.891 Personal history of nicotine dependence; I25.10 Atherosclerotic heart disease of native coronary artery without angina pectoris; C67.9 Malignant neoplasm of bladder, unspecified; M10.9 Gout, unspecified; E78.5 Hyperlipidemia, unspecified; I11.0 Hypertensive heart disease with heart failure; I13.0 Hypertensive heart and chronic kidney disease with heart failure and stage 1 through stage 4 chronic kidney disease, or unspecified chronic kidney disease; N18.9 Chronic kidney disease, unspecified; C34.90 Malignant neoplasm of unspecified part of unspecified bronchus or lung; Z88.0 Allergy status to penicillin; Z91.041 Radiographic dye allergy status
CPT/HCPCS: 0241U-QW; 36415; 36600; 71250-TC; 80053; 82803; 83735; 83880; 84100; 84484; 85025; 85610; 85730; 93005; 93010; 94640; 96375; 97162-GP; 99285-25; G0378

== ENCOUNTER 2023-05-03 11:05 | Emergency (ER) | payer OTHER, MEDICARE ==
[2023-05-03 11:17] VITALS: BP 136/74; PULSE 67; RESP 17; TEMP 97.8; BMI 26.6
== END 2023-05-03 11:53 | disposition home or self-care (01) ==
LOC: JERFT 11:05 → JER 11:05 → JERFT 11:53
DX: Z48.02 Encounter for removal of sutures (principal)
CPT/HCPCS: 99281-25

== ENCOUNTER 2023-05-24 18:41 | Inpatient (IN) | payer OTHER, MEDICARE ==
[2023-05-24] MEDS ORDERED: SODIUM CHLORIDE 0.9% 500 ML INFUS.BAG IV ONE (19:24)
[2023-05-24 20:48] LABS: BASO % 0.8 % (0-2.0); EOS % 5.6 % (0-4.5); HEMATOCRIT 37.4 % (35.4-49); HEMOGLOBIN 12.1 GM/dL (11.7-16.9); LYMPH % 9.1 % (8-40); MCH 24.9 pg (25.7-33.7); MCHC 32.2 g/dl (32.0-35.9); MEAN CELL VOLUME 77.2 fl (80-96); MEAN PLT VOLUME 8.3 fl (7.5-11.1); MONO % 11.3 % (3.8-10.2); NEUT % 73.2 % (42.8-82.8); PLATELET COUNT 378 10^3/uL (134-434); RBC 4.85 M/mm3 (4.00-5.60); RDW 17.5 % (11.9-15.9); WHITE BLOOD COUNT 10.2 K/mm3 (4.0-10.0)
[2023-05-24 20:53] LABS: INR 1.12 (0.83-1.09)
[2023-05-24 20:56] LABS: ACTIVATED PTT 31.2 SECONDS (25.2-36.5)
[2023-05-24 21:07] LABS: POTASSIUM 4.1 mmol/L (3.5-5.1)
[2023-05-24 21:10] LABS: ALBUMIN 2.9 g/dl (3.4-5.0); BLOOD UREA NITROGEN 28.4 mg/dL (7-18)
[2023-05-24 21:13] LABS: CREATININE 1.4 mg/dL (0.55-1.3)
[2023-05-24 21:15] LABS: BILIRUBIN,TOTAL 0.2 mg/dL (0.2-1); TOT PROT 6.6 g/dl (6.4-8.2)
[2023-05-24] MEDS ORDERED: MEROPENEM 1 GM in DEXTROSE 5%-WATER 100 ML IVPB ONE (21:50)
[2023-05-24] MEDS ORDERED: DOXYCYCLINE INJECTION 100 MG in DEXTROSE 5%-WATER 100 ML IVPB ONE (21:52)
[2023-05-24] MEDS ORDERED: DOXYCYCLINE HYCLATE 100 MG VIAL ONE (22:29)
[2023-05-24] MEDS ORDERED: ALBUTEROL SO4 HFA INHALER IH PRN (23:44)
[2023-05-25] MEDS ORDERED: ATORVASTATIN CA 20 MG TABLET (FP) ONE (00:18)
[2023-05-25] MEDS ORDERED: MEROPENEM 1 GM VIAL (RESTRICTED TO ID) IVPB ONE (00:19)
[2023-05-25] MEDS ORDERED: GABAPENTIN 300 MG CAPSULE ONE ×3 (00:19→14:44)
[2023-05-25] MEDS ORDERED: APIXABAN 2.5 MG TABLET ONE ×2 (00:19→11:57)
[2023-05-25 00:21] LABS: N-TERMINAL BNP 6473.3 pg/ml (5-450)
[2023-05-25] MEDS: APIXABAN 2.5 MG TABLET PO SCH ×3 (00:30→23:20)
[2023-05-25] MEDS: GABAPENTIN 300 MG CAPSULE PO SCH ×4 (00:30→23:20)
[2023-05-25] MEDS: ATORVASTATIN CA 20 MG TABLET (FP) PO SCH ×2 (00:30→23:20)
[2023-05-25] MEDS: POLYETHYLENE GLYCOL (HEALTHYLAX) 3350 17 GM PACKET PO SCH ×3 (00:30→23:21)
[2023-05-25] MEDS ORDERED: ADENOSINE 6 MG/2 ML VIAL IVPUSH ONE (05:46)
[2023-05-25] MEDS ORDERED: METOPROLOL TARTRATE 25 MG TABLET (FP) PO PRN (05:52)
[2023-05-25] MEDS ORDERED: METOPROLOL TARTRATE 25 MG TABLET (FP) PO SCH (06:00)
[2023-05-25 06:56] LABS: HEMATOCRIT 35.1 % (35.4-49); HEMOGLOBIN 11.1 GM/dL (11.7-16.9); MCH 24.8 pg (25.7-33.7); MCHC 31.6 g/dl (32.0-35.9); MEAN CELL VOLUME 78.7 fl (80-96); MEAN PLT VOLUME 8.1 fl (7.5-11.1); PLATELET COUNT 358 10^3/uL (134-434); RBC 4.46 M/mm3 (4.00-5.60); RDW 17.5 % (11.9-15.9); WHITE BLOOD COUNT 7.7 K/mm3 (4.0-10.0)
[2023-05-25] MEDS ORDERED: POLYETHYLENE GLYCOL (HEALTHYLAX) 3350 17 GM PACKET ONE (11:56)
[2023-05-25] MEDS: LIDOCAINE PATCH REMOVAL MC SCH ×2 (13:53→23:22)
[2023-05-25] MEDS ORDERED: clonazePAM 0.5 MG TABLET ONE (13:54)
[2023-05-25] MEDS: clonazePAM 0.5 MG TABLET PO PRN (14:06)
[2023-05-25 14:34] LABS: ARTERIAL BLD GAS O2 SATURATION 92.3 % (95-98); ARTERIAL BLOOD GAS BASE EXCESS -0.7 mmol/L (-2-2); ARTERIAL BLOOD GAS PO2 62.5 mmHg (80-100)
[2023-05-25 14:36] LABS: ALLENS TEST POSITIVE
[2023-05-25] MEDS: FLUTICASONE/UMECLIDIN/VILANTER(100-62.5-25 TRELEGY ELLIPTA) INAHLER IH SCH (18:50)
[2023-05-25] MEDS ORDERED: METOPROLOL TARTRATE 25 MG TABLET (FP) ONE (19:20)
[2023-05-25] MEDS: METOPROLOL TARTRATE 25 MG TABLET (FP) PO SCH (19:24)
[2023-05-25] MEDS: LIDOCAINE 5% TOPICAL PATCH TP SCH (23:22)
[2023-05-26 04:35] VITALS: BMI 23.5
[2023-05-26] MEDS: GABAPENTIN 300 MG CAPSULE PO SCH ×3 (06:41→22:58)
[2023-05-26] MEDS: METOPROLOL TARTRATE 25 MG TABLET (FP) PO SCH ×2 (06:41→18:31)
[2023-05-26] MEDS: APIXABAN 2.5 MG TABLET PO SCH ×2 (10:33→22:58)
[2023-05-26] MEDS: LIDOCAINE 5% TOPICAL PATCH TP SCH (10:40)
[2023-05-26] MEDS: POLYETHYLENE GLYCOL (HEALTHYLAX) 3350 17 GM PACKET PO SCH ×2 (10:40→22:59)
[2023-05-26] MEDS ORDERED: FUROSEMIDE 20 MG TABLET (FP) PO SCH (12:00)
[2023-05-26] MEDS: methylPREDNISolone NA SUCC 40 MG/1 ML VIAL IVPUSH SCH ×2 (12:51→18:27)
[2023-05-26] MEDS: FUROSEMIDE 40 MG/4 ML INJECTABLE VIAL IVPUSH SCH (12:51)
[2023-05-26] MEDS: AZTREONAM 1 GM in DEXTROSE 5%-WATER - 50 ML IVPB SCH ×2 (13:26→18:29)
[2023-05-26] MEDS: ALBUTEROL SO4 0.083% IH SOL 2.5 MG/3 ML VIAL.NEB. NEB SCH ×3 (14:39→20:27)
[2023-05-26] MEDS: clonazePAM 0.5 MG TABLET PO PRN (14:54)
[2023-05-26] MEDS: FLUTICASONE/UMECLIDIN/VILANTER(100-62.5-25 TRELEGY ELLIPTA) INAHLER IH SCH (18:31)
[2023-05-26] MEDS: ARFORMOTEROL TARTRATE 15 MCG/2 ML VIAL NEB SCH ×2 (20:54→20:55)
[2023-05-26] MEDS: ATORVASTATIN CA 20 MG TABLET (FP) PO SCH (22:58)
[2023-05-26] MEDS: LIDOCAINE PATCH REMOVAL MC SCH (22:59)
[2023-05-27] MEDS: AZTREONAM 1 GM in DEXTROSE 5%-WATER - 50 ML IVPB SCH ×3 (01:07→18:24)
[2023-05-27] MEDS: methylPREDNISolone NA SUCC 40 MG/1 ML VIAL IVPUSH SCH ×2 (01:07→09:35)
[2023-05-27] MEDS: METOPROLOL TARTRATE 25 MG TABLET (FP) PO SCH ×2 (05:41→18:24)
[2023-05-27] MEDS: GABAPENTIN 300 MG CAPSULE PO SCH ×3 (05:41→21:15)
[2023-05-27] MEDS: ALBUTEROL SO4 0.083% IH SOL 2.5 MG/3 ML VIAL.NEB. NEB SCH ×4 (07:58→19:30)
[2023-05-27 08:25] LABS: BASO % 0.1 % (0-2.0); EOS % 0.1 % (0-4.5); HEMATOCRIT 33.8 % (35.4-49); HEMOGLOBIN 10.8 GM/dL (11.7-16.9); LYMPH % 9.8 % (8-40); MCHC 31.8 g/dl (32.0-35.9); MEAN CELL VOLUME 78.7 fl (80-96); MEAN PLT VOLUME 8.6 fl (7.5-11.1); MONO % 2.2 % (3.8-10.2); NEUT % 87.8 % (42.8-82.8); PLATELET COUNT 347 10^3/uL (134-434); RDW 17.4 % (11.9-15.9); WHITE BLOOD COUNT 6.7 K/mm3 (4.0-10.0)
[2023-05-27 09:16] LABS: POTASSIUM 4.5 mmol/L (3.5-5.1)
[2023-05-27 09:24] LABS: ALBUMIN 2.6 g/dl (3.4-5.0); BLOOD UREA NITROGEN 33.2 mg/dL (7-18)
[2023-05-27 09:25] LABS: CALCIUM 8.7 mg/dL (8.5-10.1)
[2023-05-27 09:27] LABS: CREATININE 1.1 mg/dL (0.55-1.3)
[2023-05-27 09:28] LABS: BILIRUBIN,TOTAL 0.3 mg/dL (0.2-1); TOT PROT 6.6 g/dl (6.4-8.2)
[2023-05-27] MEDS: FUROSEMIDE 40 MG/4 ML INJECTABLE VIAL IVPUSH SCH (09:34)
[2023-05-27] MEDS: APIXABAN 2.5 MG TABLET PO SCH ×2 (09:34→21:15)
[2023-05-27] MEDS: LIDOCAINE 5% TOPICAL PATCH TP SCH (09:35)
[2023-05-27] MEDS: POLYETHYLENE GLYCOL (HEALTHYLAX) 3350 17 GM PACKET PO SCH ×2 (09:36→21:15)
[2023-05-27] MEDS: FLUTICASONE/UMECLIDIN/VILANTER(100-62.5-25 TRELEGY ELLIPTA) INAHLER IH SCH (14:43)
[2023-05-27] MEDS: clonazePAM 0.5 MG TABLET PO PRN (21:14)
[2023-05-27] MEDS: ATORVASTATIN CA 20 MG TABLET (FP) PO SCH (21:15)
[2023-05-27] MEDS: LIDOCAINE PATCH REMOVAL MC SCH (21:21)
[2023-05-28] MEDS: AZTREONAM 1 GM in DEXTROSE 5%-WATER - 50 ML IVPB SCH ×3 (01:25→17:51)
[2023-05-28] MEDS: METOPROLOL TARTRATE 25 MG TABLET (FP) PO SCH ×2 (05:55→17:51)
[2023-05-28] MEDS: GABAPENTIN 300 MG CAPSULE PO SCH ×3 (05:55→21:20)
[2023-05-28 06:29] LABS: EOS % 0.2 % (0-4.5); HEMATOCRIT 33.7 % (35.4-49); HEMOGLOBIN 10.6 GM/dL (11.7-16.9); LYMPH % 4.9 % (8-40); MCH 24.8 pg (25.7-33.7); MCHC 31.5 g/dl (32.0-35.9); MEAN CELL VOLUME 78.8 fl (80-96); MONO % 7.8 % (3.8-10.2); NEUT % 87.1 % (42.8-82.8); PLATELET COUNT 355 10^3/uL (134-434); RBC 4.28 M/mm3 (4.00-5.60); RDW 17.5 % (11.9-15.9)
[2023-05-28 06:51] LABS: POTASSIUM 4.7 mmol/L (3.5-5.1)
[2023-05-28 06:58] LABS: ALBUMIN 2.7 g/dl (3.4-5.0); BLOOD UREA NITROGEN 37.6 mg/dL (7-18); CALCIUM 8.4 mg/dL (8.5-10.1)
[2023-05-28 07:01] LABS: CREATININE 1.2 mg/dL (0.55-1.3)
[2023-05-28 07:03] LABS: BILIRUBIN,TOTAL 0.1 mg/dL (0.2-1); TOT PROT 6.4 g/dl (6.4-8.2)
[2023-05-28] MEDS: ALBUTEROL SO4 0.083% IH SOL 2.5 MG/3 ML VIAL.NEB. NEB SCH ×4 (07:45→20:05)
[2023-05-28] MEDS: methylPREDNISolone NA SUCC 40 MG/1 ML VIAL IVPUSH SCH (10:04)
[2023-05-28] MEDS: POLYETHYLENE GLYCOL (HEALTHYLAX) 3350 17 GM PACKET PO SCH ×2 (10:04→21:20)
[2023-05-28] MEDS: LIDOCAINE 5% TOPICAL PATCH TP SCH (10:04)
[2023-05-28] MEDS: FUROSEMIDE 40 MG/4 ML INJECTABLE VIAL IVPUSH SCH ×2 (10:04→14:14)
[2023-05-28] MEDS: APIXABAN 2.5 MG TABLET PO SCH ×2 (10:04→21:20)
[2023-05-28] MEDS: FLUTICASONE/UMECLIDIN/VILANTER(100-62.5-25 TRELEGY ELLIPTA) INAHLER IH SCH (10:06)
[2023-05-28] MEDS: LIDOCAINE PATCH REMOVAL MC SCH (21:20)
[2023-05-28] MEDS: ATORVASTATIN CA 20 MG TABLET (FP) PO SCH (21:20)
[2023-05-28] MEDS: clonazePAM 0.5 MG TABLET PO PRN (21:20)
[2023-05-29] MEDS: AZTREONAM 1 GM in DEXTROSE 5%-WATER - 50 ML IVPB SCH ×3 (01:35→17:50)
[2023-05-29] MEDS: FUROSEMIDE 40 MG/4 ML INJECTABLE VIAL IVPUSH SCH ×2 (05:49→14:37)
[2023-05-29] MEDS: GABAPENTIN 300 MG CAPSULE PO SCH ×3 (05:49→22:31)
[2023-05-29] MEDS: METOPROLOL TARTRATE 25 MG TABLET (FP) PO SCH ×2 (05:51→17:50)
[2023-05-29] MEDS: ALBUTEROL SO4 0.083% IH SOL 2.5 MG/3 ML VIAL.NEB. NEB SCH ×4 (07:10→20:28)
[2023-05-29 07:24] LABS: BASO % 0.2 % (0-2.0); EOS % 2.2 % (0-4.5); HEMATOCRIT 33.3 % (35.4-49); HEMOGLOBIN 10.5 GM/dL (11.7-16.9); LYMPH % 8.5 % (8-40); MCHC 31.6 g/dl (32.0-35.9); MEAN PLT VOLUME 7.9 fl (7.5-11.1); MONO % 9.7 % (3.8-10.2); NEUT % 79.4 % (42.8-82.8); PLATELET COUNT 340 10^3/uL (134-434); RBC 4.21 M/mm3 (4.00-5.60); WHITE BLOOD COUNT 11.6 K/mm3 (4.0-10.0)
[2023-05-29 07:45] LABS: POTASSIUM 4.6 mmol/L (3.5-5.1)
[2023-05-29 07:47] LABS: CALCIUM 8.4 mg/dL (8.5-10.1)
[2023-05-29 07:48] LABS: ALBUMIN 2.8 g/dl (3.4-5.0); BLOOD UREA NITROGEN 45.1 mg/dL (7-18)
[2023-05-29 07:51] LABS: CREATININE 1.4 mg/dL (0.55-1.3)
[2023-05-29 07:53] LABS: BILIRUBIN,TOTAL 0.1 mg/dL (0.2-1); TOT PROT 6.4 g/dl (6.4-8.2)
[2023-05-29] MEDS: ALLOPURINOL 100 MG TABLET (FP) PO SCH (10:29)
[2023-05-29] MEDS: methylPREDNISolone NA SUCC 40 MG/1 ML VIAL IVPUSH SCH (10:31)
[2023-05-29] MEDS: POLYETHYLENE GLYCOL (HEALTHYLAX) 3350 17 GM PACKET PO SCH ×2 (10:31→22:32)
[2023-05-29] MEDS: APIXABAN 2.5 MG TABLET PO SCH ×2 (10:31→22:32)
[2023-05-29] MEDS: LIDOCAINE 5% TOPICAL PATCH TP SCH (11:14)
[2023-05-29] MEDS: FLUTICASONE/UMECLIDIN/VILANTER(100-62.5-25 TRELEGY ELLIPTA) INAHLER IH SCH (11:14)
[2023-05-29] MEDS: ATORVASTATIN CA 20 MG TABLET (FP) PO SCH (22:31)
[2023-05-29] MEDS: LIDOCAINE PATCH REMOVAL MC SCH (22:32)
[2023-05-29] MEDS: clonazePAM 0.5 MG TABLET PO PRN (22:32)
[2023-05-30] MEDS: AZTREONAM 1 GM in DEXTROSE 5%-WATER - 50 ML IVPB SCH ×3 (02:40→18:13)
[2023-05-30] MEDS: METOPROLOL TARTRATE 25 MG TABLET (FP) PO SCH ×2 (06:40→18:13)
[2023-05-30] MEDS: GABAPENTIN 300 MG CAPSULE PO SCH ×3 (06:40→21:24)
[2023-05-30] MEDS: FUROSEMIDE 40 MG/4 ML INJECTABLE VIAL IVPUSH SCH ×2 (06:41→14:56)
[2023-05-30] MEDS: ALBUTEROL SO4 0.083% IH SOL 2.5 MG/3 ML VIAL.NEB. NEB SCH ×4 (07:39→20:48)
[2023-05-30] MEDS: ALLOPURINOL 100 MG TABLET (FP) PO SCH (09:28)
[2023-05-30] MEDS: APIXABAN 2.5 MG TABLET PO SCH ×2 (09:28→21:24)
[2023-05-30] MEDS: methylPREDNISolone NA SUCC 40 MG/1 ML VIAL IVPUSH SCH (09:28)
[2023-05-30] MEDS: POLYETHYLENE GLYCOL (HEALTHYLAX) 3350 17 GM PACKET PO SCH ×2 (09:28→21:23)
[2023-05-30] MEDS: FLUTICASONE/UMECLIDIN/VILANTER(100-62.5-25 TRELEGY ELLIPTA) INAHLER IH SCH (09:29)
[2023-05-30] MEDS: LIDOCAINE 5% TOPICAL PATCH TP SCH (09:29)
[2023-05-30 14:23] LABS: POTASSIUM 4.5 mmol/L (3.5-5.1)
[2023-05-30 14:25] LABS: CALCIUM 8.5 mg/dL (8.5-10.1)
[2023-05-30 14:26] LABS: BLOOD UREA NITROGEN 46.8 mg/dL (7-18)
[2023-05-30 14:29] LABS: CREATININE 1.3 mg/dL (0.55-1.3)
[2023-05-30] MEDS: ATORVASTATIN CA 20 MG TABLET (FP) PO SCH (21:24)
[2023-05-30] MEDS: LIDOCAINE PATCH REMOVAL MC SCH (21:24)
[2023-05-30] MEDS: clonazePAM 0.5 MG TABLET PO PRN (21:27)
[2023-05-31] MEDS: AZTREONAM 1 GM in DEXTROSE 5%-WATER - 50 ML IVPB SCH ×2 (01:11→09:47)
[2023-05-31] MEDS: GABAPENTIN 300 MG CAPSULE PO SCH ×3 (05:58→21:12)
[2023-05-31] MEDS: FUROSEMIDE 40 MG/4 ML INJECTABLE VIAL IVPUSH SCH ×2 (05:58→14:41)
[2023-05-31] MEDS: METOPROLOL TARTRATE 25 MG TABLET (FP) PO SCH ×2 (05:59→17:49)
[2023-05-31] MEDS: ALBUTEROL SO4 0.083% IH SOL 2.5 MG/3 ML VIAL.NEB. NEB SCH ×4 (07:45→15:13)
[2023-05-31] MEDS: ALLOPURINOL 100 MG TABLET (FP) PO SCH (09:47)
[2023-05-31] MEDS: predniSONE 20 MG TABLET (UD) PO SCH (09:47)
[2023-05-31] MEDS: POLYETHYLENE GLYCOL (HEALTHYLAX) 3350 17 GM PACKET PO SCH ×2 (09:47→21:14)
[2023-05-31] MEDS: LIDOCAINE 5% TOPICAL PATCH TP SCH (09:48)
[2023-05-31] MEDS: FLUTICASONE/UMECLIDIN/VILANTER(100-62.5-25 TRELEGY ELLIPTA) INAHLER IH SCH (09:48)
[2023-05-31] MEDS: APIXABAN 2.5 MG TABLET PO SCH ×2 (09:48→21:12)
[2023-05-31 12:34] LABS: BASO % 0.1 % (0-2.0); EOS % 3.9 % (0-4.5); HEMATOCRIT 34.8 % (35.4-49); HEMOGLOBIN 10.9 GM/dL (11.7-16.9); LYMPH % 5.6 % (8-40); MCH 24.9 pg (25.7-33.7); MCHC 31.3 g/dl (32.0-35.9); MEAN CELL VOLUME 79.5 fl (80-96); MONO % 9.2 % (3.8-10.2); NEUT % 81.2 % (42.8-82.8); PLATELET COUNT 341 10^3/uL (134-434); RBC 4.38 M/mm3 (4.00-5.60); RDW 17.7 % (11.9-15.9); WHITE BLOOD COUNT 13.8 K/mm3 (4.0-10.0)
[2023-05-31 12:54] LABS: POTASSIUM 4.5 mmol/L (3.5-5.1)
[2023-05-31 12:57] LABS: ALBUMIN 2.8 g/dl (3.4-5.0); CALCIUM 8.9 mg/dL (8.5-10.1)
[2023-05-31 12:58] LABS: BLOOD UREA NITROGEN 48.9 mg/dL (7-18); MAGNESIUM 1.9 mg/dL (1.8-2.4)
[2023-05-31 13:00] LABS: CREATININE 1.2 mg/dL (0.55-1.3); PHOSPHOROUS 3.2 mg/dL (2.5-4.9)
[2023-05-31 13:01] LABS: BILIRUBIN,TOTAL 0.3 mg/dL (0.2-1); TOT PROT 6.9 g/dl (6.4-8.2)
[2023-05-31] MEDS: clonazePAM 0.5 MG TABLET PO PRN (21:12)
[2023-05-31] MEDS: ATORVASTATIN CA 20 MG TABLET (FP) PO SCH (21:12)
[2023-05-31] MEDS: LIDOCAINE PATCH REMOVAL MC SCH (21:14)
[2023-06-01] MEDS: FUROSEMIDE 40 MG/4 ML INJECTABLE VIAL IVPUSH SCH ×2 (05:44→15:11)
[2023-06-01] MEDS: METOPROLOL TARTRATE 25 MG TABLET (FP) PO SCH ×2 (05:45→17:17)
[2023-06-01] MEDS: GABAPENTIN 300 MG CAPSULE PO SCH ×3 (05:45→21:06)
[2023-06-01 08:18] LABS: HEMATOCRIT 34.7 % (35.4-49); HEMOGLOBIN 10.9 GM/dL (11.7-16.9); MCHC 31.5 g/dl (32.0-35.9); MEAN CELL VOLUME 79.3 fl (80-96); MEAN PLT VOLUME 8.2 fl (7.5-11.1); PLATELET COUNT 323 10^3/uL (134-434); RBC 4.37 M/mm3 (4.00-5.60); RDW 17.6 % (11.9-15.9); WHITE BLOOD COUNT 9.7 K/mm3 (4.0-10.0)
[2023-06-01] MEDS: ALBUTEROL SO4 0.083% IH SOL 2.5 MG/3 ML VIAL.NEB. NEB SCH ×4 (08:44→20:15)
[2023-06-01 08:47] LABS: POTASSIUM 4.6 mmol/L (3.5-5.1)
[2023-06-01 08:50] LABS: ALBUMIN 2.7 g/dl (3.4-5.0); BLOOD UREA NITROGEN 47.4 mg/dL (7-18); CALCIUM 8.9 mg/dL (8.5-10.1); MAGNESIUM 2.2 mg/dL (1.8-2.4)
[2023-06-01 08:54] LABS: CREATININE 1.2 mg/dL (0.55-1.3); PHOSPHOROUS 3.7 mg/dL (2.5-4.9)
[2023-06-01 08:55] LABS: BILIRUBIN,TOTAL 0.2 mg/dL (0.2-1); TOT PROT 6.2 g/dl (6.4-8.2)
[2023-06-01] MEDS: ALLOPURINOL 100 MG TABLET (FP) PO SCH (10:25)
[2023-06-01] MEDS: APIXABAN 2.5 MG TABLET PO SCH ×2 (10:26→21:05)
[2023-06-01] MEDS: predniSONE 20 MG TABLET (UD) PO SCH (10:26)
[2023-06-01] MEDS: POLYETHYLENE GLYCOL (HEALTHYLAX) 3350 17 GM PACKET PO SCH ×2 (10:26→21:06)
[2023-06-01] MEDS: FLUTICASONE/UMECLIDIN/VILANTER(100-62.5-25 TRELEGY ELLIPTA) INAHLER IH SCH (10:30)
[2023-06-01] MEDS: LIDOCAINE 5% TOPICAL PATCH TP SCH (10:30)
[2023-06-01] MEDS: clonazePAM 0.5 MG TABLET PO PRN ×2 (20:42→21:05)
[2023-06-01] MEDS: ATORVASTATIN CA 20 MG TABLET (FP) PO SCH (21:05)
[2023-06-01] MEDS: LIDOCAINE PATCH REMOVAL MC SCH (21:06)
[2023-06-02] MEDS: FUROSEMIDE 40 MG/4 ML INJECTABLE VIAL IVPUSH SCH ×2 (05:48→14:02)
[2023-06-02] MEDS: GABAPENTIN 300 MG CAPSULE PO SCH ×2 (05:49→14:02)
[2023-06-02] MEDS: METOPROLOL TARTRATE 25 MG TABLET (FP) PO SCH (05:49)
[2023-06-02] MEDS: ALBUTEROL SO4 0.083% IH SOL 2.5 MG/3 ML VIAL.NEB. NEB SCH ×3 (07:41→15:32)
[2023-06-02 08:56] LABS: HEMATOCRIT 35.9 % (35.4-49); HEMOGLOBIN 11.4 GM/dL (11.7-16.9); MCH 25.3 pg (25.7-33.7); MCHC 31.7 g/dl (32.0-35.9); MEAN CELL VOLUME 79.7 fl (80-96); MEAN PLT VOLUME 8.3 fl (7.5-11.1); PLATELET COUNT 339 10^3/uL (134-434); RBC 4.51 M/mm3 (4.00-5.60); RDW 17.6 % (11.9-15.9); WHITE BLOOD COUNT 10.6 K/mm3 (4.0-10.0)
[2023-06-02 09:09] VITALS: RESP 18
[2023-06-02 09:13] LABS: POTASSIUM 4.5 mmol/L (3.5-5.1)
[2023-06-02 09:16] LABS: BLOOD UREA NITROGEN 50.2 mg/dL (7-18)
[2023-06-02 09:17] LABS: ALBUMIN 2.8 g/dl (3.4-5.0)
[2023-06-02 09:20] LABS: CREATININE 1.1 mg/dL (0.55-1.3); PHOSPHOROUS 3.5 mg/dL (2.5-4.9)
[2023-06-02 09:21] LABS: TOT PROT 6.7 g/dl (6.4-8.2)
[2023-06-02 09:22] LABS: BILIRUBIN,TOTAL 0.3 mg/dL (0.2-1)
[2023-06-02] MEDS: predniSONE 20 MG TABLET (UD) PO SCH (10:19)
[2023-06-02] MEDS: ALLOPURINOL 100 MG TABLET (FP) PO SCH (10:20)
[2023-06-02] MEDS: APIXABAN 2.5 MG TABLET PO SCH (10:20)
[2023-06-02] MEDS: POLYETHYLENE GLYCOL (HEALTHYLAX) 3350 17 GM PACKET PO SCH (10:20)
[2023-06-02] MEDS: FLUTICASONE/UMECLIDIN/VILANTER(100-62.5-25 TRELEGY ELLIPTA) INAHLER IH SCH (11:10)
[2023-06-02] MEDS: LIDOCAINE 5% TOPICAL PATCH TP SCH (11:10)
[2023-06-02 14:22] VITALS: BP 98/57; PULSE 64; TEMP 97.8
[2023-06-02] MEDS ORDERED: NYSTATIN 100,000 UNIT/GM TOPICAL CREAM 15 GM TUBE TP SCH (22:00)
== END 2023-06-02 15:44 | disposition home or self-care (01) | DRG 180 ==
LOC: JER 18:41 → JERBED 22:15 → J6S 05-25 02:25 → JERBED 05-25 02:27 → J4S 05-25 20:29
PROVIDERS: ADMIT Internal Medicine; ATTEND Internal Medicine
DX: C34.91 Malignant neoplasm of unspecified part of right bronchus or lung (principal); I50.33 Acute on chronic diastolic (congestive) heart failure; J18.9 Pneumonia, unspecified organism; I13.0 Hypertensive heart and chronic kidney disease with heart failure and stage 1 through stage 4 chronic kidney disease, or unspecified chronic kidney disease; J91.0 Malignant pleural effusion; I47.1 Supraventricular tachycardia; J44.1 Chronic obstructive pulmonary disease with (acute) exacerbation; C67.9 Malignant neoplasm of bladder, unspecified; N18.9 Chronic kidney disease, unspecified; E78.5 Hyperlipidemia, unspecified; I25.10 Atherosclerotic heart disease of native coronary artery without angina pectoris; Z95.5 Presence of coronary angioplasty implant and graft; K59.00 Constipation, unspecified; K21.9 Gastro-esophageal reflux disease without esophagitis
CPT/HCPCS: 0241U-QW; 36415; 36600; 70450-TC; 71045-TC-FY; 71250-TC; 72125-TC; 80048; 80053; 82553; 82803; 83605; 83735; 83880; 84100; 84484; 85025; 85027; 85610; 85651; 85730; 86140; 86850; 86900; 86901; 87040; 87070; 87205; 93005; 93010; 93970-TC; 94640; 97116-GP; 97161-GP; 99285-25

== ENCOUNTER 2023-06-05 19:01 | Inpatient (IN) | payer OTHER, MEDICARE ==
[2023-06-05 19:06] VITALS: BMI 28.7
[2023-06-05 21:14] LABS: VENOUS O2 SATURATION 49.9 % (70-80); VENOUS PCO2 50.1 mmHg (38-52); VENOUS PH 7.393 (7.310-7.410)
[2023-06-05 21:16] LABS: BASO % 0.4 % (0-2.0); EOS % 3.7 % (0-4.5); HEMATOCRIT 37.3 % (35.4-49); LYMPH % 8.9 % (8-40); MCH 24.8 pg (25.7-33.7); MCHC 32.2 g/dl (32.0-35.9); MEAN PLT VOLUME 8.1 fl (7.5-11.1); PLATELET COUNT 275 10^3/uL (134-434); RBC 4.85 M/mm3 (4.00-5.60); RDW 17.4 % (11.9-15.9); WHITE BLOOD COUNT 11.6 K/mm3 (4.0-10.0)
[2023-06-05 21:25] LABS: INR 1.17 (0.83-1.09); PROTHROMBIN TIME (PATIENT) 13.5 SEC (9.7-13.0)
[2023-06-05 21:27] LABS: ACTIVATED PTT 29.8 SECONDS (25.2-36.5)
[2023-06-05 21:32] LABS: POTASSIUM 3.9 mmol/L (3.5-5.1)
[2023-06-05 21:34] LABS: CALCIUM 8.4 mg/dL (8.5-10.1)
[2023-06-05 21:35] LABS: ALBUMIN 2.9 g/dl (3.4-5.0); BLOOD UREA NITROGEN 45.5 mg/dL (7-18)
[2023-06-05 21:38] LABS: CREATININE 1.2 mg/dL (0.55-1.3); PHOSPHOROUS 3.2 mg/dL (2.5-4.9)
[2023-06-05 21:40] LABS: BILIRUBIN,TOTAL 0.4 mg/dL (0.2-1); TOT PROT 6.4 g/dl (6.4-8.2)
[2023-06-05] MEDS ORDERED: clonazePAM 0.5 MG TABLET PO ONE (22:06)
[2023-06-05] MEDS ORDERED: clonazePAM 0.5 MG TABLET ONE (22:54)
[2023-06-06] MEDS ORDERED: ACETAMINOPHEN 325 MG TABLET (FP) PO PRN (00:55)
[2023-06-06] MEDS: FUROSEMIDE 40 MG/4 ML INJECTABLE VIAL IVPUSH SCH ×2 (01:00→16:29)
[2023-06-06] MEDS ORDERED: FUROSEMIDE 40 MG/4 ML INJECTABLE VIAL ONE ×2 (02:40→15:59)
[2023-06-06] MEDS ORDERED: FUROSEMIDE 40 MG TABLET (FP) PO SCH ×2 (06:00→10:00)
[2023-06-06] MEDS ORDERED: METOPROLOL TARTRATE 25 MG TABLET (FP) ONE ×3 (07:09→22:46)
[2023-06-06 08:12] LABS: BASO % 0.7 % (0-2.0); EOS % 5.9 % (0-4.5); HEMATOCRIT 34.9 % (35.4-49); HEMOGLOBIN 11.5 GM/dL (11.7-16.9); LYMPH % 8.8 % (8-40); MCH 25.3 pg (25.7-33.7); MEAN CELL VOLUME 76.5 fl (80-96); MEAN PLT VOLUME 8.4 fl (7.5-11.1); MONO % 11.3 % (3.8-10.2); NEUT % 73.3 % (42.8-82.8); PLATELET COUNT 247 10^3/uL (134-434); RBC 4.56 M/mm3 (4.00-5.60); RDW 17.4 % (11.9-15.9); WHITE BLOOD COUNT 9.2 K/mm3 (4.0-10.0)
[2023-06-06 08:30] LABS: POTASSIUM 3.4 mmol/L (3.5-5.1)
[2023-06-06 08:33] LABS: CALCIUM 8.5 mg/dL (8.5-10.1)
[2023-06-06 08:34] LABS: ALBUMIN 2.6 g/dl (3.4-5.0); BLOOD UREA NITROGEN 40.9 mg/dL (7-18)
[2023-06-06 08:37] LABS: PHOSPHOROUS 3.2 mg/dL (2.5-4.9)
[2023-06-06 08:38] LABS: BILIRUBIN,TOTAL 0.6 mg/dL (0.2-1)
[2023-06-06 08:40] LABS: N-TERMINAL BNP 4759.6 pg/ml (5-450)
[2023-06-06] MEDS ORDERED: POTASSIUM CHLORIDE ORAL LIQUID 20 MEQ/15 ML PO ONE (08:55)
[2023-06-06] MEDS: METOPROLOL TARTRATE 50 MG TABLET (FP) PO SCH ×3 (09:30→22:50)
[2023-06-06] MEDS ORDERED: POTASSIUM CHLORIDE ORAL LIQUID 20 MEQ/15 ML ONE (09:58)
[2023-06-06] MEDS ORDERED: APIXABAN 5 MG TABLET ONE (11:45)
[2023-06-06] MEDS ORDERED: LIDOCAINE 5% TOPICAL PATCH ONE (11:45)
[2023-06-06] MEDS: APIXABAN 2.5 MG TABLET PO SCH ×2 (11:50→22:46)
[2023-06-06] MEDS: LIDOCAINE 5% TOPICAL PATCH TP SCH (11:50)
[2023-06-06] MEDS: ALLOPURINOL 300 MG TABLET (FP) PO SCH (11:51)
[2023-06-06] MEDS ORDERED: clonazePAM 0.5 MG TABLET ONE (15:58)
[2023-06-06] MEDS: clonazePAM 0.5 MG TABLET PO PRN (16:04)
[2023-06-06] MEDS ORDERED: APIXABAN 2.5 MG TABLET ONE (22:41)
[2023-06-06] MEDS ORDERED: ATORVASTATIN CA 20 MG TABLET (FP) ONE (22:41)
[2023-06-06] MEDS: ATORVASTATIN CA 20 MG TABLET (FP) PO SCH (22:46)
[2023-06-06] MEDS: LIDOCAINE PATCH REMOVAL MC SCH (22:51)
[2023-06-07] MEDS ORDERED: FUROSEMIDE 40 MG TABLET (FP) ONE (06:48)
[2023-06-07] MEDS ORDERED: METOPROLOL TARTRATE 25 MG TABLET (FP) ONE (06:48)
[2023-06-07] MEDS: FUROSEMIDE 40 MG/4 ML INJECTABLE VIAL IVPUSH SCH ×2 (06:56→15:15)
[2023-06-07] MEDS: METOPROLOL TARTRATE 50 MG TABLET (FP) PO SCH (06:56)
[2023-06-07 08:02] LABS: BASO % 0.5 % (0-2.0); HEMATOCRIT 34.8 % (35.4-49); HEMOGLOBIN 11.4 GM/dL (11.7-16.9); LYMPH % 9.1 % (8-40); MCH 25.1 pg (25.7-33.7); MCHC 32.8 g/dl (32.0-35.9); MEAN CELL VOLUME 76.6 fl (80-96); MEAN PLT VOLUME 8.4 fl (7.5-11.1); MONO % 12.4 % (3.8-10.2); PLATELET COUNT 230 10^3/uL (134-434); RBC 4.55 M/mm3 (4.00-5.60); RDW 17.5 % (11.9-15.9)
[2023-06-07 08:26] LABS: POTASSIUM 3.4 mmol/L (3.5-5.1)
[2023-06-07 08:28] LABS: CALCIUM 8.6 mg/dL (8.5-10.1)
[2023-06-07 08:29] LABS: ALBUMIN 2.7 g/dl (3.4-5.0); BLOOD UREA NITROGEN 31.5 mg/dL (7-18)
[2023-06-07 08:32] LABS: CREATININE 1.1 mg/dL (0.55-1.3)
[2023-06-07 08:33] LABS: BILIRUBIN,TOTAL 0.5 mg/dL (0.2-1)
[2023-06-07] MEDS ORDERED: LIDOCAINE 5% TOPICAL PATCH ONE (10:59)
[2023-06-07] MEDS: LIDOCAINE 5% TOPICAL PATCH TP SCH (11:03)
[2023-06-07] MEDS: ALLOPURINOL 300 MG TABLET (FP) PO SCH (11:11)
[2023-06-07] MEDS: APIXABAN 2.5 MG TABLET PO SCH ×2 (11:11→21:21)
[2023-06-07] MEDS ORDERED: clonazePAM 0.5 MG TABLET ONE (11:46)
[2023-06-07] MEDS ORDERED: ALBUTEROL SO4 2.5/IPRATROPIUM 0.5 INH SOL 3 ML VIAL.NEB. NEB ONE (11:46)
[2023-06-07] MEDS: ALBUTEROL SO4 2.5/IPRATROPIUM 0.5 INH SOL 3 ML VIAL.NEB. NEB SCH ×3 (11:55→20:14)
[2023-06-07] MEDS: clonazePAM 0.5 MG TABLET PO PRN (11:56)
[2023-06-07] MEDS: METOPROLOL TARTRATE 25 MG TABLET (FP) PO SCH ×2 (15:16→21:21)
[2023-06-07] MEDS: ATORVASTATIN CA 20 MG TABLET (FP) PO SCH (21:21)
[2023-06-07] MEDS: LIDOCAINE PATCH REMOVAL MC SCH (21:25)
[2023-06-08] MEDS: METOPROLOL TARTRATE 25 MG TABLET (FP) PO SCH ×3 (05:47→21:17)
[2023-06-08] MEDS: ALBUTEROL SO4 2.5/IPRATROPIUM 0.5 INH SOL 3 ML VIAL.NEB. NEB SCH ×4 (08:30→20:05)
[2023-06-08] MEDS: FUROSEMIDE 40 MG TABLET (FP) PO SCH (09:12)
[2023-06-08] MEDS: POLYETHYLENE GLYCOL (HEALTHYLAX) 3350 17 GM PACKET PO SCH (09:12)
[2023-06-08] MEDS: ALLOPURINOL 300 MG TABLET (FP) PO SCH (09:12)
[2023-06-08] MEDS: APIXABAN 2.5 MG TABLET PO SCH ×2 (09:12→21:17)
[2023-06-08] MEDS: LIDOCAINE 5% TOPICAL PATCH TP SCH (09:13)
[2023-06-08] MEDS: clonazePAM 0.5 MG TABLET PO PRN (16:15)
[2023-06-08] MEDS ORDERED: POTASSIUM CHLORIDE TABS 10 MEQ TABLET.ER (FP) PO ONE (16:42)
[2023-06-08] MEDS: ATORVASTATIN CA 20 MG TABLET (FP) PO SCH (21:18)
[2023-06-08] MEDS: LIDOCAINE PATCH REMOVAL MC SCH (21:19)
[2023-06-09] MEDS: METOPROLOL TARTRATE 25 MG TABLET (FP) PO SCH ×3 (06:17→22:01)
[2023-06-09] MEDS: ALBUTEROL SO4 2.5/IPRATROPIUM 0.5 INH SOL 3 ML VIAL.NEB. NEB SCH ×4 (08:08→19:40)
[2023-06-09] MEDS: ALLOPURINOL 300 MG TABLET (FP) PO SCH (09:30)
[2023-06-09] MEDS: LIDOCAINE 5% TOPICAL PATCH TP SCH (09:30)
[2023-06-09] MEDS: APIXABAN 2.5 MG TABLET PO SCH ×2 (09:30→22:01)
[2023-06-09] MEDS: POLYETHYLENE GLYCOL (HEALTHYLAX) 3350 17 GM PACKET PO SCH (09:30)
[2023-06-09] MEDS: FUROSEMIDE 40 MG TABLET (FP) PO SCH (09:30)
[2023-06-09 09:53] LABS: HEMATOCRIT 32.8 % (35.4-49); HEMOGLOBIN 10.8 GM/dL (11.7-16.9); MCH 25.3 pg (25.7-33.7); MCHC 32.8 g/dl (32.0-35.9); MEAN CELL VOLUME 77.3 fl (80-96); MEAN PLT VOLUME 8.7 fl (7.5-11.1); PLATELET COUNT 227 10^3/uL (134-434); RBC 4.24 M/mm3 (4.00-5.60); RDW 17.4 % (11.9-15.9); WHITE BLOOD COUNT 11.5 K/mm3 (4.0-10.0)
[2023-06-09 11:00] LABS: POTASSIUM 3.7 mmol/L (3.5-5.1)
[2023-06-09 11:08] LABS: ALBUMIN 2.4 g/dl (3.4-5.0)
[2023-06-09 11:09] LABS: BLOOD UREA NITROGEN 25.8 mg/dL (7-18)
[2023-06-09 11:10] LABS: CALCIUM 8.2 mg/dL (8.5-10.1)
[2023-06-09 11:12] LABS: CREATININE 1.1 mg/dL (0.55-1.3); PHOSPHOROUS 2.6 mg/dL (2.5-4.9)
[2023-06-09 11:13] LABS: BILIRUBIN,TOTAL 0.7 mg/dL (0.2-1); TOT PROT 5.8 g/dl (6.4-8.2)
[2023-06-09] MEDS: clonazePAM 0.5 MG TABLET PO PRN (22:01)
[2023-06-09] MEDS: ATORVASTATIN CA 20 MG TABLET (FP) PO SCH (22:01)
[2023-06-09] MEDS: LIDOCAINE PATCH REMOVAL MC SCH (22:02)
[2023-06-10] MEDS ORDERED: ALBUTEROL SO4 2.5/IPRATROPIUM 0.5 INH SOL 3 ML VIAL.NEB. NEB ONE (05:55)
[2023-06-10] MEDS: METOPROLOL TARTRATE 25 MG TABLET (FP) PO SCH ×3 (06:08→21:58)
[2023-06-10 07:20] LABS: HEMATOCRIT 33.3 % (35.4-49); HEMOGLOBIN 10.6 GM/dL (11.7-16.9); MCHC 31.7 g/dl (32.0-35.9); MEAN PLT VOLUME 8.7 fl (7.5-11.1); PLATELET COUNT 202 10^3/uL (134-434); RBC 4.22 M/mm3 (4.00-5.60); RDW 17.6 % (11.9-15.9); WHITE BLOOD COUNT 10.6 K/mm3 (4.0-10.0)
[2023-06-10 07:43] LABS: POTASSIUM 3.7 mmol/L (3.5-5.1)
[2023-06-10 07:45] LABS: CALCIUM 8.5 mg/dL (8.5-10.1)
[2023-06-10 07:46] LABS: ALBUMIN 2.4 g/dl (3.4-5.0); BLOOD UREA NITROGEN 26.6 mg/dL (7-18); MAGNESIUM 1.9 mg/dL (1.8-2.4)
[2023-06-10] MEDS: ALBUTEROL SO4 2.5/IPRATROPIUM 0.5 INH SOL 3 ML VIAL.NEB. NEB SCH ×4 (07:47→19:52)
[2023-06-10 07:49] LABS: CREATININE 0.9 mg/dL (0.55-1.3)
[2023-06-10 07:50] LABS: TOT PROT 5.6 g/dl (6.4-8.2)
[2023-06-10 07:51] LABS: BILIRUBIN,TOTAL 0.6 mg/dL (0.2-1)
[2023-06-10] MEDS: FUROSEMIDE 40 MG TABLET (FP) PO SCH (09:44)
[2023-06-10] MEDS: ALLOPURINOL 300 MG TABLET (FP) PO SCH (09:45)
[2023-06-10] MEDS: POLYETHYLENE GLYCOL (HEALTHYLAX) 3350 17 GM PACKET PO SCH (09:45)
[2023-06-10] MEDS: LIDOCAINE 5% TOPICAL PATCH TP SCH (09:45)
[2023-06-10] MEDS: APIXABAN 2.5 MG TABLET PO SCH ×2 (09:45→21:58)
[2023-06-10] MEDS: LIDOCAINE PATCH REMOVAL MC SCH (21:49)
[2023-06-10] MEDS: ATORVASTATIN CA 20 MG TABLET (FP) PO SCH (21:58)
[2023-06-10] MEDS: clonazePAM 0.5 MG TABLET PO PRN (21:59)
[2023-06-11] MEDS ORDERED: ALBUTEROL SO4 2.5/IPRATROPIUM 0.5 INH SOL 3 ML VIAL.NEB. NEB ONE (02:45)
[2023-06-11] MEDS: METOPROLOL TARTRATE 25 MG TABLET (FP) PO SCH ×3 (06:41→21:22)
[2023-06-11] MEDS: ALBUTEROL SO4 2.5/IPRATROPIUM 0.5 INH SOL 3 ML VIAL.NEB. NEB SCH ×4 (07:36→20:00)
[2023-06-11 08:10] LABS: HEMATOCRIT 33.6 % (35.4-49); HEMOGLOBIN 10.5 GM/dL (11.7-16.9); MCH 24.7 pg (25.7-33.7); MCHC 31.2 g/dl (32.0-35.9); MEAN CELL VOLUME 79.3 fl (80-96); MEAN PLT VOLUME 8.9 fl (7.5-11.1); PLATELET COUNT 206 10^3/uL (134-434); RBC 4.24 M/mm3 (4.00-5.60); RDW 17.6 % (11.9-15.9); WHITE BLOOD COUNT 9.2 K/mm3 (4.0-10.0)
[2023-06-11 08:36] LABS: CALCIUM 8.4 mg/dL (8.5-10.1)
[2023-06-11 08:37] LABS: ALBUMIN 2.4 g/dl (3.4-5.0); BLOOD UREA NITROGEN 27.6 mg/dL (7-18)
[2023-06-11 08:39] LABS: PHOSPHOROUS 3.2 mg/dL (2.5-4.9)
[2023-06-11 08:41] LABS: BILIRUBIN,TOTAL 0.4 mg/dL (0.2-1); TOT PROT 5.8 g/dl (6.4-8.2)
[2023-06-11] MEDS: APIXABAN 2.5 MG TABLET PO SCH ×2 (09:46→21:27)
[2023-06-11] MEDS: POLYETHYLENE GLYCOL (HEALTHYLAX) 3350 17 GM PACKET PO SCH (09:46)
[2023-06-11] MEDS: LIDOCAINE 5% TOPICAL PATCH TP SCH (09:46)
[2023-06-11] MEDS: FUROSEMIDE 40 MG TABLET (FP) PO SCH (09:46)
[2023-06-11] MEDS: ALLOPURINOL 300 MG TABLET (FP) PO SCH (09:46)
[2023-06-11] MEDS: clonazePAM 0.5 MG TABLET PO PRN (20:22)
[2023-06-11] MEDS: ATORVASTATIN CA 20 MG TABLET (FP) PO SCH (21:22)
[2023-06-11] MEDS: LIDOCAINE PATCH REMOVAL MC SCH (21:27)
[2023-06-12] MEDS: ALBUTEROL SO4 2.5/IPRATROPIUM 0.5 INH SOL 3 ML VIAL.NEB. NEB SCH (08:42)
[2023-06-12] MEDS: APIXABAN 2.5 MG TABLET PO SCH ×2 (09:40→22:01)
[2023-06-12] MEDS: METOPROLOL TARTRATE 25 MG TABLET (FP) PO SCH ×2 (09:40→22:00)
[2023-06-12] MEDS: ALLOPURINOL 300 MG TABLET (FP) PO SCH (09:40)
[2023-06-12] MEDS: FUROSEMIDE 40 MG TABLET (FP) PO SCH (09:40)
[2023-06-12] MEDS: LIDOCAINE 5% TOPICAL PATCH TP SCH (09:42)
[2023-06-12] MEDS: POLYETHYLENE GLYCOL (HEALTHYLAX) 3350 17 GM PACKET PO SCH (09:42)
[2023-06-12 10:10] LABS: HEMATOCRIT 34.4 % (35.4-49); HEMOGLOBIN 10.9 GM/dL (11.7-16.9); MCHC 31.6 g/dl (32.0-35.9); MEAN CELL VOLUME 79.3 fl (80-96); MEAN PLT VOLUME 8.9 fl (7.5-11.1); PLATELET COUNT 225 10^3/uL (134-434); RBC 4.34 M/mm3 (4.00-5.60); RDW 17.7 % (11.9-15.9); WHITE BLOOD COUNT 8.9 K/mm3 (4.0-10.0)
[2023-06-12 10:11] LABS: POTASSIUM 4.2 mmol/L (3.5-5.1)
[2023-06-12 10:17] LABS: CALCIUM 8.9 mg/dL (8.5-10.1)
[2023-06-12 10:19] LABS: ALBUMIN 2.3 g/dl (3.4-5.0); BLOOD UREA NITROGEN 24.4 mg/dL (7-18); MAGNESIUM 1.9 mg/dL (1.8-2.4)
[2023-06-12 10:22] LABS: PHOSPHOROUS 2.9 mg/dL (2.5-4.9)
[2023-06-12 10:23] LABS: BILIRUBIN,TOTAL 0.4 mg/dL (0.2-1); TOT PROT 5.8 g/dl (6.4-8.2)
[2023-06-12] MEDS: ALBUTEROL SO4 2.5/IPRATROPIUM 0.5 INH SOL 3 ML VIAL.NEB. NEB PRN (16:43)
[2023-06-12] MEDS: clonazePAM 0.5 MG TABLET PO PRN (22:00)
[2023-06-12] MEDS: ATORVASTATIN CA 20 MG TABLET (FP) PO SCH (22:01)
[2023-06-12] MEDS: LIDOCAINE PATCH REMOVAL MC SCH (22:01)
[2023-06-12 23:23] VITALS: RESP 20
[2023-06-13 06:19] LABS: HEMATOCRIT 32.8 % (35.4-49); HEMOGLOBIN 10.5 GM/dL (11.7-16.9); MCH 25.1 pg (25.7-33.7); MCHC 32.1 g/dl (32.0-35.9); MEAN CELL VOLUME 78.3 fl (80-96); MEAN PLT VOLUME 8.4 fl (7.5-11.1); PLATELET COUNT 238 10^3/uL (134-434); RBC 4.19 M/mm3 (4.00-5.60); RDW 17.4 % (11.9-15.9); WHITE BLOOD COUNT 8.5 K/mm3 (4.0-10.0)
[2023-06-13 06:38] LABS: POTASSIUM 4.2 mmol/L (3.5-5.1)
[2023-06-13 06:41] LABS: ALBUMIN 2.3 g/dl (3.4-5.0); BLOOD UREA NITROGEN 24.6 mg/dL (7-18); CALCIUM 8.3 mg/dL (8.5-10.1); MAGNESIUM 1.8 mg/dL (1.8-2.4)
[2023-06-13 06:45] LABS: BILIRUBIN,TOTAL 0.4 mg/dL (0.2-1); CREATININE 0.9 mg/dL (0.55-1.3); PHOSPHOROUS 3.4 mg/dL (2.5-4.9); TOT PROT 5.7 g/dl (6.4-8.2)
[2023-06-13] MEDS: APIXABAN 2.5 MG TABLET PO SCH (09:23)
[2023-06-13] MEDS: FUROSEMIDE 40 MG TABLET (FP) PO SCH (09:23)
[2023-06-13] MEDS: METOPROLOL TARTRATE 25 MG TABLET (FP) PO SCH (09:26)
[2023-06-13] MEDS: POLYETHYLENE GLYCOL (HEALTHYLAX) 3350 17 GM PACKET PO SCH (09:30)
[2023-06-13] MEDS: LIDOCAINE 5% TOPICAL PATCH TP SCH (09:31)
[2023-06-13] MEDS: ALBUTEROL SO4 2.5/IPRATROPIUM 0.5 INH SOL 3 ML VIAL.NEB. NEB PRN (09:36)
[2023-06-13] MEDS ORDERED: COLCHICINE 0.6 MG CAP PO ONE (10:38)
[2023-06-13] MEDS ORDERED: COLCHICINE 0.6 MG TAB PO ONE (10:45)
[2023-06-13] MEDS: ALLOPURINOL 300 MG TABLET (FP) PO SCH (11:17)
[2023-06-13 13:32] VITALS: BP 124/74; PULSE 82; TEMP 98.2
== END 2023-06-13 13:41 | disposition home or self-care (01) | DRG 291 ==
LOC: JER 19:01 → JERBED 22:11 → OBSVTOIN 22:43 → J4S 06-07 15:32
PROVIDERS: ADMIT Internal Medicine; ATTEND Internal Medicine
DX: I13.0 Hypertensive heart and chronic kidney disease with heart failure and stage 1 through stage 4 chronic kidney disease, or unspecified chronic kidney disease (principal); I50.33 Acute on chronic diastolic (congestive) heart failure; C34.31 Malignant neoplasm of lower lobe, right bronchus or lung; J96.11 Chronic respiratory failure with hypoxia; D68.69 Other thrombophilia; I24.8 Other forms of acute ischemic heart disease; I45.2 Bifascicular block; I47.1 Supraventricular tachycardia; J91.0 Malignant pleural effusion; I25.10 Atherosclerotic heart disease of native coronary artery without angina pectoris; J44.9 Chronic obstructive pulmonary disease, unspecified; Z85.51 Personal history of malignant neoplasm of bladder; D50.9 Iron deficiency anemia, unspecified; I45.10 Unspecified right bundle-branch block; N18.30 Chronic kidney disease, stage 3 unspecified; E78.5 Hyperlipidemia, unspecified; M10.9 Gout, unspecified; Z86.711 Personal history of pulmonary embolism
CPT/HCPCS: 0241U-QW; 36415; 71045-TC-FY; 71250-TC; 80053; 80061; 82803; 83036; 83735; 83880; 84100; 84443; 84484; 85025; 85027; 85610; 85730; 93005; 93010; 94640; 97116-GP; 97161-GP; 99285-25; G0378

== ENCOUNTER 2023-06-27 09:40 | Inpatient (IN) | payer OTHER, MEDICARE ==
[2023-06-27 10:12] VITALS: BMI 36.2
[2023-06-27] MEDS ORDERED: SODIUM CHLORIDE 0.9% 500 ML INFUS.BAG IV ONE (11:22)
[2023-06-27 11:55] LABS: BASO % 0.9 % (0-2.0); EOS % 6.2 % (0-4.5); HEMATOCRIT 38.7 % (35.4-49); HEMOGLOBIN 12.1 GM/dL (11.7-16.9); LYMPH % 8.5 % (8-40); MCH 24.4 pg (25.7-33.7); MCHC 31.2 g/dl (32.0-35.9); MEAN CELL VOLUME 78.2 fl (80-96); MEAN PLT VOLUME 8.4 fl (7.5-11.1); MONO % 8.3 % (3.8-10.2); NEUT % 76.1 % (42.8-82.8); PLATELET COUNT 394 10^3/uL (134-434); RBC 4.95 M/mm3 (4.00-5.60); RDW 17.8 % (11.9-15.9); WHITE BLOOD COUNT 10.8 K/mm3 (4.0-10.0)
[2023-06-27 12:02] LABS: INR 1.31 (0.83-1.09); PROTHROMBIN TIME (PATIENT) 15.1 SEC (9.7-13.0)
[2023-06-27 12:05] LABS: ACTIVATED PTT 32.4 SECONDS (25.2-36.5)
[2023-06-27 12:13] LABS: CHLORIDE 105 mmol/L (98-107); POTASSIUM 4.5 mmol/L (3.5-5.1); SODIUM 137 mmol/L (136-145)
[2023-06-27 12:15] LABS: CALCIUM 8.4 mg/dL (8.5-10.1)
[2023-06-27 12:16] LABS: ALBUMIN 2.9 g/dl (3.4-5.0); ANION GAP 5 MMOL/L (8-16); BLOOD UREA NITROGEN 45.2 mg/dL (7-18); CO2 27 mmol/L (21-32); GLUCOSE,RANDOM 107 mg/dL (74-106)
[2023-06-27 12:19] LABS: CREATININE 1.6 mg/dL (0.55-1.3); SGOT/AST 25 U/L (15-37); SGPT/ALT 18 U/L (13-61)
[2023-06-27 12:20] LABS: BILIRUBIN,TOTAL 0.4 mg/dL (0.2-1)
[2023-06-27 12:21] LABS: TOT PROT 6.6 g/dl (6.4-8.2)
[2023-06-27 12:22] LABS: ALK PHOS 93 U/L (45-117)
[2023-06-27 12:45] LABS: VENOUS BASE EXCESS -4.5 mmol/L (-2-2); VENOUS O2 SATURATION 23.2 % (70-80); VENOUS PCO2 55.2 mmHg (38-52); VENOUS PH 7.245 (7.310-7.410)
[2023-06-27 13:36] LABS: EPI CELLS 18 /uL (0-25.1); HYALINE CASTS 17 /uL (0-3.1); PH,URINE 5.5 (5.0-8.0); URINE APPEARANCE CLOUDY; URINE BACTERIA 1621 /uL (0-1359); URINE BILIRUBIN NEGATIVE (NEGATIVE); URINE COLOR YELLOW; URINE GLUCOSE (UA) NEGATIVE (NEGATIVE); URINE KETONE NEGATIVE (NEGATIVE); URINE LEUK ESTERASE 3+ (NEGATIVE); URINE NITRITE POSITIVE (NEGATIVE); URINE PROTEIN TRACE (NEGATIVE); URINE RBC 13 /uL (0-23.9); URINE UROBILINOGEN 0.2 mg/dL (0.2-1.0); URINE WBC 407 /uL (0-25.8)
[2023-06-27 13:38] LABS: YEAST NEGATIVE (NEGATIVE)
[2023-06-27] MEDS ORDERED: LEVALBUTEROL HCL 0.63 MG/3 ML VIAL.NEB. IH PRN (14:39)
[2023-06-27] MEDS ORDERED: CEFTRIAXONE 1 GM/50 ML BAG ONE (15:02)
[2023-06-27] MEDS: FLUTICASONE/UMECLIDIN/VILANTER(200-62.5-25 TRELEGY ELLIPTA) INAHLER IH SCH (15:54)
[2023-06-27] MEDS ORDERED: POLYETHYLENE GLYCOL (HEALTHYLAX) 3350 17 GM PACKET ONE (17:22)
[2023-06-27] MEDS ORDERED: POLYETHYLENE GLYCOL (HEALTHYLAX) 3350 17 GM PACKET PO ONE (17:30)
[2023-06-27] MEDS ORDERED: clonazePAM 0.5 MG TABLET PO PRN (17:51)
[2023-06-27] MEDS ORDERED: METOPROLOL TARTRATE 25 MG TABLET (FP) PO ONE (17:52)
[2023-06-27] MEDS ORDERED: METOPROLOL TARTRATE 25 MG TABLET (FP) ONE ×3 (17:56→21:24)
[2023-06-27] MEDS ORDERED: MELATONIN 5 MG TABLETS PO PRN (21:08)
[2023-06-27] MEDS ORDERED: clonazePAM 0.5 MG TABLET ONE (21:12)
[2023-06-27] MEDS ORDERED: ATORVASTATIN CA 20 MG TABLET (FP) ONE (21:13)
[2023-06-27] MEDS ORDERED: GABAPENTIN 300 MG CAPSULE ONE (21:13)
[2023-06-27] MEDS ORDERED: MELATONIN 5 MG TABLETS ONE ×2 (21:13→21:25)
[2023-06-27] MEDS ORDERED: APIXABAN 2.5 MG TABLET ONE ×2 (21:13→21:26)
[2023-06-27] MEDS: ATORVASTATIN CA 20 MG TABLET (FP) PO SCH (21:30)
[2023-06-27] MEDS: METOPROLOL TARTRATE 25 MG TABLET (FP) PO SCH (21:30)
[2023-06-27] MEDS: LIDOCAINE PATCH REMOVAL MC SCH (21:30)
[2023-06-27] MEDS: guaiFENesin 600 MG TABLET.ER (FP) PO SCH (21:30)
[2023-06-27] MEDS: APIXABAN 2.5 MG TABLET PO SCH (21:30)
[2023-06-27] MEDS: GABAPENTIN 300 MG CAPSULE PO SCH (21:33)
[2023-06-28] MEDS ORDERED: GABAPENTIN 300 MG CAPSULE ONE (06:42)
[2023-06-28] MEDS ORDERED: METOPROLOL TARTRATE 25 MG TABLET (FP) ONE (06:42)
[2023-06-28] MEDS: GABAPENTIN 300 MG CAPSULE PO SCH ×3 (06:45→21:18)
[2023-06-28] MEDS: METOPROLOL TARTRATE 25 MG TABLET (FP) PO SCH ×3 (06:45→22:24)
[2023-06-28] MEDS ORDERED: LEVALBUTEROL HCL 0.63 MG/3 ML VIAL.NEB. IH ONE (07:40)
[2023-06-28 08:07] LABS: BASO % 1.7 % (0-2.0); EOS % 6.1 % (0-4.5); HEMATOCRIT 36.3 % (35.4-49); HEMOGLOBIN 11.3 GM/dL (11.7-16.9); LYMPH % 9.1 % (8-40); MCH 24.4 pg (25.7-33.7); MCHC 31.2 g/dl (32.0-35.9); MEAN CELL VOLUME 78.3 fl (80-96); MEAN PLT VOLUME 8.9 fl (7.5-11.1); MONO % 10.4 % (3.8-10.2); NEUT % 72.7 % (42.8-82.8); PLATELET COUNT 362 10^3/uL (134-434); RBC 4.63 M/mm3 (4.00-5.60); RDW 17.5 % (11.9-15.9); WHITE BLOOD COUNT 12.2 K/mm3 (4.0-10.0)
[2023-06-28 08:23] LABS: CHLORIDE 104 mmol/L (98-107); SODIUM 137 mmol/L (136-145)
[2023-06-28 08:28] LABS: ALBUMIN 2.7 g/dl (3.4-5.0)
[2023-06-28 08:29] LABS: BLOOD UREA NITROGEN 51.5 mg/dL (7-18); CALCIUM 8.2 mg/dL (8.5-10.1)
[2023-06-28 08:30] LABS: ANION GAP 9 MMOL/L (8-16); CO2 23 mmol/L (21-32); GLUCOSE,RANDOM 96 mg/dL (74-106)
[2023-06-28 08:33] LABS: CREATININE 1.8 mg/dL (0.55-1.3); SGOT/AST 20 U/L (15-37); SGPT/ALT 17 U/L (13-61)
[2023-06-28 08:34] LABS: BILIRUBIN,TOTAL 0.3 mg/dL (0.2-1)
[2023-06-28 08:35] LABS: ALK PHOS 84 U/L (45-117)
[2023-06-28] MEDS ORDERED: FUROSEMIDE 40 MG TABLET (FP) PO SCH (10:00)
[2023-06-28] MEDS ORDERED: CEFTRIAXONE 1 GM/50 ML BAG ONE (10:12)
[2023-06-28] MEDS: CEFTRIAXONE 1 GM in DEXTROSE 5%-WATER - 50 ML IVPB SCH (10:26)
[2023-06-28] MEDS: POLYETHYLENE GLYCOL (HEALTHYLAX) 3350 17 GM PACKET PO SCH (10:26)
[2023-06-28] MEDS: APIXABAN 2.5 MG TABLET PO SCH ×2 (10:26→21:18)
[2023-06-28] MEDS: FLUTICASONE/UMECLIDIN/VILANTER(200-62.5-25 TRELEGY ELLIPTA) INAHLER IH SCH (10:26)
[2023-06-28] MEDS: ALLOPURINOL 300 MG TABLET (FP) PO SCH (10:26)
[2023-06-28] MEDS: guaiFENesin 600 MG TABLET.ER (FP) PO SCH ×2 (10:26→21:18)
[2023-06-28] MEDS: LIDOCAINE 5% TOPICAL PATCH TP SCH (10:27)
[2023-06-28] MEDS ORDERED: methylPREDNISolone NA SUCC 125 MG/2 ML VIAL ONE (15:56)
[2023-06-28] MEDS: methylPREDNISolone NA SUCC 40 MG/1 ML VIAL IVPUSH SCH ×2 (16:13→18:08)
[2023-06-28] MEDS ORDERED: ADENOSINE 6 MG/2 ML VIAL IVPUSH ONE ×3 (17:09→17:16)
[2023-06-28] MEDS ORDERED: ADENOSINE 6 MG/2 ML VIAL IVPUSH STA (17:39)
[2023-06-28] MEDS ORDERED: DIGOXIN 0.5 MG/2 ML AMPUL IVPUSH ONE (20:00)
[2023-06-28] MEDS: ARFORMOTEROL TARTRATE 15 MCG/2 ML VIAL NEB SCH (20:30)
[2023-06-28] MEDS: BUDESONIDE 0.5 MG/2 ML INH SUSP VIAL NEB SCH (20:30)
[2023-06-28] MEDS: ATORVASTATIN CA 20 MG TABLET (FP) PO SCH (21:17)
[2023-06-28] MEDS: LIDOCAINE PATCH REMOVAL MC SCH (22:31)
[2023-06-28 23:28] LABS: EPI CELLS 7 /uL (0-25.1); HYALINE CASTS 14 /uL (0-3.1); URINE APPEARANCE CLOUDY; URINE BACTERIA 599 /uL (0-1359); URINE BILIRUBIN NEGATIVE (NEGATIVE); URINE COLOR YELLOW; URINE GLUCOSE (UA) NEGATIVE (NEGATIVE); URINE KETONE NEGATIVE (NEGATIVE); URINE LEUK ESTERASE 3+ (NEGATIVE); URINE NITRITE NEGATIVE (NEGATIVE); URINE PROTEIN 1+ (NEGATIVE); URINE RBC 24 /uL (0-23.9); URINE UROBILINOGEN 0.2 mg/dL (0.2-1.0); URINE WBC 995 /uL (0-25.8)
[2023-06-29] MEDS: methylPREDNISolone NA SUCC 40 MG/1 ML VIAL IVPUSH SCH ×3 (01:49→17:17)
[2023-06-29] MEDS: GABAPENTIN 300 MG CAPSULE PO SCH ×3 (06:07→22:44)
[2023-06-29] MEDS: METOPROLOL TARTRATE 25 MG TABLET (FP) PO SCH ×3 (06:07→22:43)
[2023-06-29] MEDS: BUDESONIDE 0.5 MG/2 ML INH SUSP VIAL NEB SCH ×2 (09:00→19:51)
[2023-06-29] MEDS: ARFORMOTEROL TARTRATE 15 MCG/2 ML VIAL NEB SCH ×2 (09:00→19:51)
[2023-06-29] MEDS: guaiFENesin 600 MG TABLET.ER (FP) PO SCH ×2 (09:43→22:43)
[2023-06-29] MEDS: CEFTRIAXONE 1 GM in DEXTROSE 5%-WATER - 50 ML IVPB SCH (09:44)
[2023-06-29] MEDS: APIXABAN 2.5 MG TABLET PO SCH ×2 (09:44→22:43)
[2023-06-29] MEDS: ALLOPURINOL 300 MG TABLET (FP) PO SCH (09:44)
[2023-06-29] MEDS: LIDOCAINE 5% TOPICAL PATCH TP SCH (09:45)
[2023-06-29] MEDS: POLYETHYLENE GLYCOL (HEALTHYLAX) 3350 17 GM PACKET PO SCH (09:45)
[2023-06-29] MEDS: TIOTROPIUM BROMIDE 2.5 MCG (SPIRIVA) RESPIMAT INHALER IH SCH (10:46)
[2023-06-29] MEDS: ATORVASTATIN CA 20 MG TABLET (FP) PO SCH (22:43)
[2023-06-29] MEDS: LIDOCAINE PATCH REMOVAL MC SCH (22:44)
[2023-06-30] MEDS: methylPREDNISolone NA SUCC 40 MG/1 ML VIAL IVPUSH SCH ×2 (01:14→09:29)
[2023-06-30 06:46] VITALS: TEMP 97.5
[2023-06-30] MEDS: METOPROLOL TARTRATE 25 MG TABLET (FP) PO SCH (06:54)
[2023-06-30] MEDS: GABAPENTIN 300 MG CAPSULE PO SCH (06:54)
[2023-06-30] MEDS: BUDESONIDE 0.5 MG/2 ML INH SUSP VIAL NEB SCH (08:45)
[2023-06-30] MEDS: ARFORMOTEROL TARTRATE 15 MCG/2 ML VIAL NEB SCH (08:45)
[2023-06-30 09:06] LABS: HEMATOCRIT 34.8 % (35.4-49); MCH 24.4 pg (25.7-33.7); MCHC 31.5 g/dl (32.0-35.9); MEAN CELL VOLUME 77.4 fl (80-96); MEAN PLT VOLUME 8.8 fl (7.5-11.1); PLATELET COUNT 354 10^3/uL (134-434); RDW 17.7 % (11.9-15.9); WHITE BLOOD COUNT 11.6 K/mm3 (4.0-10.0)
[2023-06-30 09:28] VITALS: BP 98/76; PULSE 109
[2023-06-30] MEDS: guaiFENesin 600 MG TABLET.ER (FP) PO SCH (09:29)
[2023-06-30] MEDS: APIXABAN 2.5 MG TABLET PO SCH (09:29)
[2023-06-30] MEDS: POLYETHYLENE GLYCOL (HEALTHYLAX) 3350 17 GM PACKET PO SCH (09:30)
[2023-06-30] MEDS: CEFTRIAXONE 1 GM in DEXTROSE 5%-WATER - 50 ML IVPB SCH (09:30)
[2023-06-30] MEDS: ALLOPURINOL 300 MG TABLET (FP) PO SCH (09:30)
[2023-06-30] MEDS: TIOTROPIUM BROMIDE 2.5 MCG (SPIRIVA) RESPIMAT INHALER IH SCH (09:34)
[2023-06-30 09:40] LABS: POTASSIUM 5.3 mmol/L (3.5-5.1)
[2023-06-30] MEDS: LIDOCAINE 5% TOPICAL PATCH TP SCH (09:45)
[2023-06-30 09:52] LABS: BLOOD UREA NITROGEN 72.8 mg/dL (7-18)
[2023-06-30 09:54] LABS: ALBUMIN 2.5 g/dl (3.4-5.0); CALCIUM 8.9 mg/dL (8.5-10.1)
[2023-06-30 09:57] LABS: CREATININE 1.9 mg/dL (0.55-1.3)
[2023-06-30 09:59] LABS: BILIRUBIN,TOTAL 0.2 mg/dL (0.2-1); TOT PROT 6.2 g/dl (6.4-8.2)
[2023-06-30 12:21] VITALS: RESP 19
[2023-06-30] MEDS ORDERED: methylPREDNISolone NA SUCC 40 MG/1 ML VIAL IVPUSH SCH (22:00)
== END 2023-06-30 12:40 | disposition short-term general hospital (02) | DRG 309 ==
LOC: JER 09:40 → JERBED 15:51 → J4S 06-28 18:02
PROVIDERS: ADMIT Internal Medicine; ATTEND Internal Medicine
DX: I47.1 Supraventricular tachycardia (principal); C34.90 Malignant neoplasm of unspecified part of unspecified bronchus or lung; N39.0 Urinary tract infection, site not specified; C79.9 Secondary malignant neoplasm of unspecified site; I13.0 Hypertensive heart and chronic kidney disease with heart failure and stage 1 through stage 4 chronic kidney disease, or unspecified chronic kidney disease; I50.32 Chronic diastolic (congestive) heart failure; J96.11 Chronic respiratory failure with hypoxia; N17.9 Acute kidney failure, unspecified; J91.0 Malignant pleural effusion; N18.30 Chronic kidney disease, stage 3 unspecified; J44.9 Chronic obstructive pulmonary disease, unspecified; R63.4 Abnormal weight loss; K21.9 Gastro-esophageal reflux disease without esophagitis; I25.10 Atherosclerotic heart disease of native coronary artery without angina pectoris; C67.9 Malignant neoplasm of bladder, unspecified; E78.5 Hyperlipidemia, unspecified; Z68.36 Body mass index [BMI] 36.0-36.9, adult; Z95.5 Presence of coronary angioplasty implant and graft; Z88.0 Allergy status to penicillin
CPT/HCPCS: 36415; 70450-TC; 71045-TC-FY; 71250-TC; 80053; 81003; 82550; 82553; 82570; 82803; 82962; 83605; 83880; 84300; 84439; 84443; 84484; 85025; 85027; 85610; 85730; 87040; 87086; 87186; 93005; 93010; 94640; 99291